=== PATIENT | female | born 1955 | race Caucasian/White ===

== ENCOUNTER → 2017-08-06 09:38 | Outpatient (REF) | payer MEDICAID, SELFPAY ==
[2017-08-06 09:43] LABS: Microscopic, Urine URINE MICROSCOPIC (MICROSCOPIC)
[2017-08-06 09:52] LABS: Appearance,Urine SL CLOUDY (Clear); Bilirubin,Urine Negative (Negative); Blood, Urine TRACE-I (Negative); Color,Urine YELLOW (Yellow); Glucose,Urine (UA) Negative (Negative); Ketones,Urine Negative (Negative); Leukocyte Esterase,Urine Negative (Negative); Nitrate,Urine Negative (Negative); PH,Urine 7.5 (5.0-8.5); Protein,Urine Negative (Negative)
[2017-08-06 10:07] LABS: Bacteria,Urine 3+ /lpf; RBC,Urine Occasional #/hpf (0-3)
== END ==
LOC: LAB 09:38
PROVIDERS: Visit Provider Internal Medicine
DX: E87.1 Hypo-osmolality and hyponatremia (principal)
CPT/HCPCS: 81001; 87086

== ENCOUNTER → 2017-09-05 07:48 | Outpatient (CLI) | payer MEDICAID, SELFPAY ==
--- NOTE | 2017-09-05 07:53 | US_ITS ---
US abdomen limited COMPARISON: 03/15/2017 HISTORY:Cirrhosis ORDERING PHYSICIAN: Wade Griffin PATIENT AGE: 61 years FINDINGS: Pancreas: Unremarkable. Liver: Course echogenicity consistent with cirrhosis. No biliary dilatation or focal mass apparent. There is appropriate direction of blood flow within the portal vein. The portal vein measures 10 mm. Right kidney: Unremarkable. Gallbladder: Mildly thickened wall. No stones, pericholecystic fluid or biliary dilatation. Gallbladder wall measures proximal reformatted millimeters. IMPRESSION: 1. Coarse echogenic appearance of the liver consistent with cirrhosis. Appropriate directional portal blood flow. Portal vein does not appear enlarged. 2. Mildly thickened gallbladder wall nonspecific
== END ==
PROVIDERS: Family Provider Emergency Medicine; PCP Internal Medicine; Visit Provider Internal Medicine
DX: K74.60 Unspecified cirrhosis of liver (principal)
CPT/HCPCS: 76705

== ENCOUNTER 2017-11-13 11:14 | Inpatient (IN) ==
[2017-11-13 12:10] LABS: Basophils % 0.5 % (0.1-2.0); Eosinophils # 0.1 K/mm3 (0.0-0.4); Eosinophils % 1.6 % (0.1-12.0); Hematocrit 49.6 % (37.0-47.0); Hemoglobin 15.1 g/dL (12.2-16.2); Lymphocytes # 2.3 K/mm3 (0.7-4.5); Lymphocytes % 39.6 K/mm3 (10-50); Mean Corpuscular HGB Conc 30.4 g/dL (31.8-35.4); Mean Corpuscular Hemoglobin 28.8 pg (27.0-31.2); Mean Platelet Volume 8.4 fl (7.4-10.4); Monocytes # 0.5 K/mm3 (0.1-1.0); Monocytes % 7.7 % (1.7-9.3); Neutrophils % 50.6 % (37.0-80.0); Platelet Count 118 K/mm3 (142-424); Red Blood Count 5.22 M/mm3 (4.20-5.40); Red Cell Distribution Width 15.8 % (11.5-17.5); White Blood Count 5.9 K/mm3 (4.8-10.8)
[2017-11-13 12:22] LABS: Albumin Level 2.4 gm/dL (3.4-5.0); Albumin/Globulin Ratio 0.5 (1.1-1.8); Anion Gap 4.3 mEq/L (5-15); Bilirubin,Total 0.4 mg/dL (0.2-1.0); Calcium 8.4 mg/dL (8.5-10.1); Globulin 4.8 gm/dl (1.3-3.2); Potassium 4.3 mmoL/L (3.5-5.1); Total Protein,Serum 7.2 gm/dL (6.4-8.2)
--- NOTE | 2017-11-13 13:00 | Emergency Department Note ---
ED Disposition Clinical Impression: Acute exacerbation of chronic obstructive airways disease Disposition: Admitted as Observation Condition on Discharge: Fair - Critical Care Critical Care Time: Yes Attestation: On 11/13/17, the high probability of a clinically significant, sudden or life threatening deterioration of the following system(s) required my full and direct attention, intervention and personal management. The time I documented below is in addition to time spent performing reported procedures but includes the following listed in this critical care notation. Total Critical Care Time: 35 Vital system(s) involved:: Respiratory Failure My critical care processes included: Assessment & monitoring of V/S, Initial and Re-exams, Data Review/Interpretation, Coordinating Care, Medication Orders and management, Documentation Medical Decision Making - Yonathan Inquiry Pt receiving controlled substance: No Vital Signs: 11/13/17 11:15 11/13/17 13:46 Temperature 99.2 F 98.0 F Temperature Source Temporal Artery Scan Axillary Pulse Rate [Left Radial] 53 L 74 Respiratory Rate 20 20 Blood Pressure [Right Arm] 160/100 124/53 Blood Pressure Mean [Right Arm] 120 76 Blood Pressure Source [Right Arm] Automatic Cuff Automatic Cuff Blood Pressure Position [Right Arm] Supine Supine 02 Sat by Pulse Oximetry 90 L 89 L Oxygen Delivery Method Room Air BiPAP - Lab Data Lab Results 11/13/17 12:00: WBC 5.9, RBC 5.22, Hgb 15.1, Hct 49.6 H, MCV 95.0, MCH 28.8, MCHC 30.4 L, RDW 15.8, Plt Count 118 L, MPV 8.4, Neut % (Auto) 50.6, Lymph % ( Auto) 39.6, [place] % (Auto) 7.7, Eos % (Auto) 1.6, Baso % (Auto) 0.5, Neut # (Auto ) 3.0, Lymph # (Auto) 2.3, [place] # (Auto) 0.5, Eos # (Auto) 0.1, Baso # (Auto) 0.0 11/13/17 12:00: Sodium 139, Potassium 4.3, Chloride 102, Carbon Dioxide 37 H, Anion Gap 4.3 L, BUN 10, Creatinine 0.61, Estimated Creat Clear 106, Estimated GFR 100, Est GFR ( Amer) 121, Glucose 159 H, Calcium 8.4 L, Total Bilirubin 0.4, AST 61 H, ALT 54, Alkaline Phosphatase 177 H, Total Protein 7.2, Albumin 2.4 L, Globulin 4.8 H, Albumin/Globulin Ratio 0.5 L 11/13/17 14:49: Specimen Source L brachial, O2 % 3lpm, ABG pH 7.30 L, ABG pCO2 68.4 H, ABG pO2 114.7 H, ABG HCO3 33.0 H, ABG Total CO2 35.1 H, ABG O2 Saturation 98, ABG Base Excess 6.6 H, Gary Test N/a 11/13/17 15:09: Lactic Acid 1.0 Result diagrams: 11/13/17 12:00 11/13/17 12:00 Orders (Tests/Meds): ED MEDICATIONS Generic Name Dose Route Start Last Admin Trade Name Freq PRN Reason Stop Dose Admin Acetaminophen 650 mg 11/13/17 16:46 Acetaminophen 325mg Tab PO 12/13/17 16:45 Q4HP PRN As Needed for Fever or Pain Albuterol/Ipratropium 3 ml 11/13/17 20:00 11/13/17 19:10 Duoneb 3ml Neb IH 12/13/17 19:59 3 ml QIDRT ERNESTO Administration Cefepime HCl 2 gm/ Sodium 100 mls @ 200 mls/hr 11/14/17 04:30 Chloride IV 11/27/17 16:29 Q12H ERNESTO Protocol Vancomycin HCl 1,000 mg/ 250 mls @ 125 mls/hr 11/13/17 19:00 11/13/17 19:42 Sodium Chloride IV 11/27/17 18:59 125 mls/hr Q24H ERNESTO Administration Levofloxacin/Dextrose 750 mg in 150 mls @ 100 mls/hr 11/13/17 17:00 11/13/17 17:38 Levofloxacin 750mg/150ml Premix IV 11/27/17 16:59 100 mls/hr Q48H ERNESTO Administration Protocol Methylprednisolone Sodium Succinate 80 mg 11/13/17 16:46 11/13/17 17:38 Solu-Medrol 125mg/2ml Vial IV 12/13/17 16:45 80 mg Q8H ERNESTO Administration Miscellaneous 1 each 11/13/17 16:46 11/13/17 17:03 Vancomycin Consult Request NOTAPPLIC 11/13/17 16:47 Not Given CONSULT PHARMACY ONE Discontinued Medications Generic Name Dose Route Start Last Admin Trade Name Maged PRN Reason Stop Dose Admin Albuterol/Ipratropium 3 ml 11/13/17 20:00 Duoneb 3ml Neb IH 12/13/17 19:59 QIDRT ERNESTO Cefepime HCl 2 gm/ Sodium 100 mls @ 200 mls/hr 11/13/17 16:30 11/13/17 17:02 Chloride IV 11/27/17 16:29 Not Given Q12H ERNESTO Protocol Levofloxacin/Dextrose 750 mg in 150 mls @ 100 mls/hr 11/13/17 16:30 11/13/17 17:02 Levofloxacin 750mg/150ml Premix IV 11/27/17 16:29 Not Given Q24H ERNESTO Protocol Vancomycin HCl 1,000 mg/ 250 mls @ 125 mls/hr 11/13/17 19:00 Sodium Chloride IV 11/27/17 18:59 Q24H ERNESTO Levofloxacin/Dextrose 750 mg in 150 mls @ 100 mls/hr 11/13/17 17:00 Levofloxacin 750mg/150ml Premix IV 11/27/17 16:59 Q48H ERNESTO Protocol Methylprednisolone Sodium Succinate 125 mg 11/13/17 15:24 11/13/17 17:01 Solu-Medrol 125mg/2ml Vial IV 11/13/17 15:25 Not Given ONCE ONE Miscellaneous 1 each 11/13/17 16:16 11/13/17 17:02 Vancomycin Consult Request NOTAPPLIC 11/13/17 16:17 Not Given CONSULT PHARMACY ONE ORDERS Category Date Time Status Blood Culture Stat Micro 11/13/17 19:40 Received Arterial Blood Gas Timed RT 11/13/17 20:00 Ordered - Radiology Data #1 Image(s): Chest Image Reviewed: Yes I have reviewed radiologist's interpretation Increased density in the right perihilar and right midlung region consistent with atelectasis or infiltrate. Mild prominence of the right hilum. General Adult HPI - General Chief complaint: Shortness of Breath/Dyspnea Stated complaint: shortness of air Time Seen by Provider: 11/13/17 12:15 Mode of Arrival: EMS Limitations: Physical Limitations Description of Symptoms (Recalled from ER Triage Doc. by RN): Staff states that pt may have aspirated 4 days ago since she has had rhonchi and fevers. Pt is bedridden. - History of Present Illness HPI narrative: Patient brought in by ambulance from [facility]. EMS gave verbal report to our nursing staff that the patient has had fevers and rhonchi for 4 days. Staff at [facility] suspected aspiration pneumonia. They documented vitals prior to transfer as a temperature of 98.3 and a pulse ox of 88%. The patient has a history of acute and chronic respiratory failure and asthma documented on her [facility] transfer sheets. Patient answers questions but does not appear to give a reliable history. - Related Data Home Medications Medication Instructions Recorded Confirmed Ascorbic Acid [Vitamin C] 1,000 mg PO DAILY 11/13/17 11/13/17 Aspirin [Aspirin 81mg chewable 81 mg PO DAILY 11/13/17 11/13/17 tab] Benztropine Mesylate 0.5 mg PO DAILY 11/13/17 11/13/17 Benztropine Mesylate [Cogentin 1mg 1 mg PO DAILY 11/13/17 11/13/17 tablet] Carvedilol [Carvedilol 25mg Tab] 25 mg PO BID 11/13/17 11/13/17 Cholecalciferol (Vitamin D3) 2,000 unit PO DAILY 11/13/17 11/13/17 [Vitamin D3] Divalproex Sodium 250 mg PO BID 11/13/17 11/13/17 Fluticasone Propionate [Flonase 1 spr NS DAILY 11/13/17 11/13/17 50mcg nasal spray 16gm] Hydrocod/Acet 5/325 mg [[place] 1 each PO TID 11/13/17 11/13/17 5/325mg tablet] Isosorbide Dinitrate [Isordil 20mg 20 mg PO TID 11/13/17 11/13/17 tablet] Lactulose [Lactulose 10gm/15ml 20 gm PO DAILY 11/13/17 11/13/17 Oral Soln] Levothyroxine Sodium 75 mcg PO DAILY 11/13/17 11/13/17 [Levothyroxine 75mcg (0.075mg) Tab] Potassium Chloride [Klor-Con 10mEq 10 meq PO DAILY 11/13/17 11/13/17 tab] Pravastatin Sodium [Pravachol] 40 mg PO DAILY 11/13/17 11/13/17 Rifaximin [Xifaxan] 550 mg PO BID 11/13/17 11/13/17 Sodium Chloride 3 gm PO TID 11/13/17 11/13/17 Venlafaxine HCl 75 mg PO TID 11/13/17 11/13/17 clonazePAM [Clonazepam] 0.25 mg PO TID 11/13/17 11/13/17 risperiDONE [Risperidone] 2 mg PO BID 11/13/17 11/13/17 Allergies Allergy/AdvReac Type Severity Reaction Status Date / Time haloperidol [HALOPERIDOL] Allergy Unknown Verified 11/13/17 17:00 metronidazole [From Flagyl] Allergy Unknown Verified 11/13/17 17:56 molindone Allergy Unknown Verified 11/13/17 17:56 paroxetine Allergy Unknown Verified 11/13/17 17:56 Penicillins [PENICILLINS] Allergy Unknown Verified 11/13/17 17:00 phenacaine Allergy Unknown Verified 11/13/17 17:00 Sulfa (Sulfonamide Allergy Unknown Verified 11/13/17 17:56 Antibiotics) triazolam [From Halcion] Allergy Unknown Verified 11/13/17 17:56 KIWI Allergy Unknown I-HIVES Uncoded 07/16/17 14:00 RASPBERRY (FOOD) Allergy Unknown I-HIVES Uncoded 07/16/17 14:00 [facility] History I have reviewed the patient's past medical history: Yes Medical History: Denies:: Cancer, Diabetes Mellitus Type 1, Diabetes Mellitus Type 2, Internal Pacemaker, MRSA Other Surgeries: No: Pacemaker Amputation: No - Social History Smoking Status: Former smoker Tobacco Type: cigarettes Alcohol Intake: never - Psychiatric History Expresses thoughts of harming self/others: None Suicide Plan Description: No Plan ROS Obtained: Yes unobtainable due to mental condition Physical Exam - General General appearance: other Comment: Sleeping, but when awakened speech is clear and appears alert and answers questions. - Head Head exam: atraumatic, normocephalic, normal inspection - Eye Eye exam: Present: normal appearance, PERRL, EOMI - ENT ENT exam: Present: normal exam, normal oropharynx, mucous membranes moist, TM's normal bilaterally, normal external ear exam - Neck Neck exam: Present: normal inspection, full ROM, trachea midline. Absent: meningismus, lymphadenopathy - Chest Chest inspection: Present: normal inspection, symmetric chest wall rise. Absent : tenderness - Respiratory Respiratory exam: Present: normal lung sounds bilaterally. Absent: respiratory distress - Cardiovascular Cardiovascular exam: Present: regular rate, normal rhythm. Absent: JVD - Abdominal Exam Abdominal exam: Present: soft, normal bowel sounds. Absent: distention, tenderness, guarding - Extremities Exam Extremities exam: Present: normal inspection, full ROM, normal capillary refill. Absent: calf tenderness - Back Exam Back exam: Present: normal inspection. Absent: tenderness - Neurological Exam Neurological exam: Present: alert, CN II-XII intact. Absent: motor sensory deficit - Psychiatric Psychiatric exam: Present: normal affect, normal mood - Skin Skin exam: Present: warm, dry, intact, normal color
[2017-11-13 14:51] LABS: ABG Base Excess 6.6 mmol/L (-2.4-2.3); ABG Oxygen Saturation 98 % (90-100); ABG PO2 114.7 mmhg (80-100); ABG TCO2 35.1 mmhg (23-27)
[2017-11-13 15:20] LABS: Oxygen 3LPM %
[2017-11-13 15:21] LABS: ABG PCO2 68.4 mmhg (35.0-45.0)
--- NOTE | 2017-11-13 16:41 | Pharmacy Consult Notes ---
- Pharmacy Consult Date: 11/13/17 Time: 16:39 Referring provider: DR. PYLE Reason for Consult:: VANCOMYCIN DOSING Allergies and ADEs:: Allergies Allergy/AdvReac Type Severity Reaction Status Date / Time haloperidol [HALOPERIDOL] Allergy Unknown Unverified 07/16/17 14:00 Penicillins [PENICILLINS] Allergy Unknown Unverified 07/16/17 14:00 phenacaine Allergy Unknown Unverified 07/16/17 14:00 KIWI Allergy Unknown I-HIVES Uncoded 07/16/17 14:00 RASPBERRY (FOOD) Allergy Unknown I-HIVES Uncoded 07/16/17 14:00 Home Medications:: Home Medications Medication Instructions Recorded Confirmed Type Unobtainable [Unobtainable] 11/13/17 11/13/17 History Height: 1.55 m Weight: 48.79 kg Laboratory Results:: Laboratory Results - last 24 hr 11/13/17 14:49: Specimen Source L brachial, O2 % 3lpm, ABG pH 7.30 L, ABG pCO2 68.4 H, ABG pO2 114.7 H, ABG HCO3 33.0 H, ABG Total CO2 35.1 H, ABG O2 Saturation 98, ABG Base Excess 6.6 H, Gary Test N/a 11/13/17 15:09: Lactic Acid 1.0 Medical History: Denies:: Cancer, Diabetes Mellitus Type 1, Diabetes Mellitus Type 2, Internal Pacemaker, MRSA Assessment and Plan - Assessment and plan all Dx Assessment and Plan for all problems:: DOSE AT VANCOMYCIN 1000 MG Q24. PHARMACY WILL FOLLOW DAILY AND ADJUST APPROPRIATE. LUCA VELASQUEZ, AKSHATD
--- NOTE | 2017-11-13 17:53 | History & Physical Report ---
*Admission Date: 11/13/17 *Chief complaint: Respiratory distress, lethargy *History of present illness: 61-year-old white female, resident of local [facility], afflicted with psychiatric disease, morbid obesity and emphysema who was brought to the emergency department with respiratory failure, cough and mental status changes. Found to be hypercapnic and afflicted with healthcare acquired pneumonia, placed on BiPAP and transferred up to second floor. [facility] History Medical History: Reports:: Anxiety, Chronic Obstructive Pulmonary Disease (COPD) Denies:: Cancer, Diabetes Mellitus Type 1, Diabetes Mellitus Type 2, Internal Pacemaker, MRSA Comment: Significant record deficit with no records from [facility] Other Surgeries: No: Pacemaker Amputation: No - *Social History Smoking Status: Former smoker Tobacco Type: cigarettes Alcohol Intake: never - Psychiatric History Expresses thoughts of harming self/others: None Suicide Plan Description: No Plan Meds Home Medications Medication Instructions Recorded Confirmed Type Unobtainable [Unobtainable] 11/13/17 11/13/17 History Allergies Allergy/AdvReac Type Severity Reaction Status Date / Time haloperidol [HALOPERIDOL] Allergy Unknown Verified 11/13/17 17:00 Penicillins [PENICILLINS] Allergy Unknown Verified 11/13/17 17:00 phenacaine Allergy Unknown Verified 11/13/17 17:00 KIWI Allergy Unknown I-HIVES Uncoded 07/16/17 14:00 RASPBERRY (FOOD) Allergy Unknown I-HIVES Uncoded 07/16/17 14:00 Exam Vital signs and Labs for Last 24 Hours: Temp Pulse Resp BP Pulse Ox 98.8 F 58 L 20 170/118 89 L 11/13/17 17:33 11/13/17 17:33 11/13/17 17:33 11/13/17 17:33 11/13/17 13:46 Narrative: Patient is alert, oriented to self only. Very pleasant and confused, eating vigorously. Lungs have rhonchi in both anterior lung kelly, heart rate regular. Abdomen is obese but soft. Extremities are warm and well-perfused. Assessment and Plan (1) Pneumonia Current visit: Yes Status: Acute Category: Medical Code(s): J18.9 - Pneumonia, unspecified organism (2) Respiratory insufficiency Current visit: Yes Status: Acute Category: Medical Code(s): R06.89 - Other abnormalities of breathing (3) Acute exacerbation of chronic obstructive airways disease Current visit: Yes Status: Acute Category: Medical Code(s): J44.1 - Chronic obstructive pulmonary disease with (acute) exacerbation - Assessment and plan all Dx Assessment and Plan for all problems:: Agree with admission for IV antibiotics. Patient currently does not wish to have BiPAP on and is active and alert. If she becomes more somnolent will use this as needed. Currently record deficit in regards to admission medications and records from the [facility], address this as records are available.
[2017-11-13 23:27] LABS: ABG Base Excess 10.3 mmol/L (-2.4-2.3); ABG HCO3 35.8 mmhg (22.0-26.0); ABG Oxygen Saturation 95 % (90-100); ABG PH 7.36 mmol/L (7.35-7.45); ABG PO2 77.5 mmhg (80-100); ABG TCO2 37.8 mmhg (23-27)
[2017-11-13 23:29] LABS: Oxygen 25 %
[2017-11-13 23:30] LABS: Allen's Test Non Applicable
[2017-11-13 23:33] LABS: ABG PCO2 65.2 mmhg (35.0-45.0)
--- NOTE | 2017-11-14 07:08 | Progress Note ---
Internal Medicine - PN: Subj *Date: 11/14/17 *Time: 07:06 Interval history: Patient has no new complaints this morning. BiPAP is in place and she has been wearing this over the night although has requests removal. Patient did tolerate a brief episode of use of nasal cannula oxygen while she ate some ice cream. She denies shortness of breath. She does admit to a cough. She does not use oxygen on a 24-hour basis at the alf but tells me she does use nebulizers and inhalers. She has not had any fevers Exam Vital signs and Labs for Last 24 Hours: Temp Pulse Resp BP Pulse Ox 97.2 F L 60 20 179/64 92 L 11/14/17 04:00 11/14/17 06:16 11/14/17 04:00 11/14/17 04:00 11/14/17 06:16 Laboratory Results - last 24 hr 11/13/17 23:24: Specimen Source Right brachial, O2 % 25, ABG pH 7.36, ABG pCO2 65.2 H, ABG pO2 77.5 L, ABG HCO3 35.8 H, ABG Total CO2 37.8 H, ABG O2 Saturation 95, ABG Base Excess 10.3 H, Gary Test Non applicable, PEEP 8 I & O for Last 24 hours: Intake & Output 11/11/17 11/12/17 11/13/17 11/14/17 11:59 11:59 11:59 11:59 Intake Total 860 / 860 Balance 860 / 860 Weight 248 lb 3 oz Narrative: She awakens easily. BiPAP is in place. Heart has a regular rate and rhythm. Lungs have bilateral rhonchi. No focal rales are auscultated. Extremities are without edema Assessment and Plan (1) Pneumonia Current visit: Yes Status: Acute Category: Medical Code(s): J18.9 - Pneumonia, unspecified organism (2) Respiratory insufficiency Current visit: Yes Status: Acute Category: Medical Code(s): R06.89 - Other abnormalities of breathing (3) Acute exacerbation of chronic obstructive airways disease Current visit: Yes Status: Acute Category: Medical Code(s): J44.1 - Chronic obstructive pulmonary disease with (acute) exacerbation - Assessment and plan all Dx Assessment and Plan for all problems:: 1. Continue treatment for COPD exacerbation with acute respiratory failure as well as healthcare acquired pneumonia. 2. Repeat chest x-ray today 3. Wean BiPAP as tolerated
--- NOTE | 2017-11-14 07:36 | Pharmacy Consult Notes ---
[facility] Pharmacy VTE Monitoring - Patient Demographics Admission date: 11/13/17 Report Date: 11/14/17 Time: 07:35 Allergies/Adverse Reactions: Patient Allergies haloperidol [HALOPERIDOL] Allergy (Unknown, Verified 11/13/17 17:00) metronidazole [From Flagyl] Allergy (Unknown, Verified 11/13/17 17:56) molindone Allergy (Unknown, Verified 11/13/17 17:56) paroxetine Allergy (Unknown, Verified 11/13/17 17:56) Penicillins [PENICILLINS] Allergy (Unknown, Verified 11/13/17 17:00) phenacaine Allergy (Unknown, Verified 11/13/17 17:00) Sulfa (Sulfonamide Antibiotics) Allergy (Unknown, Verified 11/13/17 17:56) triazolam [From Halcion] Allergy (Unknown, Verified 11/13/17 17:56) KIWI Allergy (Unknown, Uncoded 07/16/17 14:00) I-HIVES RASPBERRY (FOOD) Allergy (Unknown, Uncoded 07/16/17 14:00) I-HIVES Height: 1.73 m Weight: 112.576 kg Patient Problems: Current Active Problems Acute exacerbation of chronic obstructive airways disease (Acute) Pneumonia (Acute) Respiratory insufficiency (Acute) - VTE Risk Labs: VTE Related Lab Results Hgb 15.1 g/dL (12.2-16.2) 11/13/17 12:00 Hct 49.6 % (37.0-47.0) H 11/13/17 12:00 Plt Count 118 K/mm3 (142-424) L 11/13/17 12:00 BUN 10 mg/dL (7-18) 11/13/17 12:00 Creatinine 0.61 mg/dL (0.55-1.02) 11/13/17 12:00 Estimated Creat Clear 106 mL/min (0-300) 11/13/17 12:00 VTE Score: 6 VTE Risk Level: Moderate Risk - Prophylaxis VTE Prophylaxis Ordered?: Yes Types of VTE Prophylaxis: TEDS Knee High Location of Applied Device: Bilateral Lower Extremeties - VTE Diagnosis Confirmed Treatment or plan recommended: Continue Current Treatment
--- NOTE | 2017-11-14 09:48 | Pharmacy Consult Notes ---
- Pharmacy Consult Date: 11/14/17 Time: 09:47 Referring provider: DR. PYLE Reason for Consult:: VANCOMYCIN DOSE CHANGE Allergies and ADEs:: Allergies Allergy/AdvReac Type Severity Reaction Status Date / Time haloperidol [HALOPERIDOL] Allergy Unknown Verified 11/13/17 17:00 metronidazole [From Flagyl] Allergy Unknown Verified 11/13/17 17:56 molindone Allergy Unknown Verified 11/13/17 17:56 paroxetine Allergy Unknown Verified 11/13/17 17:56 Penicillins [PENICILLINS] Allergy Unknown Verified 11/13/17 17:00 phenacaine Allergy Unknown Verified 11/13/17 17:00 Sulfa (Sulfonamide Allergy Unknown Verified 11/13/17 17:56 Antibiotics) triazolam [From Halcion] Allergy Unknown Verified 11/13/17 17:56 KIWI Allergy Unknown I-HIVES Uncoded 07/16/17 14:00 RASPBERRY (FOOD) Allergy Unknown I-HIVES Uncoded 07/16/17 14:00 Home Medications:: Home Medications Medication Instructions Recorded Confirmed Type Ascorbic Acid [Vitamin C] 1,000 mg PO DAILY 11/13/17 11/13/17 History Aspirin [Aspirin 81mg chewable 81 mg PO DAILY 11/13/17 11/13/17 History tab] Benztropine Mesylate 0.5 mg PO DAILY 11/13/17 11/13/17 History Benztropine Mesylate [Cogentin 1mg 1 mg PO DAILY 11/13/17 11/13/17 History tablet] Carvedilol [Carvedilol 25mg Tab] 25 mg PO BID 11/13/17 11/13/17 History Cholecalciferol (Vitamin D3) 2,000 unit PO DAILY 11/13/17 11/13/17 History [Vitamin D3] Divalproex Sodium 250 mg PO BID 11/13/17 11/13/17 History Fluticasone Propionate [Flonase 1 spr NS DAILY 11/13/17 11/13/17 History 50mcg nasal spray 16gm] Hydrocod/Acet 5/325 mg [[place] 1 each PO TID 11/13/17 11/13/17 History 5/325mg tablet] Isosorbide Dinitrate [Isordil 20mg 20 mg PO TID 11/13/17 11/13/17 History tablet] Lactulose [Lactulose 10gm/15ml 20 gm PO DAILY 11/13/17 11/13/17 History Oral Soln] Levothyroxine Sodium 75 mcg PO DAILY 11/13/17 11/13/17 History [Levothyroxine 75mcg (0.075mg) Tab] Potassium Chloride [Klor-Con 10mEq 10 meq PO DAILY 11/13/17 11/13/17 History tab] Pravastatin Sodium [Pravachol] 40 mg PO DAILY 11/13/17 11/13/17 History Rifaximin [Xifaxan] 550 mg PO BID 11/13/17 11/13/17 History Sodium Chloride 3 gm PO TID 11/13/17 11/13/17 History Venlafaxine HCl 75 mg PO TID 11/13/17 11/13/17 History clonazePAM [Clonazepam] 0.25 mg PO TID 11/13/17 11/13/17 History risperiDONE [Risperidone] 2 mg PO BID 11/13/17 11/13/17 History Height: 1.73 m Weight: 112.576 kg Laboratory Results:: Laboratory Results - last 24 hr 11/13/17 23:24: Specimen Source Right brachial, O2 % 25, ABG pH 7.36, ABG pCO2 65.2 H, ABG pO2 77.5 L, ABG HCO3 35.8 H, ABG Total CO2 37.8 H, ABG O2 Saturation 95, ABG Base Excess 10.3 H, Gary Test Non applicable, PEEP 8 Medical History: Reports:: Anxiety, Chronic Obstructive Pulmonary Disease (COPD) Denies:: Cancer, Diabetes Mellitus Type 1, Diabetes Mellitus Type 2, Internal Pacemaker, MRSA Assessment and Plan (1) Pneumonia Current visit: Yes Status: Acute Category: Medical Code(s): J18.9 - Pneumonia, unspecified organism (2) Respiratory insufficiency Current visit: Yes Status: Acute Category: Medical Code(s): R06.89 - Other abnormalities of breathing (3) Acute exacerbation of chronic obstructive airways disease Current visit: Yes Status: Acute Category: Medical Code(s): J44.1 - Chronic obstructive pulmonary disease with (acute) exacerbation - Assessment and plan all Dx Assessment and Plan for all problems:: PATIENT'S REPORTED WEIGHT HAS CHANGED FROM 48 KG TO 112.5 KG. VANCOMYCIN DOSE HAS BEEN CHANGED TO VANCOMYCIN 2 GM IV Q12H.
--- NOTE | 2017-11-15 08:45 | Discharge Summary ---
General - General Admission date: 11/13/17 Discharge date: 11/15/17 HPI HPI: 61-year-old white female, resident of local retirement, afflicted with psychiatric disease, morbid obesity and emphysema who was brought to the emergency department with respiratory failure, cough and mental status changes. Found to be hypercapnic and afflicted with healthcare acquired pneumonia, placed on BiPAP and transferred up to second floor. Hospital Course Hospital Course: Patient was admitted, placed on BiPAP and good control of hypercapnia was obtained, the patient improved very nicely. After she was more alert she removed her BiPAP machine and refused to wear this anymore. She was placed on 2-3 L nasal cannula and maintained her saturations and alertness level on this. She was continued on broad-spectrum antibiotics until sputum cultures and blood cultures have been negative. This morning she seems back to her baseline. Plan will be to transfer her back to the [facility] to finish up around levofloxacin. She will continue her regimen of oxygen, inhalers and pulmonary toilet. Objective Vital signs: Temp Pulse Resp BP Pulse Ox 98.4 F 73 20 180/90 97 11/15/17 03:40 11/15/17 06:20 11/15/17 03:40 11/15/17 03:40 11/15/17 06:20 Narrative: Patient is alert, oriented 1, this is her baseline given her underlying schizophrenia disorder. Her lungs have good air movement with mild rhonchi, heart rate is regular. Her abdomen is soft. She is able to move all of her extremities. Results Labs on day of discharge: Preliminary micro results at discharge 11/14/17 15:45 Sputum Culture - Preliminary Sputum - Expectorated Sputum 11/13/17 19:40 Blood Culture - Preliminary Blood NO GROWTH AFTER 24 HOURS 11/13/17 19:40 Blood Culture - Preliminary Blood NO GROWTH AFTER 24 HOURS DS: Diagnosis - Discharge Diagnosis (1) Pneumonia Status: Acute (2) Respiratory insufficiency Status: Acute (3) Acute exacerbation of chronic obstructive airways disease Status: Acute Discharge Plan - Patient Discharge Instructions ACTIVITY: Continue current activity DIET: continue same diet Patient Instructions: Pneumonia-Adult, Chronic Obstructive Pulmonary Disease - Follow up Plan Follow up with: [facility] [Referring] - Disposition: Xfer Intermediate Care [facility] Home Medications: Home Medications Medication Instructions Recorded Confirmed Type Ascorbic Acid [Vitamin C] 1,000 mg PO DAILY 11/13/17 11/13/17 History Aspirin [Aspirin 81mg chewable 81 mg PO DAILY 11/13/17 11/13/17 History tab] Benztropine Mesylate 0.5 mg PO DAILY 11/13/17 11/13/17 History Benztropine Mesylate [Cogentin 1mg 1 mg PO HS 11/13/17 11/14/17 History tablet] Carvedilol [Carvedilol 25mg Tab] 25 mg PO BID 11/13/17 11/13/17 History Cholecalciferol (Vitamin D3) 2,000 unit PO DAILY 11/13/17 11/13/17 History [Vitamin D3] Divalproex Sodium 250 mg PO BID 11/13/17 11/13/17 History Fluticasone Propionate [Flonase 1 spr NS DAILY 11/13/17 11/13/17 History 50mcg nasal spray 16gm] Hydrocod/Acet 5/325 mg [[place] 1 each PO TID 11/13/17 11/13/17 History 5/325mg tablet] Isosorbide Dinitrate [Isordil 20mg 20 mg PO TID 11/13/17 11/13/17 History tablet] Lactulose [Lactulose 10gm/15ml 20 gm PO DAILY 11/13/17 11/13/17 History Oral Soln] Levothyroxine Sodium 75 mcg PO DAILY 11/13/17 11/13/17 History [Levothyroxine 75mcg (0.075mg) Tab] Potassium Chloride [Klor-Con 10mEq 10 meq PO DAILY 11/13/17 11/13/17 History tab] Pravastatin Sodium [Pravachol] 40 mg PO HS 11/13/17 11/14/17 History Rifaximin [Xifaxan] 550 mg PO BID 11/13/17 11/13/17 History Sodium Chloride 3 gm PO TID 11/13/17 11/13/17 History Venlafaxine HCl 75 mg PO TID 11/13/17 11/13/17 History clonazePAM [Clonazepam] 0.25 mg PO TID 11/13/17 11/13/17 History risperiDONE [Risperidone] 2 mg PO BID 11/13/17 11/13/17 History Calcium Carbonate [Tums 500mg 500 mg PO DAILY 11/14/17 11/14/17 History chewtab] Polyethylene Glycol 3350 [Miralax 17 gm PO DAILY 11/14/17 11/14/17 History 17gm Packet] Prescriptions/Medication Reconciliation: New levoFLOXacin [Levaquin 500mg tab] 500 mg PO DAILY #7 tab Continue Pravastatin Sodium [Pravachol] 40 mg PO HS Potassium Chloride [Klor-Con 10mEq tab] 10 meq PO DAILY Fluticasone Propionate [Flonase 50mcg nasal spray 16gm] 1 spr NS DAILY Divalproex Sodium 250 mg PO BID clonazePAM [Clonazepam] 0.25 mg PO TID Carvedilol [Carvedilol 25mg Tab] 25 mg PO BID Benztropine Mesylate 0.5 mg PO DAILY Benztropine Mesylate [Cogentin 1mg tablet] 1 mg PO HS Aspirin [Aspirin 81mg chewable tab] 81 mg PO DAILY Sodium Chloride 3 gm PO TID risperiDONE [Risperidone] 2 mg PO BID Ascorbic Acid [Vitamin C] 1,000 mg PO DAILY Rifaximin [Xifaxan] 550 mg PO BID Polyethylene Glycol 3350 [Miralax 17gm Packet] 17 gm PO DAILY Hydrocod/Acet 5/325 mg [[place] 5/325mg tablet] 1 each PO TID Isosorbide Dinitrate [Isordil 20mg tablet] 20 mg PO TID Lactulose [Lactulose 10gm/15ml Oral Soln] 20 gm PO DAILY Levothyroxine Sodium [Levothyroxine 75mcg (0.075mg) Tab] 75 mcg PO DAILY Venlafaxine HCl 75 mg PO TID Cholecalciferol (Vitamin D3) [Vitamin D3] 2,000 unit PO DAILY Calcium Carbonate [Tums 500mg chewtab] 500 mg PO DAILY
[2017-11-15 09:09] VITALS: BP 182/79
[2018-02-19 09:20] LABS: Tidal Volume 14/8
== END 2017-11-15 12:00 | disposition home or self-care (01) ==
LOC: 2ND 11:14 → ER 11:14 → 2ND 13:55 → OBSVTOIN 17:07 → 2ND 17:10
PROVIDERS: ADMIT Internal Medicine Adolescent Medicine; ATTEND Internal Medicine Adolescent Medicine

== ENCOUNTER → 2018-03-25 08:30 | Outpatient (CLI) | payer MEDICAID, SELFPAY ==
--- NOTE | 2018-03-25 09:00 | US_ITS ---
US liver HISTORY: Hepatitis C ITS.REASON: CIRRHOSIS ORDERING PHYSICIAN: Chito Archibald MD PATIENT AGE: 62 years COMPARISON: None FINDINGS: PANCREAS:Unremarkable. No obvious mass or abnormal fluid collection. No ductal dilatation LIVER:Liver has somewhat heterogeneous echogenicity which is seen with cirrhosis. No focal liver lesions or biliary dilatation is evident. Portal vein is upper limits of normal at 14 mm. Doppler evaluation of the portal vein not demonstrated. RIGHT KIDNEY:Unremarkable. Normal size and echogenicity. No hydronephrosis GALLBLADDER:Gallbladder wall is thickened with a small amount of pericholecystic fluid. Gallbladder wall measures up to 6 mm. No shadowing stones. No biliary dilatation. IMPRESSION: 1. Heterogeneous echogenicity of the liver which may be seen with cirrhosis. Portal vein is upper limits of normal 2. Thickened gallbladder wall with small amount of pericholecystic fluid
== END ==
PROVIDERS: Family Provider Emergency Medicine; PCP Emergency Medicine; Visit Provider Emergency Medicine
DX: K74.60 Unspecified cirrhosis of liver (principal)
CPT/HCPCS: 76705

== ENCOUNTER 2018-03-28 09:49 | Inpatient (IN) ==
--- NOTE | 2018-03-28 10:11 | Emergency Department Note ---
ED Disposition Clinical Impression: Chest pain Disposition: Still a Patient Condition on Discharge: Good Referrals: Chito Archibald MD [Primary Care Provider] - - Critical Care Critical Care Time: No Attestation: On , the high probability of a clinically significant, sudden or life threatening deterioration of the following system(s) required my full and direct attention, intervention and personal management. The time I documented below is in addition to time spent performing reported procedures but includes the following listed in this critical care notation. Medical Decision Making - Medical Records MR Comment: 1159 call to [facility] for admit rule out, patient sleeping nad, pain went away after nitro. 1201 [facility] for [facility] to call cardiology for possible cath. 1224 cardiology has seen patient, plans cath. - Yonathan Inquiry Pt receiving controlled substance: No Vital Signs: 03/28/18 09:50 03/28/18 10:04 03/28/18 11:00 Temperature 99.2 F 99.2 F Temperature Source Oral Oral Pulse Rate [Left Radial] 65 65 62 Respiratory Rate 24 24 Blood Pressure [Right Radial Artery] 144/83 144/83 135/82 Blood Pressure Mean [Right Radial Artery] 103 103 99 Blood Pressure Source [Right Radial Artery] Automatic Cuff Automatic Cuff Au tomatic Cuff Blood Pressure Position [Right Radial Artery] Sitting Sitting Sitting 02 Sat by Pulse Oximetry 96 96 97 Oxygen Delivery Method Nasal Cannula Nasal Cannula Nasal Cannula Oxygen Flow Rate (LPM) 2 2 2 03/28/18 11:37 03/28/18 12:18 Temperature Temperature Source Pulse Rate [Left Radial] 66 56 L Respiratory Rate Blood Pressure [Right Radial Artery] 131/79 145/66 Blood Pressure Mean [Right Radial Artery] 96 92 Blood Pressure Source [Right Radial Artery] Automatic Cuff Automatic Cuff Blood Pressure Position [Right Radial Artery] Sitting Sitting 02 Sat by Pulse Oximetry 99 96 Oxygen Delivery Method Nasal Cannula Nasal Cannula Oxygen Flow Rate (LPM) 2 2 - Lab Data Lab Results 03/28/18 10:55: WBC 6.0, RBC 4.56, Hgb 13.0, Hct 42.3, MCV 92.8, MCH 28.6, MCHC 30.8 L, RDW 14.5, Plt Count 118 L, MPV 7.6, Neut % (Auto) 59.4, Lymph % (Auto) 30.4, [place] % (Auto) 8.3, Eos % (Auto) 1.5, Baso % (Auto) 0.4, Neut # (Auto) 3.6, Lymph # (Auto) 1.8, [place] # (Auto) 0.5, Eos # (Auto) 0.1, Baso # (Auto) 0.0 03/28/18 10:55: Sodium 138, Potassium 4.1, Chloride 103, Carbon Dioxide 37 H, Anion Gap 2.1 L, BUN 6 L, Creatinine 0.70, Estimated Creat Clear 93, Estimated GFR 85, Est GFR ( Amer) 103, Glucose 175 H, Calcium 8.5, Troponin I 0.06, Total Valproic Acid 34.5 L 03/28/18 10:55: B-Natriuretic Peptide 238 H Result diagrams: 03/28/18 10:55 03/28/18 10:55 Orders (Tests/Meds): ED MEDICATIONS Generic Name Dose Route Start Last Admin Trade Name Freq PRN Reason Stop Dose Admin Fentanyl Citrate 25 mcg 03/28/18 12:18 Fentanyl 250mcg/5ml Vial IV 03/29/18 12:18 Q3MINP PRN Moderate to Severe Pain Fentanyl Citrate 50 mcg 03/28/18 12:18 Fentanyl 250mcg/5ml Vial IV 03/29/18 12:18 Q3MINP PRN Moderate to Severe Pain Flumazenil 0.2 mg 03/28/18 12:18 Romazicon 0.1mg/Ml 5ml Vial IV 03/28/18 23:00 NEEDED PRN Sedation Midazolam HCl 1 mg 03/28/18 12:18 Midazolam 2mg/2ml Vial IV 03/29/18 12:18 Q3MINP PRN Sedation Midazolam HCl 1 mg 03/28/18 12:18 Midazolam 1mg/Ml 5ml Vial IV 03/29/18 12:18 Q3MINP PRN Sedation Naloxone HCl 0.4 mg 03/28/18 12:18 Narcan 0.4mg/Ml Vial IV 03/29/18 12:18 Q5MINP PRN Decreased respirations Nitroglycerin 0.4 mg 03/28/18 10:14 Nitrostat 0.4mg Sl Tablet SL 04/27/18 10:13 Q5MINP PRN Chest Pain Discontinued Medications Generic Name Dose Route Start Last Admin Trade Name Freq PRN Reason Stop Dose Admin Aspirin 325 mg 03/28/18 10:14 03/28/18 10:37 Aspirin 325mg Tablet PO 03/28/18 10:15 Not Given ONCE ONE ORDERS Category Date Time Status ECG Request by /Nse Stat Y 03/28/18 09:52 Stop Req - ECG Data Tracing #1 ER EKG read by myself shows normal sinus rhythm rate of 80, no stemi, inverted p wave, normal axis, no QT prolongation, nonspecific EKG General Adult HPI - General Chief complaint: Chest Pain Stated complaint: chest pain Time Seen by Provider: 03/28/18 10:05 Mode of Arrival: EMS Limitations: No Limitations Description of Symptoms (Recalled from ER Triage Doc. by RN): to ed per squad with c/o aching type chest pain x3 days, with radiation into lt shoulder blade.SOB, nausea, diaphoresis. states pain worse with exertion and some relief with rest. cpta nitro spray - History of Present Illness HPI narrative: chest pain past 3 days it came back again this morning at 6 AM ready to her left shoulder blade has some shortness of breath with it it is exertional moderate in severity achy. - Related Data Home Medications Medication Instructions Recorded Confirmed Ascorbic Acid [Vitamin C] 1,000 mg PO DAILY 11/13/17 03/28/18 Aspirin [Aspirin 81mg chewable 81 mg PO DAILY 11/13/17 03/28/18 tab] Benztropine Mesylate 0.5 mg PO DAILY 11/13/17 03/28/18 Benztropine Mesylate [Cogentin 1mg 1 mg PO HS 11/13/17 03/28/18 tablet] Carvedilol [Carvedilol 25mg Tab] 25 mg PO BID 11/13/17 03/28/18 Cholecalciferol (Vitamin D3) 2,000 unit PO DAILY 11/13/17 03/28/18 [Vitamin D3] Divalproex Sodium 250 mg PO BID 11/13/17 03/28/18 Fluticasone Propionate [Flonase 1 spr NS DAILY 11/13/17 03/28/18 50mcg nasal spray 16gm] Hydrocod/Acet 5/325 mg [[place] 1 each PO TID 11/13/17 03/28/18 5/325mg tablet] Isosorbide Dinitrate [Isordil 20mg 20 mg PO TID 11/13/17 03/28/18 tablet] Lactulose [Lactulose 10gm/15ml 20 gm PO DAILY 11/13/17 03/28/18 Oral Soln] Levothyroxine Sodium 75 mcg PO DAILY 11/13/17 03/28/18 [Levothyroxine 75mcg (0.075mg) Tab] Potassium Chloride [Klor-Con 10mEq 10 meq PO DAILY 11/13/17 03/28/18 tab] Pravastatin Sodium [Pravachol] 40 mg PO HS 11/13/17 03/28/18 Rifaximin [Xifaxan] 550 mg PO BID 11/13/17 03/28/18 Sodium Chloride 3 gm PO TID 11/13/17 03/28/18 Venlafaxine HCl 75 mg PO TID 11/13/17 03/28/18 clonazePAM [Clonazepam] 0.25 mg PO TID 11/13/17 03/28/18 Calcium Carbonate [Tums 500mg 500 mg PO DAILY 11/14/17 03/28/18 chewtab] Polyethylene Glycol 3350 [Miralax 17 gm PO DAILY 11/14/17 03/28/18 17gm Packet] acetaminophen 500 mg capsule 500 mg PO Q4H PRN 01/07/18 03/28/18 albuterol sulfate HFA 90 2 puff INHALATION Q4H PRN 01/07/18 03/28/18 mcg/actuation aerosol inhaler aluminum hydrox-magnesium carb 95 30 ml PO QID PRN ml 01/07/18 03/28/18 mg-358 mg/15 mL oral suspension guaifenesin 100 mg/5 mL oral liquid 200 mg PO Q6H PRN ml 01/07/18 03/28/18 ipratropium-albuterol 0.5 mg-3 3 ml INHALATION Q4H PRN ml 01/07/18 03/28/18 mg(2.5 mg base)/3 mL nebulization soln ondansetron HCl 4 mg tablet 4 mg PO Q4H PRN tab 01/07/18 03/28/18 phenol 1.4 % mucosal aerosol spray 2 spray MUCOUS MEM QID PRN ml 01/07/18 03/28/18 polyvinyl alcohol 1.4 % eye drops 1 drp OPHTHALMIC BID ml 01/07/18 03/28/18 risperidone 2 mg tablet 3 mg PO QHS tab 01/07/18 03/28/18 saliva substitute combo no.9 15 ml MUCOUS MEM DAILY ml 01/07/18 03/28/18 mouthwash sennosides 8.6 mg-docusate sodium 1 tab PO BID PRN 01/07/18 03/28/18 50 mg tablet Allergies Allergy/AdvReac Type Severity Reaction Status Date / Time haloperidol [HALOPERIDOL] Allergy Unknown Verified 11/13/17 17:00 metronidazole [From Flagyl] Allergy Unknown Verified 11/13/17 17:56 molindone Allergy Unknown Verified 11/13/17 17:56 paroxetine Allergy Unknown Verified 11/13/17 17:56 Penicillins [PENICILLINS] Allergy Unknown Verified 11/13/17 17:00 phenacaine Allergy Unknown Verified 11/13/17 17:00 Sulfa (Sulfonamide Allergy Unknown Verified 11/13/17 17:56 Antibiotics) triazolam [From Halcion] Allergy Unknown Verified 11/13/17 17:56 KIWI Allergy Unknown I-HIVES Uncoded 07/16/17 14:00 RASPBERRY (FOOD) Allergy Unknown I-HIVES Uncoded 07/16/17 14:00 [facility] History I have reviewed the patient's past medical history: Yes Medical History: Reports:: Anxiety, Chronic Obstructive Pulmonary Disease (COPD) Denies:: Cancer, Diabetes Mellitus Type 1, Diabetes Mellitus Type 2, Internal Pacemaker, MRSA Comment: Significant record deficit with no records from alf Other Surgeries: No: Pacemaker Amputation: No - Social History Smoking Status: Former smoker Tobacco Type: cigarettes Alcohol Intake: never Occupational Status: disabled Housing: alf - Psychiatric History Expresses thoughts of harming self/others: None Suicide Plan Description: No Plan Pschychiatric History:: Reports:: Anxiety ROS Obtained: Yes All systems reviewed & no additional complaints Physical Exam General Appearance: Nontoxic Head: Normocephalic, without obvious abnormality, atraumatic. Eyes: conjunctiva/corneas clear ENT: Mucous membranes moist. Neck: No jugular venous distention. Cardiac: regular rate and rhythm Lungs: Clear to auscultation bilaterally Abdomen: Nontender, Nondistended, positive bowel sounds, no rebound : No CVA tenderness Extremities: 1+ edema Musculoskeletal: No chest wall tenderness Skin: No rashes or lesions to exposed skin. Neurologic: Alert. No gross focal deficits Psychiatric: Normal affect - General General appearance: alert - Respiratory Respiratory exam: Present: normal lung sounds bilaterally - Cardiovascular Cardiovascular exam: Present: regular rate - Neurological Exam Neurological exam: Present: alert
[2018-03-28 11:06] LABS: Basophils % 0.4 % (0.1-2.0); Eosinophils # 0.1 K/mm3 (0.0-0.4); Eosinophils % 1.5 % (0.1-12.0); Hematocrit 42.3 % (37.0-47.0); Lymphocytes # 1.8 K/mm3 (0.7-4.5); Lymphocytes % 30.4 K/mm3 (10-50); Mean Corpuscular HGB Conc 30.8 g/dL (31.8-35.4); Mean Corpuscular Hemoglobin 28.6 pg (27.0-31.2); Mean Corpuscular Volume 92.8 fl (81-99); Mean Platelet Volume 7.6 fl (7.4-10.4); Monocytes # 0.5 K/mm3 (0.1-1.0); Monocytes % 8.3 % (1.7-9.3); Neutrophils # 3.6 K/mm3 (1.8-7.8); Neutrophils % 59.4 % (37.0-80.0); Platelet Count 118 K/mm3 (142-424); Red Blood Count 4.56 M/mm3 (4.20-5.40); Red Cell Distribution Width 14.5 % (11.5-17.5)
[2018-03-28 11:24] LABS: Anion Gap 2.1 mEq/L (5-15); Calcium 8.5 mg/dL (8.5-10.1); Potassium 4.1 mmoL/L (3.5-5.1); Valproic Acid, (Depakene) 34.5 ug/mL (50-100)
--- NOTE | 2018-03-28 12:58 | Consult Report ---
History of Present Illness Consult date: 03/28/18 Requesting physician: Chito Archibald Consult reason: chest pain Chief complaint: chest pain Additional Medical History:: 1. Hypertension 2. Hyperlipidemia 3. Tobacco use A. COPD with history of CO2 narcosis 4. [facility] resident with poor memory and history of seizure disorder/schizophrenia/bipolar disorder 5. Possible Cirrhosis of liver by ultrasound, 02/2018 6. Cardiac murmur on exam, 02/2018 History of present illness: 62-year-old white female sent from the halfway for complaint of chest pain. Patient states symptoms occur with exertion and improved with rest recently until today when it onset and would not go away. Patient came to the emergency department but received nitrospray en route with resolution of symptoms. Patient was comfortable to the point that she fell asleep and had to be awakened for exam. Initial troponin is normal and initial EKG shows ectopic atrial rhythm without acute ST segment changes. Cardiology consulted for evaluation and possible cardiac catheterization. Patient is somewhat of a poor historian, most information obtained from the chart. [facility] History Medical History: Reports:: Anxiety, Chronic Obstructive Pulmonary Disease (COPD) Denies:: Cancer, Diabetes Mellitus Type 1, Diabetes Mellitus Type 2, Internal Pacemaker, MRSA Other Surgeries: No: Pacemaker Amputation: No - *Social History Smoking Status: Former smoker Tobacco Type: cigarettes Alcohol Intake: never Occupational Status: disabled Housing: halfway - Psychiatric History Expresses thoughts of harming self/others: None Suicide Plan Description: No Plan Pschychiatric History:: Reports:: Anxiety Meds Home Medications Medication Instructions Recorded Confirmed Type Ascorbic Acid [Vitamin C] 1,000 mg PO DAILY 11/13/17 03/28/18 History Aspirin [Aspirin 81mg chewable 81 mg PO DAILY 11/13/17 03/28/18 History tab] Benztropine Mesylate 0.5 mg PO DAILY 11/13/17 03/28/18 History Benztropine Mesylate [Cogentin 1mg 1 mg PO HS 11/13/17 03/28/18 History tablet] Carvedilol [Carvedilol 25mg Tab] 25 mg PO BID 11/13/17 03/28/18 History Cholecalciferol (Vitamin D3) 2,000 unit PO DAILY 11/13/17 03/28/18 History [Vitamin D3] Divalproex Sodium 250 mg PO BID 11/13/17 03/28/18 History Fluticasone Propionate [Flonase 1 spr NS DAILY 11/13/17 03/28/18 History 50mcg nasal spray 16gm] Hydrocod/Acet 5/325 mg [[place] 1 each PO TID 11/13/17 03/28/18 History 5/325mg tablet] Isosorbide Dinitrate [Isordil 20mg 20 mg PO TID 11/13/17 03/28/18 History tablet] Lactulose [Lactulose 10gm/15ml 20 gm PO DAILY 11/13/17 03/28/18 History Oral Soln] Levothyroxine Sodium 75 mcg PO DAILY 11/13/17 03/28/18 History [Levothyroxine 75mcg (0.075mg) Tab] Potassium Chloride [Klor-Con 10mEq 10 meq PO DAILY 11/13/17 03/28/18 History tab] Pravastatin Sodium [Pravachol] 40 mg PO HS 11/13/17 03/28/18 History Rifaximin [Xifaxan] 550 mg PO BID 11/13/17 03/28/18 History Sodium Chloride 3 gm PO TID 11/13/17 03/28/18 History Venlafaxine HCl 75 mg PO TID 11/13/17 03/28/18 History clonazePAM [Clonazepam] 0.25 mg PO TID 11/13/17 03/28/18 History Calcium Carbonate [Tums 500mg 500 mg PO DAILY 11/14/17 03/28/18 History chewtab] Polyethylene Glycol 3350 [Miralax 17 gm PO DAILY 11/14/17 03/28/18 History 17gm Packet] acetaminophen 500 mg capsule 500 mg PO Q4H PRN 01/07/18 03/28/18 History albuterol sulfate HFA 90 2 puff INHALATION Q4H PRN 01/07/18 03/28/18 History mcg/actuation aerosol inhaler aluminum hydrox-magnesium carb 95 30 ml PO QID PRN ml 01/07/18 03/28/18 History mg-358 mg/15 mL oral suspension guaifenesin 100 mg/5 mL oral liquid 200 mg PO Q6H PRN ml 01/07/18 03/28/18 History ipratropium-albuterol 0.5 mg-3 3 ml INHALATION Q4H PRN ml 01/07/18 03/28/18 History mg(2.5 mg base)/3 mL nebulization soln ondansetron HCl 4 mg tablet 4 mg PO Q4H PRN tab 01/07/18 03/28/18 History phenol 1.4 % mucosal aerosol spray 2 spray MUCOUS MEM QID PRN ml 01/07/18 03/28/18 History polyvinyl alcohol 1.4 % eye drops 1 drp OPHTHALMIC BID ml 01/07/18 03/28/18 History risperidone 2 mg tablet 3 mg PO QHS tab 01/07/18 03/28/18 History saliva substitute combo no.9 15 ml MUCOUS MEM DAILY ml 01/07/18 03/28/18 History mouthwash sennosides 8.6 mg-docusate sodium 1 tab PO BID PRN 01/07/18 03/28/18 History 50 mg tablet Allergies Allergy/AdvReac Type Severity Reaction Status Date / Time haloperidol [HALOPERIDOL] Allergy Unknown Verified 11/13/17 17:00 metronidazole [From Flagyl] Allergy Unknown Verified 11/13/17 17:56 molindone Allergy Unknown Verified 11/13/17 17:56 paroxetine Allergy Unknown Verified 11/13/17 17:56 Penicillins [PENICILLINS] Allergy Unknown Verified 11/13/17 17:00 phenacaine Allergy Unknown Verified 11/13/17 17:00 Sulfa (Sulfonamide Allergy Unknown Verified 11/13/17 17:56 Antibiotics) triazolam [From Halcion] Allergy Unknown Verified 11/13/17 17:56 KIWI Allergy Unknown I-HIVES Uncoded 07/16/17 14:00 RASPBERRY (FOOD) Allergy Unknown I-HIVES Uncoded 07/16/17 14:00 Review of Systems - *Cardiovascular Reports chest pain, Reports shortness of breath with activity - *Respiratory Reports shortness of breath with activity - *Gastrointestinal Denies abdominal pain, Denies loose stools - *Genitourinary Denies blood in urine - *Musculoskeletal Reports back pain - *Neurologic Denies seizure-like activity, Denies dizziness Exam Vital signs and Labs for Last 24 Hours: Temp Pulse Resp BP Pulse Ox 99.2 F 56 L 24 145/66 96 03/28/18 10:04 03/28/18 12:18 03/28/18 10:04 03/28/18 12:18 03/28/18 12:18 Laboratory Results - last 24 hr 03/28/18 10:55: WBC 6.0, RBC 4.56, Hgb 13.0, Hct 42.3, MCV 92.8, MCH 28.6, MCHC 30.8 L, RDW 14.5, Plt Count 118 L, MPV 7.6, Neut % (Auto) 59.4, Lymph % (Auto) 30.4, [place] % (Auto) 8.3, Eos % (Auto) 1.5, Baso % (Auto) 0.4, Neut # (Auto) 3.6, Lymph # (Auto) 1.8, [place] # (Auto) 0.5, Eos # (Auto) 0.1, Baso # (Auto) 0.0 03/28/18 10:55: Sodium 138, Potassium 4.1, Chloride 103, Carbon Dioxide 37 H, Anion Gap 2.1 L, BUN 6 L, Creatinine 0.70, Estimated Creat Clear 93, Estimated GFR 85, Est GFR ( Amer) 103, Glucose 175 H, Calcium 8.5, Troponin I 0.06, Total Valproic Acid 34.5 L 03/28/18 10:55: B-Natriuretic Peptide 238 H I & O for Last 24 hours: Intake & Output 03/26/18 03/27/18 03/28/18 03/29/18 11:59 11:59 11:59 11:59 Weight 223 lb - *Routine Neck Exam Present: supple, carotid bruit. Absent: JVD, lymphadenopathy - *Routine Respiratory Exam Present: decreased breath sounds, rhonchi. Absent: wheezes - *Routine Cardiovascular Exam Present: RRR, murmur. Absent: gallop, rubs - *Routine Extremities Exam Present: edema. Absent: cyanosis, clubbing - *Routine Neurological Exam Present: alert, oriented X3, moving all extremities Assessment and Plan (1) Unstable angina Current visit: Yes Status: Acute Category: Medical Code(s): I20.0 - Unstable angina (2) Cardiac murmur Current visit: Yes Status: Acute Category: Medical Code(s): R01.1 - Cardiac murmur, unspecified (3) Hypertension Current visit: No Status: Chronic Qualifiers: Hypertension type: essential hypertension Qualified Code(s): I10 - Essential (primary) hypertension Category: Medical Code(s): I10 - Essential (primary) hypertension (4) Schizoaffective disorder Current visit: No Status: Chronic Qualifiers: Schizoaffective disorder type: other Qualified Code(s): F25.8 - Other schizoaffective disorders Category: Medical Code(s): F25.9 - Schizoaffective disorder, unspecified (5) Tobacco abuse Current visit: No Status: Chronic Category: Medical Code(s): Z72.0 - Tobacco use - Assessment and plan all Dx Assessment and Plan for all problems:: 1. In light of patient's unstable chest pain syndrome with resolution with nitroglycerin will not waste time with noninvasive testing. Recommend left heart catheterization today. Risks, benefits and procedure explained to the patient and she agrees to proceed. 2. Continue nitroglycerin paste. Patient has received aspirin therapy. 3. In light of the cardiac murmur we will obtain an echocardiogram for further evaluation. 4. Further recommendations to follow pending above results.
--- NOTE | 2018-03-28 15:41 | Pharmacy Consult Notes ---
[facility] Pharmacy VTE Monitoring - Patient Demographics Admission date: 03/28/18 Report Date: 03/28/18 Time: 15:41 Allergies/Adverse Reactions: Patient Allergies haloperidol [HALOPERIDOL] Allergy (Unknown, Verified 11/13/17 17:00) metronidazole [From Flagyl] Allergy (Unknown, Verified 11/13/17 17:56) molindone Allergy (Unknown, Verified 11/13/17 17:56) paroxetine Allergy (Unknown, Verified 11/13/17 17:56) Penicillins [PENICILLINS] Allergy (Unknown, Verified 11/13/17 17:00) phenacaine Allergy (Unknown, Verified 11/13/17 17:00) Sulfa (Sulfonamide Antibiotics) Allergy (Unknown, Verified 11/13/17 17:56) triazolam [From Halcion] Allergy (Unknown, Verified 11/13/17 17:56) KIWI Allergy (Unknown, Uncoded 07/16/17 14:00) I-HIVES RASPBERRY (FOOD) Allergy (Unknown, Uncoded 07/16/17 14:00) I-HIVES Height: 1.68 m Weight: 101.151 kg Patient Problems: Current Active Problems Chest pain (Acute) Unstable angina (Acute) Cardiac murmur (Acute) - VTE Risk Labs: VTE Related Lab Results Hgb 13.0 g/dL (12.2-16.2) 03/28/18 10:55 Hct 42.3 % (37.0-47.0) 03/28/18 10:55 Plt Count 118 K/mm3 (142-424) L 03/28/18 10:55 BUN 6 mg/dL (7-18) L 03/28/18 10:55 Creatinine 0.70 mg/dL (0.55-1.02) 03/28/18 10:55 Estimated Creat Clear 93 mL/min (0-300) 03/28/18 10:55 Clinical Trial Participant: No - Prophylaxis VTE Prophylaxis Ordered?: Yes Types of VTE Prophylaxis: IPCS Knee High
[2018-03-29 08:38] LABS: Basophils % 0.3 % (0.1-2.0); Eosinophils % 0.6 % (0.1-12.0); Hematocrit 41.6 % (37.0-47.0); Hemoglobin 12.6 g/dL (12.2-16.2); Lymphocytes # 2.1 K/mm3 (0.7-4.5); Lymphocytes % 30.8 K/mm3 (10-50); Mean Corpuscular HGB Conc 30.3 g/dL (31.8-35.4); Mean Corpuscular Hemoglobin 28.3 pg (27.0-31.2); Mean Corpuscular Volume 93.4 fl (81-99); Mean Platelet Volume 7.6 fl (7.4-10.4); Monocytes # 0.5 K/mm3 (0.1-1.0); Monocytes % 6.8 % (1.7-9.3); Neutrophils # 4.2 K/mm3 (1.8-7.8); Neutrophils % 61.4 % (37.0-80.0); Platelet Count 115 K/mm3 (142-424); Red Blood Count 4.45 M/mm3 (4.20-5.40); Red Cell Distribution Width 14.5 % (11.5-17.5); White Blood Count 6.8 K/mm3 (4.8-10.8)
--- NOTE | 2018-03-29 08:41 | History & Physical Report ---
*Admission Date: 03/28/18 *Chief complaint: chest pain *History of present illness: pt with chest pain at [facility] and was seen in the ed and was seen by card - poor historian - ypertension 2. Hyperlipidemia 3. Tobacco use A. COPD with history of CO2 narcosis 4. shelter resident with poor memory and history of seizure disorder/schizophrenia/bipolar disorder 5. Possible Cirrhosis of liver by ultrasound, 02/2018 6. Cardiac murmur on exam, 02/2018 History of present illness: 62-year-old white female [facility] from the [facility] for complaint of chest pain. Patient states symptoms occur with exertion and improved with rest recently until today when it onset and would not go away. Patient came to the emergency department but received nitrospray en route with resolution of symptoms. Patient was comfortable to the point that she fell asleep and had to be awakened for exam. Initial troponin is normal and initial EKG shows ectopic atrial rhythm without acute ST segment changes. Cardiology consulted for evaluation and possible cardiac catheterization. Patient is somewhat of a poor historian, most information obtained from the chart. pt with reported temp of 102 rectal last pm and repored no stents with cath [facility] History I have reviewed the patient's past medical history: Yes Medical History: Reports:: Anxiety, Chronic Obstructive Pulmonary Disease (COPD), Hypertension, Myocardial Infarction Denies:: Cancer, Diabetes Mellitus Type 1, Diabetes Mellitus Type 2, Internal Pacemaker, MRSA Other Surgeries: No: Pacemaker Amputation: No - *Social History Smoking Status: Former smoker Tobacco Type: cigarettes Alcohol Intake: never Occupational Status: disabled Housing: correction - Psychiatric History Expresses thoughts of harming self/others: None Suicide Plan Description: No Plan Pschychiatric History:: Reports:: Anxiety Review of Systems - Review of Systems Review of systems:: pertinent systems reviewed and negative unless documented below - Constitutional Denies fever(s) - Eyes Denies change in vision - ENT Denies dry mouth - *Cardiovascular Reports shortness of breath - *Respiratory Reports cough - *Gastrointestinal Denies abdominal pain - *Genitourinary Denies difficulty urinating - *Musculoskeletal Denies joint pain - Integumentary/Breasts Denies rash - *Neurologic Denies seizure-like activity, Denies dizziness - Psychiatric Reports anxiety, Reports confusion Meds Home Medications Medication Instructions Recorded Confirmed Type Ascorbic Acid [Vitamin C] 1,000 mg PO DAILY 11/13/17 03/28/18 History Aspirin [Aspirin 81mg chewable 81 mg PO DAILY 11/13/17 03/28/18 History tab] Benztropine Mesylate 0.5 mg PO DAILY 11/13/17 03/28/18 History Benztropine Mesylate [Cogentin 1mg 1 mg PO HS 11/13/17 03/28/18 History tablet] Carvedilol [Carvedilol 25mg Tab] 25 mg PO 0800,1700 11/13/17 03/28/18 History Cholecalciferol (Vitamin D3) 2,000 unit PO DAILY 11/13/17 03/28/18 History [Vitamin D3] Divalproex Sodium 250 mg PO BID 11/13/17 03/28/18 History Fluticasone Propionate [Flonase 1 spr NS DAILY 11/13/17 03/28/18 History 50mcg nasal spray 16gm] Hydrocod/Acet 5/325 mg [[place] 1 each PO TID 11/13/17 03/28/18 History 5/325mg tablet] Isosorbide Dinitrate [Isordil 20mg 20 mg PO TID 11/13/17 03/28/18 History tablet] Lactulose [Lactulose 10gm/15ml 20 gm PO DAILY 11/13/17 03/28/18 History Oral Soln] Levothyroxine Sodium 75 mcg PO DAILY 11/13/17 03/28/18 History [Levothyroxine 75mcg (0.075mg) Tab] Potassium Chloride [Klor-Con 10mEq 10 meq PO DAILY 11/13/17 03/28/18 History tab] Pravastatin Sodium [Pravachol] 40 mg PO HS 11/13/17 03/28/18 History Rifaximin [Xifaxan] 550 mg PO BID 11/13/17 03/28/18 History Sodium Chloride 3 gm PO TID 11/13/17 03/28/18 History Venlafaxine HCl 75 mg PO TID 11/13/17 03/28/18 History clonazePAM [Clonazepam] 0.25 mg PO TID 11/13/17 03/28/18 History Calcium Carbonate [Tums 500mg 500 mg PO DAILY 11/14/17 03/28/18 History chewtab] Polyethylene Glycol 3350 [Miralax 17 gm PO DAILY 11/14/17 03/28/18 History 17gm Packet] acetaminophen 500 mg capsule 500 mg PO Q4H PRN 01/07/18 03/28/18 History albuterol sulfate HFA 90 2 puff INHALATION Q4H PRN 01/07/18 03/28/18 History mcg/actuation aerosol inhaler aluminum hydrox-magnesium carb 95 30 ml PO QID PRN ml 01/07/18 03/28/18 History mg-358 mg/15 mL oral suspension guaifenesin 100 mg/5 mL oral liquid 200 mg PO Q6H PRN ml 01/07/18 03/28/18 History ipratropium-albuterol 0.5 mg-3 3 ml INHALATION Q4H PRN ml 01/07/18 03/28/18 History mg(2.5 mg base)/3 mL nebulization soln ondansetron HCl 4 mg tablet 4 mg PO Q4H PRN tab 01/07/18 03/28/18 History phenol 1.4 % mucosal aerosol spray 2 spray MUCOUS MEM QIDP PRN ml 01/07/18 03/28/18 History polyvinyl alcohol 1.4 % eye drops 1 drp OPHTHALMIC BID ml 01/07/18 03/28/18 History sennosides 8.6 mg-docusate sodium 1 tab PO BID PRN 01/07/18 03/28/18 History 50 mg tablet Furosemide [Furosemide 20mg Tab] 20 mg PO DAILYP PRN 03/28/18 03/28/18 History Saliva Stimulant Agents Comb.3 1 spray MM DAILY 03/28/18 03/28/18 History [Biotene Moisturizing Mouth] risperiDONE [Risperidone] 3 mg PO HS 03/28/18 03/28/18 History Allergies Allergy/AdvReac Type Severity Reaction Status Date / Time haloperidol [HALOPERIDOL] Allergy Unknown Unknown Verified 03/28/18 15:43 allergy reaction metronidazole [From Flagyl] Allergy Unknown Unknown Verified 03/28/18 15:43 allergy reaction molindone Allergy Unknown Unknown Verified 03/28/18 15:43 allergy reaction paroxetine Allergy Unknown Unknown Verified 03/28/18 15:43 allergy reaction Penicillins [PENICILLINS] Allergy Unknown Unknown Verified 03/28/18 15:43 allergy reaction phenacaine Allergy Unknown Unknown Verified 03/28/18 15:43 allergy reaction Sulfa (Sulfonamide Allergy Unknown Unknown Verified 03/28/18 15:43 Antibiotics) allergy reaction triazolam [From Halcion] Allergy Unknown Unknown Verified 03/28/18 15:43 allergy reaction kiwi Allergy Hives Verified 03/28/18 15:43 raspberry Allergy Hives Verified 03/28/18 15:43 Exam Vital signs and Labs for Last 24 Hours: Temp Pulse Resp BP Pulse Ox 99.3 F 62 16 166/67 95 03/29/18 08:00 03/29/18 08:00 03/29/18 08:00 03/29/18 08:00 03/29/18 08:00 Laboratory Results - last 24 hr 03/28/18 10:55: WBC 6.0, RBC 4.56, Hgb 13.0, Hct 42.3, MCV 92.8, MCH 28.6, MCHC 30.8 L, RDW 14.5, Plt Count 118 L, MPV 7.6, Neut % (Auto) 59.4, Lymph % (Auto) 30.4, Dane % (Auto) 8.3, Eos % (Auto) 1.5, Baso % (Auto) 0.4, Neut # (Auto) 3.6, Lymph # (Auto) 1.8, Dane # (Auto) 0.5, Eos # (Auto) 0.1, Baso # (Auto) 0.0 03/28/18 10:55: Sodium 138, Potassium 4.1, Chloride 103, Carbon Dioxide 37 H, Anion Gap 2.1 L, BUN 6 L, Creatinine 0.70, Estimated Creat Clear 93, Estimated GFR 85, Est GFR ( Amer) 103, Glucose 175 H, Calcium 8.5, Troponin I 0.06, Total Valproic Acid 34.5 L 03/28/18 10:55: B-Natriuretic Peptide 238 H 03/28/18 15:58: Troponin I 0.07 H 03/28/18 21:42: Troponin I 0.12 H I & O for Last 24 hours: Intake & Output 03/26/18 03/27/18 03/28/18 03/29/18 11:59 11:59 11:59 11:59 Intake Total 800 / 800 Balance 800 / 800 Weight 223 lb 248 lb 9 oz - Constitutional no acute distress, obese - *Routine HEENT Exam Head: Present: normocephalic Eye: Present: EOMI, PERRL ENT: Present: mucous membranes dry - *Routine Neck Exam Present: full ROM. Absent: JVD - *Routine Respiratory Exam Present: decreased breath sounds - *Routine Cardiovascular Exam Present: RRR, murmur, S4 - *Routine Abdominal Exam Present: soft - *Routine Extremities Exam Present: edema. Absent: calf tenderness - *Routine Skin Exam Present: intact - *Routine Neurological Exam Present: alert, CN II-XII intact, moving all extremities - Routine Psychiatric Exam Present: unable to assess Assessment and Plan (1) Unstable angina Current visit: Yes Status: Acute Category: Medical Code(s): I20.0 - Unstable angina (2) Cardiac murmur Current visit: Yes Status: Acute Category: Medical Code(s): R01.1 - Cardiac murmur, unspecified (3) Hypertension Current visit: No Status: Chronic Qualifiers: Hypertension type: essential hypertension Qualified Code(s): I10 - Essential (primary) hypertension Category: Medical Code(s): I10 - Essential (primary) hypertension (4) Schizoaffective disorder Current visit: No Status: Chronic Qualifiers: Schizoaffective disorder type: other Qualified Code(s): F25.8 - Other schizoaffective disorders Category: Medical Code(s): F25.9 - Schizoaffective disorder, unspecified (5) Tobacco abuse Current visit: No Status: Chronic Category: Medical Code(s): Z72.0 - Tobacco use (6) Febrile illness, acute Current visit: Yes Status: Acute Category: Medical Code(s): R50.9 - Fever, unspecified (7) Elevated troponin Current visit: Yes Status: Acute Category: Medical Code(s): R74.8 - Abnormal levels of other serum enzymes
[2018-03-29 08:51] LABS: Calcium 8.1 mg/dL (8.5-10.1)
[2018-03-29 09:07] LABS: Microscopic, Urine URINE MICROSCOPIC (MICROSCOPIC)
[2018-03-29 09:09] LABS: Appearance,Urine CLEAR (Clear); Bilirubin,Urine Negative (Negative); Blood, Urine Negative (Negative); Color,Urine YELLOW (Yellow); Glucose,Urine (UA) Negative (Negative); Ketones,Urine Negative (Negative); Leukocyte Esterase,Urine TRACE (Negative); Protein,Urine Negative (Negative); Specific Gravity, Urine >= 1.030 (1.005-1.030); Urobilinogen,Urine 0.2 EU/dl (0.2)
[2018-03-29 09:15] LABS: Bacteria,Urine 3+ /lpf; Squamous Epithelial Cell,Urine Occasional #/hpf (0-5)
--- NOTE | 2018-03-30 10:49 | Discharge Summary ---
General - General Admission date:: 03/28/18 Discharge date: 03/30/18 HPI HPI: pt with chest pain at [facility] and was seen in the ed and was seen by card - marleny historian - catherine 2. Hyperlipidemia 3. Tobacco use A. COPD with history of CO2 narcosis 4. [facility] resident with poor memory and history of seizure disorder/schizophrenia/bipolar disorder 5. Possible Cirrhosis of liver by ultrasound, 02/2018 6. Cardiac murmur on exam, 02/2018 History of present illness: 62-year-old white female [facility] from the [facility] for complaint of chest pain. Patient states symptoms occur with exertion and improved with rest recently until today when it onset and would not go away. Patient came to the emergency department but received nitrospray en route with resolution of symptoms. Patient was comfortable to the point that she fell asleep and had to be awakened for exam. Initial troponin is normal and initial EKG shows ectopic atrial rhythm without acute ST segment changes. Cardiology consulted for evaluation an d possible cardiac catheterization. Patient is somewhat of a poor historian, most information obtained from the chart. pt with reported temp of 102 rectal last pm and repored no stents with cath Hospital Course Hospital Course: chest pain- heart cath see report today pt states she feels better and wants to go back to [place]. We will discharge patient back on Levaquin 500 per 7 days until culture results. Patient is requesting albuterol inhaler to help with breathing.. Patient is on Levaquin here and doing better will discharge back on Levaquin. Patient will need CMP done on Saturday to check renal function while on Levaquin Objective Vital signs: Temp Pulse Resp BP Pulse Ox 98.3 F 86 18 168/82 96 03/30/18 08:00 03/30/18 08:00 03/30/18 08:00 03/30/18 08:00 03/30/18 08:00 no acute distress - *Routine HEENT Exam Head: Present: normocephalic Eye: Present: EOMI ENT: Present: mucous membranes moist - *Routine Respiratory Exam Present: wheezes - *Routine Cardiovascular Exam Present: murmur - *Routine Abdominal Exam Present: distended Comments: Patient has normal distended abdomen - *Routine Extremities Exam Present: full ROM - *Routine Skin Exam Present: intact - *Routine Neurological Exam Present: alert, oriented X3, CN II-XII intact - Routine Psychiatric Exam Present: normal affect, normal thought process Results Labs on day of discharge: Labs from last 24 hours 03/29/18 09:00 Urine Color Yellow Urine Appearance Clear Urine pH 6.0 Ur Specific [place] >= 1.030 Urine Protein Negative Urine Glucose (UA) Negative Urine Ketones Negative Urine Blood Negative Urine Nitrate Positive Urine Bilirubin Negative Urine Urobilinogen 0.2 Ur Leukocyte Esterase Trace Urine RBC None Urine WBC 10-20 Ur Squamous Epith Cells Occasional Urine Bacteria 3+ Preliminary micro results at discharge 03/29/18 09:00 Urine Culture - Preliminary Urine,Catheterized Gram Negative Rods - Additional Comments Discussed patient with Dr. Archibald, he will round later, all orders per Dr. Archibald DS: Diagnosis - Discharge Diagnosis (1) Unstable angina Status: Acute (2) Cardiac murmur Status: Acute (3) Hypertension Status: Chronic (4) Schizoaffective disorder Status: Chronic (5) Tobacco abuse Status: Chronic (6) Febrile illness, acute Status: Acute (7) Elevated troponin Status: Acute Discharge Plan - Patient Discharge Instructions ACTIVITY: Continue current activity DIET: continue same diet - Follow up Plan Follow up with: Chito Archibald MD [Primary Care Provider] - Disposition: er [facility] Home Medications: Home Medications Medication Instructions Recorded Confirmed Type Ascorbic Acid [Vitamin C] 1,000 mg PO DAILY 11/13/17 03/28/18 History Aspirin [Aspirin 81mg chewable 81 mg PO DAILY 11/13/17 03/28/18 History tab] Benztropine Mesylate 0.5 mg PO DAILY 11/13/17 03/28/18 History Benztropine Mesylate [Cogentin 1mg 1 mg PO HS 11/13/17 03/28/18 History tablet] Carvedilol [Carvedilol 25mg Tab] 25 mg PO 0800,1700 11/13/17 03/28/18 History Cholecalciferol (Vitamin D3) 2,000 unit PO DAILY 11/13/17 03/28/18 History [Vitamin D3] Divalproex Sodium 250 mg PO BID 11/13/17 03/28/18 History Fluticasone Propionate [Flonase 1 spr NS DAILY 11/13/17 03/28/18 History 50mcg nasal spray 16gm] Hydrocod/Acet 5/325 mg [[place] 1 each PO TID 11/13/17 03/28/18 History 5/325mg tablet] Isosorbide Dinitrate [Isordil 20mg 20 mg PO TID 11/13/17 03/28/18 History tablet] Lactulose [Lactulose 10gm/15ml 20 gm PO DAILY 11/13/17 03/28/18 History Oral Soln] Levothyroxine Sodium 75 mcg PO DAILY 11/13/17 03/28/18 History [Levothyroxine 75mcg (0.075mg) Tab] Potassium Chloride [Klor-Con 10mEq 10 meq PO DAILY 11/13/17 03/28/18 History tab] Pravastatin Sodium [Pravachol] 40 mg PO HS 11/13/17 03/28/18 History Rifaximin [Xifaxan] 550 mg PO BID 11/13/17 03/28/18 History Sodium Chloride 3 gm PO TID 11/13/17 03/28/18 History Venlafaxine HCl 75 mg PO TID 11/13/17 03/28/18 History clonazePAM [Clonazepam] 0.25 mg PO TID 11/13/17 03/28/18 History Calcium Carbonate [Tums 500mg 500 mg PO DAILY 11/14/17 03/28/18 History chewtab] Polyethylene Glycol 3350 [Miralax 17 gm PO DAILY 11/14/17 03/28/18 History 17gm Packet] acetaminophen 500 mg capsule 500 mg PO Q4H PRN 01/07/18 03/28/18 History albuterol sulfate HFA 90 2 puff INHALATION Q4H PRN 01/07/18 03/28/18 History mcg/actuation aerosol inhaler aluminum hydrox-magnesium carb 95 30 ml PO QID PRN ml 01/07/18 03/28/18 History mg-358 mg/15 mL oral suspension guaifenesin 100 mg/5 mL oral liquid 200 mg PO Q6H PRN ml 01/07/18 03/28/18 History ipratropium-albuterol 0.5 mg-3 3 ml INHALATION Q4H PRN ml 01/07/18 03/28/18 History mg(2.5 mg base)/3 mL nebulization soln ondansetron HCl 4 mg tablet 4 mg PO Q4H PRN tab 01/07/18 03/28/18 History phenol 1.4 % mucosal aerosol spray 2 spray MUCOUS MEM QIDP PRN ml 01/07/18 03/28/18 History polyvinyl alcohol 1.4 % eye drops 1 drp OPHTHALMIC BID ml 01/07/18 03/28/18 History sennosides 8.6 mg-docusate sodium 1 tab PO BID PRN 01/07/18 03/28/18 History 50 mg tablet Furosemide [Furosemide 20mg Tab] 20 mg PO DAILYP PRN 03/28/18 03/28/18 History Saliva Stimulant Agents Comb.3 1 spray MM DAILY 03/28/18 03/28/18 History [Biotene Moisturizing Mouth] risperiDONE [Risperidone] 3 mg PO HS 03/28/18 03/28/18 History Prescriptions/Medication Reconciliation: New Levofloxacin/D5w [Levaquin 500mg/100mL Premix IVPB] 500 mg IV Q24H 5 Days #5 piggyback Continue sennosides 8.6 mg-docusate sodium 50 mg tablet 1 tab PO BID PRN PRN Reason: unknown aluminum hydrox-magnesium carb 95 mg-358 mg/15 mL oral suspension 30 ml PO QID PRN ml PRN Reason: unknown ipratropium-albuterol 0.5 mg-3 mg(2.5 mg base)/3 mL nebulization soln 3 ml INHALATION Q4H PRN ml PRN Reason: shortness of breath ondansetron HCl 4 mg tablet 4 mg PO Q4H PRN tab PRN Reason: nausea and vomiting albuterol sulfate HFA 90 mcg/actuation aerosol inhaler 2 puff INHALATION Q4H PRN PRN Reason: breathing guaifenesin 100 mg/5 mL oral liquid 200 mg PO Q6H PRN ml PRN Reason: unknown polyvinyl alcohol 1.4 % eye drops 1 drp OPHTHALMIC BID ml phenol 1.4 % mucosal aerosol spray 2 spray MUCOUS MEM QIDP PRN ml PRN Reason: sore throat Pravastatin Sodium [Pravachol] 40 mg PO HS Potassium Chloride [Klor-Con 10mEq tab] 10 meq PO DAILY Fluticasone Propionate [Flonase 50mcg nasal spray 16gm] 1 spr NS DAILY Divalproex Sodium 250 mg PO BID clonazePAM [Clonazepam] 0.25 mg PO TID Carvedilol [Carvedilol 25mg Tab] 25 mg PO 0800,1700 Benztropine Mesylate 0.5 mg PO DAILY Benztropine Mesylate [Cogentin 1mg tablet] 1 mg PO HS Aspirin [Aspirin 81mg chewable tab] 81 mg PO DAILY Sodium Chloride 3 gm PO TID Ascorbic Acid [Vitamin C] 1,000 mg PO DAILY Rifaximin [Xifaxan] 550 mg PO BID Polyethylene Glycol 3350 [Miralax 17gm Packet] 17 gm PO DAILY Furosemide [Furosemide 20mg Tab] 20 mg PO DAILYP PRN PRN Reason: FLUID Hydrocod/Acet 5/325 mg [[place] 5/325mg tablet] 1 each PO TID Isosorbide Dinitrate [Isordil 20mg tablet] 20 mg PO TID Lactulose [Lactulose 10gm/15ml Oral Soln] 20 gm PO DAILY Levothyroxine Sodium [Levothyroxine 75mcg (0.075mg) Tab] 75 mcg PO DAILY Venlafaxine HCl 75 mg PO TID Cholecalciferol (Vitamin D3) [Vitamin D3] 2,000 unit PO DAILY Calcium Carbonate [Tums 500mg chewtab] 500 mg PO DAILY Saliva Stimulant Agents Comb.3 [Biotene Moisturizing Mouth] 1 spray MM DAILY risperiDONE [Risperidone] 3 mg PO HS No Action acetaminophen 500 mg capsule 500 mg PO Q4H PRN PRN Reason: pain
--- NOTE | 2018-04-10 16:35 | Cardiology Report ---
PROCEDURE: 2-D M-mode and color Doppler study INDICATIONS FOR THE TEST: Chest pain+ COPD+ Heart Murmur Tobacco Smokingex Palpitations Fatigue Syncope Edema Hypertension Diabetes Mellitus Rheumatic Fever SOB+TSE+Obesity+Hyperlipidemia Family History HD Additional History psychiatric disease, positive troponin PATIENT INFORMATION HEIGHT: 66 WEIGHT: 223 GENDER: Female B/P: 131/79 2-D/M-MODE INTERPRETATION: 2-D MEASUREMENTS OBSERVED VALUES IN CMS Right Ventricular Dimension (RVDd) 1.6 Interventricular Septum (Thickness)(IVsd) 0.8 Left Ventricular Internal Dimensions(LVIDd) 5.2 Left Ventricular Posterior Wall (Thickness)(LVPWd) 0.8 Aortic Root 2.9 Aortic Cusp Separation 2.0 Left Atrial Dimensions (LAD) 4.1 2D 1. Left atrium is mildly enlarged, left ventricle is normal size, mild concentric left ventricular hypertrophy, visually estimated ejection fraction 55% with no obvious regional wall motion abnormality, endocardial surface of poorly visualized. 2. The right atrium and right ventricle are normal size and contractility. 3. The aortic valve is thickened and calcified leaflet continue to display mobility., The morphology of the leaflet is not well visualized. 4. The mitral and tricuspid valve are grossly normal. 5. The pulmonic valve is poorly visualized. 6. No significant pericardial effusion noted. DOPPLER INTERROGATION: The aortic outflow velocities not accurately recorded study, degree of aortic stenosis cannot be assessed with this study, morphologically there appears to be mild aortic stenosis, there is moderate aortic insufficiency. Grade 1 diastolic dysfunction seen with tissue Doppler evidence of raised left atrial pressure, there is mild mitral and tricuspid regurgitation present. Tricuspid regurgitant jet velocity insufficient for acquisition of the right ventricular systolic pressure. CONCLUSION: 1. Mildly enlarged left atrium, normal left ventricular size, mild concentric left ventricular hypertrophy, visually estimated ejection fraction 55% with no regional wall motion abnormality, endocardial surface of poorly visualized, grade 1 diastolic dysfunction seen with tissue Doppler evidence of raised left atrial pressure. 2. Thickened and calcified aortic valve, Doppler is inadequate for assessment of aortic stenosis, morphologically there is mild aortic stenosis, there is moderate aortic insufficiency. 3. Mild mitral and tricuspid regurgitation 4. No significant pericardial effusion noted.
== END 2018-03-30 13:53 ==
LOC: ER 09:49 → 2ND 11:15 → CATHLAB 11:15 → ER 13:15 → OBSVTOIN 15:00 → 2ND 15:20
PROVIDERS: ADMIT Emergency Medicine; ATTEND Emergency Medicine

== ENCOUNTER 2018-06-06 09:09 | Inpatient (IN) ==
--- NOTE | 2018-06-06 09:15 | Emergency Department Note ---
ED Disposition Clinical Impression: Healthcare-associated pneumonia, Acute respiratory failure with hypoxia and hypercapnia Disposition: Still a Patient Condition on Discharge: Serious Referrals: Provider,Referral, [Primary Care Provider] - - Critical Care Critical Care Time: Yes Attestation: On , the high probability of a clinically significant, sudden or life threatening deterioration of the following system(s) required my full and direct attention, intervention and personal management. The time I documented below is in addition to time spent performing reported procedures but includes the following listed in this critical care notation. Vital system(s) involved:: Respiratory Failure My critical care processes included: Assessment & monitoring of V/S, Initial and Re-exams, Data Review/Interpretation, Coordinating Care, Medication Orders and management, Documentation Medical Decision Making - Yonathan Inquiry Pt receiving controlled substance: No Vital Signs: 06/06/18 09:10 06/06/18 09:21 06/06/18 09:37 Pulse Rate Pulse Rate [Apical] 74 Pulse Rate [Right Brachial] 70 Pulse Rate [Right] 81 Respiratory Rate 30 H 30 H Blood Pressure [Right Arm] 127/85 108/53 L 135/64 Blood Pressure Mean [Right Arm] 99 71 87 Blood Pressure Source [Right Arm] Manual Cuff/ Doppler Automatic Cuff Automatic Cuff Blood Pressure Position [Right Arm] Sitting Sitting Sitting 02 Sat by Pulse Oximetry 96 88 L 90 L Oxygen Delivery Method Aerosol Mask Nasal Cannula Oxygen Flow Rate (LPM) 10 3 06/06/18 09:58 06/06/18 10:06 06/06/18 10:20 Pulse Rate 59 L Pulse Rate [Apical] 64 59 L Pulse Rate [Right Brachial] Pulse Rate [Right] Respiratory Rate 30 H Blood Pressure [Right Arm] 142/87 H 107/70 L Blood Pressure Mean [Right Arm] 105 82 Blood Pressure Source [Right Arm] Automatic Cuff Automatic Cuff Blood Pressure Position [Right Arm] Supine Sitting 02 Sat by Pulse Oximetry 94 L 95 95 Oxygen Delivery Method Nasal Cannula Aerosol Mask Nasal Cannula Oxygen Flow Rate (LPM) 4 4 06/06/18 10:43 Pulse Rate Pulse Rate [Apical] 70 Pulse Rate [Right Brachial] Pulse Rate [Right] Respiratory Rate 28 H Blood Pressure [Right Arm] 144/66 H Blood Pressure Mean [Right Arm] 92 Blood Pressure Source [Right Arm] Automatic Cuff Blood Pressure Position [Right Arm] Sitting 02 Sat by Pulse Oximetry 93 L Oxygen Delivery Method Venturi Mask Oxygen Flow Rate (LPM) - Lab Data Lab Results 06/06/18 09:30: Urine Color Yellow, Urine Appearance Clear, Urine pH 7.0, Ur Specific [place] 1.025, Urine Protein 2+, Urine Glucose (UA) Negative, Urine Ketones Negative, Urine Blood Trace-i, Urine Nitrate Negative, Urine Bilirubin Negative, Urine Urobilinogen 1.0, Ur Leukocyte Esterase Negative, Urine RBC Occasional, Urine WBC 5-10, Ur Squamous Epith Cells 5-10, Urine Bacteria 3+ 06/06/18 09:36: Specimen Source Femoral, O2 % 4lpm, ABG pH 7.34 L, ABG pCO2 73.6 H, ABG pO2 51.8 L, ABG HCO3 38.6 H, ABG Total CO2 40.9 H, ABG O2 Saturation 86 L*, ABG Base Excess 12.8 H 06/06/18 09:55: WBC 6.4, RBC 4.81, Hgb 12.8, Hct 43.5, MCV 90.6, MCH 26.7 L, MCHC 29.5 L, RDW 15.9, Plt Count 135 L, MPV 7.6, Neut % (Auto) 60.0, Lymph % (Auto) 29.4, [place] % (Auto) 9.8 H, Eos % (Auto) 0.6, Baso % (Auto) 0.3, Neut # (Auto) 3.8, Lymph # (Auto) 1.9, [place] # (Auto) 0.6, Eos # (Auto) 0.0, Baso # (Auto) 0.0 06/06/18 09:55: Sodium 142, Potassium 4.6, Chloride 103, Carbon Dioxide 39 H, Anion Gap 4.6 L, BUN 6 L, Creatinine 0.65, Estimated Creat Clear 104, Estimated GFR 92, Est GFR ( Amer) 112, Glucose 142 H, Calcium 8.1 L, Total Bilirubin 0.4, AST 70 H, ALT 44, Alkaline Phosphatase 151 H, Total Protein 6.2 L , Albumin 2.3 L, Globulin 3.9 H, Albumin/Globulin Ratio 0.6 L 06/06/18 09:55: Lactate 1.7 06/06/18 09:55: B-Natriuretic Peptide 441 H Result diagrams: 06/06/18 09:55 06/06/18 09:55 Orders (Tests/Meds): ED MEDICATIONS Generic Name Dose Route Start Last Admin Trade Name Freq PRN Reason Stop Dose Admin Levofloxacin/Dextrose 750 mg in 150 mls @ 100 mls/hr 06/06/18 09:45 06/06/18 10:12 Levofloxacin 750mg/150ml Premix IV 06/20/18 09:44 100 mls/hr Q24H ERNESTO Administration Protocol Cefepime HCl 2 gm/ Sodium 100 mls @ 200 mls/hr 06/06/18 09:45 Chloride IV 06/20/18 09:44 Q12H ERNESTO Protocol Discontinued Medications Generic Name Dose Route Start Last Admin Trade Name Freq PRN Reason Stop Dose Admin Albuterol/Ipratropium 3 ml 06/06/18 09:35 06/06/18 10:20 Duoneb 3ml Neb IH 06/06/18 09:36 3 ml ONCE ONE Administration Methylprednisolone Sodium Succinate 125 mg 06/06/18 09:35 06/06/18 10:13 Solu-Medrol 125mg/2ml Vial IV 06/06/18 09:36 125 mg ONCE ONE Administration Miscellaneous 1 each 06/06/18 09:35 Vancomycin Consult Request NOTAPPLIC 06/06/18 09:36 CONSULT PHARMACY ONE ORDERS Category Date Time Status Blood Culture Stat Micro 06/06/18 09:55 Ordered Urine Culture Stat Micro 06/06/18 09:30 Received - Radiology Data #1 Image(s): Chest Image Reviewed: Yes I reviewed the patient's radiology image Infiltrate right base, possible effusion - ECG Data Tracing #1 EKG interpreted by Misael France MD: Rhythm: sinus Rate: 62 [place]: normal Ectopy: Premature atrial contraction Conduction: normal ST Segment Changes: none T Wave Changes: none Q Waves: none No evidence of acute ischemia or injury - Physician Consults Physician Consulted: Clay Phipps NP for Dr. Archibald Time: 11:04 Reason -: Admission Comment/Response: Agrees to admit the patient to the hospital. We discussed the patient's clinical information, including history, exam, laboratory and radiology results and ED course. Per hospital procedure, I will write temporary bridge inpatient orders on the patient. Specific orders requested by the admitting physician: Continue current treatment Medical Decision Narrative: The patient presented the same way in October, seen by me in this emergency department and admitted for respiratory failure, BiPAP required, healthcare associated pneumonia. General Adult HPI - General Stated complaint: low Sao2, AMS Time Seen by Provider: 06/06/18 09:14 - History of Present Illness HPI narrative: Poor historian. [facility] in [facility] ambulance from [facility], discovered to be hypoxic with a pulse ox in the 60s on room air and drowsy this morning. Reported prior history of COPD. Reportedly not normally on oxygen. Swelling of face. - Related Data Home Medications Medication Instructions Recorded Confirmed Ascorbic Acid [Vitamin C] 1,000 mg PO DAILY 11/13/17 05/27/18 Aspirin [Aspirin 81mg chewable 81 mg PO DAILY 11/13/17 05/27/18 tab] Benztropine Mesylate 0.5 mg PO DAILY 11/13/17 05/27/18 Benztropine Mesylate [Cogentin 1mg 1 mg PO HS 11/13/17 05/27/18 tablet] Carvedilol [Carvedilol 25mg Tab] 25 mg PO 0800,1700 11/13/17 05/27/18 Cholecalciferol (Vitamin D3) 2,000 unit PO DAILY 11/13/17 05/27/18 [Vitamin D3] Divalproex Sodium 250 mg PO BID 11/13/17 05/27/18 Fluticasone Propionate [Flonase 1 spr NS DAILY 11/13/17 05/27/18 50mcg nasal spray 16gm] Hydrocod/Acet 5/325 mg [[place] 1 each PO TID 11/13/17 05/27/18 5/325mg tablet] Isosorbide Dinitrate [Isordil 20mg 20 mg PO TID 11/13/17 05/27/18 tablet] Lactulose [Lactulose 10gm/15ml 20 gm PO DAILY 11/13/17 05/27/18 Oral Soln] Levothyroxine Sodium 75 mcg PO DAILY 11/13/17 05/27/18 [Levothyroxine 75mcg (0.075mg) Tab] Potassium Chloride [Klor-Con 10mEq 10 meq PO DAILY 11/13/17 05/27/18 tab] Pravastatin Sodium [Pravachol] 40 mg PO HS 11/13/17 05/27/18 Rifaximin [Xifaxan] 550 mg PO BID 11/13/17 05/27/18 Sodium Chloride 3 gm PO TID 11/13/17 05/27/18 Venlafaxine HCl 75 mg PO TID 11/13/17 05/27/18 clonazePAM [Clonazepam] 0.25 mg PO TID 11/13/17 05/27/18 Calcium Carbonate [Tums 500mg 500 mg PO DAILY 11/14/17 05/27/18 chewtab] Polyethylene Glycol 3350 [Miralax 17 gm PO DAILY 11/14/17 05/27/18 17gm Packet] acetaminophen 500 mg capsule 500 mg PO Q4H PRN 01/07/18 05/27/18 albuterol sulfate HFA 90 2 puff INHALATION Q4H PRN 01/07/18 05/27/18 mcg/actuation aerosol inhaler aluminum hydrox-magnesium carb 95 30 ml PO QID PRN ml 01/07/18 05/27/18 mg-358 mg/15 mL oral suspension guaifenesin 100 mg/5 mL oral liquid 200 mg PO Q6H PRN ml 01/07/18 05/27/18 ipratropium-albuterol 0.5 mg-3 3 ml INHALATION Q4H PRN ml 01/07/18 05/27/18 mg(2.5 mg base)/3 mL nebulization soln ondansetron HCl 4 mg tablet 4 mg PO Q4H PRN tab 01/07/18 05/27/18 phenol 1.4 % mucosal aerosol spray 2 spray MUCOUS MEM QIDP PRN ml 01/07/18 05/27/18 polyvinyl alcohol 1.4 % eye drops 1 drp OPHTHALMIC BID ml 01/07/18 05/27/18 sennosides 8.6 mg-docusate sodium 1 tab PO BID PRN 01/07/18 05/27/18 50 mg tablet Furosemide [Furosemide 20mg Tab] 20 mg PO DAILYP PRN 03/28/18 05/27/18 Saliva Stimulant Agents Comb.3 1 spray MM DAILY 03/28/18 05/27/18 [Biotene Moisturizing Mouth] risperiDONE [Risperidone] 3 mg PO HS 03/28/18 05/27/18 Previous Rx's Medication Instructions Recorded Albuterol Sulfate [Albuterol HFA 1 - 2 puffs IH Q4-6H PRN #1 inh 03/30/18 Inhaler] Allergies Allergy/AdvReac Type Severity Reaction Status Date / Time haloperidol [HALOPERIDOL] Allergy Unknown Unknown Verified 05/27/18 13:20 allergy reaction metronidazole [From Flagyl] Allergy Unknown Unknown Verified 05/27/18 13:20 allergy reaction molindone Allergy Unknown Unknown Verified 05/27/18 13:20 allergy reaction paroxetine Allergy Unknown Unknown Verified 05/27/18 13:20 allergy reaction Penicillins [PENICILLINS] Allergy Unknown Unknown Verified 05/27/18 13:20 allergy reaction phenacaine Allergy Unknown Unknown Verified 05/27/18 13:20 allergy reaction Sulfa (Sulfonamide Allergy Unknown Unknown Verified 05/27/18 13:20 Antibiotics) allergy reaction triazolam [From Halcion] Allergy Unknown Unknown Verified 05/27/18 13:20 allergy reaction kiwi Allergy Hives Verified 05/27/18 13:20 raspberry Allergy Hives Verified 05/27/18 13:20 [facility] History I have reviewed the patient's past medical history: Yes Medical History: Reports:: Anxiety, Chronic Obstructive Pulmonary Disease (COPD), Hypertension, Myocardial Infarction Denies:: Cancer, Diabetes Mellitus Type 1, Diabetes Mellitus Type 2, Internal Pacemaker, MRSA Comment: Significant record deficit with no records from [facility] Other Surgeries: No: Pacemaker Amputation: No - Social History Smoking Status: Former smoker Tobacco Type: cigarettes Alcohol Intake: never Occupational Status: disabled Housing: [facility] - Psychiatric History Pschychiatric History:: Reports:: Anxiety ROS Obtained: Yes unobtainable due to mental status Physical Exam - General General appearance: other (Drowsy, opens eyes and follows commands, answers a few brief questions) - Head Head exam: atraumatic, normocephalic - Eye Eye exam: Present: normal appearance, PERRL, EOMI - ENT ENT exam: Present: mucous membranes dry - Neck Neck exam: Present: normal inspection, full ROM - Chest Chest inspection: Present: normal inspection, symmetric chest wall rise - Respiratory Respiratory exam: Present: normal lung sounds bilaterally. Absent: respiratory distress - Cardiovascular Cardiovascular exam: Present: regular rate, normal rhythm, normal heart sounds - Abdominal Exam Abdominal exam: Present: soft. Absent: distention, tenderness Comment: Large central abdominal scar that appears likely from a skin graft. - Neurological Exam Neurological exam: Present: other (drowsy, no focal deficits) - Skin Skin exam: Present: warm, dry Procedures - Miscellaneous Procedure Procedure Performed: Ultrasound assisted arterial blood gas draw from left femoral artery. Poor radial pulses, unable to obtain ABG from radial artery or brachial artery. Morbidly obese. Poor femoral pulses as well. Successful draw from the left femoral area with ultrasound assistance. Ultrasound assisted with this blood draw from left femoral vein. Poor venous access. design lead unable to obtain venous blood peripherally. Morbidly obese. Successful draw from left femoral vein with ultrasound assistance.
[2018-06-06 09:58] LABS: Appearance,Urine CLEAR (Clear); Bilirubin,Urine Negative (Negative); Blood, Urine TRACE-I (Negative); Color,Urine YELLOW (Yellow); Glucose,Urine (UA) Negative (Negative); Ketones,Urine Negative (Negative); Leukocyte Esterase,Urine Negative (Negative); Microscopic, Urine URINE MICROSCOPIC (MICROSCOPIC); Protein,Urine 2+ (Negative); Specific Gravity, Urine 1.025 (1.005-1.030)
[2018-06-06 10:09] LABS: Basophils % 0.3 % (0.1-2.0); Eosinophils % 0.6 % (0.1-12.0); Hematocrit 43.5 % (37.0-47.0); Hemoglobin 12.8 g/dL (12.2-16.2); Lymphocytes # 1.9 K/mm3 (0.7-4.5); Lymphocytes % 29.4 % (10-50); Mean Corpuscular HGB Conc 29.5 g/dL (31.8-35.4); Mean Corpuscular Hemoglobin 26.7 pg (27.0-31.2); Mean Corpuscular Volume 90.6 fl (81-99); Mean Platelet Volume 7.6 fl (7.4-10.4); Monocytes # 0.6 K/mm3 (0.1-1.0); Monocytes % 9.8 % (1.7-9.3); Neutrophils # 3.8 K/mm3 (1.8-7.8); Platelet Count 135 K/mm3 (142-424); Red Blood Count 4.81 M/mm3 (4.20-5.40); Red Cell Distribution Width 15.9 % (11.5-17.5); White Blood Count 6.4 K/mm3 (4.8-10.8)
[2018-06-06 10:10] LABS: Bacteria,Urine 3+ /lpf; RBC,Urine Occasional #/hpf (0-3)
[2018-06-06 10:18] LABS: ABG Base Excess 12.8 mmol/L (-2.4-2.3); ABG HCO3 38.6 mmhg (22.0-26.0); ABG Oxygen Saturation 86 % (90-100); ABG PH 7.34 mmol/L (7.35-7.45); ABG PO2 51.8 mmhg (80-100); ABG TCO2 40.9 mmhg (23-27); Oxygen 4LPM %
[2018-06-06 10:21] LABS: ABG PCO2 73.6 mmhg (35.0-45.0)
[2018-06-06 10:38] LABS: Albumin Level 2.3 gm/dL (3.4-5.0); Albumin/Globulin Ratio 0.6 (1.1-1.8); Anion Gap 4.6 mEq/L (5-15); Bilirubin,Total 0.4 mg/dL (0.2-1.0); Calcium 8.1 mg/dL (8.5-10.1); Globulin 3.9 gm/dl (1.3-3.2); Total Protein,Serum 6.2 gm/dL (6.4-8.2)
[2018-06-06 10:47] LABS: Potassium 4.6 mmoL/L (3.5-5.1)
--- NOTE | 2018-06-06 11:42 | Pharmacy Consult Notes ---
- Pharmacy Consult Date: 06/06/18 Time: 11:40 Referring provider: DR. ORTIZ Reason for Consult:: VANCOMYCIN DOSING Allergies and ADEs:: Allergies Allergy/AdvReac Type Severity Reaction Status Date / Time haloperidol [HALOPERIDOL] Allergy Unknown Unknown Verified 05/27/18 13:20 allergy reaction metronidazole [From Flagyl] Allergy Unknown Unknown Verified 05/27/18 13:20 allergy reaction molindone Allergy Unknown Unknown Verified 05/27/18 13:20 allergy reaction paroxetine Allergy Unknown Unknown Verified 05/27/18 13:20 allergy reaction Penicillins [PENICILLINS] Allergy Unknown Unknown Verified 05/27/18 13:20 allergy reaction phenacaine Allergy Unknown Unknown Verified 05/27/18 13:20 allergy reaction Sulfa (Sulfonamide Allergy Unknown Unknown Verified 05/27/18 13:20 Antibiotics) allergy reaction triazolam [From Halcion] Allergy Unknown Unknown Verified 05/27/18 13:20 allergy reaction kiwi Allergy Hives Verified 05/27/18 13:20 raspberry Allergy Hives Verified 05/27/18 13:20 Home Medications:: Home Medications Medication Instructions Recorded Confirmed Type Ascorbic Acid [Vitamin C] 1,000 mg PO DAILY 11/13/17 05/27/18 History Aspirin [Aspirin 81mg chewable 81 mg PO DAILY 11/13/17 05/27/18 History tab] Benztropine Mesylate 0.5 mg PO DAILY 11/13/17 05/27/18 History Benztropine Mesylate [Cogentin 1mg 1 mg PO HS 11/13/17 05/27/18 History tablet] Carvedilol [Carvedilol 25mg Tab] 25 mg PO 0800,1700 11/13/17 05/27/18 History Cholecalciferol (Vitamin D3) 2,000 unit PO DAILY 11/13/17 05/27/18 History [Vitamin D3] Divalproex Sodium 250 mg PO BID 11/13/17 05/27/18 History Fluticasone Propionate [Flonase 1 spr NS DAILY 11/13/17 05/27/18 History 50mcg nasal spray 16gm] Hydrocod/Acet 5/325 mg [[place] 1 each PO TID 11/13/17 05/27/18 History 5/325mg tablet] Isosorbide Dinitrate [Isordil 20mg 20 mg PO TID 11/13/17 05/27/18 History tablet] Lactulose [Lactulose 10gm/15ml 20 gm PO DAILY 11/13/17 05/27/18 History Oral Soln] Levothyroxine Sodium 75 mcg PO DAILY 11/13/17 05/27/18 History [Levothyroxine 75mcg (0.075mg) Tab] Potassium Chloride [Klor-Con 10mEq 10 meq PO DAILY 11/13/17 05/27/18 History tab] Pravastatin Sodium [Pravachol] 40 mg PO HS 11/13/17 05/27/18 History Rifaximin [Xifaxan] 550 mg PO BID 11/13/17 05/27/18 History Sodium Chloride 3 gm PO TID 11/13/17 05/27/18 History Venlafaxine HCl 75 mg PO TID 11/13/17 05/27/18 History clonazePAM [Clonazepam] 0.25 mg PO TID 11/13/17 05/27/18 History Calcium Carbonate [Tums 500mg 500 mg PO DAILY 11/14/17 05/27/18 History chewtab] Polyethylene Glycol 3350 [Miralax 17 gm PO DAILY 11/14/17 05/27/18 History 17gm Packet] acetaminophen 500 mg capsule 500 mg PO Q4H PRN 01/07/18 05/27/18 History albuterol sulfate HFA 90 2 puff INHALATION Q4H PRN 01/07/18 05/27/18 History mcg/actuation aerosol inhaler aluminum hydrox-magnesium carb 95 30 ml PO QID PRN ml 01/07/18 05/27/18 History mg-358 mg/15 mL oral suspension guaifenesin 100 mg/5 mL oral liquid 200 mg PO Q6H PRN ml 01/07/18 05/27/18 History ipratropium-albuterol 0.5 mg-3 3 ml INHALATION Q4H PRN ml 01/07/18 05/27/18 History mg(2.5 mg base)/3 mL nebulization soln ondansetron HCl 4 mg tablet 4 mg PO Q4H PRN tab 01/07/18 05/27/18 History phenol 1.4 % mucosal aerosol spray 2 spray MUCOUS MEM QIDP PRN ml 01/07/18 05/27/18 History polyvinyl alcohol 1.4 % eye drops 1 drp OPHTHALMIC BID ml 01/07/18 05/27/18 History sennosides 8.6 mg-docusate sodium 1 tab PO BID PRN 01/07/18 05/27/18 History 50 mg tablet Furosemide [Furosemide 20mg Tab] 20 mg PO DAILYP PRN 03/28/18 05/27/18 History Saliva Stimulant Agents Comb.3 1 spray MM DAILY 03/28/18 05/27/18 History [Biotene Moisturizing Mouth] risperiDONE [Risperidone] 3 mg PO HS 03/28/18 05/27/18 History Height: 1.73 m Weight: 112.491 kg Laboratory Results:: Laboratory Results - last 24 hr 06/06/18 09:30: Urine Color Yellow, Urine Appearance Clear, Urine pH 7.0, Ur Specific [place] 1.025, Urine Protein 2+, Urine Glucose (UA) Negative, Urine Ketones Negative, Urine Blood Trace-i, Urine Nitrate Negative, Urine Bilirubin Negative, Urine Urobilinogen 1.0, Ur Leukocyte Esterase Negative, Urine RBC Occasional, Urine WBC 5-10, Ur Squamous Epith Cells 5-10, Urine Bacteria 3+ 06/06/18 09:36: Specimen Source Femoral, O2 % 4lpm, ABG pH 7.34 L, ABG pCO2 73.6 H, ABG pO2 51.8 L, ABG HCO3 38.6 H, ABG Total CO2 40.9 H, ABG O2 Saturation 86 L*, ABG Base Excess 12.8 H 06/06/18 09:55: WBC 6.4, RBC 4.81, Hgb 12.8, Hct 43.5, MCV 90.6, MCH 26.7 L, MCHC 29.5 L, RDW 15.9, Plt Count 135 L, MPV 7.6, Neut % (Auto) 60.0, Lymph % (Auto) 29.4, [place] % (Auto) 9.8 H, Eos % (Auto) 0.6, Baso % (Auto) 0.3, Neut # (Auto) 3.8, Lymph # (Auto) 1.9, [place] # (Auto) 0.6, Eos # (Auto) 0.0, Baso # (Auto) 0.0 06/06/18 09:55: Sodium 142, Potassium 4.6, Chloride 103, Carbon Dioxide 39 H, Anion Gap 4.6 L, BUN 6 L, Creatinine 0.65, Estimated Creat Clear 104, Estimated GFR 92, Est GFR ( Amer) 112, Glucose 142 H, Calcium 8.1 L, Total Bilirubin 0.4, AST 70 H, ALT 44, Alkaline Phosphatase 151 H, Total Protein 6.2 L , Albumin 2.3 L, Globulin 3.9 H, Albumin/Globulin Ratio 0.6 L 06/06/18 09:55: Lactate 1.7 06/06/18 09:55: B-Natriuretic Peptide 441 H Medical History: Reports:: Anxiety, Chronic Obstructive Pulmonary Disease (COPD), Hypertension, Myocardial Infarction Denies:: Cancer, Diabetes Mellitus Type 1, Diabetes Mellitus Type 2, Internal Pacemaker, MRSA Assessment and Plan - Assessment and plan all Dx Assessment and Plan for all problems:: BASED ON PATIENT FACTORS, RECOMMEND INITIATING VANCOMYCIN AT 2,000MG IV EVERY 12 HOURS. PHARMACY WILL OBTAIN TROUGH LEVEL PRIOR TO FOURTH DOSE AND WILL THEN ADJUST DOSE APPROPRIATE. -JHONNY IRAHETA PHARMD
[2018-06-06 12:15] LABS: Free Thyroxine Index 3.7 ug/dL (5.93-13.13); T4 (Thyroxine) 10.9 ug/dl (4.7-13.3); Thyroid Stimulating Hormone 1.21 uIU/ml (0.358-3.740)
[2018-06-06 15:15] LABS: ABG Base Excess 13.2 mmol/L (-2.4-2.3); ABG Oxygen Saturation 95 % (90-100); ABG PH 7.34 mmol/L (7.35-7.45); ABG PO2 76.2 mmhg (80-100); ABG TCO2 41.3 mmhg (23-27)
[2018-06-06 15:18] LABS: Allen's Test Non Applicable; Oxygen 40% %; Tidal Volume BIPAP 18/8
[2018-06-06 15:19] LABS: ABG PCO2 74.9 mmhg (35.0-45.0)
--- NOTE | 2018-06-07 09:51 | History & Physical Report ---
*Admission Date: 06/07/18 *Chief complaint: soa,low o2 sat *History of present illness: 62 yr old female Sent in by ambulance from [facility], discovered to be hypoxic with a pulse ox in the 60s on room air and drowsy this morning per staff and ed note. Reported prior history of COPD. Reportedly not normally on oxygen. pt is poor historian and only states "I was having problems Breathing". Pt does smoke. Admitted for pneumonia and resp distress placed on bipap. [facility] History I have reviewed the patient's past medical history: Yes Medical History: Reports:: Anxiety, Chronic Obstructive Pulmonary Disease (COPD), Hyperlipidemia, Hypertension, Myocardial Infarction Denies:: Cancer, Diabetes Mellitus Type 1, Diabetes Mellitus Type 2, Internal Pacemaker, MRSA Other Surgeries: No: Pacemaker Amputation: No - *Social History Smoking Status: Former smoker Tobacco Type: cigarettes Alcohol Intake: never Occupational Status: disabled Housing: penitentiary - Psychiatric History Expresses thoughts of harming self/others: None Suicide Plan Description: No Plan Pschychiatric History:: Reports:: Anxiety Review of Systems - Review of Systems Review of systems:: unable to obtain, pertinent systems reviewed and negative unless documented below - *Cardiovascular Denies chest pain at rest - *Respiratory Reports shortness of breath, Reports shortness of breath with activity Meds Home Medications Medication Instructions Recorded Confirmed Type Ascorbic Acid [Vitamin C] 1,000 mg PO DAILY 11/13/17 06/06/18 History Aspirin [Aspirin 81mg chewable 81 mg PO DAILY 11/13/17 06/06/18 History tab] Benztropine Mesylate 0.5 mg PO DAILY 11/13/17 06/06/18 History Benztropine Mesylate [Cogentin 1mg 1 mg PO HS 11/13/17 06/06/18 History tablet] Carvedilol [Carvedilol 25mg Tab] 25 mg PO 0800,1700 11/13/17 06/06/18 History Cholecalciferol (Vitamin D3) 2,000 unit PO DAILY 11/13/17 06/06/18 History [Vitamin D3] Divalproex Sodium 250 mg PO BID 11/13/17 06/06/18 History Fluticasone Propionate [Flonase 1 spr NS DAILY 11/13/17 06/06/18 History 50mcg nasal spray 16gm] Hydrocod/Acet 5/325 mg [[place] 1 each PO TID 11/13/17 06/06/18 History 5/325mg tablet] Isosorbide Dinitrate [Isordil 20mg 20 mg PO TID 11/13/17 06/06/18 History tablet] Lactulose [Lactulose 10gm/15ml 20 gm PO DAILY 11/13/17 06/06/18 History Oral Soln] Levothyroxine Sodium 75 mcg PO DAILY 11/13/17 06/06/18 History [Levothyroxine 75mcg (0.075mg) Tab] Potassium Chloride [Klor-Con 10mEq 10 meq PO DAILY 11/13/17 06/06/18 History tab] Pravastatin Sodium [Pravachol] 40 mg PO HS 11/13/17 06/06/18 History Rifaximin [Xifaxan] 550 mg PO BID 11/13/17 06/06/18 History Sodium Chloride 3 gm PO TID 11/13/17 06/06/18 History Venlafaxine HCl 75 mg PO TID 11/13/17 06/06/18 History clonazePAM [Clonazepam] 0.25 mg PO TID 11/13/17 06/06/18 History Calcium Carbonate [Tums 500mg 500 mg PO DAILY 11/14/17 06/06/18 History chewtab] Polyethylene Glycol 3350 [Miralax 17 gm PO DAILY 11/14/17 06/06/18 History 17gm Packet] acetaminophen 500 mg capsule 500 mg PO Q4H PRN 01/07/18 06/06/18 History albuterol sulfate HFA 90 2 puff INHALATION Q4H PRN 01/07/18 06/06/18 History mcg/actuation aerosol inhaler aluminum hydrox-magnesium carb 95 30 ml PO QID PRN ml 01/07/18 06/06/18 History mg-358 mg/15 mL oral suspension guaifenesin 100 mg/5 mL oral liquid 200 mg PO Q6H PRN ml 01/07/18 06/06/18 History ipratropium-albuterol 0.5 mg-3 3 ml INHALATION Q4H PRN ml 01/07/18 06/06/18 History mg(2.5 mg base)/3 mL nebulization soln ondansetron HCl 4 mg tablet 4 mg PO Q4H PRN tab 01/07/18 06/06/18 History phenol 1.4 % mucosal aerosol spray 2 spray MUCOUS MEM QIDP PRN ml 01/07/18 06/06/18 History polyvinyl alcohol 1.4 % eye drops 1 drp OPHTHALMIC BID ml 01/07/18 06/06/18 History sennosides 8.6 mg-docusate sodium 1 tab PO BID PRN 01/07/18 06/06/18 History 50 mg tablet Furosemide [Furosemide 20mg Tab] 20 mg PO DAILYP PRN 03/28/18 06/06/18 History Saliva Stimulant Agents Comb.3 1 spray MM DAILY 03/28/18 06/06/18 History [Biotene Moisturizing Mouth] Paliperidone Palmitate [Invega 117 mg IM MONTHLY 06/06/18 06/06/18 History Sustenna] Allergies Allergy/AdvReac Type Severity Reaction Status Date / Time haloperidol [HALOPERIDOL] Allergy Unknown Unknown Verified 05/27/18 13:20 allergy reaction metronidazole [From Flagyl] Allergy Unknown Unknown Verified 05/27/18 13:20 allergy reaction molindone Allergy Unknown Unknown Verified 05/27/18 13:20 allergy reaction paroxetine Allergy Unknown Unknown Verified 05/27/18 13:20 allergy reaction Penicillins [PENICILLINS] Allergy Unknown Unknown Verified 05/27/18 13:20 allergy reaction phenacaine Allergy Unknown Unknown Verified 05/27/18 13:20 allergy reaction Sulfa (Sulfonamide Allergy Unknown Unknown Verified 05/27/18 13:20 Antibiotics) allergy reaction triazolam [From Halcion] Allergy Unknown Unknown Verified 05/27/18 13:20 allergy reaction kiwi Allergy Hives Verified 05/27/18 13:20 raspberry Allergy Hives Verified 05/27/18 13:20 Exam Vital signs and Labs for Last 24 Hours: Temp Pulse Resp BP Pulse Ox 97.8 F 57 L 22 166/77 H 91 L 06/07/18 08:00 06/07/18 08:00 06/07/18 08:00 06/07/18 08:00 06/07/18 08:00 Laboratory Results - last 24 hr 06/06/18 09:30: Urine Color Yellow, Urine Appearance Clear, Urine pH 7.0, Ur Specific [place] 1.025, Urine Protein 2+, Urine Glucose (UA) Negative, Urine Ketones Negative, Urine Blood Trace-i, Urine Nitrate Negative, Urine Bilirubin Negative, Urine Urobilinogen 1.0, Ur Leukocyte Esterase Negative, Urine RBC Occasional, Urine WBC 5-10, Ur Squamous Epith Cells 5-10, Urine Bacteria 3+ 06/06/18 09:36: Specimen Source Femoral, O2 % 4lpm, ABG pH 7.34 L, ABG pCO2 73.6 H, ABG pO2 51.8 L, ABG HCO3 38.6 H, ABG Total CO2 40.9 H, ABG O2 Saturation 86 L*, ABG Base Excess 12.8 H 06/06/18 09:55: WBC 6.4, RBC 4.81, Hgb 12.8, Hct 43.5, MCV 90.6, MCH 26.7 L, MCHC 29.5 L, RDW 15.9, Plt Count 135 L, MPV 7.6, Neut % (Auto) 60.0, Lymph % (Auto) 29.4, [place] % (Auto) 9.8 H, Eos % (Auto) 0.6, Baso % (Auto) 0.3, Neut # (Auto) 3.8, Lymph # (Auto) 1.9, [place] # (Auto) 0.6, Eos # (Auto) 0.0, Baso # (Auto) 0.0 06/06/18 09:55: Sodium 142, Potassium 4.6, Chloride 103, Carbon Dioxide 39 H, Anion Gap 4.6 L, BUN 6 L, Creatinine 0.65, Estimated Creat Clear 104, Estimated GFR 92, Est GFR ( Amer) 112, Glucose 142 H, Calcium 8.1 L, Total Bilirubin 0.4, AST 70 H, ALT 44, Alkaline Phosphatase 151 H, Total Protein 6.2 L , Albumin 2.3 L, Globulin 3.9 H, Albumin/Globulin Ratio 0.6 L 06/06/18 09:55: Lactate 1.7 06/06/18 09:55: B-Natriuretic Peptide 441 H 06/06/18 09:55: TSH 1.21, Free T4 Index 3.7 L, Thyroxine (T4) 10.9, T3 Uptake 34 06/06/18 15:13: Specimen Source R. brachial, O2 % 40%, ABG pH 7.34 L, ABG pCO2 74.9 H, ABG pO2 76.2 L, ABG HCO3 39.0 H, ABG Total CO2 41.3 H, ABG O2 Saturation 95, ABG Base Excess 13.2 H, [place] Test Non applicable, Vent Rate 18, Tidal Volume Bipap 18/8 I & O for Last 24 hours: Intake & Output 06/04/18 06/05/18 06/06/18 06/07/18 11:59 11:59 11:59 11:59 Intake Total 670 / 670 Output Total 500 / 500 Balance 170 / 170 Weight 248 lb 244 lb 6 oz Microbiology Reports for the Last 24 Hours: Microbiology 06/06/18 09:30 Urine,Catheterized Urine Culture - Preliminary Gram Negative Rods - *Routine HEENT Exam Head: Present: normocephalic Eye: Present: PERRL ENT: Present: mucous membranes moist - *Routine Neck Exam Present: supple. Absent: lymphadenopathy - *Routine Respiratory Exam Present: rhonchi, wheezes, diminished air movement - *Routine Cardiovascular Exam Present: RRR - *Routine Abdominal Exam Present: soft, normoactive bowel sounds, hernia. Absent: tenderness - *Routine Extremities Exam Absent: cyanosis, clubbing, edema - *Routine Skin Exam Present: warm. Absent: rash - *Routine Neurological Exam Present: alert, oriented X3 Assessment and Plan (1) Bacteremia Current visit: Yes Status: Acute Category: Medical Code(s): R78.81 - Bacteremia (2) Bacteremia Current visit: Yes Status: Acute Category: Medical Code(s): R78.81 - Bacteremia - Assessment and plan all Dx Assessment and Plan for all problems:: discussed with Dr Archibald all orders per Dragan. positive blood cx wait c&S
--- NOTE | 2018-06-07 14:44 | Pharmacy Consult Notes ---
[facility] Pharmacy VTE Monitoring - Patient Demographics Admission date: 06/07/18 Report Date: 06/07/18 Time: 14:44 Allergies/Adverse Reactions: Patient Allergies haloperidol [HALOPERIDOL] Allergy (Unknown, Verified 05/27/18 13:20) Unknown allergy reaction metronidazole [From Flagyl] Allergy (Unknown, Verified 05/27/18 13:20) Unknown allergy reaction molindone Allergy (Unknown, Verified 05/27/18 13:20) Unknown allergy reaction paroxetine Allergy (Unknown, Verified 05/27/18 13:20) Unknown allergy reaction Penicillins [PENICILLINS] Allergy (Unknown, Verified 05/27/18 13:20) Unknown allergy reaction phenacaine Allergy (Unknown, Verified 05/27/18 13:20) Unknown allergy reaction Sulfa (Sulfonamide Antibiotics) Allergy (Unknown, Verified 05/27/18 13:20) Unknown allergy reaction triazolam [From Halcion] Allergy (Unknown, Verified 05/27/18 13:20) Unknown allergy reaction kiwi Allergy (Verified 05/27/18 13:20) Hives raspberry Allergy (Verified 05/27/18 13:20) Hives Height: 1.68 m Weight: 110.847 kg Patient Problems: Current Active Problems Healthcare-associated pneumonia (Acute) Acute respiratory failure with hypoxia and hypercapnia (Acute) Bacteremia (Acute) Bacteremia (Acute) - VTE Risk Labs: VTE Related Lab Results Hgb 12.8 g/dL (12.2-16.2) 06/06/18 09:55 Hct 43.5 % (37.0-47.0) 11 09:55 Plt Count 135 K/mm3 (142-424) L 06/06/18 09:55 BUN 6 mg/dL (7-18) L 06/06/18 09:55 Creatinine 0.65 mg/dL (0.55-1.02) 06/06/18 09:55 Estimated Creat Clear 104 mL/min (50-200) 06/06/18 09:55 Was VTE Risk Assessment Performed: No VTE Score: 5 VTE Risk Level: Low Risk - Prophylaxis Types of VTE Prophylaxis: TEDS Knee High (DEBBIE HOSE ORDERED)
[2018-06-08 06:59] LABS: Eosinophils # 0.1 K/mm3 (0.0-0.4); Eosinophils % 0.8 % (0.1-12.0); Hematocrit 41.6 % (37.0-47.0); Hemoglobin 12.7 g/dL (12.2-16.2); Lymphocytes # 1.4 K/mm3 (0.7-4.5); Lymphocytes % 17.1 % (10-50); Mean Corpuscular HGB Conc 30.6 g/dL (31.8-35.4); Mean Corpuscular Hemoglobin 27.2 pg (27.0-31.2); Mean Corpuscular Volume 88.9 fl (81-99); Mean Platelet Volume 8.3 fl (7.4-10.4); Monocytes # 0.6 K/mm3 (0.1-1.0); Monocytes % 7.8 % (1.7-9.3); Neutrophils % 74.2 % (37.0-80.0); Platelet Count 118 K/mm3 (142-424); Red Blood Count 4.68 M/mm3 (4.20-5.40); Red Cell Distribution Width 16.5 % (11.5-17.5); White Blood Count 8.1 K/mm3 (4.8-10.8)
[2018-06-08 07:12] LABS: Albumin Level 2.2 gm/dL (3.4-5.0); Albumin/Globulin Ratio 0.5 (1.1-1.8); Anion Gap 4.2 mEq/L (5-15); Bilirubin,Total 0.4 mg/dL (0.2-1.0); Calcium 8.1 mg/dL (8.5-10.1); Globulin 4.1 gm/dl (1.3-3.2); Potassium 4.2 mmoL/L (3.5-5.1); Total Protein,Serum 6.3 gm/dL (6.4-8.2)
[2018-06-08 08:15] LABS: Microscopic, Urine URINE MICROSCOPIC (MICROSCOPIC)
[2018-06-08 08:21] LABS: Appearance,Urine CLEAR (Clear); Bilirubin,Urine Negative (Negative); Blood, Urine Negative (Negative); Color,Urine YELLOW (Yellow); Glucose,Urine (UA) Negative (Negative); Ketones,Urine 1+ (Negative); Leukocyte Esterase,Urine Negative (Negative); PH,Urine 6.5 (5.0-8.5); Protein,Urine Negative (Negative); Specific Gravity, Urine 1.025 (1.005-1.030); Urobilinogen,Urine 0.2 EU/dl (0.2)
[2018-06-08 08:36] LABS: Bacteria,Urine 4+ /lpf; Mucus,Urine 1+ /lpf
--- NOTE | 2018-06-08 10:32 | Progress Note ---
Internal Medicine - PN: Subj *Date: 06/08/18 *Time: 09:35 Interval history: pt states doing well today. Exam Vital signs and Labs for Last 24 Hours: Temp Pulse Resp BP Pulse Ox 98.2 F 56 L 18 167/71 H 94 L 06/08/18 08:00 06/08/18 08:00 06/08/18 08:00 06/08/18 08:00 06/08/18 08:00 Laboratory Results - last 24 hr 06/08/18 03:18: Troponin I < 0.02 06/08/18 06:12: Urine Color Yellow, Urine Appearance Clear, Urine pH 6.5, Ur Specific [place] 1.025, Urine Protein Negative, Urine Glucose (UA) Negative, Urine Ketones 1+, Urine Blood Negative, Urine Nitrate Negative, Urine Bilirubin Negative, Urine Urobilinogen 0.2, Ur Leukocyte Esterase Negative, Urine WBC 5- 10, Ur Squamous Epith Cells 3-5, Urine Bacteria 4+, Urine Mucus 1+ 06/08/18 06:48: WBC 8.1 D, RBC 4.68, Hgb 12.7, Hct 41.6, MCV 88.9, MCH 27.2, MCHC 30.6 L, RDW 16.5, Plt Count 118 L, MPV 8.3, Neut % (Auto) 74.2, Lymph % (Auto) 17.1, [place] % (Auto) 7.8, Eos % (Auto) 0.8, Baso % (Auto) 0.0 L, Neut # (Auto) 6.0, Lymph # (Auto) 1.4, [place] # (Auto) 0.6, Eos # (Auto) 0.1, Baso # (Auto) 0.0 06/08/18 06:48: Sodium 137, Potassium 4.2, Chloride 102, Carbon Dioxide 35 H, Anion Gap 4.2 L, BUN 21 H D, Creatinine 0.66, Estimated Creat Clear 102, Estimated GFR 91, Est GFR ( Amer) 110, Glucose 129 H, Calcium 8.1 L, Total Bilirubin 0.4, AST 34 D, ALT 32 D, Alkaline Phosphatase 127 H, Total Protein 6.3 L, Albumin 2.2 L, Globulin 4.1 H, Albumin/Globulin Ratio 0.5 L I & O for Last 24 hours: Intake & Output 06/05/18 06/06/18 06/07/18 06/08/18 11:59 11:59 11:59 11:59 Intake Total 964 / 964 2084 / 2084 Output Total 500 / 500 500 / 500 Balance 464 / 464 1584 / 1584 Weight 248 lb 244 lb 6 oz 244 lb 6 oz Microbiology Reports for the Last 24 Hours: Microbiology 06/06/18 09:55 Blood Blood Culture - Preliminary Gram Negative Rods 06/06/18 09:30 Urine,Catheterized Urine Culture - Preliminary Escherichia coli - *Routine HEENT Exam Head: Present: normocephalic Eye: Present: PERRL ENT: Present: mucous membranes moist - *Routine Neck Exam Present: supple. Absent: lymphadenopathy - *Routine Respiratory Exam Present: rhonchi, wheezes, diminished air movement - *Routine Cardiovascular Exam Present: RRR - *Routine Abdominal Exam Present: soft, normoactive bowel sounds, hernia. Absent: tenderness - *Routine Extremities Exam Absent: cyanosis, clubbing, edema - *Routine Skin Exam Present: warm. Absent: rash - *Routine Neurological Exam Present: alert, oriented X3 Assessment and Plan (1) Bacteremia Current visit: Yes Status: Acute Category: Medical Code(s): R78.81 - Bacteremia (2) Bacteremia Current visit: Yes Status: Acute Category: Medical Code(s): R78.81 - Bact eremia - Assessment and plan all Dx Assessment and Plan for all problems:: Dr Archibald to round later today. All orders per polo picc line placement- for out pt antibotics
--- NOTE | 2018-06-08 11:04 | Pharmacy Consult Notes ---
- Pharmacy Consult Date: 06/08/18 Time: 11:02 Referring provider: DR. BARRETT Reason for Consult:: PATIENT'S VANCOMYCIN TROUGH LEVEL WAS 20.1 MCG/ML THIS AM. RECOMMEND HOLDING DOSE FOR NOW AND RESTARTING AT 1700 TONIGHT WITH REDUCED DOSE OF VANCOMYCIN 1750 MG Q12H. WILL OBTAIN TROUGH LEVEL PRIOR TO 4TH DOSE. PHARMACY WILL FOLLOW DAILY AND ADJUST APPROPRIATE. LUCA VELASQUEZ, PHARMD Allergies and ADEs:: Allergies Allergy/AdvReac Type Severity Reaction Status Date / Time haloperidol [HALOPERIDOL] Allergy Unknown Unknown Verified 05/27/18 13:20 allergy reaction metronidazole [From Flagyl] Allergy Unknown Unknown Verified 05/27/18 13:20 allergy reaction molindone Allergy Unknown Unknown Verified 05/27/18 13:20 allergy reaction paroxetine Allergy Unknown Unknown Verified 05/27/18 13:20 allergy reaction Penicillins [PENICILLINS] Allergy Unknown Unknown Verified 05/27/18 13:20 allergy reaction phenacaine Allergy Unknown Unknown Verified 05/27/18 13:20 allergy reaction Sulfa (Sulfonamide Allergy Unknown Unknown Verified 05/27/18 13:20 Antibiotics) allergy reaction triazolam [From Halcion] Allergy Unknown Unknown Verified 05/27/18 13:20 allergy reaction kiwi Allergy Hives Verified 05/27/18 13:20 raspberry Allergy Hives Verified 05/27/18 13:20 Home Medications:: Home Medications Medication Instructions Recorded Confirmed Type Ascorbic Acid [Vitamin C] 1,000 mg PO DAILY 11/13/17 06/06/18 History Aspirin [Aspirin 81mg chewable 81 mg PO DAILY 11/13/17 06/06/18 History tab] Benztropine Mesylate 0.5 mg PO DAILY 11/13/17 06/06/18 History Benztropine Mesylate [Cogentin 1mg 1 mg PO HS 11/13/17 06/06/18 History tablet] Carvedilol [Carvedilol 25mg Tab] 25 mg PO 0800,1700 11/13/17 06/06/18 History Cholecalciferol (Vitamin D3) 2,000 unit PO DAILY 11/13/17 06/06/18 History [Vitamin D3] Divalproex Sodium 250 mg PO BID 11/13/17 06/06/18 History Fluticasone Propionate [Flonase 1 spr NS DAILY 11/13/17 06/06/18 History 50mcg nasal spray 16gm] Hydrocod/Acet 5/325 mg [[place] 1 each PO TID 11/13/17 06/06/18 History 5/325mg tablet] Isosorbide Dinitrate [Isordil 20mg 20 mg PO TID 11/13/17 06/06/18 History tablet] Lactulose [Lactulose 10gm/15ml 20 gm PO DAILY 11/13/17 06/06/18 History Oral Soln] Levothyroxine Sodium 75 mcg PO DAILY 11/13/17 06/06/18 History [Levothyroxine 75mcg (0.075mg) Tab] Potassium Chloride [Klor-Con 10mEq 10 meq PO DAILY 11/13/17 06/06/18 History tab] Pravastatin Sodium [Pravachol] 40 mg PO HS 11/13/17 06/06/18 History Rifaximin [Xifaxan] 550 mg PO BID 11/13/17 06/06/18 History Sodium Chloride 3 gm PO TID 11/13/17 06/06/18 History Venlafaxine HCl 75 mg PO TID 11/13/17 06/06/18 History clonazePAM [Clonazepam] 0.25 mg PO TID 11/13/17 06/06/18 History Calcium Carbonate [Tums 500mg 500 mg PO DAILY 11/14/17 06/06/18 History chewtab] Polyethylene Glycol 3350 [Miralax 17 gm PO DAILY 11/14/17 06/06/18 History 17gm Packet] acetaminophen 500 mg capsule 500 mg PO Q4H PRN 01/07/18 06/06/18 History albuterol sulfate HFA 90 2 puff INHALATION Q4H PRN 01/07/18 06/06/18 History mcg/actuation aerosol inhaler aluminum hydrox-magnesium carb 95 30 ml PO QID PRN ml 01/07/18 06/06/18 History mg-358 mg/15 mL oral suspension guaifenesin 100 mg/5 mL oral liquid 200 mg PO Q6H PRN ml 01/07/18 06/06/18 History ondansetron HCl 4 mg tablet 4 mg PO Q4H PRN tab 01/07/18 06/06/18 History phenol 1.4 % mucosal aerosol spray 2 spray MUCOUS MEM QIDP PRN ml 01/07/18 06/06/18 History polyvinyl alcohol 1.4 % eye drops 1 drp OPHTHALMIC BID ml 01/07/18 06/06/18 History sennosides 8.6 mg-docusate sodium 1 tab PO BID PRN 01/07/18 06/06/18 History 50 mg tablet Furosemide [Furosemide 20mg Tab] 20 mg PO DAILYP PRN 03/28/18 06/06/18 History Saliva Stimulant Agents Comb.3 1 spray MM DAILY 03/28/18 06/06/18 History [Biotene Moisturizing Mouth] Paliperidone Palmitate [Invega 117 mg IM MONTHLY 06/06/18 06/06/18 History Sustenna] Ipratropium/Albuterol Sulfate 3 ml IH Q4HP PRN 06/07/18 06/07/18 History [Duoneb 3mL neb] Height: 1.68 m Weight: 110.847 kg Laboratory Results:: Laboratory Results - last 24 hr 06/08/18 03:18: Troponin I < 0.02 06/08/18 06:12: Urine Color Yellow, Urine Appearance Clear, Urine pH 6.5, Ur Specific [place] 1.025, Urine Protein Negative, Urine Glucose (UA) Negative, Urine Ketones 1+, Urine Blood Negative, Urine Nitrate Negative, Urine Bilirubin Negative, Urine Urobilinogen 0.2, Ur Leukocyte Esterase Negative, Urine WBC 5- 10, Ur Squamous Epith Cells 3-5, Urine Bacteria 4+, Urine Mucus 1+ 06/08/18 06:48: WBC 8.1 D, RBC 4.68, Hgb 12.7, Hct 41.6, MCV 88.9, MCH 27.2, MCHC 30.6 L, RDW 16.5, Plt Count 118 L, MPV 8.3, Neut % (Auto) 74.2, Lymph % (Auto) 17.1, [place] % (Auto) 7.8, Eos % (Auto) 0.8, Baso % (Auto) 0.0 L, Neut # (Auto) 6.0, Lymph # (Auto) 1.4, [place] # (Auto) 0.6, Eos # (Auto) 0.1, Baso # (Auto) 0.0 06/08/18 06:48: Sodium 137, Potassium 4.2, Chloride 102, Carbon Dioxide 35 H, Anion Gap 4.2 L, BUN 21 H D, Creatinine 0.66, Estimated Creat Clear 102, Estimated GFR 91, Est GFR ( Amer) 110, Glucose 129 H, Calcium 8.1 L, Total Bilirubin 0.4, AST 34 D, ALT 32 D, Alkaline Phosphatase 127 H, Total Protein 6.3 L, Albumin 2.2 L, Globulin 4.1 H, Albumin/Globulin Ratio 0.5 L 06/08/18 09:45: Vancomycin Trough 20.1 H Medical History: Reports:: Anxiety, Chronic Obstructive Pulmonary Disease (COPD), Hyperlipidemia, Hypertension, Myocardial Infarction Denies:: Cancer, Diabetes Mellitus Type 1, Diabetes Mellitus Type 2, Internal Pacemaker, MRSA Assessment and Plan (1) Bacteremia Current visit: Yes Status: Acute Category: Medical Code(s): R78.81 - Bacteremia (2) Bacteremia Current visit: Yes Status: Acute Category: Medical Code(s): R78.81 - Bacteremia
--- NOTE | 2018-06-09 07:33 | Progress Note ---
Internal Medicine - PN: Subj *Date: 06/09/18 *Time: 07:32 Exam Vital signs and Labs for Last 24 Hours: Temp Pulse Resp BP Pulse Ox 98.2 F 59 L 20 163/72 H 90 L 06/09/18 04:00 06/09/18 06:15 06/09/18 04:00 06/09/18 04:00 06/09/18 06:15 Laboratory Results - last 24 hr 06/06/18 09:30: Urine Color Yellow, Urine Appearance Clear, Urine pH 7.0, Ur Specific [place] 1.025, Urine Protein 2+, Urine Glucose (UA) Negative, Urine Ketones Negative, Urine Blood Trace-i, Urine Nitrate Negative, Urine Bilirubin Negative, Urine Urobilinogen 1.0, Ur Leukocyte Esterase Negative, Urine RBC Occasional, Urine WBC 5-10, Ur Squamous Epith Cells 5-10, Urine Bacteria 3+ 06/08/18 06:12: Urine Color Yellow, Urine Appearance Clear, Urine pH 6.5, Ur Specific [place] 1.025, Urine Protein Negative, Urine Glucose (UA) Negative, Urine Ketones 1+, Urine Blood Negative, Urine Nitrate Negative, Urine Bilirubin Negative, Urine Urobilinogen 0.2, Ur Leukocyte Esterase Negative, Urine WBC 5- 10, Ur Squamous Epith Cells 3-5, Urine Bacteria 4+, Urine Mucus 1+ 06/08/18 09:45: Vancomycin Trough 20.1 H I & O for Last 24 hours: Intake & Output 06/06/18 06/07/18 06/08/18 06/09/18 23:59 23:59 23:59 23:59 Intake Total 100 / 100 1494 / 1494 2944 / 2944 Output Total 200 / 200 300 / 300 1400 / 1400 450 / 450 Balance -100 / -100 1194 / 1194 1544 / 1544 -450 / -450 Weight 110.847 kg 110.847 kg 110.847 kg Microbiology Reports for the Last 24 Hours: Microbiology 06/06/18 09:55 Blood Blood Culture - Preliminary Gram Negative Rods Gram Negative Rods#2 06/06/18 09:30 Urine,Catheterized Urine Culture - Final Escherichia coli Enterococcus faecalis Assessment and Plan (1) Bacteremia Current visit: Yes Status: Acute Category: Medical Code(s): R78.81 - Bacteremia (2) Bacteremia Current visit: Yes Status: Acute Category: Medical Code(s): R78.81 - Bacteremia The patient's infection will respond to the chosen ABx?: Yes Is the patient receiving the right drug, dose, and route?: Yes Could a more targeted ABx be ordered?: No (CEFEPIME COVERING E.COLI AND VANCOMYCIN COVERING E. FAECALIS)
[2018-06-09 09:07] LABS: Eosinophils % 0.2 % (0.1-12.0); Hematocrit 43.5 % (37.0-47.0); Hemoglobin 13.2 g/dL (12.2-16.2); Lymphocytes # 0.9 K/mm3 (0.7-4.5); Lymphocytes % 14.7 % (10-50); Mean Corpuscular HGB Conc 30.4 g/dL (31.8-35.4); Mean Corpuscular Hemoglobin 26.8 pg (27.0-31.2); Mean Corpuscular Volume 88.4 fl (81-99); Mean Platelet Volume 8.1 fl (7.4-10.4); Monocytes # 0.3 K/mm3 (0.1-1.0); Monocytes % 5.2 % (1.7-9.3); Neutrophils # 5.1 K/mm3 (1.8-7.8); Neutrophils % 79.9 % (37.0-80.0); Platelet Count 130 K/mm3 (142-424); Red Blood Count 4.92 M/mm3 (4.20-5.40); Red Cell Distribution Width 16.5 % (11.5-17.5); White Blood Count 6.4 K/mm3 (4.8-10.8)
[2018-06-09 09:19] LABS: Albumin Level 2.2 gm/dL (3.4-5.0); Albumin/Globulin Ratio 0.5 (1.1-1.8); Anion Gap 9.7 mEq/L (5-15); Bilirubin,Total 0.4 mg/dL (0.2-1.0); Globulin 4.1 gm/dl (1.3-3.2); Potassium 3.7 mmoL/L (3.5-5.1); Total Protein,Serum 6.3 gm/dL (6.4-8.2)
--- NOTE | 2018-06-09 12:12 | Progress Note ---
Internal Medicine - PN: Subj *Date: 06/09/18 *Time: 12:09 Exam Vital signs and Labs for Last 24 Hours: Temp Pulse Resp BP Pulse Ox 98.3 F 61 20 118/75 93 L 06/09/18 08:00 06/09/18 10:25 06/09/18 08:00 06/09/18 08:00 06/09/18 09:00 Laboratory Results - last 24 hr 06/09/18 08:23: Sodium 140, Potassium 3.7, Chloride 100, Carbon Dioxide 34 H, Anion Gap 9.7, BUN 20 H, Creatinine 0.56, Estimated Creat Clear 102, Estimated GFR 110, Est GFR ( Amer) 133 D, Glucose 125 H, Calcium 8.0 L, Total Bilirubin 0.4, AST 35, ALT 33, Alkaline Phosphatase 121 H, Total Protein 6.3 L, Albumin 2.2 L, Globulin 4.1 H, Albumin/Globulin Ratio 0.5 L 06/09/18 08:23: WBC 6.4, RBC 4.92, Hgb 13.2, Hct 43.5, MCV 88.4, MCH 26.8 L, MCHC 30.4 L, RDW 16.5, Plt Count 130 L, MPV 8.1, Neut % (Auto) 79.9, Lymph % (Auto) 14.7, [place] % (Auto) 5.2, Eos % (Auto) 0.2, Baso % (Auto) 0.0 L, Neut # (Auto) 5.1, Lymph # (Auto) 0.9, [place] # (Auto) 0.3, Eos # (Auto) 0.0, Baso # (Auto) 0.0 I & O for Last 24 hours: Intake & Output 06/07/18 06/08/18 06/09/18 06/10/18 11:59 11:59 11:59 11:59 Intake Total 964 / 964 2474 / 2474 2780 / 2780 Output Total 500 / 500 500 / 500 1350 / 1350 Balance 464 / 464 1973 / 1973 1430 / 1430 Weight 244 lb 6 oz 244 lb 6 oz Microbiology Reports for the Last 24 Hours: Microbiology 06/06/18 09:55 Blood Blood Culture - Preliminary Proteus mirabilis#2 Proteus mirabilis 06/08/18 06:12 Urine,Catheterized Urine Culture - Preliminary NO GROWTH AFTER 24 HOURS 06/06/18 09:30 Urine,Catheterized Urine Culture - Final Escherichia coli Enterococcus faecalis - *Routine HEENT Exam Head: Present: normocephalic Eye: Present: PERRL ENT: Present: mucous membranes moist - *Routine Neck Exam Present: supple. Absent: lymphadenopathy - *Routine Respiratory Exam Present: wheezes, diminished air movement Comments: o2 on - *Routine Cardiovascular Exam Present: RRR - *Routine Abdominal Exam Present: soft, normoactive bowel sounds. Absent: tenderness - *Routine Extremities Exam Absent: cyanosis, clubbing, edema - *Routine Skin Exam Present: warm. Absent: rash - *Routine Neurological Exam Present: alert, oriented X3 Assessment and Plan (1) Bacteremia Current visit: Yes Status: Acute Category: Medical Code(s): R78.81 - Bacteremia (2) Bacteremia Current visit: Yes Status: Acute Category: Medical Code(s): R78.81 - Bacteremia - Assessment and plan all Dx Assessment and Plan for all problems:: discussed with fred cuellar round later today. all orders per polo
[2018-06-10 05:59] LABS: Albumin Level 2.1 gm/dL (3.4-5.0); Albumin/Globulin Ratio 0.6 (1.1-1.8); Anion Gap 6.9 mEq/L (5-15); Bilirubin,Total 0.4 mg/dL (0.2-1.0); Calcium 7.7 mg/dL (8.5-10.1); Globulin 3.8 gm/dl (1.3-3.2); Potassium 3.9 mmoL/L (3.5-5.1); Total Protein,Serum 5.9 gm/dL (6.4-8.2)
[2018-06-10 06:04] LABS: Basophils % 0.1 % (0.1-2.0); Eosinophils # 0.1 K/mm3 (0.0-0.4); Eosinophils % 0.8 % (0.1-12.0); Hematocrit 44.1 % (37.0-47.0); Hemoglobin 13.2 g/dL (12.2-16.2); Lymphocytes # 0.8 K/mm3 (0.7-4.5); Lymphocytes % 13.1 % (10-50); Mean Corpuscular Hemoglobin 26.5 pg (27.0-31.2); Mean Corpuscular Volume 88.2 fl (81-99); Mean Platelet Volume 9.4 fl (7.4-10.4); Monocytes # 0.4 K/mm3 (0.1-1.0); Neutrophils # 4.9 K/mm3 (1.8-7.8); Neutrophils % 79.1 % (37.0-80.0); Platelet Count 101 K/mm3 (142-424); Red Cell Distribution Width 16.5 % (11.5-17.5); White Blood Count 6.1 K/mm3 (4.8-10.8)
--- NOTE | 2018-06-10 07:53 | Progress Note ---
Internal Medicine - PN: Subj *Date: 06/10/18 *Time: 07:52 Exam Vital signs and Labs for Last 24 Hours: Temp Pulse Resp BP Pulse Ox 98.2 F 60 17 240/98 H 92 L 06/10/18 04:00 06/10/18 05:56 06/10/18 04:00 06/10/18 04:00 06/10/18 04:00 Laboratory Results - last 24 hr 06/09/18 08:23: Sodium 140, Potassium 3.7, Chloride 100, Carbon Dioxide 34 H, Anion Gap 9.7, BUN 20 H, Creatinine 0.56, Estimated Creat Clear 102, Estimated GFR 110, Est GFR ( Amer) 133 D, Glucose 125 H, Calcium 8.0 L, Total Bilirubin 0.4, AST 35, ALT 33, Alkaline Phosphatase 121 H, Total Protein 6.3 L, Albumin 2.2 L, Globulin 4.1 H, Albumin/Globulin Ratio 0.5 L 06/09/18 08:23: WBC 6.4, RBC 4.92, Hgb 13.2, Hct 43.5, MCV 88.4, MCH 26.8 L, MCHC 30.4 L, RDW 16.5, Plt Count 130 L, MPV 8.1, Neut % (Auto) 79.9, Lymph % (Auto) 14.7, [place] % (Auto) 5.2, Eos % (Auto) 0.2, Baso % (Auto) 0.0 L, Neut # (Auto) 5.1, Lymph # (Auto) 0.9, [place] # (Auto) 0.3, Eos # (Auto) 0.0, Baso # (Auto) 0.0 06/10/18 05:35: WBC 6.1, RBC 5.00, Hgb 13.2, Hct 44.1, MCV 88.2, MCH 26.5 L, MCHC 30.0 L, RDW 16.5, Plt Count 101 L, MPV 9.4, Neut % (Auto) 79.1, Lymph % (Auto) 13.1, [place] % (Auto) 7.0, Eos % (Auto) 0.8, Baso % (Auto) 0.1, Neut # (Auto) 4.9, Lymph # (Auto) 0.8, [place] # (Auto) 0.4, Eos # (Auto) 0.1, Baso # (Auto) 0.0 06/10/18 05:35: Sodium 141, Potassium 3.9, Chloride 103, Carbon Dioxide 35 H, Anion Gap 6.9, BUN 15, Creatinine 0.58, Estimated Creat Clear 102, Estimated GFR 105, Est GFR ( Amer) 127, Glucose 117 H, Calcium 7.7 L, Total Bilirubin 0.4, AST 40 H, ALT 40, Alkaline Phosphatase 121 H, Total Protein 5.9 L, Albumin 2.1 L, Globulin 3.8 H, Albumin/Globulin Ratio 0.6 L 06/10/18 05:35: Vancomycin Trough 17.0 I & O for Last 24 hours: Intake & Output 06/07/18 06/08/18 06/09/18 06/10/18 23:59 23:59 23:59 23:59 Intake Total 1494 / 1494 3094 / 3094 2589 / 2589 Output Total 300 / 300 1400 / 1400 950 / 950 1999 Balance 1194 / 1194 1694 / 1694 1639 / 1639 -1999 Weight 110.847 kg 110.847 kg 110.847 kg Microbiology Reports for the Last 24 Hours: Microbiology 06/06/18 13:40 Blood Blood Culture - Preliminary NO GROWTH AFTER 48 HOURS 06/06/18 09:55 Blood Blood Culture - Preliminary Proteus mirabilis#2 Proteus mirabilis 06/08/18 06:12 Urine,Catheterized Urine Culture - Preliminary NO GROWTH AFTER 24 HOURS 06/06/18 09:30 Urine,Catheterized Urine Culture - Final Escherichia coli Enterococcus faecalis Assessment and Plan (1) Bacteremia Current visit: Yes Status: Acute Category: Medical Code(s): R78.81 - Bacteremia (2) Bacteremia Current visit: Yes Status: Acute Category: Medical Code(s): R78.81 - Bacteremia The patient's infection will respond to the chosen ABx?: Yes Is the patient receiving the right drug, dose, and route?: Yes Could a more targeted ABx be ordered?: No
--- NOTE | 2018-06-10 09:20 | Discharge Summary ---
General - General Admission date:: 06/06/18 Discharge date: 06/10/18 HPI HPI: 62 yr old female Sent in by ambulance from [facility], discovered to be hypoxic with a pulse ox in the 60s on room air and drowsy this morning per staff and ed note. Reported prior history of COPD. Reportedly not normally on oxygen. pt is poor historian and only states "I was having problems Breathing". Pt does smoke. Admitted for pneumonia and resp distress placed on bipap. Hospital Course Hospital Course: 06/06/18 13:40 Blood Blood Culture - Preliminary NO GROWTH AFTER 48 HOURS 06/06/18 09:55 Blood Blood Culture - Preliminary Proteus mirabilis#2 Proteus mirabilis 06/08/18 06:12 Urine,Catheterized Urine Culture - Preliminary NO GROWTH AFTER 24 HOURS 06/06/18 09:30 Urine,Catheterized Urine Culture - Final Escherichia coli Enterococcus faecalis Pt on o2 today, sitting up eating and asking to be dc back home. pt will be dc back to [facility] and receive 6 more days of invanz 1 gram iv-per picc and vancomycin dose per pharm for 6 more days per picc. pt is to have cbc,cmp and depakote levels drawn on . No smoking. Objective Vital signs: Temp Pulse Resp BP Pulse Ox 98.5 F 63 20 225/100 H 88 L 06/10/18 07:20 06/10/18 07:20 06/10/18 07:20 06/10/18 07:20 06/10/18 07:20 no acute distress - *Routine HEENT Exam Head: Present: normocephalic Eye: Present: PERRL ENT: Present: mucous membranes moist - *Routine Neck Exam Present: supple - *Routine Respiratory Exam Present: wheezes, diminished air movement - *Routine Cardiovascular Exam Present: RRR - *Routine Abdominal Exam Present: soft, normoactive bowel sounds, hernia - *Routine Exam Comments: cath draining clear yellow urine at bedside - *Routine Extremities Exam Present: full ROM - *Routine Skin Exam Present: intact - *Routine Neurological Exam Present: alert, oriented X3 - Routine Psychiatric Exam Present: normal affect, normal thought process Results Labs on day of discharge: Labs from last 24 hours 06/10/18 06/10/18 06/10/18 05:35 05:35 05:35 WBC 6.1 RBC 5.00 Hgb 13.2 Hct 44.1 MCV 88.2 MCH 26.5 L MCHC 30.0 L RDW 16.5 Plt Count 101 L MPV 9.4 Neut % (Auto) 79.1 Lymph % (Auto) 13.1 [place] % (Auto) 7.0 Eos % (Auto) 0.8 Baso % (Auto) 0.1 Neut # (Auto) 4.9 Lymph # (Auto) 0.8 [place] # (Auto) 0.4 Eos # (Auto) 0.1 Baso # (Auto) 0.0 Sodium 141 Potassium 3.9 Chloride 103 Carbon Dioxide 35 H Anion Gap 6.9 BUN 15 Creatinine 0.58 Estimated Creat Clear 102 Estimated GFR 105 Est GFR ( Amer) 127 Glucose 117 H Calcium 7.7 L Total Bilirubin 0.4 AST 40 H ALT 40 Alkaline Phosphatase 121 H Total Protein 5.9 L Albumin 2.1 L Globulin 3.8 H Albumin/Globulin Ratio 0.6 L Vancomycin Trough 17.0 06/09/18 08:23 WBC RBC Hgb Hct MCV MCH MCHC RDW Plt Count MPV Neut % (Auto) Lymph % (Auto) [place] % (Auto) Eos % (Auto) Baso % (Auto) Neut # (Auto) Lymph # (Auto) [place] # (Auto) Eos # (Auto) Baso # (Auto) Sodium 140 Potassium 3.7 Chloride 100 Carbon Dioxide 34 H Anion Gap 9.7 BUN 20 H Creatinine 0.56 Estimated Creat Clear 102 Estimated GFR 110 Est GFR ( Amer) 133 D Glucose 125 H Calcium 8.0 L Total Bilirubin 0.4 AST 35 ALT 33 Alkaline Phosphatase 121 H Total Protein 6.3 L Albumin 2.2 L Globulin 4.1 H Albumin/Globulin Ratio 0.5 L Vancomycin Trough Preliminary micro results at discharge 06/06/18 09:55 Blood Culture - Preliminary Blood Proteus mirabilis#2 Proteus mirabilis 06/06/18 13:40 Blood Culture - Preliminary Blood NO GROWTH AFTER 48 HOURS - Additional Comments rounded with polo all orders per polo DS: Diagnosis - Discharge Diagnosis (1) Bacteremia Status: Acute Problem details: proteus mirabilis (2) Bacteremia Status: Acute (3) UTI (urinary tract infection) Status: Acute Problem details: e coli,enterococcus faecalis (4) Healthcare-associated pneumonia Status: Acute Discharge Plan - Patient Discharge Instructions ACTIVITY: Continue current activity DIET: continue same diet Patient Instructions: DI for Pneumonia -- Adult, DI for Respiratory Failure - Follow up Plan Follow up with: Clay Phipps APRN [Advanced Practice Nurse] - 1 week Disposition: Xfer [facility] Home Medications: Home Medications Medication Instructions Recorded Confirmed Type Ascorbic Acid [Vitamin C] 1,000 mg PO DAILY 11/13/17 06/06/18 History Aspirin [Aspirin 81mg chewable 81 mg PO DAILY 11/13/17 06/06/18 History tab] Benztropine Mesylate 0.5 mg PO DAILY 11/13/17 06/06/18 History Benztropine Mesylate [Cogentin 1mg 1 mg PO HS 11/13/17 06/06/18 History tablet] Carvedilol [Carvedilol 25mg Tab] 25 mg PO 0800,1700 11/13/17 06/06/18 History Cholecalciferol (Vitamin D3) 2,000 unit PO DAILY 11/13/17 06/06/18 History [Vitamin D3] Divalproex Sodium 250 mg PO BID 11/13/17 06/06/18 History Fluticasone Propionate [Flonase 1 spr NS DAILY 11/13/17 06/06/18 History 50mcg nasal spray 16gm] Hydrocod/Acet 5/325 mg [[place] 1 each PO TID 11/13/17 06/06/18 History 5/325mg tablet] Isosorbide Dinitrate [Isordil 20mg 20 mg PO TID 11/13/17 06/06/18 History tablet] Lactulose [Lactulose 10gm/15ml 20 gm PO DAILY 11/13/17 06/06/18 History Oral Soln] Levothyroxine Sodium 75 mcg PO DAILY 11/13/17 06/06/18 History [Levothyroxine 75mcg (0.075mg) Tab] Potassium Chloride [Klor-Con 10mEq 10 meq PO DAILY 11/13/17 06/06/18 History tab] Pravastatin Sodium [Pravachol] 40 mg PO HS 11/13/17 06/06/18 History Rifaximin [Xifaxan] 550 mg PO BID 11/13/17 06/06/18 History Sodium Chloride 3 gm PO TID 11/13/17 06/06/18 History Venlafaxine HCl 75 mg PO TID 11/13/17 06/06/18 History clonazePAM [Clonazepam] 0.25 mg PO TID 11/13/17 06/06/18 History Calcium Carbonate [Tums 500mg 500 mg PO DAILY 11/14/17 06/06/18 History chewtab] Polyethylene Glycol 3350 [Miralax 17 gm PO DAILY 11/14/17 06/06/18 History 17gm Packet] acetaminophen 500 mg capsule 500 mg PO Q4H PRN 01/07/18 06/06/18 History albuterol sulfate HFA 90 2 puff INHALATION Q4H PRN 01/07/18 06/06/18 History mcg/actuation aerosol inhaler aluminum hydrox-magnesium carb 95 30 ml PO QID PRN ml 01/07/18 06/06/18 History mg-358 mg/15 mL oral suspension guaifenesin 100 mg/5 mL oral liquid 200 mg PO Q6H PRN ml 01/07/18 06/06/18 History ondansetron HCl 4 mg tablet 4 mg PO Q4H PRN tab 01/07/18 06/06/18 History phenol 1.4 % mucosal aerosol spray 2 spray MUCOUS MEM QIDP PRN ml 01/07/18 06/06/18 History polyvinyl alcohol 1.4 % eye drops 1 drp OPHTHALMIC BID ml 01/07/18 06/06/18 History sennosides 8.6 mg-docusate sodium 1 tab PO BID PRN 01/07/18 06/06/18 History 50 mg tablet Furosemide [Furosemide 20mg Tab] 20 mg PO DAILYP PRN 03/28/18 06/06/18 History Saliva Stimulant Agents Comb.3 1 spray MM DAILY 03/28/18 06/06/18 History [Biotene Moisturizing Mouth] Paliperidone Palmitate [Invega 117 mg IM MONTHLY 06/06/18 06/06/18 History Sustenna] Ipratropium/Albuterol Sulfate 3 ml IH Q4HP PRN 06/07/18 06/07/18 History [Duoneb 3mL neb] Prescriptions/Medication Reconciliation: New Lisinopril [Zestril 5mg Tablet] 5 mg PO DAILY 30 Days #30 tab Vancomycin HCl [Vancomycin 1000mg Vial] 1,750 mg IV Q12H 6 Days #12 vial Ertapenem Sodium [Invanz 1gm Vial] 1 gm IV Q24H 6 Days #6 vial Ipratropium/Albuterol Sulfate [Duoneb 3mL neb] 3 ml IH QIDRT #30 ampul.neb Continue sennosides 8.6 mg-docusate sodium 50 mg tablet 1 tab PO BID PRN PRN Reason: unknown acetaminophen 500 mg capsule 500 mg PO Q4H PRN PRN Reason: pain aluminum hydrox-magnesium carb 95 mg-358 mg/15 mL oral suspension 30 ml PO QID PRN ml PRN Reason: unknown ondansetron HCl 4 mg tablet 4 mg PO Q4H PRN tab PRN Reason: nausea and vomiting albuterol sulfate HFA 90 mcg/actuation aerosol inhaler 2 puff INHALATION Q4H PRN PRN Reason: breathing guaifenesin 100 mg/5 mL oral liquid 200 mg PO Q6H PRN ml PRN Reason: unknown polyvinyl alcohol 1.4 % eye drops 1 drp OPHTHALMIC BID ml phenol 1.4 % mucosal aerosol spray 2 spray MUCOUS MEM QIDP PRN ml PRN Reason: sore throat Pravastatin Sodium [Pravachol] 40 mg PO HS Potassium Chloride [Klor-Con 10mEq tab] 10 meq PO DAILY Fluticasone Propionate [Flonase 50mcg nasal spray 16gm] 1 spr NS DAILY Divalproex Sodium 250 mg PO BID clonazePAM [Clonazepam] 0.25 mg PO TID Carvedilol [Carvedilol 25mg Tab] 25 mg PO 0800,1700 Benztropine Mesylate 0.5 mg PO DAILY Benztropine Mesylate [Cogentin 1mg tablet] 1 mg PO HS Aspirin [Aspirin 81mg chewable tab] 81 mg PO DAILY Sodium Chloride 3 gm PO TID Ascorbic Acid [Vitamin C] 1,000 mg PO DAILY Rifaximin [Xifaxan] 550 mg PO BID Polyethylene Glycol 3350 [Miralax 17gm Packet] 17 gm PO DAILY Furosemide [Furosemide 20mg Tab] 20 mg PO DAILYP PRN PRN Reason: FLUID Paliperidone Palmitate [Invega Sustenna] 117 mg IM MONTHLY Ipratropium/Albuterol Sulfate [Duoneb 3mL neb] 3 ml IH Q4HP PRN PRN Reason: SOA Hydrocod/Acet 5/325 mg [[place] 5/325mg tablet] 1 each PO TID Isosorbide Dinitrate [Isordil 20mg tablet] 20 mg PO TID Lactulose [Lactulose 10gm/15ml Oral Soln] 20 gm PO DAILY Levothyroxine Sodium [Levothyroxine 75mcg (0.075mg) Tab] 75 mcg PO DAILY Venlafaxine HCl 75 mg PO TID Cholecalciferol (Vitamin D3) [Vitamin D3] 2,000 unit PO DAILY Calcium Carbonate [Tums 500mg chewtab] 500 mg PO DAILY Saliva Stimulant Agents Comb.3 [Biotene Moisturizing Mouth] 1 spray MM DAILY
--- NOTE | 2018-06-10 09:35 | Pharmacy Consult Notes ---
- Pharmacy Consult Date: 06/10/18 Time: 09:34 Referring provider: DR. BARRETT Reason for Consult:: VANCOMYCIN TROUGH LEVEL Allergies and ADEs:: Allergies Allergy/AdvReac Type Severity Reaction Status Date / Time haloperidol [HALOPERIDOL] Allergy Unknown Unknown Verified 05/27/18 13:20 allergy reaction metronidazole [From Flagyl] Allergy Unknown Unknown Verified 05/27/18 13:20 allergy reaction molindone Allergy Unknown Unknown Verified 05/27/18 13:20 allergy reaction paroxetine Allergy Unknown Unknown Verified 05/27/18 13:20 allergy reaction Penicillins [PENICILLINS] Allergy Unknown Unknown Verified 05/27/18 13:20 allergy reaction phenacaine Allergy Unknown Unknown Verified 05/27/18 13:20 allergy reaction Sulfa (Sulfonamide Allergy Unknown Unknown Verified 05/27/18 13:20 Antibiotics) allergy reaction triazolam [From Halcion] Allergy Unknown Unknown Verified 05/27/18 13:20 allergy reaction kiwi Allergy Hives Verified 05/27/18 13:20 raspberry Allergy Hives Verified 05/27/18 13:20 Home Medications:: Home Medications Medication Instructions Recorded Confirmed Type Ascorbic Acid [Vitamin C] 1,000 mg PO DAILY 11/13/17 06/06/18 History Aspirin [Aspirin 81mg chewable 81 mg PO DAILY 11/13/17 06/06/18 History tab] Benztropine Mesylate 0.5 mg PO DAILY 11/13/17 06/06/18 History Benztropine Mesylate [Cogentin 1mg 1 mg PO HS 11/13/17 06/06/18 History tablet] Carvedilol [Carvedilol 25mg Tab] 25 mg PO 0800,1700 11/13/17 06/06/18 History Cholecalciferol (Vitamin D3) 2,000 unit PO DAILY 11/13/17 06/06/18 History [Vitamin D3] Divalproex Sodium 250 mg PO BID 11/13/17 06/06/18 History Fluticasone Propionate [Flonase 1 spr NS DAILY 11/13/17 06/06/18 History 50mcg nasal spray 16gm] Hydrocod/Acet 5/325 mg [[place] 1 each PO TID 11/13/17 06/06/18 History 5/325mg tablet] Isosorbide Dinitrate [Isordil 20mg 20 mg PO TID 11/13/17 06/06/18 History tablet] Lactulose [Lactulose 10gm/15ml 20 gm PO DAILY 11/13/17 06/06/18 History Oral Soln] Levothyroxine Sodium 75 mcg PO DAILY 11/13/17 06/06/18 History [Levothyroxine 75mcg (0.075mg) Tab] Potassium Chloride [Klor-Con 10mEq 10 meq PO DAILY 11/13/17 06/06/18 History tab] Pravastatin Sodium [Pravachol] 40 mg PO HS 11/13/17 06/06/18 History Rifaximin [Xifaxan] 550 mg PO BID 11/13/17 06/06/18 History Sodium Chloride 3 gm PO TID 11/13/17 06/06/18 History Venlafaxine HCl 75 mg PO TID 11/13/17 06/06/18 History clonazePAM [Clonazepam] 0.25 mg PO TID 11/13/17 06/06/18 History Calcium Carbonate [Tums 500mg 500 mg PO DAILY 11/14/17 06/06/18 History chewtab] Polyethylene Glycol 3350 [Miralax 17 gm PO DAILY 11/14/17 06/06/18 History 17gm Packet] acetaminophen 500 mg capsule 500 mg PO Q4H PRN 01/07/18 06/06/18 History albuterol sulfate HFA 90 2 puff INHALATION Q4H PRN 01/07/18 06/06/18 History mcg/actuation aerosol inhaler aluminum hydrox-magnesium carb 95 30 ml PO QID PRN ml 01/07/18 06/06/18 History mg-358 mg/15 mL oral suspension guaifenesin 100 mg/5 mL oral liquid 200 mg PO Q6H PRN ml 01/07/18 06/06/18 History ondansetron HCl 4 mg tablet 4 mg PO Q4H PRN tab 01/07/18 06/06/18 History phenol 1.4 % mucosal aerosol spray 2 spray MUCOUS MEM QIDP PRN ml 01/07/18 06/06/18 History polyvinyl alcohol 1.4 % eye drops 1 drp OPHTHALMIC BID ml 01/07/18 06/06/18 History sennosides 8.6 mg-docusate sodium 1 tab PO BID PRN 01/07/18 06/06/18 History 50 mg tablet Furosemide [Furosemide 20mg Tab] 20 mg PO DAILYP PRN 03/28/18 06/06/18 History Saliva Stimulant Agents Comb.3 1 spray MM DAILY 03/28/18 06/06/18 History [Biotene Moisturizing Mouth] Paliperidone Palmitate [Invega 117 mg IM MONTHLY 06/06/18 06/06/18 History Sustenna] Ipratropium/Albuterol Sulfate 3 ml IH Q4HP PRN 06/07/18 06/07/18 History [Duoneb 3mL neb] Height: 1.68 m Weight: 110.847 kg Laboratory Results:: Laboratory Results - last 24 hr 06/10/18 05:35: WBC 6.1, RBC 5.00, Hgb 13.2, Hct 44.1, MCV 88.2, MCH 26.5 L, MCHC 30.0 L, RDW 16.5, Plt Count 101 L, MPV 9.4, Neut % (Auto) 79.1, Lymph % (Auto) 13.1, [place] % (Auto) 7.0, Eos % (Auto) 0.8, Baso % (Auto) 0.1, Neut # (Auto) 4.9, Lymph # (Auto) 0.8, [place] # (Auto) 0.4, Eos # (Auto) 0.1, Baso # (Auto) 0.0 06/10/18 05:35: Sodium 141, Potassium 3.9, Chloride 103, Carbon Dioxide 35 H, Anion Gap 6.9, BUN 15, Creatinine 0.58, Estimated Creat Clear 102, Estimated GFR 105, Est GFR ( Amer) 127, Glucose 117 H, Calcium 7.7 L, Total Bilirubin 0.4, AST 40 H, ALT 40, Alkaline Phosphatase 121 H, Total Protein 5.9 L, Albumin 2.1 L, Globulin 3.8 H, Albumin/Globulin Ratio 0.6 L 06/10/18 05:35: Vancomycin Trough 17.0 Medical History: Reports:: Anxiety, Chronic Obstructive Pulmonary Disease (COPD), Hyperlipidemia, Hypertension, Myocardial Infarction Denies:: Cancer, Diabetes Mellitus Type 1, Diabetes Mellitus Type 2, Internal Pacemaker, MRSA Assessment and Plan (1) Bacteremia Problem details: proteus mirabilis Current visit: Yes Status: Acute Category: Medical Code(s): R78.81 - Bacteremia (2) Bacteremia Current visit: Yes Status: Acute Category: Medical Code(s): R78.81 - Bacteremia (3) UTI (urinary tract infection) Problem details: e coli,enterococcus faecalis Current visit: Yes Status: Acute Category: Medical Code(s): N39.0 - Urinary tract infection, site not specified (4) Healthcare-associated pneumonia Current visit: Yes Status: Acute Category: Medical Code(s): J18.9 - Pneumonia, unspecified organism - Assessment and plan all Dx Assessment and Plan for all problems:: BASED ON PATIENT FACTORS AND VANCOMYCIN TROUGH LEVEL, RECOMMEND CONTINUING VANCOMYCIN 1750 MG IV Q12H. PHARMACY WILL CONTINUE TO MONITOR DAILY AND ADJUST APPROPRIATE.
== END 2018-06-10 11:56 ==
LOC: ER 09:09 → 2ND 12:14
PROVIDERS: ADMIT Emergency Medicine; ATTEND Emergency Medicine

== ENCOUNTER 2018-06-15 20:48 | Inpatient (IN) ==
[2018-06-15 21:38] LABS: Albumin/Globulin Ratio 0.6 (1.1-1.8); Bilirubin,Total 0.5 mg/dL (0.2-1.0); Calcium 7.6 mg/dL (8.5-10.1); Globulin 3.3 gm/dl (1.3-3.2); Total Protein,Serum 5.3 gm/dL (6.4-8.2)
[2018-06-15 22:14] LABS: Basophils % 0.3 % (0.1-2.0); Eosinophils # 0.4 K/mm3 (0.0-0.4); Eosinophils % 4.7 % (0.1-12.0); Hematocrit 39.4 % (37.0-47.0); Hemoglobin 11.7 g/dL (12.2-16.2); Lymphocytes # 1.7 K/mm3 (0.7-4.5); Lymphocytes % 21.8 % (10-50); Mean Corpuscular HGB Conc 29.7 g/dL (31.8-35.4); Mean Corpuscular Hemoglobin 26.7 pg (27.0-31.2); Mean Corpuscular Volume 89.8 fl (81-99); Mean Platelet Volume 8.5 fl (7.4-10.4); Monocytes # 0.8 K/mm3 (0.1-1.0); Monocytes % 10.7 % (1.7-9.3); Neutrophils # 4.8 K/mm3 (1.8-7.8); Neutrophils % 62.5 % (37.0-80.0); Platelet Count 71 K/mm3 (142-424); Red Blood Count 4.39 M/mm3 (4.20-5.40); Red Cell Distribution Width 15.3 % (11.5-17.5); White Blood Count 7.6 K/mm3 (4.8-10.8)
[2018-06-15 22:26] LABS: ABG Base Excess 22.1 mmol/L (-2.4-2.3); ABG HCO3 47.6 mmhg (22.0-26.0); ABG Oxygen Saturation 95 % (90-100); ABG PH 7.36 mmol/L (7.35-7.45); ABG PO2 71.4 mmhg (80-100); ABG TCO2 50.3 mmhg (23-27)
[2018-06-15 22:27] LABS: ABG PCO2 86.8 mmhg (35.0-45.0); Allen's Test Y; Oxygen 4 %
--- NOTE | 2018-06-15 22:46 | Emergency Department Note ---
ED Disposition Clinical Impression: Healthcare-associated pneumonia, COPD exacerbation Chronic respiratory failure Qualifiers: Respiratory failure complication: hypoxia and hypercapnia Qualified Code(s): J96.11 - Chronic respiratory failure with hypoxia; J96.12 - Chronic respiratory failure with hypercapnia Disposition: Still a Patient Condition on Discharge: Serious Referrals: Provider,Referral, [Primary Care Provider] - - Critical Care Critical Care Time: No Attestation: On 06/15/18, the high probability of a clinically significant, sudden or life threatening deterioration of the following system(s) required my full and direct attention, intervention and personal management. The time I documented below is in addition to time spent performing reported procedures but includes the following listed in this critical care notation. Medical Decision Making - Yonathan Inquiry Pt receiving controlled substance: No Vital Signs: 06/15/18 20:48 06/15/18 23:17 06/16/18 00:11 Temperature 98.4 F Temperature Source Oral Pulse Rate 88 Pulse Rate [Right Radial] 65 58 L Respiratory Rate 20 18 Blood Pressure [Right Arm] 154/75 H 137/68 Blood Pressure Mean [Right Arm] 101 91 Blood Pressure Source [Right Arm] Automatic Cuff Automatic Cuff Blood Pressure Position [Right Arm] Sitting Sitting 02 Sat by Pulse Oximetry 88 L 95 Oxygen Delivery Method Nasal Cannula Room Air Oxygen Flow Rate (LPM) 2 06/16/18 00:12 Temperature Temperature Source Pulse Rate 89 Pulse Rate [Right Radial] Respiratory Rate Blood Pressure [Right Arm] Blood Pressure Mean [Right Arm] Blood Pressure Source [Right Arm] Blood Pressure Position [Right Arm] 02 Sat by Pulse Oximetry Oxygen Delivery Method Oxygen Flow Rate (LPM) - Lab Data Lab Results 06/15/18 21:08: Sodium 141, Potassium 4.0, Chloride 98, Carbon Dioxide 45 H*, Anion Gap 2.0 L, BUN 6 L, Creatinine 0.54 L, Estimated Creat Clear 48, Estimated GFR 114, Est GFR ( Amer) 138, Glucose 137 H, Calcium 7.6 L, Total Bilirubin 0.5, AST 43 H, ALT 48, Alkaline Phosphatase 131 H, Total Protein 5.3 L , Albumin 2.0 L, Globulin 3.3 H, Albumin/Globulin Ratio 0.6 L 06/15/18 21:08: Lactate 1.3 06/15/18 22:00: WBC 7.6, RBC 4.39, Hgb 11.7 L, Hct 39.4, MCV 89.8, MCH 26.7 L, MCHC 29.7 L, RDW 15.3, Plt Count 71 L, MPV 8.5, Neut % (Auto) 62.5, Lymph % (Auto) 21.8, [place] % (Auto) 10.7 H, Eos % (Auto) 4.7, Baso % (Auto) 0.3, Neut # (Auto) 4.8, Lymph # (Auto) 1.7, [place] # (Auto) 0.8, Eos # (Auto) 0.4, Baso # (Auto) 0.0 06/15/18 22:25: Specimen Source R/r, O2 % 4, ABG pH 7.36, ABG pCO2 86.8 H, ABG pO2 71.4 L, ABG HCO3 47.6 H, ABG Total CO2 50.3 H, ABG O2 Saturation 95, ABG Base Excess 22.1 H, Gary Test Y Result diagrams: 06/15/18 22:00 06/15/18 21:08 Orders (Tests/Meds): ED MEDICATIONS Generic Name Dose Route Start Last Admin Trade Name Freq PRN Reason Stop Dose Admin Levofloxacin/Dextrose 750 mg in 150 mls @ 100 mls/hr 06/15/18 23:00 06/15/18 23:37 Levofloxacin 750mg/150ml Premix IV 06/29/18 22:59 100 mls/hr Q24H ERNESTO Administration Protocol Cefepime HCl 2 gm/ Sodium 100 mls @ 200 mls/hr 06/15/18 23:00 06/15/18 23:12 Chloride IV 06/29/18 22:59 200 mls/hr Q12H ERNESTO Administration Protocol Discontinued Medications Generic Name Dose Route Start Last Admin Trade Name Freq PRN Reason Stop Dose Admin Albuterol/Ipratropium 3 ml 06/15/18 23:04 06/15/18 23:39 Duoneb 3ml Neb IH 06/15/18 23:05 3 ml ONCE ONE Administration Methylprednisolone Sodium Succinate 125 mg 06/15/18 23:04 06/15/18 23:12 Solu-Medrol 125mg/2ml Vial IV 06/15/18 23:05 125 mg ONCE ONE Administration Miscellaneous 1 each 06/15/18 22:54 06/15/18 23:40 Vancomycin Consult Request NOTAPPLIC 06/15/18 22:55 Not Given CONSULT PHARMACY ONE ORDERS Category Date Time Status XR chest portable Stat Exams 06/15/18 20:59 Taken Blood Culture Stat Micro 06/15/18 21:08 Received ABG [Arterial Blood Gas] Stat RT 06/15/18 22:13 Ordered EKG Request [ECG Request by /Jay] Stat Y 06/15/18 21:36 Ordered - Radiology Data #1 Image(s): Chest Image Reviewed: Yes I reviewed the patient's radiology image Worsened right lower lobe infiltrate with effusion since 06/06/18 - ECG Data Tracing #1 EKG interpreted by Misael France MD: Rhythm: sinus Rate: 65 [place]: normal Ectopy: none Conduction: normal ST Segment Changes: none T Wave Changes: none Q Waves: none No evidence of acute ischemia or injury Baseline wander present, but I consider the EKG adequate for accurate interpretation. - Physician Consults Physician Consulted: Bear Archibald Time: 00:19 Reason -: Admission Comment/Response: Agrees to admit the patient to the hospital. We discussed the patient's clinical information, including history, exam, laboratory and radiology results and ED course. Per hospital procedure, I will write temporary bridge inpatient orders on the patient. Specific orders requested by the admitting physician: Hypercapnic respiratory failure is compensated at this time with normal pH, no BiPAP at this time. Continue treatment for healthcare a ssociated pneumonia and COPD Medical Decision Narrative: Admitted for right lower lobe pneumonia with effusion 06/06/18 through 06/10/18. Chest x-ray on 06/06/18 showed right lower lobe infiltrate with effusion, chest x-ray on 06/08/18 showed near complete resolution of pneumonia and effusion. Discharged on vancomycin and Invanz via PICC line. General Adult HPI - General Chief complaint: Shortness of Breath/Dyspnea Stated complaint: SOA Time Seen by Provider: 06/15/18 22:45 Mode of Arrival: EMS Limitations: Physical Limitations Description of Symptoms (Recalled from ER Triage Doc. by RN): residential reports pt. started having some difficulty breahthing at 630 pm. Her breathing became worse and her oxygen dropped to 80 on 2L/nc. Wally called EMS who reports oxygen sats in the 80s. She was given a Duoneb and oxygen was increased to 5L/nc. Room air Sat on arrival 88% on 2l/nc. - History of Present Illness HPI narrative: Sent in by ambulance from [facility] with report of low oxygen saturation. Patient is a poor historian. States that her nose is clogged. Also admits to shortness of breath. Otherwise does not give much information. Given a nebulizer treatment during transport. Oxygen increased from 2 L to 5 L. Recent admission in May for pneumonia with respiratory failure. I saw her at that time in the emergency department as well. Similar presentation at that time. - Related Data Home Medications Medication Instructions Recorded Confirmed Ascorbic Acid [Vitamin C] 1,000 mg PO DAILY 11/13/17 06/15/18 Aspirin [Aspirin 81mg chewable 81 mg PO DAILY 11/13/17 06/15/18 tab] Benztropine Mesylate 0.5 mg PO DAILY 11/13/17 06/15/18 Benztropine Mesylate [Cogentin 1mg 1 mg PO HS 11/13/17 06/15/18 tablet] Carvedilol [Carvedilol 25mg Tab] 25 mg PO 0800,1700 11/13/17 06/15/18 Cholecalciferol (Vitamin D3) 2,000 unit PO DAILY 11/13/17 06/15/18 [Vitamin D3] Divalproex Sodium 250 mg PO BID 11/13/17 06/15/18 Fluticasone Propionate [Flonase 1 spr NS DAILY 11/13/17 06/15/18 50mcg nasal spray 16gm] Hydrocod/Acet 5/325 mg [[place] 1 each PO TID 11/13/17 06/15/18 5/325mg tablet] Isosorbide Dinitrate [Isordil 20mg 20 mg PO TID 11/13/17 06/15/18 tablet] Lactulose [Lactulose 10gm/15ml 20 gm PO DAILY 11/13/17 06/15/18 Oral Soln] Levothyroxine Sodium 75 mcg PO DAILY 11/13/17 06/15/18 [Levothyroxine 75mcg (0.075mg) Tab] Potassium Chloride [Klor-Con 10mEq 10 meq PO DAILY 11/13/17 06/15/18 tab] Pravastatin Sodium [Pravachol] 40 mg PO HS 11/13/17 06/15/18 Rifaximin [Xifaxan] 550 mg PO BID 11/13/17 06/15/18 Sodium Chloride 3 gm PO TID 11/13/17 06/15/18 Venlafaxine HCl 75 mg PO TID 11/13/17 06/15/18 clonazePAM [Clonazepam] 0.25 mg PO TID 11/13/17 06/15/18 Calcium Carbonate [Tums 500mg 500 mg PO DAILY 11/14/17 06/15/18 chewtab] Polyethylene Glycol 3350 [Miralax 17 gm PO DAILY 11/14/17 06/15/18 17gm Packet] acetaminophen 500 mg capsule 500 mg PO Q4H PRN 01/07/18 06/15/18 albuterol sulfate HFA 90 2 puff INHALATION Q4H PRN 01/07/18 06/15/18 mcg/actuation aerosol inhaler aluminum hydrox-magnesium carb 95 30 ml PO QID PRN ml 01/07/18 06/15/18 mg-358 mg/15 mL oral suspension phenol 1.4 % mucosal aerosol spray 2 spray MUCOUS MEM QIDP PRN ml 01/07/18 06/15/18 polyvinyl alcohol 1.4 % eye drops 1 drp OPHTHALMIC BID ml 01/07/18 06/15/18 sennosides 8.6 mg-docusate sodium 1 tab PO BID PRN 01/07/18 06/15/18 50 mg tablet Furosemide [Furosemide 20mg Tab] 20 mg PO DAILYP PRN 03/28/18 06/15/18 Saliva Stimulant Agents Comb.3 1 spray MM DAILY 03/28/18 06/15/18 [Biotene Moisturizing Mouth] Paliperidone Palmitate [Invega 117 mg IM MONTHLY 06/06/18 06/15/18 Sustenna] Ipratropium/Albuterol Sulfate 3 ml IH Q4HP PRN 06/07/18 06/15/18 [Duoneb 3mL neb] Ertapenem Sodium [Invanz 1gm Vial] 1 gm IV Q24H 06/15/18 06/15/18 Ipratropium/Albuterol Sulfate 3 ml IH QIDRT 06/15/18 06/15/18 [Duoneb 3mL neb] Lisinopril [Zestril 5mg 5 mg PO DAILY 06/15/18 06/15/18 Tablet] Vancomycin HCl [Vancomycin 1000mg 1,750 mg IV Q12H 06/15/18 06/15/18 Vial] Allergies Allergy/AdvReac Type Severity Reaction Status Date / Time haloperidol [HALOPERIDOL] Allergy Unknown Unknown Verified 06/15/18 20:59 allergy reaction metronidazole [From Flagyl] Allergy Unknown Unknown Verified 06/15/18 20:59 allergy reaction molindone Allergy Unknown Unknown Verified 06/15/18 20:59 allergy reaction paroxetine Allergy Unknown Unknown Verified 06/15/18 20:59 allergy reaction Penicillins [PENICILLINS] Allergy Unknown Unknown Verified 06/15/18 20:59 allergy reaction phenacaine Allergy Unknown Unknown Verified 06/15/18 20:59 allergy reaction Sulfa (Sulfonamide Allergy Unknown Unknown Verified 06/15/18 20:59 Antibiotics) allergy reaction triazolam [From Halcion] Allergy Unknown Unknown Verified 06/15/18 20:59 allergy reaction kiwi Allergy Hives Verified 06/15/18 20:59 raspberry Allergy Hives Verified 06/15/18 20:59 [facility] History I have reviewed the patient's past medical history: Yes Medical History: Reports:: Anxiety, Chronic Obstructive Pulmonary Disease (COPD), Hyperlipidemia, Hypertension, Myocardial Infarction Denies:: Cancer, Diabetes Mellitus Type 1, Diabetes Mellitus Type 2, Internal Pacemaker, MRSA Comment: Significant record deficit with no records from [facility] Other Surgeries: No: Pacemaker Amputation: No - Social History Smoking Status: Former smoker Tobacco Type: cigarettes Alcohol Intake: never Occupational Status: disabled Housing: [facility] - Psychiatric History Expresses thoughts of harming self/others: None Suicide Plan Description: No Plan Pschychiatric History:: Reports:: Anxiety ROS Obtained: Yes other (Difficult to obtain, poor historian, inconsistent) Physical Exam - General General appearance: other Comment: Awake sitting upright in bed drinking a soda through a straw. On nasal cannula oxygen. No respiratory distress. - Head Head exam: atraumatic, normocephalic - Eye Eye exam: Present: normal appearance, PERRL, EOMI - ENT ENT exam: Present: mucous membranes moist - Neck Neck exam: Present: normal inspection, trachea midline - Chest Chest inspection: Present: normal inspection, symmetric chest wall rise - Respiratory Respiratory exam: Present: other (Rhon[place]) - Cardiovascular Cardiovascular exam: Present: regular rate, normal rhythm, normal heart sounds - Abdominal Exam Abdominal exam: Present: soft, other (Large anterior abdominal scar which appears consistent with skin grafting) - Extremities Exam Extremities exam: Present: normal inspection - Neurological Exam Neurological exam: Present: alert - Psychiatric Psychiatric exam: Present: normal affect - Skin Skin exam: Present: warm, dry
--- NOTE | 2018-06-16 07:51 | Pharmacy Consult Notes ---
[facility] Pharmacy VTE Monitoring - Patient Demographics Admission date: 06/15/18 Report Date: 06/16/18 Time: 07:51 Allergies/Adverse Reactions: Patient Allergies haloperidol [HALOPERIDOL] Allergy (Unknown, Verified 06/15/18 20:59) Unknown allergy reaction metronidazole [From Flagyl] Allergy (Unknown, Verified 06/15/18 20:59) Unknown allergy reaction molindone Allergy (Unknown, Verified 06/15/18 20:59) Unknown allergy reaction paroxetine Allergy (Unknown, Verified 06/15/18 20:59) Unknown allergy reaction Penicillins [PENICILLINS] Allergy (Unknown, Verified 06/15/18 20:59) Unknown allergy reaction phenacaine Allergy (Unknown, Verified 06/15/18 20:59) Unknown allergy reaction Sulfa (Sulfonamide Antibiotics) Allergy (Unknown, Verified 06/15/18 20:59) Unknown allergy reaction triazolam [From Halcion] Allergy (Unknown, Verified 06/15/18 20:59) Unknown allergy reaction kiwi Allergy (Verified 06/15/18 20:59) Hives raspberry Allergy (Verified 06/15/18 20:59) Hives Height: 1.6 m Weight: 115.893 kg Patient Problems: Current Active Problems Healthcare-associated pneumonia (Acute) COPD exacerbation (Acute) Chronic respiratory failure (Acute) - VTE Risk Labs: VTE Related Lab Results Hgb 11.7 g/dL (12.2-16.2) L 06/15/18 22:00 Hct 39.4 % (37.0-47.0) 06/15/18 22:00 Plt Count 71 K/mm3 (142-424) L 06/15/18 22:00 BUN 6 mg/dL (7-18) L 06/15/18 21:08 Creatinine 0.54 mg/dL (0.55-1.02) L 06/15/18 21:08 Estimated Creat Clear 48 mL/min (50-200) 06/15/18 21:08 - Prophylaxis VTE Prophylaxis Ordered?: Yes Types of VTE Prophylaxis: TEDS Knee High Location of Applied Device: Bilateral Lower Extremeties - VTE Diagnosis Confirmed Treatment or plan recommended: Continue Current Treatment
--- NOTE | 2018-06-16 08:53 | Pharmacy Consult Notes ---
- Pharmacy Consult Date: 06/16/18 Time: 08:51 Referring provider: DR. BARRETT Reason for Consult:: VANCOMYCIN DOSING Allergies and ADEs:: Allergies Allergy/AdvReac Type Severity Reaction Status Date / Time haloperidol [HALOPERIDOL] Allergy Unknown Unknown Verified 06/15/18 20:59 allergy reaction metronidazole [From Flagyl] Allergy Unknown Unknown Verified 06/15/18 20:59 allergy reaction molindone Allergy Unknown Unknown Verified 06/15/18 20:59 allergy reaction paroxetine Allergy Unknown Unknown Verified 06/15/18 20:59 allergy reaction Penicillins [PENICILLINS] Allergy Unknown Unknown Verified 06/15/18 20:59 allergy reaction phenacaine Allergy Unknown Unknown Verified 06/15/18 20:59 allergy reaction Sulfa (Sulfonamide Allergy Unknown Unknown Verified 06/15/18 20:59 Antibiotics) allergy reaction triazolam [From Halcion] Allergy Unknown Unknown Verified 06/15/18 20:59 allergy reaction kiwi Allergy Hives Verified 06/15/18 20:59 raspberry Allergy Hives Verified 06/15/18 20:59 Home Medications:: Home Medications Medication Instructions Recorded Confirmed Type Ascorbic Acid [Vitamin C] 1,000 mg PO DAILY 11/13/17 06/15/18 History Aspirin [Aspirin 81mg chewable 81 mg PO DAILY 11/13/17 06/15/18 History tab] Benztropine Mesylate 0.5 mg PO DAILY 11/13/17 06/15/18 History Benztropine Mesylate [Cogentin 1mg 1 mg PO HS 11/13/17 06/15/18 History tablet] Carvedilol [Carvedilol 25mg Tab] 25 mg PO 0800,1700 11/13/17 06/15/18 History Cholecalciferol (Vitamin D3) 2,000 unit PO DAILY 11/13/17 06/15/18 History [Vitamin D3] Divalproex Sodium 250 mg PO BID 11/13/17 06/15/18 History Fluticasone Propionate [Flonase 1 spr NS DAILY 11/13/17 06/15/18 History 50mcg nasal spray 16gm] Hydrocod/Acet 5/325 mg [[place] 1 each PO TID 11/13/17 06/15/18 History 5/325mg tablet] Isosorbide Dinitrate [Isordil 20mg 20 mg PO TID 11/13/17 06/15/18 History tablet] Lactulose [Lactulose 10gm/15ml 20 gm PO DAILY 11/13/17 06/15/18 History Oral Soln] Levothyroxine Sodium 75 mcg PO DAILY 11/13/17 06/15/18 History [Levothyroxine 75mcg (0.075mg) Tab] Potassium Chloride [Klor-Con 10mEq 10 meq PO DAILY 11/13/17 06/15/18 History tab] Pravastatin Sodium [Pravachol] 40 mg PO HS 11/13/17 06/15/18 History Rifaximin [Xifaxan] 550 mg PO BID 11/13/17 06/15/18 History Sodium Chloride 3 gm PO TID 11/13/17 06/15/18 History Venlafaxine HCl 75 mg PO TID 11/13/17 06/15/18 History clonazePAM [Clonazepam] 0.25 mg PO TID 11/13/17 06/15/18 History Calcium Carbonate [Tums 500mg 500 mg PO DAILY 11/14/17 06/15/18 History chewtab] Polyethylene Glycol 3350 [Miralax 17 gm PO DAILY 11/14/17 06/15/18 History 17gm Packet] acetaminophen 500 mg capsule 500 mg PO Q4H PRN 01/07/18 06/15/18 History albuterol sulfate HFA 90 2 puff INHALATION Q4H PRN 01/07/18 06/15/18 History mcg/actuation aerosol inhaler aluminum hydrox-magnesium carb 95 30 ml PO QID PRN ml 01/07/18 06/15/18 History mg-358 mg/15 mL oral suspension phenol 1.4 % mucosal aerosol spray 2 spray MUCOUS MEM QIDP PRN ml 01/07/18 06/15/18 History polyvinyl alcohol 1.4 % eye drops 1 drp OPHTHALMIC BID ml 01/07/18 06/15/18 History sennosides 8.6 mg-docusate sodium 1 tab PO BID PRN 01/07/18 06/15/18 History 50 mg tablet Furosemide [Furosemide 20mg Tab] 20 mg PO DAILYP PRN 03/28/18 06/15/18 History Saliva Stimulant Agents Comb.3 1 spray MM DAILY 03/28/18 06/15/18 History [Biotene Moisturizing Mouth] Paliperidone Palmitate [Invega 117 mg IM MONTHLY 06/06/18 06/15/18 History Sustenna] Ipratropium/Albuterol Sulfate 3 ml IH Q4HP PRN 06/07/18 06/15/18 History [Duoneb 3mL neb] Ertapenem Sodium [Invanz 1gm Vial] 1 gm IV Q24H 06/15/18 06/15/18 History Ipratropium/Albuterol Sulfate 3 ml IH QIDRT 06/15/18 06/15/18 History [Duoneb 3mL neb] Lisinopril [Zestril 5mg 5 mg PO DAILY 06/15/18 06/15/18 History Tablet] Vancomycin HCl [Vancomycin 1000mg 1,750 mg IV Q12H 06/15/18 06/15/18 History Vial] Height: 1.6 m Weight: 115.893 kg Laboratory Results:: Laboratory Results - last 24 hr 06/15/18 21:08: Sodium 141, Potassium 4.0, Chloride 98, Carbon Dioxide 45 H*, Anion Gap 2.0 L, BUN 6 L, Creatinine 0.54 L, Estimated Creat Clear 48, Estimated GFR 114, Est GFR ( Amer) 138, Glucose 137 H, Calcium 7.6 L, Total Bilirubin 0.5, AST 43 H, ALT 48, Alkaline Phosphatase 131 H, Total Protein 5.3 L , Albumin 2.0 L, Globulin 3.3 H, Albumin/Globulin Ratio 0.6 L 06/15/18 21:08: Lactate 1.3 06/15/18 22:00: WBC 7.6, RBC 4.39, Hgb 11.7 L, Hct 39.4, MCV 89.8, MCH 26.7 L, MCHC 29.7 L, RDW 15.3, Plt Count 71 L, MPV 8.5, Neut % (Auto) 62.5, Lymph % (Auto) 21.8, [place] % (Auto) 10.7 H, Eos % (Auto) 4.7, Baso % (Auto) 0.3, Neut # (Auto) 4.8, Lymph # (Auto) 1.7, [place] # (Auto) 0.8, Eos # (Auto) 0.4, Baso # (Auto) 0.0 06/15/18 22:25: Specimen Source R/r, O2 % 4, ABG pH 7.36, ABG pCO2 86.8 H, ABG pO2 71.4 L, ABG HCO3 47.6 H, ABG Total CO2 50.3 H, ABG O2 Saturation 95, ABG Base Excess 22.1 H, Gary Test Y Medical History: Reports:: Anxiety, Chronic Obstructive Pulmonary Disease (COPD), Hyperlipidemia, Hypertension, Myocardial Infarction Denies:: Cancer, Diabetes Mellitus Type 1, Diabetes Mellitus Type 2, Internal Pacemaker, MRSA Assessment and Plan - Assessment and plan all Dx Assessment and Plan for all problems:: BASED ON PATIENT'S FACTORS, RECOMMEND STARTING WITH VANCOMYCIN 1750 MG Q12H AT THIS TIME. PHARMACY WILL FOLLOW DAILY AND ADJUST APPROPRIATE. LUCA VELASQUEZ, PHARM
[2018-06-16 10:19] LABS: Calcium 8.1 mg/dL (8.5-10.1)
--- NOTE | 2018-06-16 13:16 | History & Physical Report ---
*Admission Date: 06/15/18 *Chief complaint: sob *History of present illness: [facility] - she was recent admit and [facility]ing home reports pt. started having some difficulty breahthing at 630 pm. Her breathing became worse and her oxygen dropped to 80 on 2L/nc. [place] called EMS who reports oxygen sats in the 80s. She was given a Duoneb and oxygen was increased to 5L/nc. Room air Sat on arrival 88% on 2l/nc. - Sent in by ambulance from skilled nursing with report of low oxygen saturation. Patient is a poor historian. States that her nose is clogged. Also admits to shortness of breath. Otherwise does not give much information. Given a nebulizer treatment during transport. Oxygen increased from 2 L to 5 L. Recent admission in May for pneumonia with respiratory failure. I saw her at that time in the emergency department as well. Similar presentation at that time. [facility] History I have reviewed the patient's past medical history: Yes Medical History: Reports:: Anxiety, Chronic Obstructive Pulmonary Disease (COPD), Hyperlipidemia, Hypertension, Myocardial Infarction Denies:: Cancer, Diabetes Mellitus Type 1, Diabetes Mellitus Type 2, Internal Pacemaker, MRSA Other Surgeries: No: Pacemaker Amputation: No - *Social History Smoking Status: Former smoker Tobacco Type: cigarettes Alcohol Intake: never Occupational Status: disabled Housing: skilled nursing - Psychiatric History Expresses thoughts of harming self/others: None Suicide Plan Description: No Plan Pschychiatric History:: Reports:: Anxiety Review of Systems - Review of Systems Review of systems:: pertinent systems reviewed and negative unless documented below - Constitutional Denies fever(s) - Eyes Denies change in vision - ENT Denies sore throat - *Cardiovascular Denies chest pain - *Respiratory Reports cough, Reports shortness of breath, Denies coughing up blood - *Gastrointestinal Reports abdominal pain, Reports bloating, Denies vomiting blood, Denies black, tarry stools - *Genitourinary Denies blood in urine - *Musculoskeletal Denies joint pain, Denies joint swelling - Integumentary/Breasts Denies rash - *Neurologic Denies seizure-like activity - Psychiatric Reports anxiety Meds Home Medications Medication Instructions Recorded Confirmed Type Ascorbic Acid [Vitamin C] 1,000 mg PO DAILY 11/13/17 06/15/18 History Aspirin [Aspirin 81mg chewable 81 mg PO DAILY 11/13/17 06/15/18 History tab] Benztropine Mesylate 0.5 mg PO DAILY 11/13/17 06/15/18 History Benztropine Mesylate [Cogentin 1mg 1 mg PO HS 11/13/17 06/15/18 History tablet] Carvedilol [Carvedilol 25mg Tab] 25 mg PO 0800,1700 11/13/17 06/15/18 History Cholecalciferol (Vitamin D3) 2,000 unit PO DAILY 11/13/17 06/15/18 History [Vitamin D3] Divalproex Sodium 250 mg PO BID 11/13/17 06/15/18 History Fluticasone Propionate [Flonase 1 spr NS DAILY 11/13/17 06/15/18 History 50mcg nasal spray 16gm] Hydrocod/Acet 5/325 mg [[place] 1 each PO TID 11/13/17 06/15/18 History 5/325mg tablet] Isosorbide Dinitrate [Isordil 20mg 20 mg PO TID 11/13/17 06/15/18 History tablet] Lactulose [Lactulose 10gm/15ml 20 gm PO DAILY 11/13/17 06/15/18 History Oral Soln] Levothyroxine Sodium 75 mcg PO DAILY 11/13/17 06/15/18 History [Levothyroxine 75mcg (0.075mg) Tab] Potassium Chloride [Klor-Con 10mEq 10 meq PO DAILY 11/13/17 06/15/18 History tab] Pravastatin Sodium [Pravachol] 40 mg PO HS 11/13/17 06/15/18 History Sodium Chloride 3 gm PO TID 11/13/17 06/15/18 History Venlafaxine HCl 75 mg PO TID 11/13/17 06/15/18 History clonazePAM [Clonazepam] 0.25 mg PO TID 11/13/17 06/15/18 History Calcium Carbonate [Tums 500mg 500 mg PO DAILY 11/14/17 06/15/18 History chewtab] Polyethylene Glycol 3350 [Miralax 17 gm PO DAILY 11/14/17 06/15/18 History 17gm Packet] acetaminophen 500 mg capsule 500 mg PO Q4HP PRN 01/07/18 06/16/18 History albuterol sulfate HFA 90 2 puff INHALATION Q4H PRN 01/07/18 06/15/18 History mcg/actuation aerosol inhaler aluminum hydrox-magnesium carb 95 30 ml PO QIDP PRN ml 01/07/18 06/16/18 Hi story mg-358 mg/15 mL oral suspension phenol 1.4 % mucosal aerosol spray 2 spray MUCOUS MEM QIDP PRN ml 01/07/18 06/15/18 History polyvinyl alcohol 1.4 % eye drops 1 drp OPHTHALMIC BID ml 01/07/18 06/15/18 History sennosides 8.6 mg-docusate sodium 1 tab PO BIDP PRN 01/07/18 06/16/18 History 50 mg tablet Furosemide [Furosemide 20mg Tab] 20 mg PO DAILYP PRN 03/28/18 06/15/18 History Saliva Stimulant Agents Comb.3 1 spray MM DAILYP PRN 03/28/18 06/16/18 History [Biotene Moisturizing Mouth] Paliperidone Palmitate [Invega 117 mg IM MONTHLY 06/06/18 06/16/18 History Sustenna] Ertapenem Sodium [Invanz 1gm Vial] 1 gm IV Q24H 06/15/18 06/16/18 History Lisinopril [Zestril 5mg 5 mg PO DAILY 06/15/18 06/15/18 History Tablet] Vancomycin HCl [Vancomycin 1000mg 1,750 mg IV Q12H 06/15/18 06/16/18 History Vial] Rifaximin [Xifaxan] 550 mg PO BID 06/16/18 06/16/18 History Allergies Allergy/AdvReac Type Severity Reaction Status Date / Time haloperidol [HALOPERIDOL] Allergy Unknown Unknown Verified 06/15/18 20:59 allergy reaction metronidazole [From Flagyl] Allergy Unknown Unknown Verified 06/15/18 20:59 allergy reaction molindone Allergy Unknown Unknown Verified 06/15/18 20:59 allergy reaction paroxetine Allergy Unknown Unknown Verified 06/15/18 20:59 allergy reaction Penicillins [PENICILLINS] Allergy Unknown Unknown Verified 06/15/18 20:59 allergy reaction phenacaine Allergy Unknown Unknown Verified 06/15/18 20:59 allergy reaction Sulfa (Sulfonamide Allergy Unknown Unknown Verified 06/15/18 20:59 Antibiotics) allergy reaction triazolam [From Halcion] Allergy Unknown Unknown Verified 06/15/18 20:59 allergy reaction kiwi Allergy Hives Verified 06/15/18 20:59 raspberry Allergy Hives Verified 06/15/18 20:59 Exam Vital signs and Labs for Last 24 Hours: Temp Pulse Resp BP Pulse Ox 98.2 F 63 19 161/71 H 91 L 06/16/18 12:00 06/16/18 12:00 06/16/18 12:00 06/16/18 12:00 06/16/18 12:00 Laboratory Results - last 24 hr 06/15/18 21:08: Sodium 141, Potassium 4.0, Chloride 98, Carbon Dioxide 45 H*, Anion Gap 2.0 L, BUN 6 L, Creatinine 0.54 L, Estimated Creat Clear 48, Estimated GFR 114, Est GFR ( Amer) 138, Glucose 137 H, Calcium 7.6 L, Total Bilirubin 0.5, AST 43 H, ALT 48, Alkaline Phosphatase 131 H, Total Protein 5.3 L , Albumin 2.0 L, Globulin 3.3 H, Albumin/Globulin Ratio 0.6 L 06/15/18 21:08: Lactate 1.3 06/15/18 22:00: WBC 7.6, RBC 4.39, Hgb 11.7 L, Hct 39.4, MCV 89.8, MCH 26.7 L, MCHC 29.7 L, RDW 15.3, Plt Count 71 L, MPV 8.5, Neut % (Auto) 62.5, Lymph % (Auto) 21.8, [place] % (Auto) 10.7 H, Eos % (Auto) 4.7, Baso % (Auto) 0.3, Neut # (Auto) 4.8, Lymph # (Auto) 1.7, [place] # (Auto) 0.8, Eos # (Auto) 0.4, Baso # (Auto) 0.0 06/15/18 22:25: Specimen Source R/r, O2 % 4, ABG pH 7.36, ABG pCO2 86.8 H, ABG pO2 71.4 L, ABG HCO3 47.6 H, ABG Total CO2 50.3 H, ABG O2 Saturation 95, ABG Base Excess 22.1 H, [place] Test Y 06/16/18 09:25: Sodium 138, Potassium 4.0, Chloride 95 L, Carbon Dioxide 44 H*, Anion Gap 3.0 L, BUN 7, Creatinine 0.55, Estimated Creat Clear 48, Estimated GFR 112, Est GFR ( Amer) 136, Glucose 171 H D, Calcium 8.1 L, Lipase 54 L I & O for Last 24 hours: Intake & Output 06/14/18 06/15/18 06/16/18 06/17/18 11:59 11:59 11:59 11:59 Weight 255 lb 8 oz - Constitutional no acute distress, obese - *Routine HEENT Exam Head: Present: normocephalic Eye: Present: EOMI, PERRL ENT: Present: mucous membranes dry - *Routine Neck Exam Absent: JVD - *Routine Respiratory Exam Present: decreased breath sounds, rhonchi - *Routine Cardiovascular Exam Present: RRR, Normal S2, murmur, S4 - *Routine Abdominal Exam Present: soft, distended. Absent: rebound - *Routine Extremities Exam Present: edema. Absent: calf tenderness - *Routine Skin Exam Present: intact - *Routine Neurological Exam Present: alert, CN II-XII intact - Routine Psychiatric Exam Present: normal affect Assessment and Plan (1) COPD exacerbation Current visit: Yes Status: Acute Category: Medical Code(s): J44.1 - Chronic obstructive pulmonary disease with (acute) exacerbation (2) Healthcare-associated pneumonia Current visit: Yes Status: Acute Category: Medical Code(s): J18.9 - Pneumonia, unspecified organism
[2018-06-16 13:24] LABS: Basophils % 0.1 % (0.1-2.0); Eosinophils % 0.4 % (0.1-12.0); Hematocrit 41.7 % (37.0-47.0); Hemoglobin 12.6 g/dL (12.2-16.2); Lymphocytes # 1.1 K/mm3 (0.7-4.5); Lymphocytes % 21.7 % (10-50); Mean Corpuscular HGB Conc 30.2 g/dL (31.8-35.4); Mean Corpuscular Hemoglobin 26.5 pg (27.0-31.2); Mean Corpuscular Volume 87.6 fl (81-99); Monocytes # 0.2 K/mm3 (0.1-1.0); Monocytes % 3.9 % (1.7-9.3); Neutrophils # 3.7 K/mm3 (1.8-7.8); Neutrophils % 73.9 % (37.0-80.0); Platelet Count 68 K/mm3 (142-424); Red Blood Count 4.75 M/mm3 (4.20-5.40); Red Cell Distribution Width 15.6 % (11.5-17.5)
--- NOTE | 2018-06-17 09:34 | Discharge Summary ---
General - General Admission date:: 06/16/18 Discharge date: 06/17/18 HPI HPI: this wf was sent from [facility] for eval in the ed - she was recent admit and has pic line and abx at [facility] -ursing home reports pt. started having some difficulty breahthing at 630 pm. Her breathing became worse and her oxygen dropped to 80 on 2L/nc. [place] called EMS who reports oxygen sats in the 80s. She was given a Duoneb and oxygen was increased to 5L/nc. Room air Sat on arrival 88% on 2l/nc. - Sent in by ambulance from snf with report of low oxygen saturation. Patient is a poor historian. States that her nose is clogged. Also admits to shortness of breath. Otherwise does not give much information. Given a nebulizer treatment during transport. Oxygen increased from 2 L to 5 L. Recent admission in May for pneumonia with respiratory failure. I saw her at that time in the emergency department as well. Similar presentation at that time. Hospital Course Hospital Course: Will discharge back to [facility] today. Encourage patient not to smoke. Patient states today she feels very well and is ready to go back to [facility]. Will monitor at [facility]. Patient is to continue her regular plan of care and management. She is to maintain O2 sats above 85% on room air. Objective Vital signs: Temp Pulse Resp BP Pulse Ox 97.5 F L 70 18 136/81 93 L 06/17/18 04:00 06/17/18 06:28 06/17/18 04:00 06/17/18 04:00 06/17/18 06:28 no acute distress - *Routine HEENT Exam Head: Present: normocephalic Eye: Present: PERRL ENT: Present: mucous membranes moist - *Routine Respiratory Exam Present: CTA bilaterally - *Routine Cardiovascular Exam Present: RRR - *Routine Abdominal Exam Present: soft, normoactive bowel sounds - *Routine Extremities Exam Present: full ROM - *Routine Skin Exam Present: intact - *Routine Neurological Exam Present: alert, oriented X3 - Routine Psychiatric Exam Present: normal affect, normal thought process Results Labs on day of discharge: Labs from last 24 hours 06/16/18 06/16/18 13:08 09:25 WBC 5.0 D RBC 4.75 Hgb 12.6 Hct 41.7 MCV 87.6 MCH 26.5 L MCHC 30.2 L RDW 15.6 Plt Count 68 L MPV 9.0 Neut % (Auto) 73.9 Lymph % (Auto) 21.7 [place] % (Auto) 3.9 Eos % (Auto) 0.4 Baso % (Auto) 0.1 Neut # (Auto) 3.7 Lymph # (Auto) 1.1 [place] # (Auto) 0.2 Eos # (Auto) 0.0 Baso # (Auto) 0.0 Sodium 138 Potassium 4.0 Chloride 95 L Carbon Dioxide 44 H* Anion Gap 3.0 L BUN 7 Creatinine 0.55 Estimated Creat Clear 48 Estimated GFR 112 Est GFR ( Amer) 136 Glucose 171 H D Calcium 8.1 L Lipase 54 L Preliminary micro results at discharge 06/15/18 21:08 Blood Culture - Preliminary Blood - Additional Comments Rounded with Dr. Archibald all orders per Dragan DS: Diagnosis - Discharge Diagnosis (1) COPD exacerbation Status: Acute (2) Healthcare-associated pneumonia Status: Acute Discharge Plan - Patient Discharge Instructions ACTIVITY: Continue current activity DIET: continue same diet - Follow up Plan Follow up with: Clay Phipps APRN [Advanced Practice Nurse] - Disposition: Xfer SNF Home Medications: Home Medications Medication Instructions Recorded Confirmed Type Ascorbic Acid [Vitamin C] 1,000 mg PO DAILY 11/13/17 06/15/18 History Aspirin [Aspirin 81mg chewable 81 mg PO DAILY 11/13/17 06/15/18 History tab] Benztropine Mesylate 0.5 mg PO DAILY 11/13/17 06/15/18 History Benztropine Mesylate [Cogentin 1mg 1 mg PO HS 11/13/17 06/15/18 History tablet] Carvedilol [Carvedilol 25mg Tab] 25 mg PO 0800,1700 11/13/17 06/15/18 History Cholecalciferol (Vitamin D3) 2,000 unit PO DAILY 11/13/17 06/15/18 History [Vitamin D3] Divalproex Sodium 250 mg PO BID 11/13/17 06/15/18 History Fluticasone Propionate [Flonase 1 spr NS DAILY 11/13/17 06/15/18 History 50mcg nasal spray 16gm] Hydrocod/Acet 5/325 mg [Bas[place] 1 each PO TID 11/13/17 06/15/18 History 5/325mg tablet] Isosorbide Dinitrate [Isordil 20mg 20 mg PO TID 11/13/17 06/15/18 History tablet] Lactulose [Lactulose 10gm/15ml 20 gm PO DAILY 11/13/17 06/15/18 History Oral Soln] Levothyroxine Sodium 75 mcg PO DAILY 11/13/17 06/15/18 History [Levothyroxine 75mcg (0.075mg) Tab] Potassium Chloride [Klor-Con 10mEq 10 meq PO DAILY 11/13/17 06/15/18 History tab] Pravastatin Sodium [Pravachol] 40 mg PO HS 11/13/17 06/15/18 History Sodium Chloride 3 gm PO TID 11/13/17 06/15/18 History Venlafaxine HCl 75 mg PO TID 11/13/17 06/15/18 History clonazePAM [Clonazepam] 0.25 mg PO TID 11/13/17 06/15/18 History Calcium Carbonate [Tums 500mg 500 mg PO DAILY 11/14/17 06/15/18 History chewtab] Polyethylene Glycol 3350 [Miralax 17 gm PO DAILY 11/14/17 06/15/18 History 17gm Packet] acetaminophen 500 mg capsule 500 mg PO Q4HP PRN 01/07/18 06/16/18 History albuterol sulfate HFA 90 2 puff INHALATION Q4H PRN 01/07/18 06/15/18 History mcg/actuation aerosol inhaler aluminum hydrox-magnesium carb 95 30 ml PO QIDP PRN ml 01/07/18 06/16/18 History mg-358 mg/15 mL oral suspension phenol 1.4 % mucosal aerosol spray 2 spray MUCOUS MEM QIDP PRN ml 01/07/18 06/15/18 History polyvinyl alcohol 1.4 % eye drops 1 drp OPHTHALMIC BID ml 01/07/18 06/15/18 History sennosides 8.6 mg-docusate sodium 1 tab PO BIDP PRN 01/07/18 06/16/18 History 50 mg tablet Furosemide [Furosemide 20mg Tab] 20 mg PO DAILYP PRN 03/28/18 06/15/18 History Saliva Stimulant Agents Comb.3 1 spray MM DAILYP PRN 03/28/18 06/16/18 History [Biotene Moisturizing Mouth] Paliperidone Palmitate [Invega 117 mg IM MONTHLY 06/06/18 06/16/18 History Sustenna] Ertapenem Sodium [Invanz 1gm Vial] 1 gm IV Q24H 06/15/18 06/16/18 History Lisinopril [Zestril 5mg 5 mg PO DAILY 06/15/18 06/15/18 History Tablet] Vancomycin HCl [Vancomycin 1000mg 1,750 mg IV Q12H 06/15/18 06/16/18 History Vial] Rifaximin [Xifaxan] 550 mg PO BID 06/16/18 06/16/18 History Prescriptions/Medication Reconciliation: Continue sennosides 8.6 mg-docusate sodium 50 mg tablet 1 tab PO BIDP PRN PRN Reason: Constipation acetaminophen 500 mg capsule 500 mg PO Q4HP PRN PRN Reason: As Needed For Fever Or Pain aluminum hydrox-magnesium carb 95 mg-358 mg/15 mL oral suspension 30 ml PO QIDP PRN ml PRN Reason: UPSET STOMACH albuterol sulfate HFA 90 mcg/actuation aerosol inhaler 2 puff INHALATION Q4H PRN PRN Reason: breathing polyvinyl alcohol 1.4 % eye drops 1 drp OPHTHALMIC BID ml phenol 1.4 % mucosal aerosol spray 2 spray MUCOUS MEM QIDP PRN ml PRN Reason: sore throat Pravastatin Sodium [Pravachol] 40 mg PO HS Potassium Chloride [Klor-Con 10mEq tab] 10 meq PO DAILY Fluticasone Propionate [Flonase 50mcg nasal spray 16gm] 1 spr NS DAILY Divalproex Sodium 250 mg PO BID clonazePAM [Clonazepam] 0.25 mg PO TID Carvedilol [Carvedilol 25mg Tab] 25 mg PO 0800,1700 Benztropine Mesylate 0.5 mg PO DAILY Benztropine Mesylate [Cogentin 1mg tablet] 1 mg PO HS Aspirin [Aspirin 81mg chewable tab] 81 mg PO DAILY Sodium Chloride 3 gm PO TID Ascorbic Acid [Vitamin C] 1,000 mg PO DAILY Polyethylene Glycol 3350 [Miralax 17gm Packet] 17 gm PO DAILY Furosemide [Furosemide 20mg Tab] 20 mg PO DAILYP PRN PRN Reason: FLUID RETENTION/SWELLING Paliperidone Palmitate [Invega Sustenna] 117 mg IM MONTHLY Vancomycin HCl [Vancomycin 1000mg Vial] 1,750 mg IV Q12H Ertapenem Sodium [Invanz 1gm Vial] 1 gm IV Q24H Hydrocod/Acet 5/325 mg [Basin 5/325mg tablet] 1 each PO TID Isosorbide Dinitrate [Isordil 20mg tablet] 20 mg PO TID Lactulose [Lactulose 10gm/15ml Oral Soln] 20 gm PO DAILY Levothyroxine Sodium [Levothyroxine 75mcg (0.075mg) Tab] 75 mcg PO DAILY Venlafaxine HCl 75 mg PO TID Cholecalciferol (Vitamin D3) [Vitamin D3] 2,000 unit PO DAILY Calcium Carbonate [Tums 500mg chewtab] 500 mg PO DAILY Saliva Stimulant Agents Comb.3 [Biotene Moisturizing Mouth] 1 spray MM DAILYP PRN PRN Reason: Dry Mouth Lisinopril [Zestril 5mg Tablet] 5 mg PO DAILY Rifaximin [Xifaxan] 550 mg PO BID
== END 2018-06-17 12:30 ==
LOC: ICU 20:48 → ER 20:48 → OBSVTOIN 06-16 02:35 → ICU 06-16 02:38
PROVIDERS: ADMIT Family Medicine; ATTEND Emergency Medicine

== ENCOUNTER 2018-06-29 05:42 | Inpatient (IN) ==
[2018-06-29 06:08] LABS: ABG Base Excess 27.7 mmol/L (-2.4-2.3); ABG HCO3 54.6 mmhg (22.0-26.0); ABG Oxygen Saturation 98 % (90-100); ABG PH 7.27 mmol/L (7.35-7.45); ABG PO2 116.4 mmhg (80-100); ABG TCO2 58.3 mmhg (23-27)
[2018-06-29 06:09] LABS: Allen's Test Acceptable; Oxygen 50 %
[2018-06-29 06:10] LABS: ABG PCO2 121.4 mmhg (35.0-45.0)
[2018-06-29 06:17] LABS: Basophils % 0.6 % (0.1-2.0); Eosinophils # 0.1 K/mm3 (0.0-0.4); Eosinophils % 1.1 % (0.1-12.0); Hematocrit 43.6 % (37.0-47.0); Hemoglobin 12.9 g/dL (12.2-16.2); Lymphocytes # 1.9 K/mm3 (0.7-4.5); Lymphocytes % 39.9 % (10-50); Mean Corpuscular HGB Conc 29.5 g/dL (31.8-35.4); Mean Corpuscular Hemoglobin 27.2 pg (27.0-31.2); Mean Platelet Volume 8.3 fl (7.4-10.4); Monocytes # 0.4 K/mm3 (0.1-1.0); Monocytes % 8.8 % (1.7-9.3); Neutrophils # 2.4 K/mm3 (1.8-7.8); Neutrophils % 49.6 % (37.0-80.0); Platelet Count 113 K/mm3 (142-424); Red Blood Count 4.74 M/mm3 (4.20-5.40); Red Cell Distribution Width 17.6 % (11.5-17.5); White Blood Count 4.8 K/mm3 (4.8-10.8)
[2018-06-29 07:07] LABS: Microscopic, Urine URINE MICROSCOPIC (MICROSCOPIC)
[2018-06-29 07:09] LABS: Appearance,Urine CLOUDY (Clear); Bilirubin,Urine Negative (Negative); Blood, Urine Negative (Negative); Color,Urine DK YELLOW (Yellow); Glucose,Urine (UA) Negative (Negative); Ketones,Urine Negative (Negative); Leukocyte Esterase,Urine Negative (Negative); Protein,Urine TRACE (Negative); Specific Gravity, Urine >= 1.030 (1.005-1.030)
[2018-06-29 07:10] LABS: Amorphous Sediment,Urine 1+ /lpf; Bacteria,Urine 2+ /lpf; Squamous Epithelial Cell,Urine 20-50 #/hpf (0-5); WBC,Urine 20-50 #/hpf (0-3)
--- NOTE | 2018-06-29 07:20 | Emergency Department Note ---
ED Disposition Clinical Impression: HCAP (healthcare-associated pneumonia), Elevated troponin, Tobacco abuse Respiratory failure Qualifiers: Chronicity: acute on chronic Respiratory failure complication: hypercapnia Qualified Code(s): J96.22 - Acute and chronic respiratory failure with hypercapnia Obesity Qualifiers: Obesity type: due to excess calories Obesity classification: adult class 3 (BMI >= 40) Serious obesity comorbidity presence: with serious comorbidity Body mass index: BMI 50.0-59.9 Qualified Code(s): E66.01 - Morbid (severe) obesity due to excess calories; Z68.43 - Body mass index (BMI) 50-59.9, adult Disposition: Admitted As Inpatient Condition on Discharge: Serious Referrals: Chito Archibald MD [Primary Care Provider] - - Critical Care Critical Care Time: No Attestation: On 06/29/18, the high probability of a clinically significant, sudden or life threatening deterioration of the following system(s) required my full and direct attention, intervention and personal management. The time I documented below is in addition to time spent performing reported procedures but includes the following listed in this critical care notation. Medical Decision Making - Medical Records Medical records reviewed: Yes: I reviewed the patient's medical records. - Yonathan Inquiry Pt receiving controlled substance: No Vital Signs: 06/29/18 05:43 06/29/18 06:00 06/29/18 06:51 Pulse Rate 87 Pulse Rate [Right Radial] 71 Respiratory Rate 26 H 23 Blood Pressure [Right Arm] 162/100 H Blood Pressure Mean [Right Arm] 120 Blood Pressure Source [Right Arm] Manual Cuff/ Auscultation Automatic Cuff Blood Pressure Position [Right Arm] Sitting Sitting 02 Sat by Pulse Oximetry 99 96 Oxygen Delivery Method Non-Rebreather Nasal Cannula Oxygen Flow Rate (LPM) 4 - Lab Data Lab results reviewed: Yes: I reviewed the patient's lab results. Lab Results 06/29/18 05:51: Specimen Source Right brachial, O2 % 50, ABG pH 7.27 L, ABG pCO2 121.4 H, ABG pO2 116.4 H, ABG HCO3 54.6 H, ABG Total CO2 58.3 H, ABG O2 Saturation 98, ABG Base Excess 27.7 H, Gary Test Acceptable 06/29/18 06:00: WBC 4.8, RBC 4.74, Hgb 12.9, Hct 43.6, MCV 92.0, MCH 27.2, MCHC 29.5 L, RDW 17.6 H, Plt Count 113 L, MPV 8.3, Neut % (Auto) 49.6, Lymph % (Auto) 39.9, [place] % (Auto) 8.8, Eos % (Auto) 1.1, Baso % (Auto) 0.6, Neut # (Auto) 2.4, Lymph # (Auto) 1.9, [place] # (Auto) 0.4, Eos # (Auto) 0.1, Baso # (Auto) 0.0 06/29/18 06:00: Lactate 1.1 06/29/18 06:00: Troponin I 0.11 H Result diagrams: 06/29/18 06:00 Orders (Tests/Meds): ED MEDICATIONS Discontinued Medications Generic Name Dose Route Start Last Admin Trade Name Freq PRN Reason Stop Dose Admin Albuterol/Ipratropium 3 ml 06/29/18 05:51 06/29/18 06:00 Duoneb 3ml Neb IH 06/29/18 05:52 3 ml ONCE ONE Administration Sodium Chloride 1,000 mls @ 999 mls/hr 06/29/18 06:00 Sod Chlor 0.9% 1000ml Bag IV 06/29/18 07:00 .Q1H1M ERNESTO Methylprednisolone Sodium Succinate 125 mg 06/29/18 05:56 Solu-Medrol 125mg/2ml Vial IV 06/29/18 05:57 ONCE ONE ORDERS Category Date Time Status Chest XR -- portable [XR chest portable] Stat Exams 06/29/18 05:51 Ordered Urinalysis and Microscopic Stat Lab 06/29/18 05:53 Ordered Blood Culture Stat Micro 06/29/18 05:51 Ordered Arterial Blood Gas Stat RT 06/29/18 05:51 Ordered 12-lead EKG Request [ECG Request by /Jay] Stat Y 06/29/18 05:57 Ordered - Radiology Data #1 Image(s): Chest Image Reviewed: Yes I reviewed the patient's radiology image Preliminary Findings: Abnormal (rt lower lobe ) - ECG Data Tracing #1 I reviewed this ECG and interpreted as documented below: Normal Sinus Rhythm: Yes Ischemic changes: non-specific ST-T wave changes Resp/SOB HPI - General Chief Complaint: Shortness of Breath/Dyspnea Stated Complaint: difficulty breathing/AMS Time Seen by Provider: 06/29/18 06:00 Mode of Arrival: EMS Source of Information: Patient, EMS, Medical Record Limitations: Physical Limitations Description of Symptoms (Recalled from ER Triage Doc. by RN): Wally reports Pt. was checked on and she was only responsive to painful stimuli. They reports she was at 78% with 4L NC. PT. pale and restless at this time. Pt. grunting and restless at this time. Respiratory at bedside. - History of Present Illness pt with change in mental status at formerly [facility] with low sat and sent to ed for eval Complaint: shortness of breath Onset (ago): hour(s) Context: recent illness Severity: moderate Known history of: recurrent pneumonia Associated symptoms: denies other symptoms Treatment prior to arrival: oxygen - Related Data Home oxygen amount: 2 liters Home Medications Medication Instructions Recorded Confirmed Ascorbic Acid [Vitamin C] 1,000 mg PO DAILY 11/13/17 06/15/18 Aspirin [Aspirin 81mg chewable 81 mg PO DAILY 11/13/17 06/15/18 tab] Benztropine Mesylate 0.5 mg PO DAILY 11/13/17 06/15/18 Benztropine Mesylate [Cogentin 1mg 1 mg PO HS 11/13/17 06/15/18 tablet] Carvedilol [Carvedilol 25mg Tab] 25 mg PO 0800,1700 11/13/17 06/15/18 Cholecalciferol (Vitamin D3) 2,000 unit PO DAILY 11/13/17 06/15/18 [Vitamin D3] Divalproex Sodium 250 mg PO BID 11/13/17 06/15/18 Fluticasone Propionate [Flonase 1 spr NS DAILY 11/13/17 06/15/18 50mcg nasal spray 16gm] Hydrocod/Acet 5/325 mg [[place] 1 each PO TID 11/13/17 06/15/18 5/325mg tablet] Isosorbide Dinitrate [Isordil 20mg 20 mg PO TID 11/13/17 06/15/18 tablet] Lactulose [Lactulose 10gm/15ml 20 gm PO DAILY 11/13/17 06/15/18 Oral Soln] Levothyroxine Sodium 75 mcg PO DAILY 11/13/17 06/15/18 [Levothyroxine 75mcg (0.075mg) Tab] Potassium Chloride [Klor-Con 10mEq 10 meq PO DAILY 11/13/17 06/15/18 tab] Pravastatin Sodium [Pravachol] 40 mg PO HS 11/13/17 06/15/18 Sodium Chloride 3 gm PO TID 11/13/17 06/15/18 Venlafaxine HCl 75 mg PO TID 11/13/17 06/15/18 clonazePAM [Clonazepam] 0.25 mg PO TID 11/13/17 06/15/18 Calcium Carbonate [Tums 500mg 500 mg PO DAILY 11/14/17 06/15/18 chewtab] Polyethylene Glycol 3350 [Miralax 17 gm PO DAILY 11/14/17 06/15/18 17gm Packet] acetaminophen 500 mg capsule 500 mg PO Q4HP PRN 01/07/18 06/16/18 albuterol sulfate HFA 90 2 puff INHALATION Q4H PRN 01/07/18 06/15/18 mcg/actuation aerosol inhaler aluminum hydrox-magnesium carb 95 30 ml PO QIDP PRN ml 01/07/18 06/16/18 mg-358 mg/15 mL oral suspension phenol 1.4 % mucosal aerosol spray 2 spray MUCOUS MEM QIDP PRN ml 01/07/18 polyvinyl alcohol 1.4 % eye drops 1 drp OPHTHALMIC BID ml 01/07/18 06/15/18 sennosides 8.6 mg-docusate sodium 1 tab PO BIDP PRN 01/07/18 06/16/18 50 mg tablet Furosemide [Furosemide 20mg Tab] 20 mg PO DAILYP PRN 03/28/18 06/15/18 Saliva Stimulant Agents Comb.3 1 spray MM DAILYP PRN 03/28/18 06/16/18 [Biotene Moisturizing Mouth] Paliperidone Palmitate [Invega 117 mg IM MONTHLY 06/06/18 06/16/18 Sustenna] Ertapenem Sodium [Invanz 1gm Vial] 1 gm IV Q24H 06/15/18 06/16/18 Lisinopril [Zestril 5mg 5 mg PO DAILY 06/15/18 06/15/18 Tablet] Vancomycin HCl [Vancomycin 1000mg 1,750 mg IV Q12H 06/15/18 06/16/18 Vial] Rifaximin [Xifaxan] 550 mg PO BID 06/16/18 06/16/18 Allergies Allergy/AdvReac Type Severity Reaction Status Date / Time haloperidol [HALOPERIDOL] Allergy Unknown Unknown Verified 06/29/18 06:50 allergy reaction metronidazole [From Flagyl] Allergy Unknown Unknown Verified 06/29/18 06:50 allergy reaction molindone Allergy Unknown Unknown Verified 06/29/18 06:50 allergy reaction paroxetine Allergy Unknown Unknown Verified 06/29/18 06:50 allergy reaction Penicillins [PENICILLINS] Allergy Unknown Unknown Verified 06/29/18 06:50 allergy reaction phenacaine Allergy Unknown Unknown Verified 06/29/18 06:50 allergy reaction Sulfa (Sulfonamide Allergy Unknown Unknown Verified 06/29/18 06:50 Antibiotics) allergy reaction triazolam [From Halcion] Allergy Unknown Unknown Verified 06/29/18 06:50 allergy reaction kiwi Allergy Hives Verified 06/29/18 06:50 raspberry Allergy Hives Verified 06/29/18 06:50 [facility] History I have reviewed the patient's past medical history: Yes Medical History: Reports:: Anxiety, Chronic Obstructive Pulmonary Disease (COPD), Hyperlipidemia, Hypertension, Myocardial Infarction Denies:: Cancer, Diabetes Mellitus Type 1, Diabetes Mellitus Type 2, Internal Pacemaker, MRSA Comment: Significant record deficit with no records from group home Other Surgeries: No: Pacemaker Amputation: No - Social History Smoking Status: Current some day smoker Tobacco Type: cigarettes Alcohol Intake: never Occupational Status: disabled Housing: group home - Psychiatric History Expresses thoughts of harming self/others: None Suicide Plan Description: No Plan Pschychiatric History:: Reports:: Anxiety ROS Obtained: Yes All systems reviewed & no additional complaints, Yes other ( per [facility] staff ) Physical Exam - General General appearance: obtunded, obese - Head Head exam: normocephalic - Eye Eye exam: Present: PERRL, EOMI - ENT ENT exam: Present: mucous membranes dry - Neck Neck exam: Present: trachea midline - Respiratory Respiratory exam: Present: respiratory distress, other (dec bs bilat ) - Cardiovascular Cardiovascular exam: Present: regular rate, systolic murmur, +S4 - Abdominal Exam Abdominal exam: Present: soft - Extremities Exam Extremities exam: Present: pedal edema. Absent: calf tenderness - Neurological Exam Neurological exam: Present: CN II-XII intact - Psychiatric Psychiatric exam: Present: other (unable to eval ) - Skin Skin exam: Present: intact
[2018-06-29 07:37] LABS: Albumin Level 2.5 gm/dL (3.4-5.0); Albumin/Globulin Ratio 0.5 (1.1-1.8); Bilirubin,Total 0.8 mg/dL (0.2-1.0); Calcium 8.4 mg/dL (8.5-10.1); Globulin 4.9 gm/dl (1.3-3.2); Total Protein,Serum 7.4 gm/dL (6.4-8.2)
--- NOTE | 2018-06-29 09:19 | History & Physical Report ---
*Admission Date: 06/29/18 *Chief complaint: change in mental status *History of present illness: this wf was sent from [facility] for change in mental staus - pt had recent admit for sepsis and finished abx at [facility]- pt with no chest pain and unable to give hx as she had resp failure with elevated co2 [facility] History I have reviewed the patient's past medical history: Yes Medical History: Reports:: Anxiety, Congestive Heart Failure, Chronic Obstructive Pulmonary Disease (COPD), Hyperlipidemia, Hypertension, Myocardial Infarction Denies:: Cancer, Diabetes Mellitus Type 1, Diabetes Mellitus Type 2, Internal Pacemaker, MRSA Other Surgeries: No: Pacemaker Amputation: No Fractures: No - *Social History Educational Level: Attended Grade School Smoking Status: Current some day smoker Tobacco Type: cigarettes Alcohol Intake: never Occupational Status: disabled Housing: senior care - Psychiatric History Expresses thoughts of harming self/others: None Suicide Plan Description: No Plan Pschychiatric History:: Reports:: Anxiety Review of Systems - Review of Systems Review of systems:: unable to obtain Meds Home Medications Medication Instructions Recorded Confirmed Type Ascorbic Acid [Vitamin C] 1,000 mg PO DAILY 11/13/17 06/29/18 History Aspirin [Aspirin 81mg chewable 81 mg PO DAILY 11/13/17 06/29/18 History tab] Benztropine Mesylate 0.5 mg PO DAILY 11/13/17 06/29/18 History Benztropine Mesylate [Cogentin 1mg 1 mg PO HS 11/13/17 06/29/18 History tablet] Carvedilol [Carvedilol 25mg Tab] 25 mg PO 0800,1700 11/13/17 06/29/18 History Cholecalciferol (Vitamin D3) 2,000 unit PO DAILY 11/13/17 06/29/18 History [Vitamin D3] Divalproex Sodium 250 mg PO BID 11/13/17 06/29/18 History Fluticasone Propionate [Flonase 1 spr NS DAILY 11/13/17 06/29/18 History 50mcg nasal spray 16gm] Hydrocod/Acet 5/325 mg [[place] 1 each PO TID 11/13/17 06/29/18 History 5/325mg tablet] Isosorbide Dinitrate [Isordil 20mg 20 mg PO TID 11/13/17 06/29/18 History tablet] Lactulose [Lactulose 10gm/15ml 20 gm PO DAILY 11/13/17 06/29/18 History Oral Soln] Levothyroxine Sodium 75 mcg PO DAILY 11/13/17 06/29/18 History [Levothyroxine 75mcg (0.075mg) Tab] Potassium Chloride [Klor-Con 10mEq 10 meq PO DAILY 11/13/17 06/29/18 History tab] Pravastatin Sodium [Pravachol] 40 mg PO HS 11/13/17 06/29/18 History Sodium Chloride 3 gm PO TID 11/13/17 06/29/18 History Venlafaxine HCl 75 mg PO TID 11/13/17 06/29/18 History Calcium Carbonate [Tums 500mg 500 mg PO DAILY 11/14/17 06/29/18 History chewtab] Polyethylene Glycol 3350 [Miralax 17 gm PO DAILY 11/14/17 06/29/18 History 17gm Packet] acetaminophen 500 mg capsule 500 mg PO Q4HP PRN 01/07/18 06/29/18 History albuterol sulfate HFA 90 2 puff INHALATION Q4H PRN 01/07/18 06/29/18 History mcg/actuation aerosol inhaler aluminum hydrox-magnesium carb 95 30 ml PO QIDP PRN ml 01/07/18 06/29/18 History mg-358 mg/15 mL oral suspension phenol 1.4 % mucosal aerosol spray 2 spray MUCOUS MEM QIDP PRN ml 01/07/18 06/29/18 History polyvinyl alcohol 1.4 % eye drops 1 drp OPHTHALMIC BID ml 01/07/18 06/29/18 History sennosides 8.6 mg-docusate sodium 1 tab PO BIDP PRN 01/07/18 06/29/18 History 50 mg tablet Furosemide [Furosemide 20mg Tab] 20 mg PO DAILYP PRN 03/28/18 06/29/18 History Saliva Stimulant Agents Comb.3 1 spray MM DAILYP PRN 03/28/18 06/29/18 History [Biotene Moisturizing Mouth] Paliperidone Palmitate [Invega 117 mg IM MONTHLY 06/06/18 06/29/18 History Sustenna] Lisinopril [Zestril 5mg 5 mg PO DAILY 06/15/18 06/29/18 History Tablet] Rifaximin [Xifaxan] 550 mg PO BID 06/16/18 06/29/18 History clonazePAM [Clonazepam] 0.25 mg PO TID 06/29/18 06/29/18 History Allergies Allergy/AdvReac Type Severity Reaction Status Date / Time haloperidol [HALOPERIDOL] Allergy Unknown Unknown Verified 06/29/18 06:50 allergy reaction metronidazole [From Flagyl] Allergy Unknown Unknown Verified 06/29/18 06:50 allergy reaction molindone Allergy Unknown Unknown Verified 06/29/18 06:50 allergy reaction paroxetine Allergy Unknown Unknown Verified 06/29/18 06:50 allergy reaction Penicillins [PENICILLINS] Allergy Unknown Unknown Verified 06/29/18 06:50 allergy reaction phenacaine Allergy Unknown Unknown Verified 06/29/18 06:50 allergy reaction Sulfa (Sulfonamide Allergy Unknown Unknown Verified 06/29/18 06:50 Antibiotics) allergy reaction triazolam [From Halcion] Allergy Unknown Unknown Verified 06/29/18 06:50 allergy reaction kiwi Allergy Hives Verified 06/29/18 06:50 raspberry Allergy Hives Verified 06/29/18 06:50 Exam Vital signs and Labs for Last 24 Hours: Temp Pulse Resp BP Pulse Ox 99.6 F 94 H 24 140/60 93 L 06/29/18 08:26 06/29/18 08:26 06/29/18 08:26 06/29/18 08:26 06/29/18 07:30 Laboratory Results - last 24 hr 06/29/18 05:51: Specimen Source Right brachial, O2 % 50, ABG pH 7.27 L, ABG pCO2 121.4 H, ABG pO2 116.4 H, ABG HCO3 54.6 H, ABG Total CO2 58.3 H, ABG O2 Saturation 98, ABG Base Excess 27.7 H, Gary Test Acceptable 06/29/18 06:00: WBC 4.8, RBC 4.74, Hgb 12.9, Hct 43.6, MCV 92.0, MCH 27.2, MCHC 29.5 L, RDW 17.6 H, Plt Count 113 L, MPV 8.3, Neut % (Auto) 49.6, Lymph % (Auto) 39.9, [place] % (Auto) 8.8, Eos % (Auto) 1.1, Baso % (Auto) 0.6, Neut # (Auto) 2.4, Lymph # (Auto) 1.9, [place] # (Auto) 0.4, Eos # (Auto) 0.1, Baso # (Auto) 0.0 06/29/18 06:00: Lactate 1.1 06/29/18 06:00: Troponin I 0.11 H 06/29/18 06:00: Sodium 148 H, Potassium 4.0, Chloride 105, Carbon Dioxide 50 H*, Anion Gap -3.0 L, BUN 8, Creatinine 0.66, Estimated Creat Clear 52, Estimated GFR 91, Est GFR ( Amer) 110, Glucose 101, Calcium 8.4 L, Total Bilirubin 0.8, AST 45 H, ALT 37, Alkaline Phosphatase 153 H, Total Protein 7.4 D, Albumin 2.5 L, Globulin 4.9 H, Albumin/Globulin Ratio 0.5 L 06/29/18 07:00: Urine Color Dk yellow, Urine Appearance Cloudy, Urine pH 6.0, Ur Specific [place] >= 1.030, Urine Protein Trace, Urine Glucose (UA) Negative, Urine Ketones Negative, Urine Blood Negative, Urine Nitrate Positive, Urine Bilirubin Negative, Urine Urobilinogen 2.0, Ur Leukocyte Esterase Negative, Urine WBC 20-50, Ur Squamous Epith Cells 20-50, Amorphous Sediment 1+, Urine Bacteria 2+ I & O for Last 24 hours: Intake & Output 06/26/18 06/27/18 06/28/18 06/29/18 11:59 11:59 11:59 11:59 Weight 320 lb - Constitutional moderate distress, morbidly obese - *Routine HEENT Exam Head: Present: normocephalic Eye: Present: EOMI, PERRL ENT: Present: mucous membranes dry - *Routine Neck Exam Present: supple - *Routine Respiratory Exam Present: decreased breath sounds, prolonged expiratory phase - *Routine Cardiovascular Exam Present: RRR, murmur, S4 - *Routine Abdominal Exam Present: soft - *Routine Extremities Exam Present: edema - *Routine Skin Exam Present: intact - *Routine Neurological Exam Present: altered mental status no focal changes - Routine Psychiatric Exam Present: unable to assess Assessment and Plan (1) Respiratory failure Current visit: Yes Status: Acute Qualifiers: Chronicity: acute on chronic Respiratory failure complication: hypercapnia Qualified Code(s): J96.22 - Acute and chronic respiratory failure with hypercapnia Category: Medical Code(s): J96.90 - Respiratory failure, unspecified, unspecified whether with hypoxia or hypercapnia (2) Obesity (BMI 30-39.9) Current visit: Yes Status: Acute Category: Medical Code(s): E66.9 - Obesity, unspecified (3) HCAP (healthcare-associated pneumonia) Current visit: Yes Status: Acute Category: Medical Code(s): J18.9 - Pneumonia, unspecified organism (4) UTI (urinary tract infection) Current visit: Yes Status: Acute Qualifiers: Urinary tract infection type: acute cystitis Hematuria presence: without hematuria Qualified Code(s): N30.00 - Acute cystitis without hematuria Category: Medical Code(s): N39.0 - Urinary tract infection, site not specified
--- NOTE | 2018-06-29 10:23 | Pharmacy Consult Notes ---
[facility] Pharmacy VTE Monitoring - Patient Demographics Admission date: 06/29/18 Report Date: 06/29/18 Time: 10:23 Allergies/Adverse Reactions: Patient Allergies haloperidol [HALOPERIDOL] Allergy (Unknown, Verified 06/29/18 06:50) Unknown allergy reaction metronidazole [From Flagyl] Allergy (Unknown, Verified 06/29/18 06:50) Unknown allergy reaction molindone Allergy (Unknown, Verified 06/29/18 06:50) Unknown allergy reaction paroxetine Allergy (Unknown, Verified 06/29/18 06:50) Unknown allergy reaction Penicillins [PENICILLINS] Allergy (Unknown, Verified 06/29/18 06:50) Unknown allergy reaction phenacaine Allergy (Unknown, Verified 06/29/18 06:50) Unknown allergy reaction Sulfa (Sulfonamide Antibiotics) Allergy (Unknown, Verified 06/29/18 06:50) Unknown allergy reaction triazolam [From Halcion] Allergy (Unknown, Verified 06/29/18 06:50) Unknown allergy reaction kiwi Allergy (Verified 06/29/18 06:50) Hives raspberry Allergy (Verified 06/29/18 06:50) Hives Height: 1.65 m Weight: 145.15 kg Patient Problems: Current Active Problems Elevated troponin (Acute) Healthcare-associated pneumonia (Acute) Respiratory failure (Acute) Obesity (Acute) Tobacco abuse (Chronic) - VTE Risk Labs: VTE Related Lab Results Hgb 12.9 g/dL (12.2-16.2) 06/29/18 06:00 Hct 43.6 % (37.0-47.0) 06/29/18 06:00 Plt Count 113 K/mm3 (142-424) L 06/29/18 06:00 BUN 8 mg/dL (7-18) 06/29/18 06:00 Creatinine 0.66 mg/dL (0.55-1.02) 06/29/18 06:00 Estimated Creat Clear 52 mL/min (50-200) 06/29/18 06:00 VTE Score: 4 VTE Risk Level: Low Risk - Prophylaxis Types of VTE Prophylaxis: TEDS Knee High (DEBBIE HOSE ORDER PLACED) Location of Applied Device: Bilateral Lower Extremeties
[2018-06-30 01:29] LABS: ABG Base Excess 12.9 mmol/L (-2.4-2.3); ABG HCO3 36.7 mmhg (22.0-26.0); ABG Oxygen Saturation 90 % (90-100); ABG PH 7.46 mmol/L (7.35-7.45); ABG PO2 55.1 mmhg (80-100); ABG TCO2 38.4 mmhg (23-27)
[2018-06-30 01:30] LABS: Allen's Test Y; Oxygen 45 %
[2018-06-30 01:31] LABS: ABG PCO2 53.2 mmhg (35.0-45.0)
[2018-06-30 06:11] LABS: Basophils % 0.1 % (0.1-2.0); Eosinophils % 1.1 % (0.1-12.0); Hematocrit 37.9 % (37.0-47.0); Hemoglobin 11.8 g/dL (12.2-16.2); Lymphocytes # 0.8 K/mm3 (0.7-4.5); Lymphocytes % 18.6 % (10-50); Mean Corpuscular HGB Conc 31.2 g/dL (31.8-35.4); Mean Corpuscular Hemoglobin 27.5 pg (27.0-31.2); Mean Platelet Volume 10.6 fl (7.4-10.4); Monocytes # 0.3 K/mm3 (0.1-1.0); Monocytes % 6.9 % (1.7-9.3); Neutrophils # 3.1 K/mm3 (1.8-7.8); Neutrophils % 73.3 % (37.0-80.0); Platelet Count 74 K/mm3 (142-424); Red Cell Distribution Width 18.8 % (11.5-17.5); White Blood Count 4.2 K/mm3 (4.8-10.8)
[2018-06-30 06:53] LABS: Anion Gap 8.1 mEq/L (5-15)
[2018-06-30 07:11] LABS: Potassium 4.1 mmoL/L (3.5-5.1)
[2018-06-30 07:12] LABS: Calcium 7.4 mg/dL (8.5-10.1)
--- NOTE | 2018-06-30 08:27 | Progress Note ---
Internal Medicine - PN: Subj *Date: 06/30/18 *Time: 08:25 Interval history: pt with better blood gas last pm - will stop pbap and check abg - awaiting urine culture Exam Vital signs and Labs for Last 24 Hours: Temp Pulse Resp BP Pulse Ox 98.6 F 65 20 150/80 H 93 L 06/30/18 07:45 06/30/18 07:45 06/30/18 07:45 06/30/18 07:45 06/30/18 07:52 Laboratory Results - last 24 hr 06/29/18 07:00: Urine Color Dk yellow, Urine Appearance Cloudy, Urine pH 6.0, Ur Specific [place] >= 1.030, Urine Protein Trace, Urine Glucose (UA) Negative, Urine Ketones Negative, Urine Blood Negative, Urine Nitrate Positive, Urine Bilirubin Negative, Urine Urobilinogen 2.0, Ur Leukocyte Esterase Negative, Urine WBC 20-50, Ur Squamous Epith Cells 20-50, Amorphous Sediment 1+, Urine Bacteria 2+ 06/29/18 10:59: Troponin I 0.10 H 06/30/18 01:27: Specimen Source R/r, O2 % 45, ABG pH 7.46 H, ABG pCO2 53.2 H, ABG pO2 55.1 L, ABG HCO3 36.7 H, ABG Total CO2 38.4 H, ABG O2 Saturation 90, ABG Base Excess 12.9 H, Gary Test Y, Vent Rate 25 06/30/18 04:42: WBC 4.2 L, RBC 4.30, Hgb 11.8 L, Hct 37.9, MCV 88.0, MCH 27.5, MCHC 31.2 L, RDW 18.8 H, Plt Count 74 L D, MPV 10.6 H, Neut % (Auto) 73.3, Lymph % (Auto) 18.6, [place] % (Auto) 6.9, Eos % (Auto) 1.1, Baso % (Auto) 0.1, Neut # (Auto) 3.1, Lymph # (Auto) 0.8, [place] # (Auto) 0.3, Eos # (Auto) 0.0, Baso # (Auto) 0.0 06/30/18 04:42: Sodium 145, Potassium 4.1, Chloride 102, Carbon Dioxide 39 H D, Anion Gap 8.1, BUN 16 D, Creatinine 0.52 L D, Estimated Creat Clear 102, Estimated GFR 119, Est GFR ( Amer) 145 D, Glucose 129 H D, Calcium 7.4 L D I & O for Last 24 hours: Intake & Output 06/27/18 06/28/18 06/29/18 06/30/18 11:59 11:59 11:59 11:59 Intake Total 336 / 336 Output Total 825 / 825 Balance -489 / -489 Weight 243 lb 8 oz 245 lb 3 oz Microbiology Reports for the Last 24 Hours: Microbiology 06/29/18 07:00 Urine,Clean Catch Urine Culture - Preliminary Gram Negative Rods - Constitutional no acute distress, obese, somnolent - *Routine HEENT Exam Head: Present: normocephalic Eye: Present: EOMI, PERRL ENT: Present: mucous membranes dry - *Routine Neck Exam Present: supple - *Routine Respiratory Exam Present: decreased breath sounds - *Routine Cardiovascular Exam Present: RRR - *Routine Abdominal Exam Present: soft - *Routine Extremities Exam Absent: edema - *Routine Skin Exam Present: intact - *Routine Neurological Exam Present: altered mental status. Absent: motor deficit - Routine Psychiatric Exam Present: unable to assess Assessment and Plan (1) Respiratory failure Current visit: Yes Status: Acute Qualifiers: Chronicity: acute on chronic Respiratory failure complication: hypercapnia Qualified Code(s): J96.22 - Acute and chronic respiratory failure with hypercapnia Category: Medical Code(s): J96.90 - Respiratory failure, unspecified, unspecified whether with hypoxia or hypercapnia (2) Obesity (BMI 30-39.9) Current visit: Yes Status: Acute Category: Medical Code(s): E66.9 - Obesity, unspecified (3) HCAP (healthcare-associated pneumonia) Current visit: Yes Status: Acute Category: Medical Code(s): J18.9 - Pneumonia, unspecified organism (4) UTI (urinary tract infection) Current visit: Yes Status: Acute Qualifiers: Urinary tract infection type: acute cystitis Hematuria presence: without hematuria Qualified Code(s): N30.00 - Acute cystitis without hematuria Category: Medical Code(s): N39.0 - Urinary tract infection, site not specified
[2018-06-30 12:41] LABS: ABG Base Excess 19.5 mmol/L (-2.4-2.3); ABG HCO3 42.5 mmhg (22.0-26.0); ABG Oxygen Saturation 84 % (90-100); ABG PH 7.51 mmol/L (7.35-7.45); ABG TCO2 44.2 mmhg (23-27)
[2018-06-30 12:42] LABS: Allen's Test Acceptable; Oxygen 3L %
[2018-06-30 12:44] LABS: ABG PCO2 54.9 mmhg (35.0-45.0); ABG PO2 46.2 mmhg (80-100)
--- NOTE | 2018-07-01 08:38 | Progress Note ---
Internal Medicine - PN: Subj *Date: 07/01/18 *Time: 08:36 Exam Vital signs and Labs for Last 24 Hours: Temp Pulse Resp BP Pulse Ox 97.6 F 81 20 212/93 H 95 07/01/18 08:00 07/01/18 08:00 07/01/18 08:00 07/01/18 08:00 07/01/18 08:25 Laboratory Results - last 24 hr 06/30/18 11:50: Specimen Source Left brachial, O2 % 3l, ABG pH 7.51 H, ABG pCO2 54.9 H, ABG pO2 46.2 L, ABG HCO3 42.5 H, ABG Total CO2 44.2 H, ABG O2 Saturation 84 L*, ABG Base Excess 19.5 H, Gary Test Acceptable I & O for Last 24 hours: Intake & Output 06/28/18 06/29/18 06/30/18 07/01/18 11:59 11:59 11:59 11:59 Intake Total 336 / 336 1206 / 1206 Output Total 825 / 825 1200 / 1200 Balance -489 / -489 6 / 6 Weight 243 lb 8 oz 245 lb 2.993 oz 241 lb 1 oz Microbiology Reports for the Last 24 Hours: Microbiology 06/29/18 05:51 Blood Blood Culture - Preliminary NO GROWTH AFTER 48 HOURS 06/29/18 05:51 Blood Blood Culture - Preliminary NO GROWTH AFTER 48 HOURS 06/29/18 07:00 Urine,Clean Catch Urine Culture - Preliminary Gram Negative Rods - *Routine HEENT Exam Head: Present: normocephalic ENT: Present: mucous membranes moist - *Routine Neck Exam Present: supple. Absent: lymphadenopathy - *Routine Respiratory Exam Present: diminished air movement Comments: on o2 - *Routine Cardiovascular Exam Present: RRR - *Routine Abdominal Exam Present: soft, normoactive bowel sounds, hernia. Absent: tenderness - *Routine Extremities Exam Present: pulses intact. Absent: cyanosis, clubbing, edema - *Routine Skin Exam Present: warm. Absent: rash - *Routine Neurological Exam Present: oriented X3, altered mental status Assessment and Plan (1) Respiratory failure Current visit: Yes Status: Acute Qualifiers: Chronicity: acute on chronic Respiratory failure complication: hypercapnia Qualified Code(s): J96.22 - Acute and chronic respiratory failure with hypercapnia Category: Medical Code(s): J96.90 - Respiratory failure, unspecified, unspecified whether with hypoxia or hypercapnia (2) Obesity (BMI 30-39.9) Current visit: Yes Status: Acute Category: Medical Code(s): E66.9 - Obesity, unspecified (3) HCAP (healthcare-associated pneumonia) Current visit: Yes Status: Acute Category: Medical Code(s): J18.9 - Pneumonia, unspecified organism (4) UTI (urinary tract infection) Current visit: Yes Status: Acute Qualifiers: Urinary tract infection type: acute cystitis Hematuria presence: without hematuria Qualified Code(s): N30.00 - Acute cystitis without hematuria Category: Medical Code(s): N39.0 - Urinary tract infection, site not specified - Assessment and plan all Dx Assessment and Plan for all problems:: Rounded with Dr. Archibald all orders per Dragan Consult Dr. Landeros Will await urine culture and sensitivity
--- NOTE | 2018-07-01 10:31 | Consult Report ---
*Admission Date: 06/29/18 *Chief complaint: Acute on chronic respiratory failure *History of present illness: Ms. Pablo is a 62-year-old woman with a significant past history of dementia, Parkinson's and coronary artery disease and who has been living at [facility]. This is her third admission to this hospital in the last month, each time for respiratory failure and mental status changes. She is still quite somnolent and cannot answer questions and so my information is from the medical record. She has the above, significant, past medical history and is a current smoker, I understand. She has been on a variety of sedative medications but no narcotics. Until recently, she was not on oxygen regularly, I believe. I tried to awaken her and the only thing she would tell me was to shake her head no when I asked her about pain. [facility] History Medical History: Reports:: Anxiety, Congestive Heart Failure, Chronic Obstructive Pulmonary Disease (COPD), Hyperlipidemia, Hypertension, Myocardial Infarction Denies:: Cancer, Diabetes Mellitus Type 1, Diabetes Mellitus Type 2, Internal Pacemaker, MRSA Other Surgeries: No: Pacemaker Amputation: No Fractures: No - *Social History Educational Level: Attended Grade School Smoking Status: Current some day smoker Tobacco Type: cigarettes Alcohol Intake: never Occupational Status: disabled Housing: [facility] - Psychiatric History Expresses thoughts of harming self/others: None Suicide Plan Description: No Plan Pschychiatric History:: Reports:: Anxiety Meds Home Medications Medication Instructions Recorded Confirmed Type Ascorbic Acid [Vitamin C] 1,000 mg PO DAILY 11/13/17 06/29/18 History Aspirin [Aspirin 81mg chewable 81 mg PO DAILY 11/13/17 06/29/18 History tab] Benztropine Mesylate 0.5 mg PO DAILY 11/13/17 06/29/18 History Benztropine Mesylate [Cogentin 1mg 1 mg PO HS 11/13/17 06/29/18 History tablet] Carvedilol [Carvedilol 25mg Tab] 25 mg PO 0800,1700 11/13/17 06/29/18 History Cholecalciferol (Vitamin D3) 2,000 unit PO DAILY 11/13/17 06/29/18 History [Vitamin D3] Divalproex Sodium 250 mg PO BID 11/13/17 06/29/18 History Fluticasone Propionate [Flonase 1 spr NS DAILY 11/13/17 06/29/18 History 50mcg nasal spray 16gm] Hydrocod/Acet 5/325 mg [Elkins 1 each PO TID 11/13/17 06/29/18 History 5/325mg tablet] Isosorbide Dinitrate [Isordil 20mg 20 mg PO TID 11/13/17 06/29/18 History tablet] Lactulose [Lactulose 10gm/15ml 20 gm PO DAILY 11/13/17 06/29/18 History Oral Soln] Levothyroxine Sodium 75 mcg PO DAILY 11/13/17 06/29/18 History [Levothyroxine 75mcg (0.075mg) Tab] Potassium Chloride [Klor-Con 10mEq 10 meq PO DAILY 11/13/17 06/29/18 History tab] Pravastatin Sodium [Pravachol] 40 mg PO HS 11/13/17 06/29/18 History Sodium Chloride 3 gm PO TID 11/13/17 06/29/18 History Venlafaxine HCl 75 mg PO TID 11/13/17 06/29/18 History Calcium Carbonate [Tums 500mg 500 mg PO DAILY 11/14/17 06/29/18 History chewtab] Polyethylene Glycol 3350 [Miralax 17 gm PO DAILY 11/14/17 06/29/18 History 17gm Packet] acetaminophen 500 mg capsule 500 mg PO Q4HP PRN 01/07/18 06/29/18 History albuterol sulfate HFA 90 2 puff INHALATION Q4H PRN 01/07/18 06/29/18 History mcg/actuation aerosol inhaler aluminum hydrox-magnesium carb 95 30 ml PO QIDP PRN ml 01/07/18 06/29/18 History mg-358 mg/15 mL oral suspension phenol 1.4 % mucosal aerosol spray 2 spray MUCOUS MEM QIDP PRN ml 01/07/18 06/29/18 History polyvinyl alcohol 1.4 % eye drops 1 drp OPHTHALMIC BID ml 01/07/18 06/29/18 History sennosides 8.6 mg-docusate sodium 1 tab PO BIDP PRN 01/07/18 06/29/18 History 50 mg tablet Furosemide [Furosemide 20mg Tab] 20 mg PO DAILYP PRN 08/31/18 12/02/18 History Saliva Stimulant Agents Comb.3 1 spray MM DAILYP PRN 03/28/18 06/29/18 History [Biotene Moisturizing Mouth] Paliperidone Palmitate [Invega 117 mg IM MONTHLY 06/06/18 06/29/18 History Sustenna] Lisinopril [Zestril 5mg 5 mg PO DAILY 06/15/18 06/29/18 History Tablet] Rifaximin [Xifaxan] 550 mg PO BID 06/16/18 06/29/18 History clonazePAM [Clonazepam] 0.25 mg PO TID 06/29/18 06/29/18 History Allergies Allergy/AdvReac Type Severity Reaction Status Date / Time haloperidol [HALOPERIDOL] Allergy Unknown Unknown Verified 06/29/18 06:50 allergy reaction metronidazole [From Flagyl] Allergy Unknown Unknown Verified 06/29/18 06:50 allergy reaction molindone Allergy Unknown Unknown Verified 06/29/18 06:50 allergy reaction paroxetine Allergy Unknown Unknown Verified 06/29/18 06:50 allergy reaction Penicillins [PENICILLINS] Allergy Unknown Unknown Verified 06/29/18 06:50 allergy reaction phenacaine Allergy Unknown Unknown Verified 06/29/18 06:50 allergy reaction Sulfa (Sulfonamide Allergy Unknown Unknown Verified 06/29/18 06:50 Antibiotics) allergy reaction triazolam [From Halcion] Allergy Unknown Unknown Verified 06/29/18 06:50 allergy reaction kiwi Allergy Hives Verified 06/29/18 06:50 raspberry Allergy Hives Verified 06/29/18 06:50 Exam Vital signs and Labs for Last 24 Hours: Temp Pulse Resp BP Pulse Ox 97.6 F 56 L 20 212/93 H 88 L 07/01/18 08:00 07/01/18 10:15 07/01/18 08:00 07/01/18 08:00 07/01/18 10:15 Laboratory Results - last 24 hr 06/30/18 11:50: Specimen Source Left brachial, O2 % 3l, ABG pH 7.51 H, ABG pCO2 54.9 H, ABG pO2 46.2 L, ABG HCO3 42.5 H, ABG Total CO2 44.2 H, ABG O2 Saturation 84 L*, ABG Base Excess 19.5 H, Gary Test Acceptable I & O for Last 24 hours: Intake & Output 06/28/18 06/29/18 06/30/18 07/01/18 23:59 23:59 23:59 23:59 Intake Total 336 / 336 497 / 497 709 / 709 Output Total 425 / 425 1600 / 1600 0 / 0 Balance -89 / -89 -1103 / -1103 709 / 709 Weight 110.45 kg 111.215 kg 109.344 kg Microbiology Reports for the Last 24 Hours: Microbiology 06/29/18 05:51 Blood Blood Culture - Preliminary NO GROWTH AFTER 48 HOURS 06/29/18 05:51 Blood Blood Culture - Preliminary NO GROWTH AFTER 48 HOURS 06/29/18 07:00 Urine,Clean Catch Urine Culture - Preliminary Gram Negative Rods Narrative: Ms. Pablo is a youthful appearing, obese woman who is lying nearly flat in bed with her eyes tightly closed. She opened them occasionally which should occur a little and called her name. Sclerae clear; conjunctivae pink; PER Oropharynx is dry. Neck: No adenopathy. Chest: Diminished expansion bilaterally. Dullness by percussion at the right base when I sat her up. Absent to decreased breath sounds at the right base. No adventitious sounds were audible. Heart: Regular rhythm; grade 3/6 systolic ejection murmur at the lower left sternal border. There seems to be radiation to the base. Abdomen: Ventral hernia with quite a bit of anterior scarring from prior surgery or infection. Bowel sounds diminished. Soft, nontender, no masses or organome claudy. Extremities: No clubbing but there is 1-2+ edema of the lower extremities. Skin: No rash Internal Medicine - CN: Reslt - Labs CBC & Chem 7: 06/30/18 04:42 06/30/18 04:42 - ABG Interpretation ABG results: 06/29/18 06/30/18 06/30/18 05:51 01:27 11:50 ABG pH 7.27 L 7.46 H 7.51 H ABG pCO2 121.4 H 53.2 H 54.9 H ABG pO2 116.4 H 55.1 L 46.2 L ABG HCO3 54.6 H 36.7 H 42.5 H ABG Total CO2 58.3 H 38.4 H 44.2 H ABG O2 Saturation 98 90 84 L* ABG Base Excess 27.7 H 12.9 H 19.5 H On admission, she had partially compensated respiratory acidosis with a PCO2 of 121 and a pH of 7.27. On the third, she had hypercapnia with a respiratory alkalosis. The PO2 was 46 despite high flow oxygen. - Impressions The CT scan of the chest shows no evidence of pulmonary embolism but there is a right pleural effusion which is somewhat large and a small left pleural effusion. There is underlying atelectasis of the right lower lobe. There is no evidence of pneumonia. Assessment and Plan (1) Respiratory failure Current visit: Yes Status: Acute Qualifiers: Chronicity: acute on chronic Respiratory failure complication: hypercapnia Qualified Code(s): J96.22 - Acute and chronic respiratory failure with hypercapnia Category: Medical Code(s): J96.90 - Respiratory failure, unspecified, unspecified whether with hypoxia or hypercapnia (2) Obesity (BMI 30-39.9) Current visit: Yes Status: Acute Category: Medical Code(s): E66.9 - Obesity, unspecified (3) HCAP (healthcare-associated pneumonia) Current visit: Yes Status: Acute Category: Medical Code(s): J18.9 - Pneu monia, unspecified organism (4) UTI (urinary tract infection) Current visit: Yes Status: Acute Qualifiers: Urinary tract infection type: acute cystitis Hematuria presence: without hematuria Qualified Code(s): N30.00 - Acute cystitis without hematuria Category: Medical Code(s): N39.0 - Urinary tract infection, site not specified - Assessment and plan all Dx Assessment and Plan for all problems:: Ms. Pablo was admitted in respiratory failure with mental status changes. I am concerned that the mental status change may have been drug-induced, somehow. I do believe the very high PCO2 at the time of admission may have been, at least in part, related to resuscitation with high oxygen concentrations in the ambulance. Now, she has metabolic alkalosis with a compensated respiratory acidosis. This is usually a contraction alkalosis brought on by diuretics or diarrhea. Replacing some fluids judiciously with potassium chloride supplementation should be helpful. I recommend using BiPAP if she will tolerate it. She has no evidence of pneumonia and there is a right pleural effusion. She had a troponin bump this admission which may have been related to stress but I understand she does have coronary artery disease. Cardiology should help manage this and I recommend tapping the right effusion under ultrasound guidance if possible. Fluid should be sent for protein, LDH, glucose, cell count and differential, cultures and cytology if possible. She does have lots of white cells in her urine but she may have a chronic cystitis. Urine culture is pending but blood cultures have been negative. If you can get a procalcitonin may be helpful in excluding an active bacterial infection. I do not recommend treating her for pneumonia. I did send off a urine drug screen.
[2018-07-01 17:33] LABS: Amphetamine/Metha Screen,Urine Negative ng/mL (<1000); Barbiturates Screen,Urine Negative ng/mL (<200); Benzodiazepines Screen,Urine Negative ng/mL (<200); Cannabinoid Screen,Urine Negative ng/mL (<50); Cocaine Screen,Urine Negative ng/mL (<300); Methadone Screen,Urine Negative ng/mL (<300); Opiate Screen,Urine Positive ng/mL (<300); Phencyclidine Screen,Urine Negative ng/mL (<25)
[2018-07-02 08:37] LABS: Basophils % 0.1 % (0.1-2.0); Eosinophils % 0.9 % (0.1-12.0); Hematocrit 38.7 % (37.0-47.0); Hemoglobin 12.3 g/dL (12.2-16.2); Lymphocytes # 0.7 K/mm3 (0.7-4.5); Lymphocytes % 18.3 % (10-50); Mean Corpuscular HGB Conc 31.8 g/dL (31.8-35.4); Mean Corpuscular Hemoglobin 27.3 pg (27.0-31.2); Mean Corpuscular Volume 86.1 fl (81-99); Mean Platelet Volume 8.7 fl (7.4-10.4); Monocytes # 0.3 K/mm3 (0.1-1.0); Monocytes % 7.3 % (1.7-9.3); Neutrophils # 2.6 K/mm3 (1.8-7.8); Neutrophils % 73.5 % (37.0-80.0); Platelet Count 115 K/mm3 (142-424); Red Cell Distribution Width 19.6 % (11.5-17.5); White Blood Count 3.6 K/mm3 (4.8-10.8)
[2018-07-02 09:15] LABS: Anion Gap 8.5 mEq/L (5-15)
[2018-07-02 09:16] LABS: Potassium 2.5 mmoL/L (3.5-5.1)
[2018-07-02 09:17] LABS: Calcium 6.8 mg/dL (8.5-10.1)
--- NOTE | 2018-07-02 09:22 | Progress Note ---
Internal Medicine - PN: Subj *Date: 07/02/18 *Time: 09:19 Interval history: Patient awake today asking to be discharged back home. Patient states she feels fine today has no complaints Exam Vital signs and Labs for Last 24 Hours: Temp Pulse Resp BP Pulse Ox 98.3 F 72 16 176/93 H 95 07/02/18 08:00 07/02/18 08:00 07/02/18 08:00 07/02/18 08:00 07/02/18 08:00 Laboratory Results - last 24 hr 07/01/18 14:55: Total Creatine Kinase 67, CK-MB (CK-2) 2.2, CK-MB (CK-2) Rel Index 3.3, Troponin I 0.09 H 07/01/18 16:30: Urine Opiates Screen Positive H, Urine Methadone Screen Negativ e, Ur Barbituates Screen Negative, Ur Phencyclidine Scrn Negative, Ur Amphetamines Screen Negative, U Benzodiazepines Scrn Negative, Urine Cocaine Screen Negative, U Marijuana (THC) Screen Negative 07/02/18 08:10: WBC 3.6 L, RBC 4.50, Hgb 12.3, Hct 38.7, MCV 86.1, MCH 27.3, MCHC 31.8, RDW 19.6 H, Plt Count 115 L D, MPV 8.7, Neut % (Auto) 73.5, Lymph % (Auto) 18.3, [place] % (Auto) 7.3, Eos % (Auto) 0.9, Baso % (Auto) 0.1, Neut # (Auto) 2.6, Lymph # (Auto) 0.7, [place] # (Auto) 0.3, Eos # (Auto) 0.0, Baso # (Auto) 0.0 07/02/18 08:10: Sodium 140, Potassium 2.5 L* D, Chloride 94 L, Carbon Dioxide 40 H, Anion Gap 8.5, BUN 16, Creatinine 0.71 D, Estimated Creat Clear 102, Estimated GFR 83, Est GFR ( Amer) 101 D, Glucose 179 H, Calcium 6.8 L I & O for Last 24 hours: Intake & Output 06/29/18 06/30/18 07/01/18 07/02/18 11:59 11:59 11:59 11:59 Intake Total 336 / 336 1306 / 1306 1188 / 1188 Output Total 825 / 825 1200 / 1200 Balance -489 / -489 106 / 106 1188 / 1188 Weight 243 lb 8 oz 245 lb 2.993 oz 241 lb 1 oz 244 lb 1 oz Microbiology Reports for the Last 24 Hours: Microbiology 06/29/18 07:00 Urine,Clean Catch Urine Culture - Final Klebsiella pneumoniae 06/29/18 05:51 Blood Blood Culture - Preliminary NO GROWTH AFTER 48 HOURS 06/29/18 05:51 Blood Blood Culture - Preliminary NO GROWTH AFTER 48 HOURS - *Routine HEENT Exam Head: Present: normocephalic Eye: Present: PERRL ENT: Present: mucous membranes moist - *Routine Neck Exam Present: supple. Absent: lymphadenopathy - *Routine Respiratory Exam Present: rhonchi, diminished air movement - *Routine Cardiovascular Exam Present: RRR - *Routine Abdominal Exam Present: soft, normoactive bowel sounds, hernia. Absent: tenderness - *Routine Extremities Exam Absent: cyanosis, clubbing, edema - *Routine Skin Exam Present: warm. Absent: rash - *Routine Neurological Exam Present: alert, oriented X3 Assessment and Plan (1) Respiratory failure Current visit: Yes Status: Acute Qualifiers: Chronicity: acute on chronic Respiratory failure complication: hypercapnia Qualified Code(s): J96.22 - Acute and chronic respiratory failure with hypercapnia Category: Medical Code(s): J96.90 - Respiratory failure, unspecified, unspecified whether with hypoxia or hypercapnia (2) Obesity (BMI 30-39.9) Current visit: Yes Status: Acute Category: Medical Code(s): E66.9 - Obesity, unspecified (3) HCAP (healthcare-associated pneumonia) Current visit: Yes Status: Acute Category: Medical Code(s): J18.9 - Pneumonia, unspecified organism (4) UTI (urinary tract infection) Current visit: Yes Status: Acute Qualifiers: Urinary tract infection type: acute cystitis Hematuria presence: without hematuria Qualified Code(s): N30.00 - Acute cystitis without hematuria Category: Medical Code(s): N39.0 - Urinary tract infection, site not specified - Assessment and plan all Dx Assessment and Plan for all problems:: Rounded with Dr. Archibald all orders per Dragan Will have Sorrels bring BiPAP for her to use at night to see how she tolerates it DC antibiotics leave Levaquin start p.o. due to patient pulling out PICC line O2 at 2 L do not increase over 2 L nasal DC Vapotherm Patient is on aspirin, recommended per Landeros for tapping her right pleural effusion Dr. pittman would like to wait 7 days but if medically necessary will do procedure in the a.m. but the patient does have an increased risk of bleeding will discuss this with Dr. Archibald in the side in the a.m.
--- NOTE | 2018-07-02 09:43 | Progress Note ---
Internal Medicine - PN: Subj *Date: 07/02/18 *Time: 09:42 Exam Vital signs and Labs for Last 24 Hours: Temp Pulse Resp BP Pulse Ox 98.3 F 72 16 176/93 H 95 07/02/18 08:00 07/02/18 08:00 07/02/18 08:00 07/02/18 08:00 07/02/18 08:00 Laboratory Results - last 24 hr 07/01/18 14:55: Total Creatine Kinase 67, CK-MB (CK-2) 2.2, CK-MB (CK-2) Rel Index 3.3, Troponin I 0.09 H 07/01/18 16:30: Urine Opiates Screen Positive H, Urine Methadone Screen Negative, Ur Barbituates Screen Negative, Ur Phencyclidine Scrn Negative, Ur Amphetamines Screen Negative, U Benzodiazepines Scrn Negative, Urine Cocaine Screen Negative, U Marijuana (THC) Screen Negative 07/02/18 08:10: WBC 3.6 L, RBC 4.50, Hgb 12.3, Hct 38.7, MCV 86.1, MCH 27.3, MCHC 31.8, RDW 19.6 H, Plt Count 115 L D, MPV 8.7, Neut % (Auto) 73.5, Lymph % (Auto) 18.3, [place] % (Auto) 7.3, Eos % (Auto) 0.9, Baso % (Auto) 0.1, Neut # (Auto) 2.6, Lymph # (Auto) 0.7, [place] # (Auto) 0.3, Eos # (Auto) 0.0, Baso # (Auto) 0.0 07/02/18 08:10: Sodium 140, Potassium 2.5 L* D, Chloride 94 L, Carbon Dioxide 40 H, Anion Gap 8.5, BUN 16, Creatinine 0.71 D, Estimated Creat Clear 102, Estimated GFR 83, Est GFR ( Amer) 101 D, Glucose 179 H, Calcium 6.8 L I & O for Last 24 hours: Intake & Output 06/29/18 06/30/18 07/01/18 07/02/18 23:59 23:59 23:59 23:59 Intake Total 336 / 336 597 / 597 1777 / 1777 120 / 120 Output Total 425 / 425 1600 / 1600 0 / 0 Balance -89 / -89 -1003 / -1003 1777 / 1777 120 / 120 Weight 110.45 kg 111.215 kg 109.344 kg 110.705 kg Microbiology Reports for the Last 24 Hours: Microbiology 06/29/18 07:00 Urine,Clean Catch Urine Culture - Final Klebsiella pneumoniae 06/29/18 05:51 Blood Blood Culture - Preliminary NO GROWTH AFTER 48 HOURS 06/29/18 05:51 Blood Blood Culture - Preliminary NO GROWTH AFTER 48 HOURS Assessment and Plan (1) Respiratory failure Current visit: Yes Status: Acute Qualifiers: Chronicity: acute on chronic Respiratory failure complication: hypercapnia Qualified Code(s): J96.22 - Acute and chronic respiratory failure with hypercapnia Category: Medical Code(s): J96.90 - Respiratory failure, unspecified, unspecified whether with hypoxia or hypercapnia (2) Obesity (BMI 30-39.9) Current visit: Yes Status: Acute Category: Medical Code(s): E66.9 - Obesity, unspecified (3) HCAP (healthcare-associated pneumonia) Current visit: Yes Status: Acute Category: Medical Code(s): J18.9 - Pneumonia, unspecified organism (4) UTI (urinary tract infection) Current visit: Yes Status: Acute Qualifiers: Urinary tract infection type: acute cystitis Hematuria presence: without hematuria Qualified Code(s): N30.00 - Acute cystitis without hematuria Category: Medical Code(s): N39.0 - Urinary tract infection, site not specified The patient's infection will respond to the chosen ABx?: Yes Is the patient receiving the right drug, dose, and route?: Yes Could a more targeted ABx be ordered?: No (KLEBSIELLA-SENSITIVE TO INVANZ)
[2018-07-03 07:12] LABS: Basophils % 0.1 % (0.1-2.0); Eosinophils # 0.1 K/mm3 (0.0-0.4); Eosinophils % 1.3 % (0.1-12.0); Hematocrit 39.2 % (37.0-47.0); Hemoglobin 12.3 g/dL (12.2-16.2); Lymphocytes % 23.7 % (10-50); Mean Corpuscular HGB Conc 31.4 g/dL (31.8-35.4); Mean Corpuscular Hemoglobin 27.2 pg (27.0-31.2); Mean Corpuscular Volume 86.5 fl (81-99); Mean Platelet Volume 8.4 fl (7.4-10.4); Monocytes # 0.5 K/mm3 (0.1-1.0); Monocytes % 11.1 % (1.7-9.3); Neutrophils # 2.6 K/mm3 (1.8-7.8); Neutrophils % 63.8 % (37.0-80.0); Platelet Count 97 K/mm3 (142-424); Red Blood Count 4.53 M/mm3 (4.20-5.40); Red Cell Distribution Width 19.6 % (11.5-17.5); White Blood Count 4.1 K/mm3 (4.8-10.8)
[2018-07-03 07:15] LABS: Anion Gap 6.4 mEq/L (5-15)
[2018-07-03 07:26] LABS: Potassium 2.4 mmoL/L (3.5-5.1)
[2018-07-03 07:27] LABS: Calcium 6.9 mg/dL (8.5-10.1)
--- NOTE | 2018-07-03 09:20 | Discharge Summary ---
General - General Admission date:: 06/29/18 Discharge date: 07/03/18 HPI HPI: this wf was sent from [facility] for change in mental staus - pt had recent admit for sepsis and finished abx at [facility]- pt with no chest pain and unable to give hx as she had resp failure with elevated co2 Hospital Course Hospital Course: chest x ray:IMPRESSION: Right-sided pleural effusion with right basilar airspace disease slightly worse- at this time patient has clinically improved we will hold on tapping pleural effusion due to patient being on oxygen and her increased risk of bleeding. CT of the head negative CTA of chest negative for PE Discharge back to [facility] today. Patient is to wear oxygen at 2 L per nasal cannula do not increase oxygen higher than 2 L per nasal cannula she has a COPD retainer. Patient was encouraged not to smoke. UTI-Klebsiella pneumonia-sensitive to Levaquin will discharge back on p.o. Levaquin Objective Vital signs: Temp Pulse Resp BP Pulse Ox 97.4 F L 78 20 183/91 H 90 L 07/03/18 08:00 07/03/18 08:00 07/03/18 08:00 07/03/18 08:00 07/03/18 08:00 - *Routine HEENT Exam Head: Present: normocephalic Eye: Present: PERRL ENT: Present: mucous membranes moist - *Routine Neck Exam Present: supple, full ROM - *Routine Respiratory Exam Present: wheezes, diminished air movement - *Routine Cardiovascular Exam Present: RRR - *Routine Extremities Exam Present: full ROM - *Routine Skin Exam Present: intact - *Routine Neurological Exam Present: alert, oriented X3 - Routine Psychiatric Exam Present: normal affect Results Labs on day of discharge: Labs from last 24 hours 07/03/18 07/03/18 06:55 06:55 WBC 4.1 L RBC 4.53 Hgb 12.3 Hct 39.2 MCV 86.5 MCH 27.2 MCHC 31.4 L RDW 19.6 H Plt Count 97 L MPV 8.4 Neut % (Auto) 63.8 Lymph % (Auto) 23.7 [place]cleod % (Auto) 11.1 H Eos % (Auto) 1.3 Baso % (Auto) 0.1 Neut # (Auto) 2.6 Lymph # (Auto) 1.0 Mcleod # (Auto) 0.5 Eos # (Auto) 0.1 Baso # (Auto) 0.0 Sodium 140 Potassium 2.4 L* Chloride 95 L Carbon Dioxide 41 H* Anion Gap 6.4 BUN 14 Creatinine 0.74 Estimated Creat Clear 102 Estimated GFR 80 Est GFR ( Amer) 96 Glucose 133 H D Calcium 6.9 L Preliminary micro results at discharge 06/29/18 05:51 Blood Culture - Preliminary Blood NO GROWTH AFTER 48 HOURS 06/29/18 05:51 Blood Culture - Preliminary Blood NO GROWTH AFTER 48 HOURS DS: Diagnosis - Discharge Diagnosis (1) Respiratory failure Status: Acute (2) Obesity (BMI 30-39.9) Status: Acute (3) HCAP (healthcare-associated pneumonia) Status: Acute (4) UTI (urinary tract infection) Status: Acute (5) Klebsiella pneumoniae infection Status: Acute Problem details: UTI Discharge Plan - Patient Discharge Instructions ACTIVITY: Continue current activity DIET: continue same diet Patient Instructions: DI for Pneumonia -- Adult - Follow up Plan Follow up with: Clay Phipps APRN [Advanced Practice Nurse] - 07/08/18 Disposition: Xfer Home Medications: Home Medications Medication Instructions Recorded Confirmed Type Ascorbic Acid [Vitamin C] 1,000 mg PO DAILY 11/13/17 06/29/18 History Aspirin [Aspirin 81mg chewable 81 mg PO DAILY 11/13/17 06/29/18 History tab] Benztropine Mesylate 0.5 mg PO DAILY 11/13/17 06/29/18 History Benztropine Mesylate [Cogentin 1mg 1 mg PO HS 11/13/17 06/29/18 History tablet] Carvedilol [Carvedilol 25mg Tab] 25 mg PO 0800,1700 11/13/17 06/29/18 History Cholecalciferol (Vitamin D3) 2,000 unit PO DAILY 11/13/17 06/29/18 History [Vitamin D3] Divalproex Sodium 250 mg PO BID 11/13/17 06/29/18 History Fluticasone Propionate [Flonase 1 spr NS DAILY 11/13/17 06/29/18 History 50mcg nasal spray 16gm] Hydrocod/Acet 5/325 mg [[place] 1 each PO TID 11/13/17 06/29/18 History 5/325mg tablet] Isosorbide Dinitrate [Isordil 20mg 20 mg PO TID 11/13/17 06/29/18 History tablet] Lactulose [Lactulose 10gm/15ml 20 gm PO DAILY 11/13/17 06/29/18 History Oral Soln] Levothyroxine Sodium 75 mcg PO DAILY 11/13/17 06/29/18 History [Levothyroxine 75mcg (0.075mg) Tab] Potassium Chloride [Klor-Con 10mEq 10 meq PO DAILY 11/13/17 06/29/18 History tab] Pravastatin Sodium [Pravachol] 40 mg PO HS 11/13/17 06/29/18 History Sodium Chloride 3 gm PO TID 11/13/17 06/29/18 History Venlafaxine HCl 75 mg PO TID 11/13/17 06/29/18 History Calcium Carbonate [Tums 500mg 500 mg PO DAILY 11/14/17 06/29/18 History chewtab] Polyethylene Glycol 3350 [Miralax 17 gm PO DAILY 11/14/17 06/29/18 History 17gm Packet] acetaminophen 500 mg capsule 500 mg PO Q4HP PRN 01/07/18 06/29/18 History albuterol sulfate HFA 90 2 puff INHALATION Q4H PRN 01/07/18 06/29/18 History mcg/actuation aerosol inhaler aluminum hydrox-magnesium carb 95 30 ml PO QIDP PRN ml 01/07/18 06/29/18 History mg-358 mg/15 mL oral suspension phenol 1.4 % mucosal aerosol spray 2 spray MUCOUS MEM QIDP PRN ml 01/07/18 06/29/18 History polyvinyl alcohol 1.4 % eye drops 1 drp OPHTHALMIC BID ml 01/07/18 06/29/18 History sennosides 8.6 mg-docusate sodium 1 tab PO BIDP PRN 01/07/18 06/29/18 History 50 mg tablet Furosemide [Furosemide 20mg Tab] 20 mg PO DAILYP PRN 03/28/18 06/29/18 History Saliva Stimulant Agents Comb.3 1 spray MM DAILYP PRN 03/28/18 06/29/18 History [Biotene Moisturizing Mouth] Paliperidone Palmitate [Invega 117 mg IM MONTHLY 06/06/18 06/29/18 History Sustenna] Lisinopril [Zestril 5mg 5 mg PO DAILY 06/15/18 06/29/18 History Tablet] Rifaximin [Xifaxan] 550 mg PO BID 06/16/18 06/29/18 History clonazePAM [Clonazepam] 0.25 mg PO TID 06/29/18 06/29/18 History Prescriptions/Medication Reconciliation: New levoFLOXacin [Levaquin 500mg tab] 500 mg PO DAILY #5 tab Continue sennosides 8.6 mg-docusate sodium 50 mg tablet 1 tab PO BIDP PRN PRN Reason: Constipation aluminum hydrox-magnesium carb 95 mg-358 mg/15 mL oral suspension 30 ml PO QIDP PRN ml PRN Reason: UPSET STOMACH albuterol sulfate HFA 90 mcg/actuation aerosol inhaler 2 puff INHALATION Q4H PRN PRN Reason: breathing polyvinyl alcohol 1.4 % eye drops 1 drp OPHTHALMIC BID ml phenol 1.4 % mucosal aerosol spray 2 spray MUCOUS MEM QIDP PRN ml PRN Reason: sore throat Pravastatin Sodium [Pravachol] 40 mg PO HS Potassium Chloride [Klor-Con 10mEq tab] 10 meq PO DAILY Fluticasone Propionate [Flonase 50mcg nasal spray 16gm] 1 spr NS DAILY Divalproex Sodium 250 mg PO BID Carvedilol [Carvedilol 25mg Tab] 25 mg PO 0800,1700 Benztropine Mesylate 0.5 mg PO DAILY Benztropine Mesylate [Cogentin 1mg tablet] 1 mg PO HS Aspirin [Aspirin 81mg chewable tab] 81 mg PO DAILY Sodium Chloride 3 gm PO TID Ascorbic Acid [Vitamin C] 1,000 mg PO DAILY Polyethylene Glycol 3350 [Miralax 17gm Packet] 17 gm PO DAILY Furosemide [Furosemide 20mg Tab] 20 mg PO DAILYP PRN PRN Reason: FLUID RETENTION/SWELLING Paliperidone Palmitate [Invega Sustenna] 117 mg IM MONTHLY clonazePAM [Clonazepam] 0.25 mg PO TID Hydrocod/Acet 5/325 mg [[place] 5/325mg tablet] 1 each PO TID Isosorbide Dinitrate [Isordil 20mg tablet] 20 mg PO TID Lactulose [Lactulose 10gm/15ml Oral Soln] 20 gm PO DAILY Levothyroxine Sodium [Levothyroxine 75mcg (0.075mg) Tab] 75 mcg PO DAILY Venlafaxine HCl 75 mg PO TID Cholecalciferol (Vitamin D3) [Vitamin D3] 2,000 unit PO DAILY Calcium Carbonate [Tums 500mg chewtab] 500 mg PO DAILY Saliva Stimulant Agents Comb.3 [Biotene Moisturizing Mouth] 1 spray MM DAILYP PRN PRN Reason: Dry Mouth Lisinopril [Zestril 5mg Tablet] 5 mg PO DAILY Rifaximin [Xifaxan] 550 mg PO BID No Action acetaminophen 500 mg capsule 500 mg PO Q4HP PRN PRN Reason: As Needed For Fever Or Pain
== END 2018-07-03 13:07 ==
LOC: ER 05:42 → 2ND 07:26
PROVIDERS: ADMIT Emergency Medicine; ATTEND Emergency Medicine

== ENCOUNTER 2018-07-13 09:00 | Inpatient (IN) ==
--- NOTE | 2018-07-13 09:01 | Emergency Department Note ---
ED Disposition Clinical Impression: COPD exacerbation Altered mental status Qualifiers: Altered mental status type: somnolence Qualified Code(s): R40.0 - Somnolence Urinary tract infection Qualifiers: Urinary tract infection type: site unspecified Hematuria presence: without hematuria Qualified Code(s): N39.0 - Urinary tract infection, site not specified Acute and chronic respiratory failure Qualifiers: Respiratory failure complication: hypoxia and hypercapnia Qualified Code(s): J96.21 - Acute and chronic respiratory failure with hypoxia Disposition: Still a Patient Condition on Discharge: Fair - Critical Care Critical Care Time: Yes Attestation: On , the high probability of a clinically significant, sudden or life threatening deterioration of the following system(s) required my full and direct attention, intervention and personal management. The time I documented below is in addition to time spent performing reported procedures but includes the following listed in this critical care notation. Total Critical Care Time: 40 Vital system(s) involved:: Respiratory Failure My critical care processes included: Assessment & monitoring of V/S, Initial and Re-exams, Data Review/Interpretation, Coordinating Care, Medication Orders and management, Documentation Medical Decision Making - Yonathan Inquiry Pt receiving controlled substance: No Vital Signs: 07/13/18 08:45 07/13/18 08:55 07/13/18 09:03 Temperature 99.1 F Temperature Source Temporal Artery Scan Pulse Rate Pulse Rate [Right Brachial] 88 85 68 Respiratory Rate 22 Blood Pressure Blood Pressure [Right Arm] 138/94 H 112/76 115/73 Blood Pressure Mean [Right Arm] 108 88 87 Blood Pressure Source Blood Pressure Source [Right Arm] Automatic Cuff Blood Pressure Position Blood Pressure Position [Right Arm] Sitting 02 Sat by Pulse Oximetry 95 95 Oxygen Delivery Method Room Air Oxygen Flow Rate (LPM) 07/13/18 09:39 07/13/18 09:45 07/13/18 10:00 Temperature Temperature Source Pulse Rate 74 Pulse Rate [Right Brachial] 88 75 Respiratory Rate Blood Pressure Blood Pressure [Right Arm] 126/63 154/82 H Blood Pressure Mean [Right Arm] 84 106 Blood Pressure Source Blood Pressure Source [Right Arm] Automatic Cuff Blood Pressure Position Blood Pressure Position [Right Arm] Supine 02 Sat by Pulse Oximetry 95 Oxygen Delivery Method Oxygen Flow Rate (LPM) 07/13/18 10:13 07/13/18 10:30 07/13/18 11:01 Temperature Temperature Source Pulse Rate 68 Pulse Rate [Right Brachial] 104 H 56 L Respiratory Rate Blood Pressure Blood Pressure [Right Arm] 137/92 H 105/50 L Blood Pressure Mean [Right Arm] 107 68 Blood Pressure Source Blood Pressure Source [Right Arm] Manual Cuff/ Palpation Automatic Cuff Blood Pressure Position Blood Pressure Position [Right Arm] Sitting Sitting 02 Sat by Pulse Oximetry 96 96 Oxygen Delivery Method Oxygen Flow Rate (LPM) 07/13/18 11:30 07/13/18 11:55 Temperature 99.4 F Temperature Source Rectal Pulse Rate 68 Pulse Rate [Right Brachial] 56 L Respiratory Rate 20 Blood Pressure 125/62 Blood Pressure [Right Arm] 121/51 L Blood Pressure Mean [Right Arm] 74 Blood Pressure Source Automatic Cuff Blood Pressure Source [Right Arm] Automatic Cuff Blood Pressure Position Sitting Blood Pressure Position [Right Arm] Sitting 02 Sat by Pulse Oximetry 94 L Oxygen Delivery Method Nasal Cannula Oxygen Flow Rate (LPM) 3 - Lab Data Lab Results 07/13/18 09:17: Specimen Source Right brachial, O2 % 32, ABG pH 7.35, ABG pCO2 72.1 H, ABG pO2 60.1 L, ABG HCO3 38.8 H, ABG Total CO2 41.0 H, ABG O2 Saturation 90, ABG Base Excess 13.2 H, Gary Test N/a 07/13/18 09:25: Urine Color Yellow, Urine Appearance Sl cloudy, Urine pH 6.0, Ur Specific [place] >= 1.030, Urine Protein Negative, Urine Glucose (UA) Negative, Urine Ketones Negative, Urine Blood Negative, Urine Nitrate Positive, Urine Bilirubin Negative, Urine Urobilinogen 1.0, Ur Leukocyte Esterase Trace, Urine WBC 20-50, Ur Squamous Epith Cells 10-20, Urine Bacteria 4+ 07/13/18 10:00: WBC 5.0, RBC 4.21, Hgb 11.4 L, Hct 38.9, MCV 92.6, MCH 27.0, MCHC 29.2 L, RDW 17.8 H, Plt Count 104 L, MPV 7.4, Neut % (Auto) 61.2, Lymph % (Auto) 28.4, [place] % (Auto) 9.5 H, Eos % (Auto) 0.6, Baso % (Auto) 0.3, Neut # (Auto) 3.1, Lymph # (Auto) 1.4, [place] # (Auto) 0.5, Eos # (Auto) 0.0, Baso # (Auto) 0.0 07/13/18 10:00: Sodium 148 H, Potassium 3.9, Chloride 107, Carbon Dioxide 44 H*, Anion Gap 0.9 L, BUN 9, Creatinine 0.65, Estimated Creat Clear 90, Estimated GFR 92, Est GFR ( Amer) 112, Glucose 116 H, Calcium 8.4 L, Total Bilirubin 0.8, AST 33, ALT 32, Alkaline Phosphatase 125 H, Total Protein 6.0 L, Albumin 2.1 L, Globulin 3.9 H, Albumin/Globulin Ratio 0.5 L 07/13/18 10:00: Lactate 0.4 07/13/18 10:00: Total Creatine Kinase 26, CK-MB (CK-2) 0.6 D, CK-MB (CK-2) Rel Index 2.3, Troponin I 0.06, TSH 0.91, Total Valproic Acid 36.0 L 07/13/18 10:00: B-Natriuretic Peptide 249 H 07/13/18 10:00: TSH 0.95, Free T4 Index 3.2 L, Thyroxine (T4) 9.1, T3 Uptake 35 Result diagrams: 07/13/18 10:00 07/13/18 10:00 Orders (Tests/Meds): ED MEDICATIONS Generic Name Dose Route Start Last Admin Trade Name Freq PRN Reason Stop Dose Admin Hydrocodone Bitart/Acetaminophen 1 tab 07/13/18 13:00 07/13/18 12:55 [place] 5/325mg Tablet PO 08/12/18 12:59 Not Given TID ERNESTO Albuterol/Ipratropium 3 ml 07/13/18 14:00 07/13/18 13:45 Duoneb 3ml Neb IH 08/12/18 13:59 3 ml QIDRT ERNESTO Administration Artificial Tears 0 ml 07/13/18 21:00 Artificial Tears Soln 15ml Bottle OP 08/12/18 20:59 BID ERNESTO Aspirin 81 mg 07/14/18 09:00 Aspirin 81mg Chewable Tablet PO 08/13/18 08:59 DAILY ERNESTO Benztropine Mesylate 1 mg 07/13/18 21:00 Cogentin 1mg Tablet PO 08/12/18 20:59 HS ERNESTO Benztropine Mesylate 0.5 mg 07/14/18 09:00 Cogentin 1mg Tablet PO 08/13/18 08:59 DAILY ERNESTO Carvedilol 25 mg 07/13/18 17:00 07/13/18 16:37 Coreg 25mg Tablet PO 08/12/18 16:59 25 mg 0800,1700 ERNESTO Administration Clonazepam 0.25 mg 07/13/18 13:00 07/13/18 12:54 Klonopin 0.5mg Tablet PO 08/12/18 12:59 Not Given TID ERNESTO Divalproex Sodium 250 mg 07/13/18 21:00 Depakote Sprinkle 125mg Capsule PO 08/12/18 20:59 BID ERNESTO Fluticasone Propionate 1 spr 07/14/18 09:00 Flonase 50mcg Nasal [place] 16gm NS 08/13/18 08:59 DAILY ERNESTO Furosemide 20 mg 07/13/18 11:51 Lasix 20mg Tablet PO 08/12/18 11:50 DAILYP PRN FLUID RETENTION/SWELLING Ceftriaxone Sodium 1 gm/ 50 mls @ 100 mls/hr 07/13/18 13:00 07/13/18 12:50 Sodium Chloride IV 07/27/18 12:59 100 mls/hr Q24H ERNESTO Administration Protocol Isosorbide Dinitrate 20 mg 07/13/18 13:00 07/13/18 12:50 Isordil 20mg Tablet PO 08/12/18 12:59 20 mg TID ERNESTO Administration Lactulose 20 gm 07/14/18 09:00 Chronulac 20gm/30ml Udc PO 08/13/18 08:59 DAILY ERNESTO Levothyroxine Sodium 75 mcg 07/14/18 09:00 Synthroid 75mcg (0.075mg) Tablet PO 08/13/18 08:59 DAILY ERNESTO Lisinopril 5 mg 07/14/18 09:00 Zestril 5mg Tablet PO 08/13/18 08:59 DAILY ERNESTO Methylprednisolone Sodium Succinate 80 mg 07/13/18 18:00 07/13/18 17:06 Solu-Medrol 125mg/2ml Vial IV 08/12/18 17:59 80 mg Q8H ERNESTO Administration Polyethylene Glycol 17 gm 07/14/18 09:00 Miralax 17gm Packet PO 08/13/18 08:59 DAILY ERNESTO Potassium Chloride 10 meq 07/14/18 09:00 Klor-Con 10meq Tablet PO 08/13/18 08:59 DAILY ERNESTO Pravastatin Sodium 40 mg 07/13/18 21:00 Pravachol 40mg Tablet PO 08/12/18 20:59 HS ERNESTO Discontinued Medications Generic Name Dose Route Start Last Admin Trade Name Freq PRN Reason Stop Dose Admin Albuterol/Ipratropium 3 ml 07/13/18 09:38 07/13/18 09:39 Duoneb 3ml Neb 07/13/18 09:39 3 ml ONCE ONE Administration Albuterol/Ipratropium 3 ml 07/13/18 10:14 07/13/18 10:15 Duoneb 3ml Neb 07/13/18 10:15 3 ml ONCE ONE Administration Methylprednisolone Sodium Succinate 125 mg 07/13/18 10:08 07/13/18 10:25 Solu-Medrol 125mg/2ml Vial IV 07/13/18 10:09 125 mg ONCE ONE Administration ORDERS Category Date Time Status Blood Culture Stat Micro 07/13/18 10:00 Ordered Urine Culture Stat Micro 07/13/18 09:25 Received - Radiology Data #1 Image(s): Chest Image Reviewed: Yes I reviewed the patient's radiology image Right pleural effusion, persistent. - ECG Data Tracing #1 EKG interpreted by Misael Ortiz MD: Rhythm: sinus Rate: 70 [place]: normal Ectopy: none Conduction: normal ST Segment Changes: none T Wave Changes: none Q Waves: none No evidence of acute ischemia or injury - Physician Consults Physician Consulted: Bear Archibald Time: 11:07 Reason -: Admission Comment/Response: Agrees to admit the patient to the hospital. We discussed the patient's clinical information, including history, exam, laboratory and radiology results and ED course. Per hospital procedure, I will write temporary bridge inpatient orders on the patient. Specific orders requested by the admitting physician: Antibiotics for UTI, continue nebulizer treatments, steroids. General Adult HPI - General Chief complaint: Altered Mental Status Stated complaint: ALTERED MENTAL Time Seen by Provider: 07/13/18 09:01 Mode of Arrival: EMS Limitations: No Limitations Description of Symptoms (Recalled from ER Triage Doc. by RN): DECR OXYGEN SATURATION AND DECREASED MENTAL STATUS PER NH REPORT - History of Present Illness HPI narrative: Brought in by ambulance from longterm with report of low oxygen saturation and altered mental status. The patient is known to me, frequent visits for altered mental status secondary to acute respiratory failure. Patient mumbles answers to questions at this time is not able to provide further information. Recently admitted here 06/29/18 through 07/03/18 for respiratory failure with altered mental status, urinary tract infection due to Klebsiella pneumonia, treated with Levaquin. - Related Data Home Medications Medication Instructions Recorded Confirmed Ascorbic Acid [Vitamin C] 1,000 mg PO DAILY 11/13/17 07/13/18 Aspirin [Aspirin 81mg chewable 81 mg PO DAILY 11/13/17 07/13/18 tab] Benztropine Mesylate 0.5 mg PO DAILY 11/13/17 07/13/18 Benztropine Mesylate [Cogentin 1mg 1 mg PO HS 11/13/17 07/13/18 tablet] Carvedilol [Carvedilol 25mg Tab] 25 mg PO 0800,1700 11/13/17 07/13/18 Divalproex Sodium 250 mg PO BID 11/13/17 07/13/18 Fluticasone Propionate [Flonase 1 spr NS DAILY 11/13/17 07/13/18 50mcg nasal spray 16gm] Hydrocod/Acet 5/325 mg [[place] 1 each PO TID 11/13/17 07/13/18 5/325mg tablet] Isosorbide Dinitrate [Isordil 20mg 20 mg PO TID 11/13/17 07/13/18 tablet] Lactulose [Lactulose 10gm/15ml 20 gm PO DAILY 11/13/17 07/13/18 Oral Soln] Levothyroxine Sodium 75 mcg PO DAILY 11/13/17 07/13/18 [Levothyroxine 75mcg (0.075mg) Tab] Potassium Chloride [Klor-Con 10mEq 10 meq PO DAILY 11/13/17 07/13/18 tab] Pravastatin Sodium [Pravachol] 40 mg PO HS 11/13/17 07/13/18 Sodium Chloride 3 gm PO TID 11/13/17 07/13/18 Venlafaxine HCl 75 mg PO TID 11/13/17 07/13/18 Calcium Carbonate [Tums 500mg 500 mg PO DAILY 11/14/17 07/13/18 chewtab] Polyethylene Glycol 3350 [Miralax 17 gm PO DAILY 11/14/17 07/13/18 17gm Packet] acetaminophen 500 mg capsule 500 mg PO Q4HP PRN 01/07/18 07/13/18 albuterol sulfate HFA 90 2 puff INHALATION Q4H PRN 01/07/18 07/13/18 mcg/actuation aerosol inhaler aluminum hydrox-magnesium carb 95 30 ml PO QIDP PRN ml 01/07/18 07/13/18 mg-358 mg/15 mL oral suspension phenol 1.4 % mucosal aerosol spray 2 spray MUCOUS MEM QIDP PRN ml 01/07/18 07/13/18 sennosides 8.6 mg-docusate sodium 1 tab PO BIDP PRN 01/07/18 07/13/18 50 mg tablet Furosemide [Furosemide 20mg Tab] 20 mg PO DAILYP PRN 03/28/18 07/13/18 Paliperidone Palmitate [Invega 117 mg IM MONTHLY 06/06/18 07/13/18 Sustenna] Lisinopril [Zestril 5mg 5 mg PO DAILY 06/15/18 07/13/18 Tablet] Rifaximin [Xifaxan] 550 mg PO BID 06/16/18 07/13/18 clonazePAM [Clonazepam] 0.25 mg PO TID 06/29/18 07/13/18 Cholecalciferol (Vitamin D3) 2,000 unit PO DAILY 07/13/18 07/13/18 [Vitamin D3 1,000 Unit Tab] Ondansetron HCl [Ondansetron 4mg 4 mg PO Q4HP PRN 07/13/18 07/13/18 Tablet] Propylene Glycol [Systane Balance] 1 drop EYE-BOTH BID 07/13/18 07/13/18 guaiFENesin [Robafen] 200 mg PO Q6HP PRN 07/13/18 07/13/18 Allergies Allergy/AdvReac Type Severity Reaction Status Date / Time haloperidol [HALOPERIDOL] Allergy Unknown Unknown Verified 06/29/18 06:50 allergy reaction metronidazole [From Flagyl] Allergy Unknown Unknown Verified 06/29/18 06:50 allergy reaction molindone Allergy Unknown Unknown Verified 06/29/18 06:50 allergy reaction paroxetine Allergy Unknown Unknown Verified 06/29/18 06:50 allergy reaction Penicillins [PENICILLINS] Allergy Unknown Unknown Verified 06/29/18 06:50 allergy reaction phenacaine Allergy Unknown Unknown Verified 06/29/18 06:50 allergy reaction Sulfa (Sulfonamide Allergy Unknown Unknown Verified 06/29/18 06:50 Antibiotics) allergy reaction triazolam [From Halcion] Allergy Unknown Unknown Verified 06/29/18 06:50 allergy reaction kiwi Allergy Hives Verified 06/29/18 06:50 raspberry Allergy Hives Verified 06/29/18 06:50 [facility] History - Hepatitis A Screen Drug use history?: No High risk sexual behaviors?: No History of sexually transmitted infection?: No Currently employed?: No Childcare worker?: No Do you have indoor plumbing?: Yes Do you have electricity?: Yes Attestation statement:: This patient has been screened for Hepatitis A risk factors. I have reviewed the patient's past medical history: Yes Medical History: Reports:: Anxiety, Congestive Heart Failure, Chronic O bstructive Pulmonary Disease (COPD), Hyperlipidemia, Hypertension, Myocardial Infarction Denies:: Cancer, Diabetes Mellitus Type 1, Diabetes Mellitus Type 2, Internal Pacemaker, MRSA Comment: Significant record deficit with no records from longterm Other Surgeries: No: Pacemaker Amputation: No Fractures: No - Social History Smoking Status: Current some day smoker Tobacco Type: cigarettes Alcohol Intake: never Occupational Status: disabled Housing: longterm - Psychiatric History Pschychiatric History:: Reports:: Anxiety ROS Obtained: Yes unobtainable due to mental status Physical Exam - General General appearance: lethargic Comment: Awake, eyes open, attempts to answer questions but unable to understand answers. - Head Head exam: atraumatic, normocephalic - Eye Eye exam: Present: other (The edema of eyelids and periorbital tissues) - ENT ENT exam: Present: mucous membranes moist - Neck Neck exam: Present: normal inspection, trachea midline - Respiratory Respiratory exam: Present: other (Decreased breath sounds) - Cardiovascular Cardiovascular exam: Present: regular rate, normal rhythm, normal heart sounds - Abdominal Exam Abdominal exam: Present: soft, other (Extensive surgical scarring of anterior abdominal wall) - Extremities Exam Extremities exam: Present: other (Mild puffy edema feet) - Neurological Exam Neurological exam: Present: other (No gross focal motor deficits) - Skin Skin exam: Present: warm, dry Procedures - Miscellaneous Procedure Procedure Performed: Central Venous Catheter Placement Performed by: MISAEL ORTIZ Consent: The procedure was performed in an emergent situation. Patient identity confirmed: arm band Time out: Immediately prior to procedure a "time out" was called to verify the correct patient, procedure, equipment, technical sales support specialist and site/side marked as required. Indications: vascular access Site: Right internal jugular Anesthesia: local infiltration Local anesthetic: lidocaine 2% Anesthetic total: 5 ml Patient sedated: no Preparation: skin prepped with 2% chlorhexidine Skin prep agent dried: skin prep agent completely dried prior to procedure Sterile barriers: all five maximum sterile barriers used - cap, mask, sterile gown, sterile gloves, and large sterile sheet Hand hygiene: hand hygiene performed prior to central venous catheter insertion Patient position: Trendelenburg Catheter type: triple lumen Catheter size: 7 Fr Pre-procedure: landmarks identified Ultrasound guidance: yes Number of attempts: 1 Successful placement: yes Post-procedure: line sutured Assessment: blood return through all ports Patient tolerance: Patient tolerated the procedure well with no immediate complications.
[2018-07-13 09:34] LABS: Microscopic, Urine URINE MICROSCOPIC (MICROSCOPIC)
[2018-07-13 09:34] LABS: ABG Base Excess 13.2 mmol/L (-2.4-2.3); ABG HCO3 38.8 mmhg (22.0-26.0); ABG Oxygen Saturation 90 % (90-100); ABG PH 7.35 mmol/L (7.35-7.45); ABG PO2 60.1 mmhg (80-100)
[2018-07-13 09:36] LABS: Oxygen 32 %
[2018-07-13 09:38] LABS: ABG PCO2 72.1 mmhg (35.0-45.0)
[2018-07-13 09:59] LABS: Appearance,Urine SL CLOUDY (Clear); Bilirubin,Urine Negative (Negative); Blood, Urine Negative (Negative); Color,Urine YELLOW (Yellow); Glucose,Urine (UA) Negative (Negative); Ketones,Urine Negative (Negative); Leukocyte Esterase,Urine TRACE (Negative); Protein,Urine Negative (Negative); Specific Gravity, Urine >= 1.030 (1.005-1.030)
[2018-07-13 10:13] LABS: Bacteria,Urine 4+ /lpf; WBC,Urine 20-50 #/hpf (0-3)
[2018-07-13 10:22] LABS: Basophils % 0.3 % (0.1-2.0); Eosinophils % 0.6 % (0.1-12.0); Hematocrit 38.9 % (37.0-47.0); Hemoglobin 11.4 g/dL (12.2-16.2); Lymphocytes # 1.4 K/mm3 (0.7-4.5); Lymphocytes % 28.4 % (10-50); Mean Corpuscular HGB Conc 29.2 g/dL (31.8-35.4); Mean Corpuscular Volume 92.6 fl (81-99); Mean Platelet Volume 7.4 fl (7.4-10.4); Monocytes # 0.5 K/mm3 (0.1-1.0); Monocytes % 9.5 % (1.7-9.3); Neutrophils # 3.1 K/mm3 (1.8-7.8); Neutrophils % 61.2 % (37.0-80.0); Platelet Count 104 K/mm3 (142-424); Red Blood Count 4.21 M/mm3 (4.20-5.40); Red Cell Distribution Width 17.8 % (11.5-17.5)
[2018-07-13 10:38] LABS: Albumin Level 2.1 gm/dL (3.4-5.0); Albumin/Globulin Ratio 0.5 (1.1-1.8); Anion Gap 0.9 mEq/L (5-15); Bilirubin,Total 0.8 mg/dL (0.2-1.0); Calcium 8.4 mg/dL (8.5-10.1); Globulin 3.9 gm/dl (1.3-3.2); Potassium 3.9 mmoL/L (3.5-5.1)
[2018-07-13 10:48] LABS: Free Thyroxine Index 3.2 ug/dL (5.93-13.13); T4 (Thyroxine) 9.1 ug/dl (4.7-13.3); Thyroid Stimulating Hormone 0.95 uIU/ml (0.358-3.740)
[2018-07-13 10:54] LABS: Thyroid Stimulating Hormone 0.91 uIU/ml (0.358-3.740)
--- NOTE | 2018-07-13 14:49 | Pharmacy Consult Notes ---
[facility] Pharmacy VTE Monitoring - Patient Demographics Admission date: 07/13/18 Report Date: 07/13/18 Time: 14:49 Allergies/Adverse Reactions: Patient Allergies haloperidol [HALOPERIDOL] Allergy (Unknown, Verified 06/29/18 06:50) Unknown allergy reaction metronidazole [From Flagyl] Allergy (Unknown, Verified 06/29/18 06:50) Unknown allergy reaction molindone Allergy (Unknown, Verified 06/29/18 06:50) Unknown allergy reaction paroxetine Allergy (Unknown, Verified 06/29/18 06:50) Unknown allergy reaction Penicillins [PENICILLINS] Allergy (Unknown, Verified 06/29/18 06:50) Unknown allergy reaction phenacaine Allergy (Unknown, Verified 06/29/18 06:50) Unknown allergy reaction Sulfa (Sulfonamide Antibiotics) Allergy (Unknown, Verified 06/29/18 06:50) Unknown allergy reaction triazolam [From Halcion] Allergy (Unknown, Verified 06/29/18 06:50) Unknown allergy reaction kiwi Allergy (Verified 06/29/18 06:50) Hives raspberry Allergy (Verified 06/29/18 06:50) Hives Height: 1.68 m Weight: 113.115 kg Patient Problems: Current Active Problems COPD exacerbation (Acute) UTI (urinary tract infection) (Acute) Altered mental status (Acute) Acute and chronic respiratory failure (Acute) - VTE Risk Labs: VTE Related Lab Results Hgb 11.4 g/dL (12.2-16.2) L 07/13/18 10:00 Hct 38.9 % (37.0-47.0) 07/13/18 10:00 Plt Count 104 K/mm3 (142-424) L 07/13/18 10:00 BUN 9 mg/dL (7-18) 07/13/18 10:00 Creatinine 0.65 mg/dL (0.55-1.02) 07/13/18 10:00 Estimated Creat Clear 90 mL/min (50-200) 07/13/18 10:00 Was VTE Risk Assessment Performed: Yes VTE Score: 6 VTE Risk Level: Moderate Risk - Prophylaxis VTE Prophylaxis Ordered?: Yes Types of VTE Prophylaxis: TEDS Knee High Location of Applied Device: Bilateral Lower Extremeties
[2018-07-13 18:09] LABS: ABG Base Excess 14.4 mmol/L (-2.4-2.3); ABG HCO3 39.7 mmhg (22.0-26.0); ABG Oxygen Saturation 81 % (90-100); ABG PH 7.37 mmol/L (7.35-7.45); ABG TCO2 41.9 mmhg (23-27)
[2018-07-13 18:10] LABS: Allen's Test Y
[2018-07-13 18:11] LABS: ABG PCO2 70.3 mmhg (35.0-45.0); ABG PO2 45.9 mmhg (80-100); Oxygen 2 %
[2018-07-14 05:30] LABS: Basophils % 0.2 % (0.1-2.0); Eosinophils % 0.1 % (0.1-12.0); Hematocrit 40.7 % (37.0-47.0); Hemoglobin 12.1 g/dL (12.2-16.2); Lymphocytes # 0.9 K/mm3 (0.7-4.5); Lymphocytes % 19.3 % (10-50); Mean Corpuscular HGB Conc 29.8 g/dL (31.8-35.4); Mean Corpuscular Hemoglobin 27.5 pg (27.0-31.2); Mean Corpuscular Volume 92.2 fl (81-99); Mean Platelet Volume 8.2 fl (7.4-10.4); Monocytes # 0.1 K/mm3 (0.1-1.0); Monocytes % 2.5 % (1.7-9.3); Neutrophils # 3.8 K/mm3 (1.8-7.8); Neutrophils % 77.8 % (37.0-80.0); Platelet Count 110 K/mm3 (142-424); Red Blood Count 4.42 M/mm3 (4.20-5.40); Red Cell Distribution Width 18.4 % (11.5-17.5); White Blood Count 4.8 K/mm3 (4.8-10.8)
[2018-07-14 05:38] LABS: Calcium 8.6 mg/dL (8.5-10.1)
[2018-07-14 08:01] LABS: ABG Base Excess 6.4 mmol/L (-2.4-2.3); ABG HCO3 30.7 mmhg (22.0-26.0); ABG Oxygen Saturation 89 % (90-100); ABG PH 7.43 mmol/L (7.35-7.45); ABG PO2 56.3 mmhg (80-100); ABG TCO2 32.1 mmhg (23-27)
[2018-07-14 08:02] LABS: Allen's Test Acceptable; Oxygen NC @2LPM %
[2018-07-14 09:58] LABS: ABG Base Excess 16.2 mmol/L (-2.4-2.3); ABG Oxygen Saturation 74 % (90-100); ABG TCO2 43.1 mmhg (23-27); Oxygen ROOM AIR %
[2018-07-14 10:00] LABS: ABG PCO2 67.4 mmhg (35.0-45.0); ABG PO2 39.7 mmhg (80-100)
--- NOTE | 2018-07-14 10:18 | Pharmacy Consult Notes ---
- Pharmacy Consult Date: 07/14/18 Time: 10:16 Referring provider: DR. BARRETT Reason for Consult:: VANCOMYCIN DOSING Allergies and ADEs:: Allergies Allergy/AdvReac Type Severity Reaction Status Date / Time haloperidol [HALOPERIDOL] Allergy Unknown Unknown Verified 06/29/18 06:50 allergy reaction metronidazole [From Flagyl] Allergy Unknown Unknown Verified 06/29/18 06:50 allergy reaction molindone Allergy Unknown Unknown Verified 06/29/18 06:50 allergy reaction paroxetine Allergy Unknown Unknown Verified 06/29/18 06:50 allergy reaction Penicillins [PENICILLINS] Allergy Unknown Unknown Verified 06/29/18 06:50 allergy reaction phenacaine Allergy Unknown Unknown Verified 06/29/18 06:50 allergy reaction Sulfa (Sulfonamide Allergy Unknown Unknown Verified 06/29/18 06:50 Antibiotics) allergy reaction triazolam [From Halcion] Allergy Unknown Unknown Verified 06/29/18 06:50 allergy reaction kiwi Allergy Hives Verified 06/29/18 06:50 raspberry Allergy Hives Verified 06/29/18 06:50 Home Medications:: Home Medications Medication Instructions Recorded Confirmed Type Ascorbic Acid [Vitamin C] 1,000 mg PO DAILY 11/13/17 07/13/18 History Aspirin [Aspirin 81mg chewable 81 mg PO DAILY 11/13/17 07/13/18 History tab] Benztropine Mesylate 0.5 mg PO DAILY 11/13/17 07/13/18 History Benztropine Mesylate [Cogentin 1mg 1 mg PO HS 11/13/17 07/13/18 History tablet] Carvedilol [Carvedilol 25mg Tab] 25 mg PO 0800,1700 11/13/17 07/13/18 History Divalproex Sodium 250 mg PO BID 11/13/17 07/13/18 History Fluticasone Propionate [Flonase 1 spr NS DAILY 11/13/17 07/13/18 History 50mcg nasal spray 16gm] Hydrocod/Acet 5/325 mg [[place] 1 each PO TID 11/13/17 07/13/18 History 5/325mg tablet] Isosorbide Dinitrate [Isordil 20mg 20 mg PO TID 11/13/17 07/13/18 History tablet] Lactulose [Lactulose 10gm/15ml 20 gm PO DAILY 11/13/17 07/13/18 History Oral Soln] Levothyroxine Sodium 75 mcg PO DAILY 11/13/17 07/13/18 History [Levothyroxine 75mcg (0.075mg) Tab] Potassium Chloride [Klor-Con 10mEq 10 meq PO DAILY 11/13/17 07/13/18 History tab] Pravastatin Sodium [Pravachol] 40 mg PO HS 11/13/17 07/13/18 History Sodium Chloride 3 gm PO TID 11/13/17 07/13/18 History Venlafaxine HCl 75 mg PO TID 11/13/17 07/13/18 History Calcium Carbonate [Tums 500mg 500 mg PO DAILY 11/14/17 07/13/18 History chewtab] Polyethylene Glycol 3350 [Miralax 17 gm PO DAILY 11/14/17 07/13/18 History 17gm Packet] acetaminophen 500 mg capsule 500 mg PO Q4HP PRN 01/07/18 07/13/18 History albuterol sulfate HFA 90 2 puff INHALATION Q4H PRN 01/07/18 07/13/18 History mcg/actuation aerosol inhaler aluminum hydrox-magnesium carb 95 30 ml PO QIDP PRN ml 01/07/18 07/13/18 History mg-358 mg/15 mL oral suspension phenol 1.4 % mucosal aerosol spray 2 spray MUCOUS MEM QIDP PRN ml 01/07/18 07/13/18 History sennosides 8.6 mg-docusate sodium 1 tab PO BIDP PRN 01/07/18 07/13/18 History 50 mg tablet Furosemide [Furosemide 20mg Tab] 20 mg PO DAILYP PRN 03/28/18 07/13/18 History Paliperidone Palmitate [Invega 117 mg IM MONTHLY 06/06/18 07/13/18 History Sustenna] Lisinopril [Zestril 5mg 5 mg PO DAILY 06/15/18 07/13/18 History Tablet] Rifaximin [Xifaxan] 550 mg PO BID 06/16/18 07/13/18 History clonazePAM [Clonazepam] 0.25 mg PO TID 06/29/18 07/13/18 History Cholecalciferol (Vitamin D3) 2,000 unit PO DAILY 07/13/18 07/13/18 History [Vitamin D3 1,000 Unit Tab] Ondansetron HCl [Ondansetron 4mg 4 mg PO Q4HP PRN 07/13/18 07/13/18 History Tablet] Propylene Glycol [Systane Balance] 1 drop EYE-BOTH BID 07/13/18 07/13/18 History guaiFENesin [Robafen] 200 mg PO Q6HP PRN 07/13/18 07/13/18 History Height: 1.68 m Weight: 113.115 kg Laboratory Results:: Laboratory Results - last 24 hr 07/13/18 10:00: WBC 5.0, RBC 4.21, Hgb 11.4 L, Hct 38.9, MCV 92.6, MCH 27.0, MCHC 29.2 L, RDW 17.8 H, Plt Count 104 L, MPV 7.4, Neut % (Auto) 61.2, Lymph % (Auto) 28.4, [place] % (Auto) 9.5 H, Eos % (Auto) 0.6, Baso % (Auto) 0.3, Neut # (Auto) 3.1, Lymph # (Auto) 1.4, [place] # (Auto) 0.5, Eos # (Auto) 0.0, Baso # (Auto) 0.0 07/13/18 10:00: Sodium 148 H, Potassium 3.9, Chloride 107, Carbon Dioxide 44 H*, Anion Gap 0.9 L, BUN 9, Creatinine 0.65, Estimated Creat Clear 90, Estimated GFR 92, Est GFR ( Amer) 112, Glucose 116 H, Calcium 8.4 L, Total Bilirubin 0.8, AST 33, ALT 32, Alkaline Phosphatase 125 H, Total Protein 6.0 L, Albumin 2.1 L, Globulin 3.9 H, Albumin/Globulin Ratio 0.5 L 07/13/18 10:00: Lactate 0.4 07/13/18 10:00: Total Creatine Kinase 26, CK-MB (CK-2) 0.6 D, CK-MB (CK-2) Rel Index 2.3, Troponin I 0.06, TSH 0.91, Total Valproic Acid 36.0 L 07/13/18 10:00: B-Natriuretic Peptide 249 H 07/13/18 10:00: TSH 0.95, Free T4 Index 3.2 L, Thyroxine (T4) 9.1, T3 Uptake 35 07/13/18 18:08: Specimen Source R/r, O2 % 2, ABG pH 7.37, ABG pCO2 70.3 H, ABG pO2 45.9 L, ABG HCO3 39.7 H, ABG Total CO2 41.9 H, ABG O2 Saturation 81 L*, ABG Base Excess 14.4 H, Gary Test Y 07/14/18 05:15: WBC 4.8, RBC 4.42, Hgb 12.1 L, Hct 40.7, MCV 92.2, MCH 27.5, MCHC 29.8 L, RDW 18.4 H, Plt Count 110 L, MPV 8.2, Neut % (Auto) 77.8, Lymph % (Auto) 19.3, [place] % (Auto) 2.5, Eos % (Auto) 0.1, Baso % (Auto) 0.2, Neut # (Auto) 3.8, Lymph # (Auto) 0.9, [place] # (Auto) 0.1, Eos # (Auto) 0.0, Baso # (Auto) 0.0 07/14/18 05:15: Sodium 143, Potassium 4.0, Chloride 104, Carbon Dioxide 40 H, Anion Gap 3.0 L, BUN 20 H D, Creatinine 0.66, Estimated Creat Clear 104, Estimated GFR 91, Est GFR ( Amer) 110, Glucose 139 H, Calcium 8.6 07/14/18 06:00: Specimen Source Right radial, O2 % Nc @2lpm, ABG pH 7.43, ABG pCO2 47.0 H, ABG pO2 56.3 L, ABG HCO3 30.7 H, ABG Total CO2 32.1 H, ABG O2 Saturation 89 L, ABG Base Excess 6.4 H, Gary Test Acceptable 07/14/18 09:50: Specimen Source R brachial, O2 % Room air, ABG pH 7.40, ABG pCO2 67.4 H, ABG pO2 39.7 L, ABG HCO3 41.0 H, ABG Total CO2 43.1 H, ABG O2 Saturation 74 L*, ABG Base Excess 16.2 H, Gary Test N/a Medical History: Reports:: Anxiety, Congestive Heart Failure, Chronic Obstructive Pulmonary Disease (COPD), Coronary Artery Disease, Heart Murmur, Hyperlipidemia, Hypertension, Myocardial Infarction Denies:: Cancer, Diabetes Mellitus Type 1, Diabetes Mellitus Type 2, Internal Pacemaker, MRSA Assessment and Plan - Assessment and plan all Dx Assessment and Plan for all problems:: BASED ON PATIENT FACTORS, RECOMMEND INITIATING VANCOMYCIN IV AT 2,000MG EVERY 12 HOURS. PHARMACY WILL OBTAIN A TROUGH LEVEL PRIOR TO FOURTH DOSE AND WILL ADJUST DOSE APPROPRIATE AT THAT POINT. -AKSHAT FORDD
--- NOTE | 2018-07-14 12:07 | History & Physical Report ---
*Admission Date: 07/13/18 *Chief complaint: sob *History of present illness: this wf was sent from [facility] in by ambulance from [facility] with report of low oxygen saturation and altered mental status. The patient is known to me, frequent visits for altered mental status secondary to acute respiratory failure. Patient mumbles answers to questions at this time is not able to provide further information. Recently admitted here 06/29/18 through 07/03/18 for respiratory failure with altered mental status, urinary tract infection due to Klebsiella pneumonia, treated with Levaquin. [facility] History I have reviewed the patient's past medical history: Yes Medical History: Reports:: Anxiety, Congestive Heart Failure, Chronic Obstructive Pulmonary Disease (COPD), Coronary Artery Disease, Heart Murmur, Hyperlipidemia, Hypertension, Myocardial Infarction Denies:: Cancer, Diabetes Mellitus Type 1, Diabetes Mellitus Type 2, Internal Pacemaker, MRSA Other Medical History: Reports: Anemia, Hypothyroidism Other Surgeries: No: Pacemaker Amputation: No Fractures: No - *Social History Educational Level: Attended Grade School Smoking Status: Current some day smoker Tobacco Type: cigarettes Alcohol Intake: never Occupational Status: disabled Housing: [facility] Household Members: other - Psychiatric History Expresses thoughts of harming self/others: None Suicide Plan Description: No Plan Pschychiatric History:: Reports:: Anxiety *Family Hx:: Unable to obtain Review of Systems - Review of Systems Review of systems:: pertinent systems reviewed and negative unless documented below - Constitutional Denies fever(s) - Eyes Denies change in vision - ENT Denies sore throat - *Cardiovascular Denies chest pain with activity - *Respiratory Reports cough - *Gastrointestinal Denies abdominal pain, Denies vomiting - *Genitourinary Denies blood in urine - *Musculoskeletal Denies joint pain - Integumentary/Breasts Denies rash - *Neurologic Denies seizure-like activity - Psychiatric Reports anxiety Meds Home Medications Medication Instructions Recorded Confirmed Type Ascorbic Acid [Vitamin C] 1,000 mg PO DAILY 11/13/17 07/13/18 History Aspirin [Aspirin 81mg chewable 81 mg PO DAILY 11/13/17 07/13/18 History tab] Benztropine Mesylate 0.5 mg PO DAILY 11/13/17 07/13/18 History Benztropine Mesylate [Cogentin 1mg 1 mg PO HS 11/13/17 07/13/18 History tablet] Carvedilol [Carvedilol 25mg Tab] 25 mg PO 0800,1700 11/13/17 07/13/18 History Divalproex Sodium 250 mg PO BID 11/13/17 07/13/18 History Fluticasone Propionate [Flonase 1 spr NS DAILY 11/13/17 07/13/18 History 50mcg nasal spray 16gm] Hydrocod/Acet 5/325 mg [[place] 1 each PO TID 11/13/17 07/13/18 History 5/325mg tablet] Isosorbide Dinitrate [Isordil 20mg 20 mg PO TID 11/13/17 07/13/18 History tablet] Lactulose [Lactulose 10gm/15ml 20 gm PO DAILY 11/13/17 07/13/18 History Oral Soln] Levothyroxine Sodium 75 mcg PO DAILY 11/13/17 07/13/18 History [Levothyroxine 75mcg (0.075mg) Tab] Potassium Chloride [Klor-Con 10mEq 10 meq PO DAILY 11/13/17 07/13/18 History tab] Pravastatin Sodium [Pravachol] 40 mg PO HS 11/13/17 07/13/18 History Sodium Chloride 3 gm PO TID 11/13/17 07/13/18 History Venlafaxine HCl 75 mg PO TID 11/13/17 07/13/18 History Calcium Carbonate [Tums 500mg 500 mg PO DAILY 11/14/17 07/13/18 History chewtab] Polyethylene Glycol 3350 [Miralax 17 gm PO DAILY 11/14/17 07/13/18 History 17gm Packet] acetaminophen 500 mg capsule 500 mg PO Q4HP PRN 01/07/18 07/13/18 History albuterol sulfate HFA 90 2 puff INHALATION Q4H PRN 01/07/18 07/13/18 History mcg/actuation aerosol inhaler aluminum hydrox-magnesium carb 95 30 ml PO QIDP PRN ml 01/07/18 07/13/18 History mg-358 mg/15 mL oral suspension phenol 1.4 % mucosal aerosol spray 2 spray MUCOUS MEM QIDP PRN ml 01/07/18 07/13/18 History sennosides 8.6 mg-docusate sodium 1 tab PO BIDP PRN 01/07/18 07/13/18 History 50 mg tablet Furosemide [Furosemide 20mg Tab] 20 mg PO DAILYP PRN 03/28/18 07/13/18 History Paliperidone Palmitate [Invega 117 mg IM MONTHLY 06/06/18 07/13/18 History Sustenna] Lisinopril [Zestril 5mg 5 mg PO DAILY 06/15/18 07/13/18 History Tablet] Rifaximin [Xifaxan] 550 mg PO BID 06/16/18 07/13/18 History clonazePAM [Clonazepam] 0.25 mg PO TID 06/29/18 07/13/18 History Cholecalciferol (Vitamin D3) 2,000 unit PO DAILY 07/13/18 07/13/18 History [Vitamin D3 1,000 Unit Tab] Ondansetron HCl [Ondansetron 4mg 4 mg PO Q4HP PRN 07/13/18 07/13/18 History Tablet] Propylene Glycol [Systane Balance] 1 drop EYE-BOTH BID 07/13/18 07/13/18 History guaiFENesin [Robafen] 200 mg PO Q6HP PRN 07/13/18 07/13/18 History Allergies Allergy/AdvReac Type Severity Reaction Status Date / Time haloperidol [HALOPERIDOL] Allergy Unknown Unknown Verified 06/29/18 06:50 allergy reaction metronidazole [From Flagyl] Allergy Unknown Unknown Verified 06/29/18 06:50 allergy reaction molindone Allergy Unknown Unknown Verified 06/29/18 06:50 allergy reaction paroxetine Allergy Unknown Unknown Verified 06/29/18 06:50 allergy reaction Penicillins [PENICILLINS] Allergy Unknown Unknown Verified 06/29/18 06:50 allergy reaction phenacaine Allergy Unknown Unknown Verified 06/29/18 06:50 allergy reaction Sulfa (Sulfonamide Allergy Unknown Unknown Verified 06/29/18 06:50 Antibiotics) allergy reaction triazolam [From Halcion] Allergy Unknown Unknown Verified 06/29/18 06:50 allergy reaction kiwi Allergy Hives Verified 06/29/18 06:50 raspberry Allergy Hives Verified 06/29/18 06:50 Exam Vital signs and Labs for Last 24 Hours: Temp Pulse Resp BP Pulse Ox 98.0 F 65 17 192/79 H 90 L 07/14/18 11:38 07/14/18 11:38 07/14/18 11:38 07/14/18 11:38 07/14/18 11:38 Laboratory Results - last 24 hr 07/13/18 18:08: Specimen Source R/r, O2 % 2, ABG pH 7.37, ABG pCO2 70.3 H, ABG pO2 45.9 L, ABG HCO3 39.7 H, ABG Total CO2 41.9 H, ABG O2 Saturation 81 L*, ABG Base Excess 14.4 H, Gary Test Y 07/14/18 05:15: WBC 4.8, RBC 4.42, Hgb 12.1 L, Hct 40.7, MCV 92.2, MCH 27.5, MCHC 29.8 L, RDW 18.4 H, Plt Count 110 L, MPV 8.2, Neut % (Auto) 77.8, Lymph % (Auto) 19.3, [place] % (Auto) 2.5, Eos % (Auto) 0.1, Baso % (Auto) 0.2, Neut # (Auto) 3.8, Lymph # (Auto) 0.9, [place] # (Auto) 0.1, Eos # (Auto) 0.0, Baso # (Auto) 0.0 07/14/18 05:15: Sodium 143, Potassium 4.0, Chloride 104, Carbon Dioxide 40 H, Anion Gap 3.0 L, BUN 20 H D, Creatinine 0.66, Estimated Creat Clear 104, Estimated GFR 91, Est GFR ( Amer) 110, Glucose 139 H, Calcium 8.6 07/14/18 06:00: Specimen Source Right radial, O2 % Nc @2lpm, ABG pH 7.43, ABG pCO2 47.0 H, ABG pO2 56.3 L, ABG HCO3 30.7 H, ABG Total CO2 32.1 H, ABG O2 Saturation 89 L, ABG Base Excess 6.4 H, Gary Test Acceptable 07/14/18 09:50: Specimen Source R brachial, O2 % Room air, ABG pH 7.40, ABG pCO2 67.4 H, ABG pO2 39.7 L, ABG HCO3 41.0 H, ABG Total CO2 43.1 H, ABG O2 Saturation 74 L*, ABG Base Excess 16.2 H, Gary Test N/a I & O for Last 24 hours: Intake & Output 07/12/18 07/13/18 07/14/18 07/15/18 11:59 11:59 11:59 11:59 Intake Total 980 / 980 Output Total 250 / 250 Balance 730 / 730 Weight 215 lb 249 lb 6.014 oz Microbiology Reports for the Last 24 Hours: Microbiology 07/13/18 18:22 Sputum - Expectorated Sputum Gram Stain - Final 07/13/18 18:22 Sputum - Expectorated Sputum Sputum Culture - Preliminary 07/13/18 09:25 Urine,Catheterized Urine Culture - Preliminary - Constitutional no acute distress, obese - *Routine HEENT Exam Head: Present: normocephalic Eye: Present: EOMI, PERRL ENT: Absent: mucous membranes dry - *Routine Neck Exam Absent: JVD - *Routine Respiratory Exam Present: decreased breath sounds, prolonged expiratory phase - *Routine Cardiovascular Exam Present: RRR, murmur - *Routine Abdominal Exam Present: soft - *Routine Extremities Exam Absent: calf tenderness - *Routine Skin Exam Present: intact - *Routine Neurological Exam Present: alert, CN II-XII intact - Routine Psychiatric Exam Present: normal affect Assessment and Plan (1) Obesity (BMI 30-39.9) Current visit: Yes Status: Acute Category: Medical Code(s): E66.9 - Obesity, unspecified (2) Acute exacerbation of chronic obstructive airways disease Current visit: No Status: Acute Category: Medical Code(s): J44.1 - Chronic obstructive pulmonary disease with (acute) exacerbation (3) Tobacco use Current visit: Yes Status: Acute Category: Medical Code(s): Z72.0 - Tobacco use
--- NOTE | 2018-07-15 08:52 | Progress Note ---
Internal Medicine - PN: Subj *Date: 07/15/18 *Time: 08:50 Interval history: Patient alert and oriented today requesting to have Vapotherm removed and to go back home. Exam Vital signs and Labs for Last 24 Hours: Temp Pulse Resp BP Pulse Ox 98.4 F 67 22 199/98 H 91 L 07/15/18 08:00 07/15/18 08:00 07/15/18 08:00 07/15/18 08:00 07/15/18 08:00 Laboratory Results - last 24 hr 07/14/18 09:50: Specimen Source R brachial, O2 % Room air, ABG pH 7.40, ABG pCO2 67.4 H, ABG pO2 39.7 L, ABG HCO3 41.0 H, ABG Total CO2 43.1 H, ABG O2 Saturation 74 L*, ABG Base Excess 16.2 H, Gary Test N/a 07/14/18 13:22: Stl Aeromonas (PCR) Not detected, Stl C. cayetanensis PCR Not detected, Stool Rotavirus (PCR) Not detected, Stl Adenov F 40/41 PCR Not detected, Stool Astrovirus (PCR) Not detected, Stool Campylobacter PCR Not detected, Stl C.difficile Tox PCR Not detected, Stool Cryptosporidium PCR Not detected, Stl E.coli Shiga Tox PCR Not detected, Stool E coli O157 PCR Not detected, Stl Enterotoxigenic E PCR Not detected, Stool EPEC (PCR) Not detected, Stool EAEC (PCR) Not detected, Stl E. histolytica PCR Not detected, Stool Giardia Lamblia PCR Not detected, Stool Salmonella PCR Not detected, Stool Sapovirus (PCR) Not detected, Stl P. shigelloides PCR Not detected, Stl Shigella/EIEC PCR Not detected, St Y.enterocolitica PCR Not detected, Stool Vibrio (PCR) Not detected, Stl Vibrio cholerae PCR Not detected, Stl Norovirus GI/GII PCR Not detected I & O for Last 24 hours: Intake & Output 07/12/18 07/13/18 07/14/18 07/15/18 11:59 11:59 11:59 11:59 Intake Total 980 / 980 1447 / 1447 Output Total 250 / 250 925 / 925 Balance 730 / 730 522 / 522 Weight 215 lb 249 lb 6.014 oz 239 lb 5 oz Microbiology Reports for the Last 24 Hours: Microbiology 07/13/18 18:22 Sputum - Expectorated Sputum Gram Stain - Final 07/13/18 18:22 Sputum - Expectorated Sputum Sputum Culture - Preliminary 07/13/18 09:25 Urine,Catheterized Urine Culture - Final Escherichia coli - *Routine HEENT Exam Head: Present: normocephalic Eye: Present: PERRL ENT: Present: mucous membranes moist - *Routine Neck Exam Present: supple. Absent: lymphadenopathy - *Routine Respiratory Exam Present: rhonchi, wheezes, diminished air movement - *Routine Cardiovascular Exam Present: RRR - *Routine Abdominal Exam Present: soft, normoactive bowel sounds, hernia. Absent: tenderness - *Routine Exam Comments: Mayer draining at bedside - *Routine Extremities Exam Absent: cyanosis, clubbing, edema - *Routine Skin Exam Present: warm. Absent: rash Comments: Central line to right jugular - *Routine Neurological Exam Present: alert, oriented X3 - Routine Psychiatric Exam Present: normal affect Assessment and Plan (1) Obesity (BMI 30-39.9) Current visit: Yes Status: Acute Category: Medical Code(s): E66.9 - Obesity, unspecified (2) Acute exacerbation of chronic obstructive airways disease Current visit: No Status: Acute Category: Medical Code(s): J44.1 - Chronic obstructive pulmonary disease with (acute) exacerbation (3) Tobacco use Current visit: Yes Status: Acute Category: Medical Code(s): Z72.0 - Tobacco use - Assessment and plan all Dx Assessment and Plan for all problems:: Rounded with Dr. Archibald all orders per Dragan Remove Vapotherm 1 hour post we will check ABG on room air Remove Mayer catheter Wait blood and sputum cx results
[2018-07-15 09:43] LABS: ABG Base Excess 13.4 mmol/L (-2.4-2.3); ABG Oxygen Saturation 81 % (90-100); ABG PH 7.48 mmol/L (7.35-7.45); ABG TCO2 38.5 mmhg (23-27)
[2018-07-15 09:46] LABS: Oxygen ROOM AIR %
[2018-07-16 07:17] LABS: Eosinophils % 0.3 % (0.1-12.0); Hematocrit 39.3 % (37.0-47.0); Hemoglobin 12.2 g/dL (12.2-16.2); Lymphocytes # 0.8 K/mm3 (0.7-4.5); Lymphocytes % 13.6 % (10-50); Mean Corpuscular Hemoglobin 27.8 pg (27.0-31.2); Mean Corpuscular Volume 89.5 fl (81-99); Mean Platelet Volume 8.1 fl (7.4-10.4); Monocytes # 0.3 K/mm3 (0.1-1.0); Monocytes % 4.8 % (1.7-9.3); Neutrophils # 4.6 K/mm3 (1.8-7.8); Neutrophils % 81.3 % (37.0-80.0); Platelet Count 100 K/mm3 (142-424); Red Blood Count 4.39 M/mm3 (4.20-5.40); Red Cell Distribution Width 19.4 % (11.5-17.5); White Blood Count 5.7 K/mm3 (4.8-10.8)
[2018-07-16 07:22] LABS: Anion Gap 7.2 mEq/L (5-15); Calcium 8.6 mg/dL (8.5-10.1); Potassium 3.2 mmoL/L (3.5-5.1)
--- NOTE | 2018-07-16 10:04 | Progress Note ---
Internal Medicine - PN: Subj *Date: 07/16/18 *Time: 10:03 Exam Vital signs and Labs for Last 24 Hours: Temp Pulse Resp BP Pulse Ox 99.1 F 77 22 126/93 H 92 L 07/16/18 08:00 07/16/18 09:14 07/16/18 09:52 07/16/18 08:00 07/16/18 09:14 Laboratory Results - last 24 hr 07/16/18 06:40: WBC 5.7, RBC 4.39, Hgb 12.2, Hct 39.3, MCV 89.5, MCH 27.8, MCHC 31.0 L, RDW 19.4 H, Plt Count 100 L, MPV 8.1, Neut % (Auto) 81.3 H, Lymph % (Auto) 13.6, [place] % (Auto) 4.8, Eos % (Auto) 0.3, Baso % (Auto) 0.0 L, Neut # (Auto) 4.6, Lymph # (Auto) 0.8, [place] # (Auto) 0.3, Eos # (Auto) 0.0, Baso # (Auto) 0.0 07/16/18 06:40: Sodium 140, Potassium 3.2 L, Chloride 98, Carbon Dioxide 38 H, Anion Gap 7.2, BUN 11 D, Creatinine 0.62, Estimated Creat Clear 99, Estimated GFR 98, Est GFR ( Amer) 118, Glucose 180 H, Calcium 8.6 I & O for Last 24 hours: Intake & Output 07/13/18 07/14/18 07/15/18 07/16/18 23:59 23:59 23:59 23:59 Intake Total 125 / 125 1335 / 1335 1567 / 1567 850 / 850 Output Total 475 / 475 2800 / 2800 Balance 125 / 125 860 / 860 -1233 / -1233 850 / 850 Weight 113.115 kg 113.115 kg 108.55 kg 107.728 kg Microbiology Reports for the Last 24 Hours: Microbiology 07/13/18 18:22 Sputum - Expectorated Sputum Gram Stain - Final 07/13/18 18:22 Sputum - Expectorated Sputum Sputum Culture - Preliminary Gram Positive Cocci 07/13/18 10:00 Blood Blood Culture - Preliminary NO GROWTH AFTER 48 HOURS 07/13/18 10:00 Blood Blood Culture - Preliminary NO GROWTH AFTER 48 HOURS 07/13/18 09:25 Urine,Catheterized Urine Culture - Final Escherichia coli Assessment and Plan (1) Obesity (BMI 30-39.9) Current visit: Yes Status: Acute Category: Medical Code(s): E66.9 - Obesity, unspecified (2) Acute exacerbation of chronic obstructive airways disease Current visit: No Status: Acute Category: Medical Code(s): J44.1 - Chronic obstructive pulmonary disease with (acute) exacerbation (3) Tobacco use Current visit: Yes Status: Acute Category: Medical Code(s): Z72.0 - Tobacco use The patient's infection will respond to the chosen ABx?: Yes Is the patient receiving the right drug, dose, and route?: Yes Could a more targeted ABx be ordered?: No (ESBL(-) E COLI, ON ROCEPHIN)
--- NOTE | 2018-07-16 10:42 | Pharmacy Consult Notes ---
- Pharmacy Consult Date: 07/16/18 Time: 10:40 Referring provider: DR. BARRETT Reason for Consult:: VANCOMYCIN TROUGH LEVEL AND DOSE CHANGE Allergies and ADEs:: Allergies Allergy/AdvReac Type Severity Reaction Status Date / Time haloperidol [HALOPERIDOL] Allergy Unknown Unknown Verified 06/29/18 06:50 allergy reaction metronidazole [From Flagyl] Allergy Unknown Unknown Verified 06/29/18 06:50 allergy reaction molindone Allergy Unknown Unknown Verified 06/29/18 06:50 allergy reaction paroxetine Allergy Unknown Unknown Verified 06/29/18 06:50 allergy reaction Penicillins [PENICILLINS] Allergy Unknown Unknown Verified 06/29/18 06:50 allergy reaction phenacaine Allergy Unknown Unknown Verified 06/29/18 06:50 allergy reaction Sulfa (Sulfonamide Allergy Unknown Unknown Verified 06/29/18 06:50 Antibiotics) allergy reaction triazolam [From Halcion] Allergy Unknown Unknown Verified 06/29/18 06:50 allergy reaction kiwi Allergy Hives Verified 06/29/18 06:50 raspberry Allergy Hives Verified 06/29/18 06:50 Home Medications:: Home Medications Medication Instructions Recorded Confirmed Type Ascorbic Acid [Vitamin C] 1,000 mg PO DAILY 11/13/17 07/13/18 History Aspirin [Aspirin 81mg chewable 81 mg PO DAILY 11/13/17 07/13/18 History tab] Benztropine Mesylate 0.5 mg PO DAILY 11/13/17 07/13/18 History Benztropine Mesylate [Cogentin 1mg 1 mg PO HS 11/13/17 07/13/18 History tablet] Carvedilol [Carvedilol 25mg Tab] 25 mg PO 0800,1700 11/13/17 07/13/18 History Divalproex Sodium 250 mg PO BID 11/13/17 07/13/18 History Fluticasone Propionate [Flonase 1 spr NS DAILY 11/13/17 07/13/18 History 50mcg nasal spray 16gm] Hydrocod/Acet 5/325 mg [Wells 1 each PO TID 11/13/17 07/13/18 History 5/325mg tablet] Isosorbide Dinitrate [Isordil 20mg 20 mg PO TID 11/13/17 07/13/18 History tablet] Lactulose [Lactulose 10gm/15ml 20 gm PO DAILY 11/13/17 07/13/18 History Oral Soln] Levothyroxine Sodium 75 mcg PO DAILY 11/13/17 07/13/18 History [Levothyroxine 75mcg (0.075mg) Tab] Potassium Chloride [Klor-Con 10mEq 10 meq PO DAILY 11/13/17 07/13/18 History tab] Pravastatin Sodium [Pravachol] 40 mg PO HS 11/13/17 07/13/18 History Sodium Chloride 3 gm PO TID 11/13/17 07/13/18 History Venlafaxine HCl 75 mg PO TID 11/13/17 07/13/18 History Calcium Carbonate [Tums 500mg 500 mg PO DAILY 11/14/17 07/13/18 History chewtab] Polyethylene Glycol 3350 [Miralax 17 gm PO DAILY 11/14/17 07/13/18 History 17gm Packet] acetaminophen 500 mg capsule 500 mg PO Q4HP PRN 01/07/18 07/13/18 History albuterol sulfate HFA 90 2 puff INHALATION Q4H PRN 01/07/18 07/13/18 History mcg/actuation aerosol inhaler aluminum hydrox-magnesium carb 95 30 ml PO QIDP PRN ml 01/07/18 07/13/18 History mg-358 mg/15 mL oral suspension phenol 1.4 % mucosal aerosol spray 2 spray MUCOUS MEM QIDP PRN ml 01/07/18 07/13/18 History sennosides 8.6 mg-docusate sodium 1 tab PO BIDP PRN 01/07/18 07/13/18 History 50 mg tablet Furosemide [Furosemide 20mg Tab] 20 mg PO DAILYP PRN 03/28/18 07/13/18 History Paliperidone Palmitate [Invega 117 mg IM MONTHLY 06/06/18 07/13/18 History Sustenna] Lisinopril [Zestril 5mg 5 mg PO DAILY 06/15/18 07/13/18 History Tablet] Rifaximin [Xifaxan] 550 mg PO BID 06/16/18 07/13/18 History clonazePAM [Clonazepam] 0.25 mg PO TID 06/29/18 07/13/18 History Cholecalciferol (Vitamin D3) 2,000 unit PO DAILY 07/13/18 07/13/18 History [Vitamin D3 1,000 Unit Tab] Ondansetron HCl [Ondansetron 4mg 4 mg PO Q4HP PRN 07/13/18 07/13/18 History Tablet] Propylene Glycol [Systane Balance] 1 drop EYE-BOTH BID 07/13/18 07/13/18 History guaiFENesin [Robafen] 200 mg PO Q6HP PRN 07/13/18 07/13/18 History Height: 1.68 m Weight: 107.728 kg Laboratory Results:: Laboratory Results - last 24 hr 07/16/18 06:40: WBC 5.7, RBC 4.39, Hgb 12.2, Hct 39.3, MCV 89.5, MCH 27.8, MCHC 31.0 L, RDW 19.4 H, Plt Count 100 L, MPV 8.1, Neut % (Auto) 81.3 H, Lymph % (Auto) 13.6, [place] % (Auto) 4.8, Eos % (Auto) 0.3, Baso % (Auto) 0.0 L, Neut # (Auto) 4.6, Lymph # (Auto) 0.8, [place] # (Auto) 0.3, Eos # (Auto) 0.0, Baso # (Auto) 0.0 07/16/18 06:40: Sodium 140, Potassium 3.2 L, Chloride 98, Carbon Dioxide 38 H, Anion Gap 7.2, BUN 11 D, Creatinine 0.62, Estimated Creat Clear 99, Estimated GFR 98, Est GFR ( Amer) 118, Glucose 180 H, Calcium 8.6 07/16/18 10:00: Vancomycin Trough 21.5 H Medical History: Reports:: Anxiety, Congestive Heart Failure, Chronic Obstructive Pulmonary Disease (COPD), Coronary Artery Disease, Heart Murmur, Hyperlipidemia, Hypertension, Myocardial Infarction Denies:: Cancer, Diabetes Mellitus Type 1, Diabetes Mellitus Type 2, Internal Pacemaker, MRSA Assessment and Plan (1) Obesity (BMI 30-39.9) Current visit: Yes Status: Acute Category: Medical Code(s): E66.9 - Obesity, unspecified (2) Acute exacerbation of chronic obstructive airways disease Current visit: No Status: Acute Category: Medical Code(s): J44.1 - Chronic obstructive pulmonary disease with (acute) exacerbation (3) Tobacco use Current visit: Yes Status: Acute Category: Medical Code(s): Z72.0 - To bacco use - Assessment and plan all Dx Assessment and Plan for all problems:: BASED ON PATIENT'S VANCOMYCIN TROUGH LEVEL OF 21.5 MCG/ML, RECOMMENDED HOLDING DOSE UNTIL 1700 TONIGHT THEN RESTARTING AT VANCOMYCIN 1500 MG Q12H AT THAT TIME. PHARMACY WILL FOLLOW DAILY AND ADJUST APPROPRIATE. LUCA VELASQUEZ, PHARMD
--- NOTE | 2018-07-16 13:13 | Progress Note ---
Internal Medicine - PN: Subj *Date: 07/16/18 *Time: 08:00 Interval history: doing better and labs ok but will need continued course of iv abx and will need pic line Exam Vital signs and Labs for Last 24 Hours: Temp Pulse Resp BP Pulse Ox 99.7 F H 65 22 184/68 H 91 L 07/16/18 11:58 07/16/18 11:58 07/16/18 12:13 07/16/18 11:58 07/16/18 11:58 Laboratory Results - last 24 hr 07/16/18 06:40: WBC 5.7, RBC 4.39, Hgb 12.2, Hct 39.3, MCV 89.5, MCH 27.8, MCHC 31.0 L, RDW 19.4 H, Plt Count 100 L, MPV 8.1, Neut % (Auto) 81.3 H, Lymph % (Auto) 13.6, [place] % (Auto) 4.8, Eos % (Auto) 0.3, Baso % (Auto) 0.0 L, Neut # (Auto) 4.6, Lymph # (Auto) 0.8, [place] # (Auto) 0.3, Eos # (Auto) 0.0, Baso # (Auto) 0.0 07/16/18 06:40: Sodium 140, Potassium 3.2 L, Chloride 98, Carbon Dioxide 38 H, Anion Gap 7.2, BUN 11 D, Creatinine 0.62, Estimated Creat Clear 99, Estimated GFR 98, Est GFR ( Amer) 118, Glucose 180 H, Calcium 8.6 07/16/18 10:00: Vancomycin Trough 21.5 H I & O for Last 24 hours: Intake & Output 07/14/18 07/15/18 07/16/18 07/17/18 11:59 11:59 11:59 11:59 Intake Total 980 / 980 1447 / 1447 1450 / 1450 Output Total 250 / 250 2425 / 2425 600 / 600 Balance 730 / 730 -978 / -978 850 / 850 Weight 249 lb 6.014 oz 239 lb 5 oz 237 lb 8 oz Microbiology Reports for the Last 24 Hours: Microbiology 07/13/18 18:22 Sputum - Expectorated Sputum Gram Stain - Final 07/13/18 18:22 Sputum - Expectorated Sputum Sputum Culture - Preliminary Gram Positive Cocci 07/13/18 10:00 Blood Blood Culture - Preliminary NO GROWTH AFTER 48 HOURS 07/13/18 10:00 Blood Blood Culture - Preliminary NO GROWTH AFTER 48 HOURS - Constitutional no acute distress, obese - *Routine HEENT Exam Head: Present: normocephalic Eye: Present: EOMI, PERRL ENT: Present: mucous membranes dry - *Routine Neck Exam Present: supple - *Routine Respiratory Exam Present: rhonchi - *Routine Cardiovascular Exam Present: RRR, murmur - *Routine Abdominal Exam Present: soft - *Routine Extremities Exam Absent: calf tenderness - *Routine Skin Exam Present: intact - *Routine Neurological Exam Present: alert, CN II-XII intact - Routine Psychiatric Exam Present: normal affect Assessment and Plan (1) Obesity (BMI 30-39.9) Current visit: Yes Status: Acute Category: Medical Code(s): E66.9 - Obesity, unspecified (2) Acute exacerbation of chronic obstructive airways disease Current visit: No Status: Acute Category: Medical Code(s): J44.1 - Chronic obstructive pulmonary disease with (acute) exacerbation (3) Tobacco use Current visit: Yes Status: Acute Category: Medical Code(s): Z72.0 - Tobacco use (4) E. coli UTI (urinary tract infection) Current visit: Yes Status: Acute Category: Medical Code(s): N39.0 - Urinary tract infection, site not specified; B96.20 - Unspecified Escherichia coli [E. coli] as the cause of diseases classified elsewhere
[2018-07-17 07:24] LABS: Basophils % 0.1 % (0.1-2.0); Eosinophils % 0.2 % (0.1-12.0); Hematocrit 36.7 % (37.0-47.0); Hemoglobin 11.4 g/dL (12.2-16.2); Lymphocytes # 0.8 K/mm3 (0.7-4.5); Lymphocytes % 14.1 % (10-50); Mean Corpuscular Hemoglobin 27.6 pg (27.0-31.2); Mean Corpuscular Volume 89.1 fl (81-99); Mean Platelet Volume 8.3 fl (7.4-10.4); Monocytes # 0.4 K/mm3 (0.1-1.0); Monocytes % 5.9 % (1.7-9.3); Neutrophils # 4.7 K/mm3 (1.8-7.8); Neutrophils % 79.7 % (37.0-80.0); Platelet Count 82 K/mm3 (142-424); Red Blood Count 4.12 M/mm3 (4.20-5.40); Red Cell Distribution Width 19.5 % (11.5-17.5); White Blood Count 5.9 K/mm3 (4.8-10.8)
[2018-07-17 07:51] LABS: Anion Gap 7.3 mEq/L (5-15); Calcium 8.3 mg/dL (8.5-10.1); Potassium 3.3 mmoL/L (3.5-5.1)
--- NOTE | 2018-07-17 09:32 | Discharge Summary ---
General - General Admission date:: 07/13/18 Discharge date: 07/17/18 HPI HPI: this wf was sent from [facility] in by ambulance from [facility] with report of low oxygen saturation and altered mental status. The patient is known to me, frequent visits for altered mental status secondary to acute respiratory failure. Patient mumbles answers to questions at this time is not able to provide further information. Recently admitted here 06/29/18 through 07/03/18 for respiratory failure with altered mental status, urinary tract infection due to Klebsiella pneumonia, treated with Levaquin. Hospital Course Hospital Course: chest x ray:IMPRESSION 1. Right lower lobe infiltrate persists-perhaps slightly more pronounced 2. Improvement/regression of right perihilar infiltrate since Jul 13 CXR. 3. likely regression of small right pleural effusion.-Noting Right CP angle better delineated UTI-positive for E. coli sensitive to cephalosporins will discharge home on Omnicef 300 mg twice daily for 10 days. MRSA positive sputum-we will discharge home back on vancomycin for 10 days dose will be adjusted and monitored per pharmacy through PICC line. Pneumonia-patient is to have oxygen on at all times. Absolutely no smoking. Patient may go up to sit on the balcony as long as she has her oxygen in place. Again no smoking allowed. We will see patient Saturday at [facility] Objective Vital signs: Temp Pulse Resp BP Pulse Ox 98.3 F 50 L 18 189/86 H 92 L 07/17/18 08:00 07/17/18 08:00 07/17/18 08:00 07/17/18 08:00 07/17/18 08:08 no acute distress - *Routine HEENT Exam Head: Present: normocephalic Eye: Present: PERRL ENT: Present: mucous membranes moist - *Routine Respiratory Exam Present: wheezes, diminished air movement - *Routine Cardiovascular Exam Present: RRR - *Routine Extremities Exam Present: full ROM Comments: PICC to left upper arm - *Routine Skin Exam Present: intact - *Routine Neurological Exam Present: alert, oriented X3 - Routine Psychiatric Exam Present: normal affect Results Labs on day of discharge: Labs from last 24 hours 07/17/18 07/17/18 07/16/18 06:30 06:30 10:00 WBC 5.9 RBC 4.12 L Hgb 11.4 L Hct 36.7 L MCV 89.1 MCH 27.6 MCHC 31.0 L RDW 19.5 H Plt Count 82 L MPV 8.3 Neut % (Auto) 79.7 Lymph % (Auto) 14.1 [place] % (Auto) 5.9 Eos % (Auto) 0.2 Baso % (Auto) 0.1 Neut # (Auto) 4.7 Lymph # (Auto) 0.8 [place] # (Auto) 0.4 Eos # (Auto) 0.0 Baso # (Auto) 0.0 Sodium 137 Potassium 3.3 L Chloride 96 L Carbon Dioxide 37 H Anion Gap 7.3 BUN 10 Creatinine 0.62 Estimated Creat Clear 102 Estimated GFR 98 Est GFR ( Amer) 118 Glucose 119 H D Calcium 8.3 L Vancomycin Trough 21.5 H Preliminary micro results at discharge 07/13/18 10:00 Blood Culture - Preliminary Blood NO GROWTH AFTER 48 HOURS 07/13/18 10:00 Blood Culture - Preliminary Blood NO GROWTH AFTER 48 HOURS - Additional Comments Rounded with Dr. Archibald all orders per Dragan DS: Diagnosis - Discharge Diagnosis (1) Obesity (BMI 30-39.9) Status: Acute (2) Acute exacerbation of chronic obstructive airways disease Status: Acute (3) Tobacco use Status: Acute (4) E. coli UTI (urinary tract infection) Status: Acute (5) MRSA (methicillin resistant staphylococcus aureus) pneumonia Status: Acute Discharge Plan - Patient Discharge Instructions ACTIVITY: Continue current activity DIET: continue same diet Patient Instructions: DI for Urinary Tract Infection (UTI), DI for Respiratory Failure, DI for Altered Mental Status - Follow up Plan Follow up with: Clay Phipps APRN [Advanced Practice Nurse] - 07/19/18 Disposition: Xfer [facility] Home Medications: Home Medications Medication Instructions Recorded Confirmed Type Ascorbic Acid [Vitamin C] 1,000 mg PO DAILY 11/13/17 07/13/18 History Aspirin [Aspirin 81mg chewable 81 mg PO DAILY 11/13/17 07/13/18 History tab] Benztropine Mesylate 0.5 mg PO DAILY 11/13/17 07/13/18 History Benztropine Mesylate [Cogentin 1mg 1 mg PO HS 11/13/17 07/13/18 History tablet] Carvedilol [Carvedilol 25mg Tab] 25 mg PO 0800,1700 11/13/17 07/13/18 History Divalproex Sodium 250 mg PO BID 11/13/17 07/13/18 History Fluticasone Propionate [Flonase 1 spr NS DAILY 11/13/17 07/13/18 History 50mcg nasal spray 16gm] Hydrocod/Acet 5/325 mg [Tripp 1 each PO TID 11/13/17 07/13/18 History 5/325mg tablet] Isosorbide Dinitrate [Isordil 20mg 20 mg PO TID 11/13/17 07/13/18 History tablet] Lactulose [Lactulose 10gm/15ml 20 gm PO DAILY 11/13/17 07/13/18 History Oral Soln] Levothyroxine Sodium 75 mcg PO DAILY 11/13/17 07/13/18 History [Levothyroxine 75mcg (0.075mg) Tab] Potassium Chloride [Klor-Con 10mEq 10 meq PO DAILY 11/13/17 07/13/18 History tab] Pravastatin Sodium [Pravachol] 40 mg PO HS 11/13/17 07/13/18 History Sodium Chloride 3 gm PO TID 11/13/17 07/13/18 History Venlafaxine HCl 75 mg PO TID 11/13/17 07/13/18 History Calcium Carbonate [Tums 500mg 500 mg PO DAILY 11/14/17 07/13/18 History chewtab] Polyethylene Glycol 3350 [Miralax 17 gm PO DAILY 11/14/17 07/13/18 History 17gm Packet] acetaminophen 500 mg capsule 500 mg PO Q4HP PRN 01/07/18 07/13/18 History albuterol sulfate HFA 90 2 puff INHALATION Q4H PRN 01/07/18 07/13/18 History mcg/actuation aerosol inhaler aluminum hydrox-magnesium carb 95 30 ml PO QIDP PRN ml 01/07/18 07/13/18 History mg-358 mg/15 mL oral suspension phenol 1.4 % mucosal aerosol spray 2 spray MUCOUS MEM QIDP PRN ml 01/07/18 07/13/18 History sennosides 8.6 mg-docusate sodium 1 tab PO BIDP PRN 01/07/18 07/13/18 History 50 mg tablet Furosemide [Furosemide 20mg Tab] 20 mg PO DAILYP PRN 03/28/18 07/13/18 History Paliperidone Palmitate [Invega 117 mg IM MONTHLY 06/06/18 07/13/18 History Sustenna] Lisinopril [Zestril 5mg 5 mg PO DAILY 06/15/18 07/13/18 History Tablet] Rifaximin [Xifaxan] 550 mg PO BID 06/16/18 07/13/18 History clonazePAM [Clonazepam] 0.25 mg PO TID 06/29/18 07/13/18 History Cholecalciferol (Vitamin D3) 2,000 unit PO DAILY 07/13/18 07/13/18 History [Vitamin D3 1,000 Unit Tab] Ondansetron HCl [Ondansetron 4mg 4 mg PO Q4HP PRN 07/13/18 07/13/18 History Tablet] Propylene Glycol [Systane Balance] 1 drop EYE-BOTH BID 07/13/18 07/13/18 History guaiFENesin [Robafen] 200 mg PO Q6HP PRN 07/13/18 07/13/18 History Cefdinir [Omnicef 300mg Capsule] 300 mg PO BID #20 cap 07/17/18 Rx Vancomycin HCl [Vancomycin 1000mg 1,500 mg IV Q12H 10 Days #10 vial 07/17/18 Rx Vial] Prescriptions/Medication Reconciliation: New Vancomycin HCl [Vancomycin 1000mg Vial] 1,500 mg IV Q12H 10 Days #10 vial Ipratropium/Albuterol Sulfate [Duoneb 3mL neb] 3 ml IH QIDRT ampul.neb Cefdinir [Omnicef 300mg Capsule] 300 mg PO BID #20 cap Continue sennosides 8.6 mg-docusate sodium 50 mg tablet 1 tab PO BIDP PRN PRN Reason: Constipation aluminum hydrox-magnesium carb 95 mg-358 mg/15 mL oral suspension 30 ml PO QIDP PRN ml PRN Reason: UPSET STOMACH albuterol sulfate HFA 90 mcg/actuation aerosol inhaler 2 puff INHALATION Q4H PRN PRN Reason: breathing phenol 1.4 % mucosal aerosol spray 2 spray MUCOUS MEM QIDP PRN ml PRN Reason: sore throat Pravastatin Sodium [Pravachol] 40 mg PO HS Potassium Chloride [Klor-Con 10mEq tab] 10 meq PO DAILY Fluticasone Propionate [Flonase 50mcg nasal spray 16gm] 1 spr NS DAILY Divalproex Sodium 250 mg PO BID Carvedilol [Carvedilol 25mg Tab] 25 mg PO 0800,1700 Benztropine Mesylate 0.5 mg PO DAILY Benztropine Mesylate [Cogentin 1mg tablet] 1 mg PO HS Aspirin [Aspirin 81mg chewable tab] 81 mg PO DAILY Sodium Chloride 3 gm PO TID Ascorbic Acid [Vitamin C] 1,000 mg PO DAILY Polyethylene Glycol 3350 [Miralax 17gm Packet] 17 gm PO DAILY Furosemide [Furosemide 20mg Tab] 20 mg PO DAILYP PRN PRN Reason: FLUID RETENTION/SWELLING Paliperidone Palmitate [Invega Sustenna] 117 mg IM MONTHLY clonazePAM [Clonazepam] 0.25 mg PO TID Cholecalciferol (Vitamin D3) [Vitamin D3 1,000 Unit Tab] 2,000 unit PO DAILY Propylene Glycol [Systane Balance] 1 drop EYE-BOTH BID guaiFENesin [Robafen] 200 mg PO Q6HP PRN PRN Reason: Cough Hydrocod/Acet 5/325 mg [[place]ripp 5/325mg tablet] 1 each PO TID Isosorbide Dinitrate [Isordil 20mg tablet] 20 mg PO TID Lactulose [Lactulose 10gm/15ml Oral Soln] 20 gm PO DAILY Levothyroxine Sodium [Levothyroxine 75mcg (0.075mg) Tab] 75 mcg PO DAILY Venlafaxine HCl 75 mg PO TID Calcium Carbonate [Tums 500mg chewtab] 500 mg PO DAILY Lisinopril [Zestril 5mg Tablet] 5 mg PO DAILY Rifaximin [Xifaxan] 550 mg PO BID Ondansetron HCl [Ondansetron 4mg Tablet] 4 mg PO Q4HP PRN PRN Reason: Nausea And Vomiting No Action acetaminophen 500 mg capsule 500 mg PO Q4HP PRN PRN Reason: As Needed For Fever Or Pain
== END 2018-07-17 11:25 ==
LOC: ER 09:00 → ICU 09:00 → OBSVTOIN 11:10 → ICU 11:56 → 2ND 07-14 17:35
PROVIDERS: ADMIT Family Medicine; ATTEND Emergency Medicine

== ENCOUNTER → 2018-07-19 04:43 | Outpatient (CLI) | payer MEDICAID, SELFPAY ==
[2018-07-19 12:37] LABS: Blood Urea Nitrogen 9 mg/dL (7-18); Calcium 7.5 mg/dL (8.5-10.1); Carbon Dioxide 39 mmol/L (21.0-32.0); Chloride 102 mmol/L (98-107); Creatinine,Serum 0.78 mg/dL (0.55-1.02); Estimated Glomerular Filt Rate 75 ml/min (>60); GFR (African American) 91 ML/MIN (>60); Glucose 88 mg/dL (74-106); Sodium 146 mmol/L (136-145)
== END ==
LOC: LAB 12:01 → LAB.DROPOF 12:02
PROVIDERS: Visit Provider Emergency Medicine
DX: J15.212 Pneumonia due to Methicillin resistant Staphylococcus aureus (principal)
CPT/HCPCS: 80048; 80202

== ENCOUNTER → 2018-07-21 10:04 | Outpatient (CLI) | payer MEDICAID, SELFPAY ==
[2018-07-21 11:42] LABS: Anion Gap 5.5 mEq/L (5-15); Blood Urea Nitrogen 5 mg/dL (7-18); Calcium 7.3 mg/dL (8.5-10.1); Carbon Dioxide 39 mmol/L (21.0-32.0); Chloride 104 mmol/L (98-107); Creatinine,Serum 0.62 mg/dL (0.55-1.02); Estimated Glomerular Filt Rate 98 ml/min (>60); GFR (African American) 118 ML/MIN (>60); Glucose 125 mg/dL (74-106); Potassium 3.5 mmoL/L (3.5-5.1); Sodium 145 mmol/L (136-145); Vancomycin,Trough 15.8 mcg/ml (10.0-20.0)
== END ==
PROVIDERS: Visit Provider Emergency Medicine
DX: J44.9 Chronic obstructive pulmonary disease, unspecified (principal)
CPT/HCPCS: 80048; 80202

== ENCOUNTER 2018-07-23 02:24 | Inpatient (IN) ==
[2018-07-23 02:45] LABS: ABG Base Excess 16.6 mmol/L (-2.4-2.3); ABG HCO3 42.9 mmhg (22.0-26.0); ABG Oxygen Saturation 68 % (90-100); ABG PH 7.31 mmol/L (7.35-7.45); ABG TCO2 45.6 mmhg (23-27)
[2018-07-23 02:48] LABS: Allen's Test Acceptable; Oxygen 36 %
[2018-07-23 02:50] LABS: ABG PCO2 88.2 mmhg (35.0-45.0); ABG PO2 39.3 mmhg (80-100)
--- NOTE | 2018-07-23 04:09 | Emergency Department Note ---
ED Disposition Clinical Impression: Acute exacerbation of chronic obstructive airways disease, Healthcare- associated pneumonia Obesity Qualifiers: Obesity type: due to excess calories Obesity classification: adult class 3 (BMI >= 40) Serious obesity comorbidity presence: with serious comorbidity Body mass index: BMI 40.0-44.9 Qualified Code(s): E66.01 - Morbid (severe) obesity due to excess calories Disposition: Admitted as Observation Condition on Discharge: Serious Referrals: Provider,Referral, [Primary Care Provider] - - Critical Care Critical Care Time: No Attestation: On 07/23/18, the high probability of a clinically significant, sudden or life threatening deterioration of the following system(s) required my full and direct attention, intervention and personal management. The time I documented below is in addition to time spent performing reported procedures but includes the following listed in this critical care notation. Medical Decision Making - Medical Records Medical records reviewed: Yes: I reviewed the patient's medical records. - Yonathan Inquiry Pt receiving controlled substance: No Vital Signs: 07/23/18 02:25 07/23/18 02:39 07/23/18 04:20 Temperature 97.4 F L Temperature Source Rectal Pulse Rate [Right Brachial] 75 66 Respiratory Rate 22 18 Blood Pressure [Right Arm] 185/70 H 206/95 H Blood Pressure Mean [Right Arm] 108 132 Blood Pressure Source [Right Arm] Automatic Cuff Automatic Cuff Blood Pressure Position [Right Arm] Sitting Supine 02 Sat by Pulse Oximetry 93 L 93 L 83 L Oxygen Delivery Method Nasal Cannula Nasal Cannula Room Air Oxygen Flow Rate (LPM) 3.5 3.5 07/23/18 04:30 07/23/18 05:15 07/23/18 05:19 Temperature Temperature Source Pulse Rate [Right Brachial] 64 60 61 Respiratory Rate 18 24 22 Blood Pressure [Right Arm] 189/94 H 185/77 H Blood Pressure Mean [Right Arm] 125 113 Blood Pressure Source [Right Arm] Automatic Cuff Blood Pressure Position [Right Arm] Supine 02 Sat by Pulse Oximetry 88 L 91 L 90 L Oxygen Delivery Method BiPAP BiPAP BiPAP Oxygen Flow Rate (LPM) - Lab Data Lab results reviewed: Yes: I reviewed the patient's lab results. Lab Results 07/23/18 02:31: Specimen Source Right brachial, O2 % 36, ABG pH 7.31 L, ABG pCO2 88.2 H, ABG pO2 39.3 L, ABG HCO3 42.9 H, ABG Total CO2 45.6 H, ABG O2 Saturation 68 L*, ABG Base Excess 16.6 H, Gary Test Acceptable 07/23/18 04:30: WBC 5.3, RBC 4.21, Hgb 11.7 L, Hct 38.8, MCV 92.2, MCH 27.7, MCHC 30.1 L, RDW 18.1 H, Plt Count 100 L, MPV 7.8, Neut % (Auto) 48.5, Lymph % (Auto) 36.5, [place] % (Auto) 13.4 H, Eos % (Auto) 1.4, Baso % (Auto) 0.2, Neut # (Auto) 2.6, Lymph # (Auto) 1.9, [place] # (Auto) 0.7, Eos # (Auto) 0.1, Baso # (Auto) 0.0 07/23/18 04:30: Lactate 0.6 07/23/18 04:30: Sodium 144, Potassium 3.6, Chloride 102, Carbon Dioxide 44 H*, Anion Gap 1.6 L, BUN 4 L, Creatinine 0.68, Estimated Creat Clear 55, Estimated GFR 88, Est GFR ( Amer) 106, Glucose 114 H, Calcium 8.1 L D Result diagrams: 07/23/18 04:30 07/23/18 04:30 Orders (Tests/Meds): ED MEDICATIONS Generic Name Dose Route Start Last Admin Trade Name Freq PRN Reason Stop Dose Admin Sodium Chloride 10 ml 07/23/18 02:33 Saline Flush 10ml Syringe IV 08/22/18 02:32 NEEDED PRN Maintain IV Site Discontinued Medications Generic Name Dose Route Start Last Admin Trade Name Freq PRN Reason Stop Dose Admin Methylprednisolone Sodium Succinate 125 mg 07/23/18 04:05 07/23/18 04:05 Solu-Medrol 125mg/2ml Vial IV 07/23/18 04:06 125 mg ONCE ONE Administration ORDERS Category Date Time Status XR chest portable Stat Exams 07/23/18 02:31 Taken Blood Culture Stat Micro 07/23/18 04:30 Ordered Arterial Blood Gas Stat RT 07/23/18 02:31 Ordered - Radiology Data #1 Image(s): Chest Image Reviewed: Yes I reviewed the patient's radiology image Preliminary Findings: Abnormal (rt pleural effusion ) - ECG Data Tracing #1 Normal Sinus Rhythm: Yes Ischemic changes: non-specific ST-T wave changes Resp/SOB HPI - General Chief Complaint: Shortness of Breath/Dyspnea Stated Complaint: SOA Time Seen by Provider: 07/23/18 02:45 Mode of Arrival: EMS Source of Information: EMS, Medical Record Limitations: Physical Limitations Description of Symptoms (Recalled from ER Triage Doc. by RN): care home staff states the pt o2 stats were in the 70s. They also state she has had 4 breathing treatments today. - History of Present Illness pt sent from [facility] for dec sat and change in mental status - pt unable to give hx - MD Complaint: shortness of breath Onset (ago): hour(s) Severity: similar to previous episodes Known history of: COPD, recurrent pneumonia Associated symptoms: denies other symptoms Treatment prior to arrival: oxygen, bronchodilator - Related Data Home oxygen amount: 2 liters Home Medications Medication Instructions Recorded Confirmed Ascorbic Acid [Vitamin C] 1,000 mg PO DAILY 11/13/17 07/23/18 Aspirin [Aspirin 81mg chewable 81 mg PO DAILY 11/13/17 07/23/18 tab] Benztropine Mesylate 0.5 mg PO DAILY 11/13/17 07/23/18 Benztropine Mesylate [Cogentin 1mg 1 mg PO HS 11/13/17 07/23/18 tablet] Carvedilol [Carvedilol 25mg Tab] 25 mg PO 0800,1700 11/13/17 07/23/18 Divalproex Sodium 250 mg PO BID 11/13/17 07/23/18 Fluticasone Propionate [Flonase 1 spr NS DAILY 11/13/17 07/23/18 50mcg nasal spray 16gm] Hydrocod/Acet 5/325 mg [[place] 1 each PO TID 11/13/17 07/23/18 5/325mg tablet] Isosorbide Dinitrate [Isordil 20mg 20 mg PO TID 11/13/17 07/23/18 tablet] Lactulose [Lactulose 10gm/15ml 20 gm PO DAILY 11/13/17 07/23/18 Oral Soln] Levothyroxine Sodium 75 mcg PO DAILY 11/13/17 07/23/18 [Levothyroxine 75mcg (0.075mg) Tab] Potassium Chloride [Klor-Con 10mEq 10 meq PO DAILY 11/13/17 07/23/18 tab] Pravastatin Sodium [Pravachol] 40 mg PO HS 11/13/17 07/23/18 Sodium Chloride 3 gm PO TID 11/13/17 07/23/18 Venlafaxine HCl 75 mg PO TID 11/13/17 07/23/18 Calcium Carbonate [Tums 500mg 500 mg PO DAILY 11/14/17 07/23/18 chewtab] Polyethylene Glycol 3350 [Miralax 17 gm PO DAILY 11/14/17 07/23/18 17gm Packet] acetaminophen 500 mg capsule 500 mg PO Q4HP PRN 01/07/18 07/23/18 albuterol sulfate HFA 90 2 puff INHALATION Q4H PRN 01/07/18 07/23/18 mcg/actuation aerosol inhaler aluminum hydrox-magnesium carb 95 30 ml PO QIDP PRN ml 01/07/18 07/23/18 mg-358 mg/15 mL oral suspension phenol 1.4 % mucosal aerosol spray 2 spray MUCOUS MEM QIDP PRN ml 01/07/18 07/23/18 sennosides 8.6 mg-docusate sodium 1 tab PO BIDP PRN 01/07/18 07/23/18 50 mg tablet Furosemide [Furosemide 20mg Tab] 20 mg PO DAILYP PRN 03/28/18 07/23/18 Paliperidone Palmitate [Invega 117 mg IM MONTHLY 06/06/18 07/23/18 Sustenna] Lisinopril [Zestril 5mg 5 mg PO DAILY 06/15/18 07/23/18 Tablet] Rifaximin [Xifaxan] 550 mg PO BID 06/16/18 07/23/18 clonazePAM [Clonazepam] 0.25 mg PO TID 06/29/18 07/23/18 Cholecalciferol (Vitamin D3) 2,000 unit PO DAILY 07/13/18 07/23/18 [Vitamin D3 1,000 Unit Tab] Ondansetron HCl [Ondansetron 4mg 4 mg PO Q4HP PRN 07/13/18 07/23/18 Tablet] Propylene Glycol [Systane Balance] 1 drop EYE-BOTH BID 07/13/18 07/23/18 guaiFENesin [Robafen] 200 mg PO Q6HP PRN 07/13/18 07/23/18 Cefdinir [Omnicef 300mg Capsule] 300 mg PO BID 07/23/18 07/23/18 Ipratropium/Albuterol Sulfate 3 ml IH QIDRT 07/23/18 07/23/18 [Duoneb 3mL neb] Vancomycin HCl [Vancomycin 1000mg 1,500 mg IV Q12H 07/23/18 07/23/18 Vial] Allergies Allergy/AdvReac Type Severity Reaction Status Date / Time haloperidol [HALOPERIDOL] Allergy Unknown Unknown Verified 07/23/18 02:36 allergy reaction metronidazole [From Flagyl] Allergy Unknown Unknown Verified 07/23/18 02:36 allergy reaction molindone Allergy Unknown Unknown Verified 07/23/18 02:36 allergy reaction paroxetine Allergy Unknown Unknown Verified 07/23/18 02:36 allergy reaction Penicillins [PENICILLINS] Allergy Unknown Unknown Verified 07/23/18 02:36 allergy reaction phenacaine Allergy Unknown Unknown Verified 07/23/18 02:36 allergy reaction Sulfa (Sulfonamide Allergy Unknown Unknown Verified 07/23/18 02:36 Antibiotics) allergy reaction triazolam [From Halcion] Allergy Unknown Unknown Verified 07/23/18 02:36 allergy reaction kiwi Allergy Hives Verified 07/23/18 02:36 raspberry Allergy Hives Verified 07/23/18 02:36 [facility] History - Hepatitis A Screen Drug use history?: No High risk sexual behaviors?: No History of sexually transmitted infection?: No Currently employed?: No Childcare worker?: No Do you have indoor plumbing?: Yes Do you have electricity?: Yes Attestation statement:: This patient has been screened for Hepatitis A risk factors. I have reviewed the patient's past medical history: Yes Medical History: Reports:: Anxiety, Congestive Heart Failure, Chronic Obstructive Pulmonary Disease (COPD), Coronary Artery Disease, Heart Murmur, Hyperlipidemia, Hypertension, Myocardial Infarction Denies:: Cancer, Diabetes Mellitus Type 1, Diabetes Mellitus Type 2, Internal Pacemaker, MRSA Other Medical History: Reports: Anemia, Hypothyroidism Comment: Significant record deficit with no records from [facility] Other Surgeries: No: Pacemaker Amputation: No Fractures: No - Social History Smoking Status: Current some day smoker Tobacco Type: cigarettes Alcohol Intake: never Occupational Status: disabled Housing: [facility] Household Members: other - Psychiatric History Expresses thoughts of harming self/others: None Suicide Plan Description: No Plan Pschychiatric History:: Reports:: Anxiety Family Hx:: Unable to obtain ROS Obtained: Yes All systems reviewed & no additional complaints - Constitutional Constitutional: Denies fever(s) - Eyes Eyes: Denies change in vision - ENT Ears, Nose, Mouth, and Throat: Denies sore throat - Cardiovascular Cardiovascular: Denies chest pain - Respiratory Respiratory: Yes cough, Yes dyspnea - Gastrointestinal Gastrointestingal: Denies: abdominal pain - Genitourinary Female Genitourinary: Denies flank pain - Musculoskeletal Musculoskeletal: Denies joint swelling - Integumentary/Breasts Skin/Breast: Denies rash - Neurologic Neurologic: Denies seizure-like activity Physical Exam - General General appearance: obtunded, obese - Head Head exam: atraumatic - Eye Eye exam: Present: PERRL, EOMI - ENT ENT exam: Present: mucous membranes dry - Neck Neck exam: Present: trachea midline - Respiratory Respiratory exam: Present: other (dec bs bilat ) - Cardiovascular Cardiovascular exam: Present: regular rate, systolic murmur, +S4 - Abdominal Exam Abdominal exam: Present: soft, other (hernia noted ) - Extremities Exam Extremities exam: Present: pedal edema - Neurological Exam Neurological exam: Present: CN II-XII intact, other (no posturing or focal changes ) - Skin Skin exam: Absent: rash
[2018-07-23 04:54] LABS: Basophils % 0.2 % (0.1-2.0); Eosinophils # 0.1 K/mm3 (0.0-0.4); Eosinophils % 1.4 % (0.1-12.0); Hematocrit 38.8 % (37.0-47.0); Hemoglobin 11.7 g/dL (12.2-16.2); Lymphocytes # 1.9 K/mm3 (0.7-4.5); Lymphocytes % 36.5 % (10-50); Mean Corpuscular HGB Conc 30.1 g/dL (31.8-35.4); Mean Corpuscular Hemoglobin 27.7 pg (27.0-31.2); Mean Corpuscular Volume 92.2 fl (81-99); Mean Platelet Volume 7.8 fl (7.4-10.4); Monocytes # 0.7 K/mm3 (0.1-1.0); Monocytes % 13.4 % (1.7-9.3); Neutrophils # 2.6 K/mm3 (1.8-7.8); Neutrophils % 48.5 % (37.0-80.0); Platelet Count 100 K/mm3 (142-424); Red Blood Count 4.21 M/mm3 (4.20-5.40); Red Cell Distribution Width 18.1 % (11.5-17.5); White Blood Count 5.3 K/mm3 (4.8-10.8)
[2018-07-23 04:55] LABS: Anion Gap 1.6 mEq/L (5-15); Potassium 3.6 mmoL/L (3.5-5.1)
[2018-07-23 05:06] LABS: Calcium 8.1 mg/dL (8.5-10.1)
[2018-07-23 06:50] LABS: ABG Base Excess 13.6 mmol/L (-2.4-2.3); ABG HCO3 39.8 mmhg (22.0-26.0); ABG Oxygen Saturation 86 % (90-100); ABG PH 7.31 mmol/L (7.35-7.45); ABG TCO2 42.3 mmhg (23-27)
[2018-07-23 06:51] LABS: Oxygen 30 %
[2018-07-23 06:53] LABS: ABG PCO2 81.1 mmhg (35.0-45.0)
--- NOTE | 2018-07-23 07:37 | Pharmacy Consult Notes ---
[facility] Pharmacy VTE Monitoring - Patient Demographics Admission date: 07/23/18 Report Date: 07/23/18 Time: 07:37 Allergies/Adverse Reactions: Patient Allergies haloperidol [HALOPERIDOL] Allergy (Unknown, Verified 07/23/18 02:36) Unknown allergy reaction metronidazole [From Flagyl] Allergy (Unknown, Verified 07/23/18 02:36) Unknown allergy reaction molindone Allergy (Unknown, Verified 07/23/18 02:36) Unknown allergy reaction paroxetine Allergy (Unknown, Verified 07/23/18 02:36) Unknown allergy reaction Penicillins [PENICILLINS] Allergy (Unknown, Verified 07/23/18 02:36) Unknown allergy reaction phenacaine Allergy (Unknown, Verified 07/23/18 02:36) Unknown allergy reaction Sulfa (Sulfonamide Antibiotics) Allergy (Unknown, Verified 07/23/18 02:36) Unknown allergy reaction triazolam [From Halcion] Allergy (Unknown, Verified 07/23/18 02:36) Unknown allergy reaction kiwi Allergy (Verified 07/23/18 02:36) Hives raspberry Allergy (Verified 07/23/18 02:36) Hives Height: 1.7 m Weight: 113.568 kg Patient Problems: Current Active Problems Acute exacerbation of chronic obstructive airways disease (Acute) Obesity (Acute) HCAP (healthcare-associated pneumonia) (Acute) - VTE Risk Labs: VTE Related Lab Results Hgb 11.7 g/dL (12.2-16.2) L 07/23/18 04:30 Hct 38.8 % (37.0-47.0) 07/23/18 04:30 Plt Count 100 K/mm3 (142-424) L 07/23/18 04:30 BUN 4 mg/dL (7-18) L 07/23/18 04:30 Creatinine 0.68 mg/dL (0.55-1.02) 07/23/18 04:30 Estimated Creat Clear 55 mL/min (50-200) 07/23/18 04:30 - Prophylaxis VTE Prophylaxis Ordered?: Yes Types of VTE Prophylaxis: TEDS Knee High Location of Applied Device: Bilateral Lower Extremeties - VTE Diagnosis Confirmed Treatment or plan recommended: Continue Current Treatment
--- NOTE | 2018-07-23 08:33 | History & Physical Report ---
*Admission Date: 07/23/18 *Chief complaint: sob *History of present illness: this wf from [facility] with several admits for change in mental status and sob with low sats presents for eval in ed with similiar presentation - pt was found to have elevated co2 and low o2 and effusion on cxr - she has pic line for iv abx - vancomycin - pt was admitted for resp care and eval of abn cxr - pt was obtunded and unable to give hx [facility] History I have reviewed the patient's past medical history: Yes Medical History: Reports:: Anxiety, Congestive Heart Failure, Chronic Obstructive Pulmonary Disease (COPD), Coronary Artery Disease, Heart Murmur, Hyperlipidemia, Hypertension, Myocardial Infarction Denies:: Cancer, Diabetes Mellitus Type 1, Diabetes Mellitus Type 2, Internal Pacemaker, MRSA Other Medical History: Reports: Anemia, Hypothyroidism Other Surgeries: No: Pacemaker Amputation: No Fractures: No - *Social History Smoking Status: Current some day smoker Tobacco Type: cigarettes Alcohol Intake: never Occupational Status: disabled Housing: custodial Household Members: other - Psychiatric History Expresses thoughts of harming self/others: None Suicide Plan Description: No Plan Pschychiatric History:: Reports:: Anxiety *Family Hx:: Unable to obtain Review of Systems - Review of Systems Review of systems:: pertinent systems reviewed and negative unless documented below - Constitutional Denies fever(s) - Eyes Denies change in vision - ENT Denies dizziness - *Cardiovascular Reports shortness of breath - *Respiratory Reports shortness of breath, Denies cough, Denies coughing up blood - *Gastrointestinal Denies abdominal pain - *Genitourinary Denies blood in urine - *Musculoskeletal Denies neck pain - Integumentary/Breasts Denies redness - *Neurologic Reports confusion, Denies seizure-like activity, Denies seizure-like activity - Psychiatric Reports anxiety Meds Home Medications Medication Instructions Recorded Confirmed Type Ascorbic Acid [Vitamin C] 1,000 mg PO DAILY 11/13/17 07/23/18 History Aspirin [Aspirin 81mg chewable 81 mg PO DAILY 11/13/17 07/23/18 History tab] Benztropine Mesylate 0.5 mg PO DAILY 11/13/17 07/23/18 History Benztropine Mesylate [Cogentin 1mg 1 mg PO HS 11/13/17 07/23/18 History tablet] Carvedilol [Carvedilol 25mg Tab] 25 mg PO 0800,1700 11/13/17 07/23/18 History Divalproex Sodium 250 mg PO BID 11/13/17 07/23/18 History Fluticasone Propionate [Flonase 1 spr NS DAILY 11/13/17 07/23/18 History 50mcg nasal spray 16gm] Hydrocod/Acet 5/325 mg [[place] 1 each PO TID 11/13/17 07/23/18 History 5/325mg tablet] Isosorbide Dinitrate [Isordil 20mg 20 mg PO TID 11/13/17 07/23/18 History tablet] Lactulose [Lactulose 10gm/15ml 20 gm PO DAILY 11/13/17 07/23/18 History Oral Soln] Levothyroxine Sodium 75 mcg PO DAILY 11/13/17 07/23/18 History [Levothyroxine 75mcg (0.075mg) Tab] Potassium Chloride [Klor-Con 10mEq 10 meq PO DAILY 11/13/17 07/23/18 History tab] Pravastatin Sodium [Pravachol] 40 mg PO HS 11/13/17 07/23/18 History Sodium Chloride 3 gm PO TID 11/13/17 07/23/18 History Venlafaxine HCl 75 mg PO TID 11/13/17 07/23/18 History Calcium Carbonate [Tums 500mg 500 mg PO DAILY 11/14/17 07/23/18 History chewtab] Polyethylene Glycol 3350 [Miralax 17 gm PO DAILY 11/14/17 07/23/18 History 17gm Packet] albuterol sulfate HFA 90 2 puff INHALATION Q4H PRN 01/07/18 07/23/18 History mcg/actuation aerosol inhaler aluminum hydrox-magnesium carb 95 30 ml PO QIDP PRN ml 01/07/18 07/23/18 History mg-358 mg/15 mL oral suspension phenol 1.4 % mucosal aerosol spray 2 spray MUCOUS MEM QIDP PRN ml 01/07/18 07/23/18 History sennosides 8.6 mg-docusate sodium 1 tab PO BIDP PRN 01/07/18 07/23/18 History 50 mg tablet Furosemide [Furosemide 20mg Tab] 20 mg PO DAILYP PRN 03/28/18 07/23/18 History Lisinopril [Zestril 5mg 5 mg PO DAILY 06/15/18 07/23/18 History Tablet] Rifaximin [Xifaxan] 550 mg PO BID 06/16/18 07/23/18 History clonazePAM [Clonazepam] 0.25 mg PO TID 06/29/18 07/23/18 History Cholecalciferol (Vitamin D3) 2,000 unit PO DAILY 07/13/18 07/23/18 History [Vitamin D3 1,000 Unit Tab] Ondansetron HCl [Ondansetron 4mg 4 mg PO Q4HP PRN 07/13/18 07/23/18 History Tablet] Propylene Glycol [Systane Balance] 1 drop EYE-BOTH BID 07/13/18 07/23/18 History guaiFENesin [Robafen] 200 mg PO Q6HP PRN 07/13/18 07/23/18 History Cefdinir [Omnicef 300mg Capsule] 300 mg PO BID 07/23/18 07/23/18 History Docusate Sodium [Colace Clear] 50 mg PO BID PRN 07/23/18 07/23/18 History Ipratropium/Albuterol Sulfate 3 ml IH QIDRT 07/23/18 07/23/18 History [Duoneb 3mL neb] Allergies Allergy/AdvReac Type Severity Reaction Status Date / Time haloperidol [HALOPERIDOL] Allergy Unknown Unknown Verified 07/23/18 02:36 allergy reaction metronidazole [From Flagyl] Allergy Unknown Unknown Verified 07/23/18 02:36 allergy reaction molindone Allergy Unknown Unknown Verified 07/23/18 02:36 allergy reaction paroxetine Allergy Unknown Unknown Verified 07/23/18 02:36 allergy reaction Penicillins [PENICILLINS] Allergy Unknown Unknown Verified 07/23/18 02:36 allergy reaction phenacaine Allergy Unknown Unknown Verified 07/23/18 02:36 allergy reaction Sulfa (Sulfonamide Allergy Unknown Unknown Verified 07/23/18 02:36 Antibiotics) allergy reaction triazolam [From Halcion] Allergy Unknown Unknown Verified 07/23/18 02:36 allergy reaction kiwi Allergy Hives Verified 07/23/18 02:36 raspberry Allergy Hives Verified 07/23/18 02:36 Exam Vital signs and Labs for Last 24 Hours: Temp Pulse Resp BP Pulse Ox 97.2 F L 65 22 166/98 H 90 L 07/23/18 08:00 07/23/18 08:00 07/23/18 08:00 07/23/18 08:00 07/23/18 08:00 Laboratory Results - last 24 hr 07/23/18 02:31: Specimen Source Right brachial, O2 % 36, ABG pH 7.31 L, ABG pCO2 88.2 H, ABG pO2 39.3 L, ABG HCO3 42.9 H, ABG Total CO2 45.6 H, ABG O2 Saturation 68 L*, ABG Base Excess 16.6 H, Gary Test Acceptable 07/23/18 04:30: WBC 5.3, RBC 4.21, Hgb 11.7 L, Hct 38.8, MCV 92.2, MCH 27.7, MCHC 30.1 L, RDW 18.1 H, Plt Count 100 L, MPV 7.8, Neut % (Auto) 48.5, Lymph % (Auto) 36.5, [place] % (Auto) 13.4 H, Eos % (Auto) 1.4, Baso % (Auto) 0.2, Neut # (Auto) 2.6, Lymph # (Auto) 1.9, [place] # (Auto) 0.7, Eos # (Auto) 0.1, Baso # (Auto) 0.0 07/23/18 04:30: Lactate 0.6 07/23/18 04:30: Sodium 144, Potassium 3.6, Chloride 102, Carbon Dioxide 44 H*, Anion Gap 1.6 L, BUN 4 L, Creatinine 0.68, Estimated Creat Clear 55, Estimated GFR 88, Est GFR ( Amer) 106, Glucose 114 H, Calcium 8.1 L D 07/23/18 06:48: Specimen Source R brachial, O2 % 30, ABG pH 7.31 L, ABG pCO2 81.1 H, ABG pO2 57.0 L, ABG HCO3 39.8 H, ABG Total CO2 42.3 H, ABG O2 Saturation 86 L*, ABG Base Excess 13.6 H, Vent Rate 18/6 I & O for Last 24 hours: Intake & Output 07/20/18 07/21/18 07/22/18 07/23/18 11:59 11:59 11:59 11:59 Weight 250 lb 6 oz - Constitutional moderate distress, obese - *Routine HEENT Exam Head: Present: normocephalic Eye: Present: EOMI, PERRL ENT: Present: mucous membranes dry - *Routine Neck Exam Absent: JVD - *Routine Respiratory Exam Present: decreased breath sounds, wheezes. Absent: respiratory distress - *Routine Cardiovascular Exam Present: RRR, murmur, S4 - *Routine Abdominal Exam Present: soft - *Routine Extremities Exam Present: edema - *Routine Skin Exam Present: intact - *Routine Neurological Exam Present: altered mental status - Routine Psychiatric Exam Present: unable to assess Assessment and Plan (1) Acute exacerbation of chronic obstructive airways disease Current visit: Yes Status: Acute Category: Medical Code(s): J44.1 - Chronic obstructive pulmonary disease with (acute) exacerbation (2) Respiratory insufficiency Current visit: No Status: Acute Category: Medical Code(s): R06.89 - Other abnormalities of breathing (3) Obesity (BMI 30-39.9) Current visit: Yes Status: Acute Category: Medical Code(s): E66.9 - Obesity, unspecified
--- NOTE | 2018-07-23 10:16 | Pharmacy Consult Notes ---
- Pharmacy Consult Date: 07/23/18 Time: 10:15 Referring provider: DR. BARRETT Reason for Consult:: VANCOMYCIN DOSING Allergies and ADEs:: Allergies Allergy/AdvReac Type Severity Reaction Status Date / Time haloperidol [HALOPERIDOL] Allergy Unknown Unknown Verified 07/23/18 02:36 allergy reaction metronidazole [From Flagyl] Allergy Unknown Unknown Verified 07/23/18 02:36 allergy reaction molindone Allergy Unknown Unknown Verified 07/23/18 02:36 allergy reaction paroxetine Allergy Unknown Unknown Verified 07/23/18 02:36 allergy reaction Penicillins [PENICILLINS] Allergy Unknown Unknown Verified 07/23/18 02:36 allergy reaction phenacaine Allergy Unknown Unknown Verified 07/23/18 02:36 allergy reaction Sulfa (Sulfonamide Allergy Unknown Unknown Verified 07/23/18 02:36 Antibiotics) allergy reaction triazolam [From Halcion] Allergy Unknown Unknown Verified 07/23/18 02:36 allergy reaction kiwi Allergy Hives Verified 07/23/18 02:36 raspberry Allergy Hives Verified 07/23/18 02:36 Home Medications:: Home Medications Medication Instructions Recorded Confirmed Type Ascorbic Acid [Vitamin C] 1,000 mg PO DAILY 11/13/17 07/23/18 History Aspirin [Aspirin 81mg chewable 81 mg PO DAILY 11/13/17 07/23/18 History tab] Benztropine Mesylate 0.5 mg PO DAILY 11/13/17 07/23/18 History Benztropine Mesylate [Cogentin 1mg 1 mg PO HS 11/13/17 07/23/18 History tablet] Carvedilol [Carvedilol 25mg Tab] 25 mg PO 0800,1700 11/13/17 07/23/18 History Divalproex Sodium 250 mg PO BID 11/13/17 07/23/18 History Fluticasone Propionate [Flonase 1 spr NS DAILY 11/13/17 07/23/18 History 50mcg nasal spray 16gm] Hydrocod/Acet 5/325 mg [[place] 1 each PO TID 11/13/17 07/23/18 History 5/325mg tablet] Isosorbide Dinitrate [Isordil 20mg 20 mg PO TID 11/13/17 07/23/18 History tablet] Lactulose [Lactulose 10gm/15ml 20 gm PO DAILY 11/13/17 07/23/18 History Oral Soln] Levothyroxine Sodium 75 mcg PO DAILY 11/13/17 07/23/18 History [Levothyroxine 75mcg (0.075mg) Tab] Potassium Chloride [Klor-Con 10mEq 10 meq PO DAILY 11/13/17 07/23/18 History tab] Pravastatin Sodium [Pravachol] 40 mg PO HS 11/13/17 07/23/18 History Sodium Chloride 3 gm PO TID 11/13/17 07/23/18 History Venlafaxine HCl 75 mg PO TID 11/13/17 07/23/18 History Calcium Carbonate [Tums 500mg 500 mg PO DAILY 11/14/17 07/23/18 History chewtab] Polyethylene Glycol 3350 [Miralax 17 gm PO DAILY 11/14/17 07/23/18 History 17gm Packet] albuterol sulfate HFA 90 2 puff INHALATION Q4H PRN 01/07/18 07/23/18 History mcg/actuation aerosol inhaler aluminum hydrox-magnesium carb 95 30 ml PO QIDP PRN ml 01/07/18 07/23/18 History mg-358 mg/15 mL oral suspension phenol 1.4 % mucosal aerosol spray 2 spray MUCOUS MEM QIDP PRN ml 01/07/18 07/23/18 History sennosides 8.6 mg-docusate sodium 1 tab PO BIDP PRN 01/07/18 07/23/18 History 50 mg tablet Furosemide [Furosemide 20mg Tab] 20 mg PO DAILYP PRN 03/28/18 07/23/18 History Lisinopril [Zestril 5mg 5 mg PO DAILY 06/15/18 07/23/18 History Tablet] Rifaximin [Xifaxan] 550 mg PO BID 06/16/18 07/23/18 History clonazePAM [Clonazepam] 0.25 mg PO TID 06/29/18 07/23/18 History Cholecalciferol (Vitamin D3) 2,000 unit PO DAILY 07/13/18 07/23/18 History [Vitamin D3 1,000 Unit Tab] Ondansetron HCl [Ondansetron 4mg 4 mg PO Q4HP PRN 07/13/18 07/23/18 History Tablet] Propylene Glycol [Systane Balance] 1 drop EYE-BOTH BID 07/13/18 07/23/18 History guaiFENesin [Robafen] 200 mg PO Q6HP PRN 07/13/18 07/23/18 History Cefdinir [Omnicef 300mg Capsule] 300 mg PO BID 07/23/18 07/23/18 History Docusate Sodium [Colace Clear] 50 mg PO BID PRN 07/23/18 07/23/18 History Ipratropium/Albuterol Sulfate 3 ml IH QIDRT 07/23/18 07/23/18 History [Duoneb 3mL neb] Height: 1.7 m Weight: 113.568 kg Laboratory Results:: Laboratory Results - last 24 hr 07/23/18 02:31: Specimen Source Right brachial, O2 % 36, ABG pH 7.31 L, ABG pCO2 88.2 H, ABG pO2 39.3 L, ABG HCO3 42.9 H, ABG Total CO2 45.6 H, ABG O2 Saturation 68 L*, ABG Base Excess 16.6 H, Gary Test Acceptable 07/23/18 04:30: WBC 5.3, RBC 4.21, Hgb 11.7 L, Hct 38.8, MCV 92.2, MCH 27.7, MCHC 30.1 L, RDW 18.1 H, Plt Count 100 L, MPV 7.8, Neut % (Auto) 48.5, Lymph % (Auto) 36.5, [place] % (Auto) 13.4 H, Eos % (Auto) 1.4, Baso % (Auto) 0.2, Neut # (Auto) 2.6, Lymph # (Auto) 1.9, Pierce # (Auto) 0.7, Eos # (Auto) 0.1, Baso # (Auto) 0.0 07/23/18 04:30: Lactate 0.6 07/23/18 04:30: Sodium 144, Potassium 3.6, Chloride 102, Carbon Dioxide 44 H*, Anion Gap 1.6 L, BUN 4 L, Creatinine 0.68, Estimated Creat Clear 55, Estimated GFR 88, Est GFR ( Amer) 106, Glucose 114 H, Calcium 8.1 L D 07/23/18 06:48: Specimen Source R brachial, O2 % 30, ABG pH 7.31 L, ABG pCO2 81.1 H, ABG pO2 57.0 L, ABG HCO3 39.8 H, ABG Total CO2 42.3 H, ABG O2 Saturation 86 L*, ABG Base Excess 13.6 H, Vent Rate 18/6 Medical History: Reports:: Anxiety, Congestive Heart Failure, Chronic Obstructive Pulmonary Disease (COPD), Coronary Artery Disease, Heart Murmur, Hyperlipidemia, Hypertension, Myocardial Infarction Denies:: Cancer, Diabetes Mellitus Type 1, Diabetes Mellitus Type 2, Internal Pacemaker, MRSA Assessment and Plan - Assessment and plan all Dx Assessment and Plan for all problems:: BASED ON PATIENT'S FACTORS, RECOMMEND CONTINUING WITH VANCOMYCIN 1500 MG Q12H AT THIS TIME. [facility] WILL FOLLOW DAILY AND ADJUST APPROPRIATE. LUCA VELASQUEZ, PHARMD
[2018-07-23 13:28] LABS: ABG Base Excess 17.3 mmol/L (-2.4-2.3); ABG Oxygen Saturation 92 % (90-100); ABG PH 7.47 mmol/L (7.35-7.45); ABG PO2 61.3 mmhg (80-100); ABG TCO2 42.8 mmhg (23-27)
[2018-07-23 13:29] LABS: Oxygen 35% %
[2018-07-23 13:30] LABS: ABG PCO2 58.2 mmhg (35.0-45.0)
[2018-07-23 19:51] LABS: ABG Base Excess 18.5 mmol/L (-2.4-2.3); ABG HCO3 43.7 mmhg (22.0-26.0); ABG Oxygen Saturation 87 % (90-100); ABG PH 7.37 mmol/L (7.35-7.45); ABG PO2 56.9 mmhg (80-100); ABG TCO2 46.1 mmhg (23-27)
[2018-07-23 19:57] LABS: Allen's Test Acceptable; Oxygen 35 %
[2018-07-23 19:59] LABS: ABG PCO2 76.7 mmhg (35.0-45.0)
[2018-07-24 06:11] LABS: Basophils % 0.2 % (0.1-2.0); Eosinophils % 0.1 % (0.1-12.0); Hematocrit 37.6 % (37.0-47.0); Hemoglobin 11.5 g/dL (12.2-16.2); Lymphocytes % 22.8 % (10-50); Mean Corpuscular HGB Conc 30.5 g/dL (31.8-35.4); Mean Corpuscular Hemoglobin 27.6 pg (27.0-31.2); Mean Corpuscular Volume 90.6 fl (81-99); Mean Platelet Volume 7.9 fl (7.4-10.4); Monocytes # 1.1 K/mm3 (0.1-1.0); Neutrophils # 5.5 K/mm3 (1.8-7.8); Neutrophils % 63.9 % (37.0-80.0); Platelet Count 114 K/mm3 (142-424); Red Blood Count 4.16 M/mm3 (4.20-5.40); Red Cell Distribution Width 18.2 % (11.5-17.5); White Blood Count 8.6 K/mm3 (4.8-10.8)
[2018-07-24 06:27] LABS: Anion Gap 6.4 mEq/L (5-15); Potassium 3.4 mmoL/L (3.5-5.1)
--- NOTE | 2018-07-24 13:04 | Discharge Summary ---
General - General Admission date:: 07/23/18 Discharge date: 07/24/18 HPI HPI: this [facility]f from [facility] with several admits for change in mental status and sob with low sats presents for eval in ed with similiar presentation - pt was found to have elevated co2 and low o2 and effusion on cxr - she has pic line for iv abx - vancomycin - pt was admitted for resp care and eval of abn cxr - pt was obtunded and unable to give hx Hospital Course Hospital Course: CHEST X RAY--IMPRESSION We again see the right pleural effusion- extending up to the level of right [place]. . It is no larger. & If anything it appears less pronounced, & slightly smaller today versus yesterday,- with the better expansion of the right upper lobe today. Today patient sitting up asking to be discharged back home. Patient alert and oriented. Patient is asking that Vapotherm be discontinued so she can have her oxygen back. Patient will be discharged back to [facility] with continuing vancomycin therapy. Patient's chest x-ray today had improved slightly. Patient is to not have oxygen turned above 2 L. Patient is normally has a low oxygen saturation she is a CO2 retainer so increasing her oxygen will not help patient. Patient will be seen on on senior care rounds. Needs an outpatient appointment with Dr. Landeros. Objective Vital signs: Temp Pulse Resp BP Pulse Ox 98.3 F 59 L 22 147/63 H 85 L 07/24/18 11:41 07/24/18 11:41 07/24/18 11:41 07/24/18 11:41 07/24/18 11:41 - *Routine HEENT Exam Head: Present: normocephalic Eye: Present: PERRL ENT: Present: mucous membranes moist - *Routine Neck Exam Present: full ROM - *Routine Respiratory Exam Present: wheezes, diminished air movement - *Routine Cardiovascular Exam Present: RRR - *Routine Abdominal Exam Present: soft, normoactive bowel sounds, hernia - *Routine Extremities Exam Present: full ROM - *Routine Skin Exam Present: erythema, rash, ecchymosis Comments: Red rash between skin folds. - *Routine Neurological Exam Present: alert, oriented X3 - Routine Psychiatric Exam Present: normal affect Results Labs on day of discharge: Labs from last 24 hours 07/24/18 07/24/18 07/23/18 05:50 05:50 19:45 WBC 8.6 D RBC 4.16 L Hgb 11.5 L Hct 37.6 MCV 90.6 MCH 27.6 MCHC 30.5 L RDW 18.2 H Plt Count 114 L MPV 7.9 Neut % (Auto) 63.9 Lymph % (Auto) 22.8 [place] % (Auto) 13.0 H Eos % (Auto) 0.1 Baso % (Auto) 0.2 Neut # (Auto) 5.5 Lymph # (Auto) 2.0 [place] # (Auto) 1.1 H Eos # (Auto) 0.0 Baso # (Auto) 0.0 Specimen Source O2 % ABG pH ABG pCO2 ABG pO2 ABG HCO3 ABG Total CO2 ABG O2 Saturation ABG Base Excess Gary Test Sodium 144 Potassium 3.4 L Chloride 98 Carbon Dioxide 43 H* Anion Gap 6.4 BUN 9 D Creatinine 0.81 Estimated Creat Clear 106 Estimated GFR 72 Est GFR ( Amer) 87 Glucose 106 Calcium 8.0 L Total Creatine Kinase 73 CK-MB (CK-2) 1.2 D CK-MB (CK-2) Rel Index 1.6 Troponin I 0.06 07/23/18 07/23/18 19:31 13:00 WBC RBC Hgb Hct MCV MCH MCHC RDW Plt Count MPV Neut % (Auto) Lymph % (Auto) [place] % (Auto) Eos % (Auto) Baso % (Auto) Neut # (Auto) Lymph # (Auto) [place] # (Auto) Eos # (Auto) Baso # (Auto) Specimen Source Left brachial R brachial O2 % 35 35% ABG pH 7.37 7.47 H ABG pCO2 76.7 H 58.2 H ABG pO2 56.9 L 61.3 L ABG HCO3 43.7 H 41.0 H ABG Total CO2 46.1 H 42.8 H ABG O2 Saturation 87 L* 92 ABG Base Excess 18.5 H 17.3 H Gary Test Acceptable Sodium Potassium Chloride Carbon Dioxide Anion Gap BUN Creatinine Estimated Creat Clear Estimated GFR Est GFR ( Amer) Glucose Calcium Total Creatine Kinase CK-MB (CK-2) CK-MB (CK-2) Rel Index Troponin I - Additional Comments Rounded with Dr. Archibald all orders per Dragan Patient really needs to wear CPAP but refuses to wear CPAP or Vapotherm or BiPAP. DS: Diagnosis - Discharge Diagnosis (1) Acute exacerbation of chronic obstructive airways disease Status: Acute (2) Respiratory insufficiency Status: Acute (3) Obesity (BMI 30-39.9) Status: Acute Discharge Plan - Patient Discharge Instructions ACTIVITY: Continue current activity DIET: continue same diet - Follow up Plan Follow up with: Clay Phipps APRN [Advanced Practice Nurse] - 07/31/18 Earnest Landeros MD [Consulting Physician] - Disposition: Xfer [facility] Home Medications: Home Medications Medication Instructions Recorded Confirmed Type Ascorbic Acid [Vitamin C] 1,000 mg PO DAILY 11/13/17 07/23/18 History Aspirin [Aspirin 81mg chewable 81 mg PO DAILY 11/13/17 07/23/18 History tab] Benztropine Mesylate 0.5 mg PO DAILY 11/13/17 07/23/18 History Benztropine Mesylate [Cogentin 1mg 1 mg PO HS 11/13/17 07/23/18 History tablet] Carvedilol [Carvedilol 25mg Tab] 25 mg PO 0800,1700 11/13/17 07/23/18 History Divalproex Sodium 250 mg PO BID 11/13/17 07/23/18 History Fluticasone Propionate [Flonase 1 spr NS DAILY 11/13/17 07/23/18 History 50mcg nasal spray 16gm] Hydrocod/Acet 5/325 mg [[place] 1 each PO TID 11/13/17 07/23/18 History 5/325mg tablet] Isosorbide Dinitrate [Isordil 20mg 20 mg PO TID 11/13/17 07/23/18 History tablet] Lactulose [Lactulose 10gm/15ml 20 gm PO DAILY 11/13/17 07/23/18 History Oral Soln] Levothyroxine Sodium 75 mcg PO DAILY 11/13/17 07/23/18 History [Levothyroxine 75mcg (0.075mg) Tab] Potassium Chloride [Klor-Con 10mEq 10 meq PO DAILY 11/13/17 07/23/18 History tab] Pravastatin Sodium [Pravachol] 40 mg PO HS 11/13/17 07/23/18 History Sodium Chloride 3 gm PO TID 11/13/17 07/23/18 History Venlafaxine HCl 75 mg PO TID 11/13/17 07/23/18 History Calcium Carbonate [Tums 500mg 500 mg PO DAILY 11/14/17 07/23/18 History chewtab] Polyethylene Glycol 3350 [Miralax 17 gm PO DAILY 11/14/17 07/23/18 History 17gm Packet] albuterol sulfate HFA 90 2 puff INHALATION Q4H PRN 01/07/18 07/23/18 History mcg/actuation aerosol inhaler aluminum hydrox-magnesium carb 95 30 ml PO QIDP PRN ml 01/07/18 07/23/18 History mg-358 mg/15 mL oral suspension phenol 1.4 % mucosal aerosol spray 2 spray MUCOUS MEM QIDP PRN ml 01/07/18 07/23/18 History sennosides 8.6 mg-docusate sodium 1 tab PO BIDP PRN 01/07/18 07/23/18 History 50 mg tablet Furosemide [Furosemide 20mg Tab] 20 mg PO DAILYP PRN 03/28/18 07/23/18 History Lisinopril [Zestril 5mg 5 mg PO DAILY 06/15/18 07/23/18 History Tablet] Rifaximin [Xifaxan] 550 mg PO BID 06/16/18 07/23/18 History clonazePAM [Clonazepam] 0.25 mg PO TID 06/29/18 07/23/18 History Cholecalciferol (Vitamin D3) 2,000 unit PO DAILY 07/13/18 07/23/18 History [Vitamin D3 1,000 Unit Tab] Ondansetron HCl [Ondansetron 4mg 4 mg PO Q4HP PRN 07/13/18 07/23/18 History Tablet] Propylene Glycol [Systane Balance] 1 drop EYE-BOTH BID 07/13/18 07/23/18 History guaiFENesin [Robafen] 200 mg PO Q6HP PRN 07/13/18 07/23/18 History Cefdinir [Omnicef 300mg Capsule] 300 mg PO BID 07/23/18 07/23/18 History Docusate Sodium [Colace Clear] 50 mg PO BID PRN 07/23/18 07/23/18 History Ipratropium/Albuterol Sulfate 3 ml IH QIDRT 07/23/18 07/23/18 History [Duoneb 3mL neb] Prescriptions/Medication Reconciliation: Continue sennosides 8.6 mg-docusate sodium 50 mg tablet 1 tab PO BIDP PRN PRN Reason: Constipation aluminum hydrox-magnesium carb 95 mg-358 mg/15 mL oral suspension 30 ml PO QIDP PRN ml PRN Reason: UPSET STOMACH albuterol sulfate HFA 90 mcg/actuation aerosol inhaler 2 puff INHALATION Q4H PRN PRN Reason: breathing phenol 1.4 % mucosal aerosol spray 2 spray MUCOUS MEM QIDP PRN ml PRN Reason: sore throat Pravastatin Sodium [Pravachol] 40 mg PO HS Potassium Chloride [Klor-Con 10mEq tab] 10 meq PO DAILY Fluticasone Propionate [Flonase 50mcg nasal spray 16gm] 1 spr NS DAILY Divalproex Sodium 250 mg PO BID Carvedilol [Carvedilol 25mg Tab] 25 mg PO 0800,1700 Benztropine Mesylate 0.5 mg PO DAILY Benztropine Mesylate [Cogentin 1mg tablet] 1 mg PO HS Aspirin [Aspirin 81mg chewable tab] 81 mg PO DAILY Sodium Chloride 3 gm PO TID Ascorbic Acid [Vitamin C] 1,000 mg PO DAILY Polyethylene Glycol 3350 [Miralax 17gm Packet] 17 gm PO DAILY Furosemide [Furosemide 20mg Tab] 20 mg PO DAILYP PRN PRN Reason: FLUID RETENTION/SWELLING clonazePAM [Clonazepam] 0.25 mg PO TID Cholecalciferol (Vitamin D3) [Vitamin D3 1,000 Unit Tab] 2,000 unit PO DAILY Propylene Glycol [Systane Balance] 1 drop EYE-BOTH BID guaiFENesin [Robafen] 200 mg PO Q6HP PRN PRN Reason: Cough Cefdinir [Omnicef 300mg Capsule] 300 mg PO BID Ipratropium/Albuterol Sulfate [Duoneb 3mL neb] 3 ml IH QIDRT Hydrocod/Acet 5/325 mg [[place] 5/325mg tablet] 1 each PO TID Isosorbide Dinitrate [Isordil 20mg tablet] 20 mg PO TID Lactulose [Lactulose 10gm/15ml Oral Soln] 20 gm PO DAILY Levothyroxine Sodium [Levothyroxine 75mcg (0.075mg) Tab] 75 mcg PO DAILY Venlafaxine HCl 75 mg PO TID Calcium Carbonate [Tums 500mg chewtab] 500 mg PO DAILY Lisinopril [Zestril 5mg Tablet] 5 mg PO DAILY Rifaximin [Xifaxan] 550 mg PO BID Ondansetron HCl [Ondansetron 4mg Tablet] 4 mg PO Q4HP PRN PRN Reason: Nausea And Vomiting Docusate Sodium [Colace Clear] 50 mg PO BID PRN PRN Reason: Constipation
== END 2018-07-24 16:28 | DRG 191 ==
LOC: ER 02:24 → 2ND 05:22
PROVIDERS: ADMIT Emergency Medicine; ATTEND Emergency Medicine
CPT/HCPCS: 36415; 71010; 71045; 80048; 80202; 82550; 82553; 82803; 83605; 84484; 85025; 87040; 93005; 94640; 94760; 94761; 96365; 96375; 99285; J3370

== ENCOUNTER → 2018-07-25 19:50 | Outpatient (REF) | payer MEDICAID, SELFPAY | LOC: LAB 19:50 | PROVIDERS: Visit Provider Emergency Medicine | DX: J44.1 Chronic obstructive pulmonary disease with (acute) exacerbation (principal) | CPT/HCPCS: 80202 ==

== ENCOUNTER 2018-07-27 01:32 | Inpatient (IN) ==
--- NOTE | 2018-07-27 01:49 | Emergency Department Note ---
ED Disposition Clinical Impression: Pleural effusion, right, Healthcare-associated pneumonia Acute and chronic respiratory failure Qualifiers: Respiratory failure complication: hypoxia and hypercapnia Qualified Code(s): J96.21 - Acute and chronic respiratory failure with hypoxia Disposition: Still a Patient Condition on Discharge: Serious - Critical Care Critical Care Time: Yes Attestation: On 07/27/18, the high probability of a clinically significant, sudden or life threatening deterioration of the following system(s) required my full and direct attention, intervention and personal management. The time I documented below is in addition to time spent performing reported procedures but includes the following listed in this critical care notation. Total Critical Care Time: 40 Vital system(s) involved:: Respiratory Failure My critical care processes included: Assessment & monitoring of V/S, Initial and Re-exams, Data Review/Interpretation, Coordinating Care, Medication Orders and management, Documentation Medical Decision Making - Yonathan Inquiry Pt receiving controlled substance: No Vital Signs: 07/27/18 01:33 07/27/18 03:39 07/27/18 03:59 Temperature 99.4 F Temperature Source Rectal Pulse Rate [Right Brachial] 89 68 Respiratory Rate 26 H 22 Blood Pressure [Right Arm] 160/70 H 100/45 L Blood Pressure Mean [Right Arm] 100 63 Blood Pressure Source [Right Arm] Automatic Cuff Automatic Cuff Blood Pressure Position [Right Arm] Sitting Sitting 02 Sat by Pulse Oximetry 96 96 Oxygen Delivery Method Non-Rebreather BiPAP BiPAP - Lab Data Lab Results 07/27/18 02:02: Specimen Source R/r, O2 % 4, ABG pH 7.25 L, ABG pCO2 120.1 H, ABG pO2 66.2 L, ABG HCO3 51.0 H, ABG Total CO2 54.7 H, ABG O2 Saturation 90, ABG Base Excess 23.7 H, Gary Test Y 07/27/18 02:20: WBC 9.2, RBC 3.85 L, Hgb 10.7 L, Hct 35.9 L, MCV 93.5, MCH 27.9, MCHC 29.9 L, RDW 17.9 H, Plt Count 93 L, MPV 7.1 L, Neut % (Auto) 67.6, Lymph % (Auto) 22.6, [place] % (Auto) 8.7, Eos % (Auto) 0.8, Baso % (Auto) 0.3, Neut # (Auto) 6.3, Lymph # (Auto) 2.1, [place] # (Auto) 0.8, Eos # (Auto) 0.1, Baso # (Auto) 0.0 07/27/18 02:20: Sodium 150 H, Potassium 3.3 L, Chloride 107, Carbon Dioxide 46 H*, Anion Gap 0.3 L, BUN 8, Creatinine 1.49 H D, Estimated Creat Clear 76, Estimated GFR 35 L, Est GFR ( Amer) 43 L D, Glucose 109 H, Calcium 8.2 L, Total Bilirubin 0.6, AST 37, ALT 41, Alkaline Phosphatase 146 H, Total Protein 6.2 L, Albumin 2.2 L, Globulin 4.0 H, Albumin/Globulin Ratio 0.6 L, TSH 0.92, Free T4 Index 1.1 L, Thyroxine (T4) 2.9 L, T3 Uptake 38 07/27/18 02:20: Lactate 0.9 Result diagrams: 07/27/18 02:20 07/27/18 02:20 Orders (Tests/Meds): ED MEDICATIONS Generic Name Dose Route Start Last Admin Trade Name Freq PRN Reason Stop Dose Admin Albuterol/Ipratropium 3 ml 07/27/18 04:02 Duoneb 3ml Neb IH 08/26/18 02:08 Q4HP PRN Shortness Of Breath Sodium Chloride 1,000 mls @ 100 mls/hr 07/27/18 04:02 Sod Chlor 0.9% 1000ml Bag IV 08/26/18 04:01 .Q10H ERNESTO Cefepime HCl 1 gm/ Sodium 50 mls @ 100 mls/hr 07/27/18 04:02 Chloride IV 08/10/18 04:01 Q12H [facility] Protocol Levofloxacin/Dextrose 750 mg in 150 mls @ 100 mls/hr 07/27/18 04:02 Levofloxacin 750mg/150ml Premix IV 08/10/18 04:01 Q24H [facility] Protocol Methylprednisolone Sodium Succinate 80 mg 07/27/18 04:02 Solu-Medrol 125mg/2ml Vial IV 08/26/18 04:01 Q8H [facility] Miscellaneous 1 each 07/27/18 04:02 Vancomycin Consult Request * 08/26/18 04:01 CONSULT PHARMACY [facility] Sodium Chloride 10 ml 07/27/18 04:02 Saline Flush 10ml Syringe IV 08/26/18 01:40 NEEDED PRN Maintain IV Site Sodium Chloride 10 ml 07/27/18 04:02 Saline Flush 10ml Syringe IV 08/26/18 04:01 NEEDED PRN Maintain IV Site Discontinued Medications Generic Name Dose Route Start Last Admin Trade Name Freq PRN Reason Stop Dose Admin Albuterol/Ipratropium 3 ml 07/27/18 02:09 Duoneb 3ml Neb IH 08/26/18 02:08 Q4HP PRN Shortness Of Breath Methylprednisolone Sodium Succinate 125 mg 07/27/18 02:09 07/27/18 02:16 Solu-Medrol 125mg/2ml Vial IV 07/27/18 02:10 125 mg ONCE ONE Administration Sodium Chloride 10 ml 07/27/18 01:41 07/27/18 02:16 Saline Flush 10ml Syringe IV 08/26/18 01:40 10 ml NEEDED PRN Administration Maintain IV Site ORDERS Category Date Time Status XR chest portable Stat Exams 07/27/18 02:03 Taken Blood Culture Stat Micro 07/27/18 02:20 Received 12-lead EKG Request [ECG Request by /Jay] Stat Y 07/27/18 01:41 Stop Req - ECG Data Tracing #1 EKG obtained after patient has been on BiPAP, now is awake and uncooperative. A satisfactory tracing was not able to be obtained. EKG interpreted by Misael France MD: Rhythm: Regular rhythm, likely sinus Rate: 67 [place]: normal Ectopy: none Conduction: normal Baseline artifact and wander present. - Physician Consults Physician Consulted: Mau Archibald Time: 03:30 Reason -: Admission Comment/Response: Agrees to admit the patient to the hospital. We discussed the patient's clinical information, including history, exam, laboratory and radiology results and ED course. Per hospital procedure, I will write temporary bridge inpatient orders on the patient. Specific orders requested by the admitting physician: Vancomycin, cefepime, Levaquin. Continue BiPAP. General Adult HPI - General Chief complaint: Shortness of Breath/Dyspnea Stated complaint: low O2 sats Time Seen by Provider: 07/27/18 01:52 Mode of Arrival: EMS Limitations: No Limitations Description of Symptoms (Recalled from ER Triage Doc. by RN): Pt brought in from [place] with c/o low O2 sats and increased SOA - History of Present Illness HPI narrative: Patient known to me from prior ED visits. Discharged just a few days ago for acute on chronic respiratory failure. Sent back in by ambulance from [facility] for low oxygen saturation. Patient's oxygen saturation was repo rted to be in the 50s on 2 L nasal cannula, which she wears chronically. assisted is under strict instructions not to increase her FiO2 due to CO2 retention. EMS increased FiO2 to 4 L during transport. Patient unable to give further history herself. Very drowsy. Has a PICC line for IV antibiotics from prior admissions. She is on vancomycin and Omnicef. - Related Data Home Medications Medication Instructions Recorded Confirmed Ascorbic Acid [Vitamin C] 1,000 mg PO DAILY 11/13/17 07/27/18 Aspirin [Aspirin 81mg chewable 81 mg PO DAILY 11/13/17 07/27/18 tab] Benztropine Mesylate 0.5 mg PO DAILY 11/13/17 07/27/18 Benztropine Mesylate [Cogentin 1mg 1 mg PO HS 11/13/17 07/27/18 tablet] Carvedilol [Carvedilol 25mg Tab] 25 mg PO 0800,1700 11/13/17 07/27/18 Divalproex Sodium 250 mg PO BID 11/13/17 07/27/18 Fluticasone Propionate [Flonase 1 spr NS DAILY 11/13/17 07/27/18 50mcg nasal spray 16gm] Hydrocod/Acet 5/325 mg [[place] 1 each PO TID 11/13/17 07/27/18 5/325mg tablet] Isosorbide Dinitrate [Isordil 20mg 20 mg PO TID 11/13/17 07/27/18 tablet] Lactulose [Lactulose 10gm/15ml 20 gm PO DAILY 11/13/17 07/27/18 Oral Soln] Levothyroxine Sodium 75 mcg PO DAILY 11/13/17 07/27/18 [Levothyroxine 75mcg (0.075mg) Tab] Potassium Chloride [Klor-Con 10mEq 10 meq PO DAILY 11/13/17 07/27/18 tab] Pravastatin Sodium [Pravachol] 40 mg PO HS 11/13/17 07/27/18 Sodium Chloride 3 gm PO TID 11/13/17 07/27/18 Venlafaxine HCl 75 mg PO TID 11/13/17 07/27/18 Calcium Carbonate [Tums 500mg 500 mg PO DAILY 11/14/17 07/27/18 chewtab] Polyethylene Glycol 3350 [Miralax 17 gm PO DAILY 11/14/17 07/27/18 17gm Packet] albuterol sulfate HFA 90 2 puff INHALATION Q4H PRN 01/07/18 07/27/18 mcg/actuation aerosol inhaler aluminum hydrox-magnesium carb 95 30 ml PO QIDP PRN ml 01/07/18 07/27/18 mg-358 mg/15 mL oral suspension phenol 1.4 % mucosal aerosol spray 2 spray MUCOUS MEM QIDP PRN ml 01/07/18 07/27/18 sennosides 8.6 mg-docusate sodium 1 tab PO BIDP PRN 01/07/18 07/27/18 50 mg tablet Furosemide [Furosemide 20mg Tab] 20 mg PO DAILYP PRN 03/28/18 07/27/18 Lisinopril [Zestril 5mg 5 mg PO DAILY 06/15/18 07/27/18 Tablet] Rifaximin [Xifaxan] 550 mg PO BID 06/16/18 07/27/18 clonazePAM [Clonazepam] 0.25 mg PO TID 06/29/18 07/27/18 Cholecalciferol (Vitamin D3) 2,000 unit PO DAILY 07/13/18 07/27/18 [Vitamin D3 1,000 Unit Tab] Ondansetron HCl [Ondansetron 4mg 4 mg PO Q4HP PRN 07/13/18 07/27/18 Tablet] Propylene Glycol [Systane Balance] 1 drop EYE-BOTH BID 07/13/18 07/27/18 guaiFENesin [Robafen] 200 mg PO Q6HP PRN 07/13/18 07/27/18 Cefdinir [Omnicef 300mg Capsule] 300 mg PO BID 07/23/18 07/27/18 Docusate Sodium [Colace Clear] 50 mg PO BID PRN 07/23/18 07/27/18 Ipratropium/Albuterol Sulfate 3 ml IH QIDRT 07/23/18 07/27/18 [Duoneb 3mL neb] Allergies Allergy/AdvReac Type Severity Reaction Status Date / Time haloperidol [HALOPERIDOL] Allergy Unknown Unknown Verified 07/27/18 01:39 allergy reaction metronidazole [From Flagyl] Allergy Unknown Unknown Verified 07/27/18 01:39 allergy reaction molindone Allergy Unknown Unknown Verified 07/27/18 01:39 allergy reaction paroxetine Allergy Unknown Unknown Verified 07/27/18 01:39 allergy reaction Penicillins [PENICILLINS] Allergy Unknown Unknown Verified 07/27/18 01:39 allergy reaction phenacaine Allergy Unknown Unknown Verified 07/27/18 01:39 allergy reaction Sulfa (Sulfonamide Allergy Unknown Unknown Verified 07/27/18 01:39 Antibiotics) allergy reaction triazolam [From Halcion] Allergy Unknown Unknown Verified 07/27/18 01:39 allergy reaction kiwi Allergy Hives Verified 07/27/18 01:39 raspberry Allergy Hives Verified 07/27/18 01:39 [facility] History - Hepatitis A Screen Drug use history?: No High risk sexual behaviors?: No History of sexually transmitted infection?: No Currently employed?: No Childcare worker?: No Do you have indoor plumbing?: Yes Do you have electricity?: Yes Attestation statement:: This patient has been screened for Hepatitis A risk factors. I have reviewed the patient's past medical history: Yes Medical History: Reports:: Anxiety, Congestive Heart Failure, Chronic Obstructive Pulmonary Disease (COPD), Coronary Artery Disease, Heart Murmur, Hyperlipidemia, Hypertension, Myocardial Infarction Denies:: Cancer, Diabetes Mellitus Type 1, Diabetes Mellitus Type 2, Internal Pacemaker, MRSA Other Medical History: Reports: Anemia, Hypothyroidism Comment: Significant record deficit with no records from halfway Other Surgeries: No: Pacemaker Amputation: No Fractures: No - Social History Smoking Status: Current some day smoker Tobacco Type: cigarettes Alcohol Intake: never Occupational Status: disabled Housing: halfway Household Members: other - Psychiatric History Expresses thoughts of harming self/others: None Suicide Plan Description: No Plan Pschychiatric History:: Reports:: Anxiety Family Hx:: Unable to obtain ROS Obtained: Yes unobtainable due to mental status Physical Exam - General General appearance: other Comment: Sleeping. Opens eyes to verbal stimulus. Shakes her head no when asked if in any pain, but then immediately falls back asleep. Does not answer any other questions. Oxygen cannula is in mouth. She is mouth breathing. Oxygen saturation is 92% at this time. - Head Head exam: atraumatic, normocephalic - Eye Eye exam: Present: periorbital swelling (Chronic) - ENT ENT exam: Present: mucous membranes moist - Neck Neck exam: Present: normal inspection, trachea midline - Chest Chest inspection: Present: normal inspection, symmetric chest wall rise - Respiratory Respiratory exam: Present: other (Decreased breath sound) - Cardiovascular Cardiovascular exam: Present: regular rate, normal rhythm, normal heart sounds - Abdominal Exam Abdominal exam: Present: soft. Absent: distention, tenderness Comment: Extensive anterior abdominal surgical scarring - Neurological Exam Neurological exam: Present: other (Drowsy consistent with hypercapnia) - Skin Skin exam: Present: warm, dry Procedures - Miscellaneous Procedure Procedure Performed: Arterial blood gas obtained by myself from right radial artery. Gary's test satisfactory.
[2018-07-27 02:03] LABS: ABG Base Excess 23.7 mmol/L (-2.4-2.3); ABG Oxygen Saturation 90 % (90-100); ABG PH 7.25 mmol/L (7.35-7.45); ABG PO2 66.2 mmhg (80-100); ABG TCO2 54.7 mmhg (23-27); Allen's Test Y
[2018-07-27 02:04] LABS: ABG PCO2 120.1 mmhg (35.0-45.0); Oxygen 4 %
[2018-07-27 02:42] LABS: Basophils % 0.3 % (0.1-2.0); Eosinophils # 0.1 K/mm3 (0.0-0.4); Eosinophils % 0.8 % (0.1-12.0); Hematocrit 35.9 % (37.0-47.0); Hemoglobin 10.7 g/dL (12.2-16.2); Lymphocytes # 2.1 K/mm3 (0.7-4.5); Lymphocytes % 22.6 % (10-50); Mean Corpuscular HGB Conc 29.9 g/dL (31.8-35.4); Mean Corpuscular Hemoglobin 27.9 pg (27.0-31.2); Mean Corpuscular Volume 93.5 fl (81-99); Mean Platelet Volume 7.1 fl (7.4-10.4); Monocytes # 0.8 K/mm3 (0.1-1.0); Monocytes % 8.7 % (1.7-9.3); Neutrophils # 6.3 K/mm3 (1.8-7.8); Neutrophils % 67.6 % (37.0-80.0); Platelet Count 93 K/mm3 (142-424); Red Blood Count 3.85 M/mm3 (4.20-5.40); Red Cell Distribution Width 17.9 % (11.5-17.5); White Blood Count 9.2 K/mm3 (4.8-10.8)
[2018-07-27 02:59] LABS: Albumin Level 2.2 gm/dL (3.4-5.0); Albumin/Globulin Ratio 0.6 (1.1-1.8); Bilirubin,Total 0.6 mg/dL (0.2-1.0); Calcium 8.2 mg/dL (8.5-10.1); Free Thyroxine Index 1.1 ug/dL (5.93-13.13); Potassium 3.3 mmoL/L (3.5-5.1); Thyroid Stimulating Hormone 0.92 uIU/ml (0.358-3.740); Total Protein,Serum 6.2 gm/dL (6.4-8.2)
[2018-07-27 03:01] LABS: Anion Gap 0.3 mEq/L (5-15)
[2018-07-27 06:13] LABS: ABG Base Excess 18.5 mmol/L (-2.4-2.3); ABG HCO3 43.4 mmhg (22.0-26.0); ABG Oxygen Saturation 92 % (90-100); ABG PH 7.39 mmol/L (7.35-7.45); ABG PO2 62.5 mmhg (80-100); ABG TCO2 45.6 mmhg (23-27)
[2018-07-27 06:15] LABS: Oxygen 35 %
--- NOTE | 2018-07-27 12:13 | Pharmacy Consult Notes ---
- Pharmacy Consult Date: 07/27/18 Time: 12:12 Referring provider: DR. BARRETT Reason for Consult:: VANCOMYCIN DOSING Allergies and ADEs:: Allergies Allergy/AdvReac Type Severity Reaction Status Date / Time haloperidol [HALOPERIDOL] Allergy Unknown Unknown Verified 07/27/18 01:39 allergy reaction metronidazole [From Flagyl] Allergy Unknown Unknown Verified 07/27/18 01:39 allergy reaction molindone Allergy Unknown Unknown Verified 07/27/18 01:39 allergy reaction paroxetine Allergy Unknown Unknown Verified 07/27/18 01:39 allergy reaction Penicillins [PENICILLINS] Allergy Unknown Unknown Verified 07/27/18 01:39 allergy reaction phenacaine Allergy Unknown Unknown Verified 07/27/18 01:39 allergy reaction Sulfa (Sulfonamide Allergy Unknown Unknown Verified 07/27/18 01:39 Antibiotics) allergy reaction triazolam [From Halcion] Allergy Unknown Unknown Verified 07/27/18 01:39 allergy reaction kiwi Allergy Hives Verified 07/27/18 01:39 raspberry Allergy Hives Verified 07/27/18 01:39 Home Medications:: Home Medications Medication Instructions Recorded Confirmed Type Ascorbic Acid [Vitamin C] 1,000 mg PO DAILY 11/13/17 07/27/18 History Aspirin [Aspirin 81mg chewable 81 mg PO DAILY 11/13/17 07/27/18 History tab] Benztropine Mesylate 0.5 mg PO DAILY 11/13/17 07/27/18 History Benztropine Mesylate [Cogentin 1mg 1 mg PO HS 11/13/17 07/27/18 History tablet] Carvedilol [Carvedilol 25mg Tab] 25 mg PO 0800,1700 11/13/17 07/27/18 History Divalproex Sodium 250 mg PO BID 11/13/17 07/27/18 History Fluticasone Propionate [Flonase 1 spr NS DAILY 11/13/17 07/27/18 History 50mcg nasal spray 16gm] Hydrocod/Acet 5/325 mg [[place] 1 each PO TID 11/13/17 07/27/18 History 5/325mg tablet] Isosorbide Dinitrate [Isordil 20mg 20 mg PO TID 11/13/17 07/27/18 History tablet] Lactulose [Lactulose 10gm/15ml 20 gm PO DAILY 11/13/17 07/27/18 History Oral Soln] Levothyroxine Sodium 75 mcg PO DAILY 11/13/17 07/27/18 History [Levothyroxine 75mcg (0.075mg) Tab] Potassium Chloride [Klor-Con 10mEq 10 meq PO DAILY 11/13/17 07/27/18 History tab] Pravastatin Sodium [Pravachol] 40 mg PO HS 11/13/17 07/27/18 History Sodium Chloride 3 gm PO TID 11/13/17 07/27/18 History Venlafaxine HCl 75 mg PO TID 11/13/17 07/27/18 History Calcium Carbonate [Tums 500mg 500 mg PO DAILY 11/14/17 07/27/18 History chewtab] Polyethylene Glycol 3350 [Miralax 17 gm PO DAILY 11/14/17 07/27/18 History 17gm Packet] albuterol sulfate HFA 90 2 puff INHALATION Q4H PRN 01/07/18 07/27/18 History mcg/actuation aerosol inhaler aluminum hydrox-magnesium carb 95 30 ml PO QIDP PRN ml 01/07/18 07/27/18 History mg-358 mg/15 mL oral suspension phenol 1.4 % mucosal aerosol spray 2 spray MUCOUS MEM QIDP PRN ml 01/07/18 07/27/18 History sennosides 8.6 mg-docusate sodium 1 tab PO BIDP PRN 01/07/18 07/27/18 History 50 mg tablet Furosemide [Furosemide 20mg Tab] 20 mg PO DAILYP PRN 03/28/18 07/27/18 History Lisinopril [Zestril 5mg 5 mg PO DAILY 06/15/18 07/27/18 History Tablet] Rifaximin [Xifaxan] 550 mg PO BID 06/16/18 07/27/18 History clonazePAM [Clonazepam] 0.25 mg PO TID 06/29/18 07/27/18 History Cholecalciferol (Vitamin D3) 2,000 unit PO DAILY 07/13/18 07/27/18 History [Vitamin D3 1,000 Unit Tab] Ondansetron HCl [Ondansetron 4mg 4 mg PO Q4HP PRN 07/13/18 07/27/18 History Tablet] Propylene Glycol [Systane Balance] 1 drop EYE-BOTH BID 07/13/18 07/27/18 History guaiFENesin [Robafen] 200 mg PO Q6HP PRN 07/13/18 07/27/18 History Cefdinir [Omnicef 300mg Capsule] 300 mg PO BID 07/23/18 07/27/18 History Docusate Sodium [Colace Clear] 50 mg PO BID PRN 07/23/18 07/27/18 History Ipratropium/Albuterol Sulfate 3 ml IH QIDRT 07/23/18 07/27/18 History [Duoneb 3mL neb] Height: 1.68 m Weight: 112.633 kg Laboratory Results:: Laboratory Results - last 24 hr 07/27/18 02:02: Specimen Source R/r, O2 % 4, ABG pH 7.25 L, ABG pCO2 120.1 H, ABG pO2 66.2 L, ABG HCO3 51.0 H, ABG Total CO2 54.7 H, ABG O2 Saturation 90, ABG Base Excess 23.7 H, Gary Test Y 07/27/18 02:20: WBC 9.2, RBC 3.85 L, Hgb 10.7 L, Hct 35.9 L, MCV 93.5, MCH 27.9, MCHC 29.9 L, RDW 17.9 H, Plt Count 93 L, MPV 7.1 L, Neut % (Auto) 67.6, Lymph % (Auto) 22.6, [place] % (Auto) 8.7, Eos % (Auto) 0.8, Baso % (Auto) 0.3, Neut # (Auto) 6.3, Lymph # (Auto) 2.1, [place] # (Auto) 0.8, Eos # (Auto) 0.1, Baso # (Auto) 0.0 07/27/18 02:20: Sodium 150 H, Potassium 3.3 L, Chloride 107, Carbon Dioxide 46 H*, Anion Gap 0.3 L, BUN 8, Creatinine 1.49 H D, Estimated Creat Clear 76, Estimated GFR 35 L, Est GFR ( Amer) 43 L D, Glucose 109 H, Calcium 8.2 L, Total Bilirubin 0.6, AST 37, ALT 41, Alkaline Phosphatase 146 H, Total Protein 6.2 L, Albumin 2.2 L, Globulin 4.0 H, Albumin/Globulin Ratio 0.6 L, TSH 0.92, Free T4 Index 1.1 L, Thyroxine (T4) 2.9 L, T3 Uptake 38 07/27/18 02:20: Lactate 0.9 07/27/18 06:00: Specimen Source Right brachial, O2 % 35, ABG pH 7.39, ABG pCO2 73.0 H, ABG pO2 62.5 L, ABG HCO3 43.4 H, ABG Total CO2 45.6 H, ABG O2 Saturation 92, ABG Base Excess 18.5 H, Gary Test Not applicable, Vent Rate 24, Tidal Volume Bipap 20/10 Medical History: Reports:: Anxiety, Congestive Heart Failure, Chronic Obstructive Pulmonary Disease (COPD), Coronary Artery Disease, Heart Murmur, Hyperlipidemia, Hypertension, Myocardial Infarction Denies:: Cancer, Diabetes Mellitus Type 1, Diabetes Mellitus Type 2, Internal Pacemaker, MRSA Assessment and Plan - Assessment and plan all Dx Assessment and Plan for all problems:: BASED ON PATIENT FACTORS, RECOMMEND VANCOMYCIN 2 GM IV Q24H. WILL OBTAIN VANCOMYCIN TROUGH LEVEL PRIOR TO DOSE ON 07/29/18. PHARMACY WILL FOLLOW DAILY AND ADJUST APPROPRIATE.
[2018-07-27 12:16] LABS: ABG Base Excess 11.2 mmol/L (-2.4-2.3); ABG HCO3 37.2 mmhg (22.0-26.0); ABG Oxygen Saturation 90 % (90-100); ABG PH 7.33 mmol/L (7.35-7.45); ABG PO2 63.8 mmhg (80-100); ABG TCO2 39.4 mmhg (23-27)
[2018-07-27 12:18] LABS: Oxygen 40 %
[2018-07-27 12:20] LABS: ABG PCO2 72.8 mmhg (35.0-45.0)
--- NOTE | 2018-07-27 13:36 | Pharmacy Consult Notes ---
[facility] Pharmacy VTE Monitoring - Patient Demographics Admission date: 07/27/18 Report Date: 07/27/18 Time: 13:36 Allergies/Adverse Reactions: Patient Allergies haloperidol [HALOPERIDOL] Allergy (Unknown, Verified 07/27/18 01:39) Unknown allergy reaction metronidazole [From Flagyl] Allergy (Unknown, Verified 07/27/18 01:39) Unknown allergy reaction molindone Allergy (Unknown, Verified 07/27/18 01:39) Unknown allergy reaction paroxetine Allergy (Unknown, Verified 07/27/18 01:39) Unknown allergy reaction Penicillins [PENICILLINS] Allergy (Unknown, Verified 07/27/18 01:39) Unknown allergy reaction phenacaine Allergy (Unknown, Verified 07/27/18 01:39) Unknown allergy reaction Sulfa (Sulfonamide Antibiotics) Allergy (Unknown, Verified 07/27/18 01:39) Unknown allergy reaction triazolam [From Halcion] Allergy (Unknown, Verified 07/27/18 01:39) Unknown allergy reaction kiwi Allergy (Verified 07/27/18 01:39) Hives raspberry Allergy (Verified 07/27/18 01:39) Hives Height: 1.68 m Weight: 112.633 kg Patient Problems: Current Active Problems HCAP (healthcare-associated pneumonia) (Acute) Acute and chronic respiratory failure (Acute) Pleural effusion, right (Acute) - VTE Risk Labs: VTE Related Lab Results Hgb 10.7 g/dL (12.2-16.2) L 07/27/18 02:20 Hct 35.9 % (37.0-47.0) L 07/27/18 02:20 Plt Count 93 K/mm3 (142-424) L 07/27/18 02:20 BUN 8 mg/dL (7-18) 07/27/18 02:20 Creatinine 1.49 mg/dL (0.55-1.02) H D 07/27/18 02:20 Estimated Creat Clear 76 mL/min (50-200) 07/27/18 02:20 - Prophylaxis VTE Prophylaxis Ordered?: Yes Types of VTE Prophylaxis: TEDS Knee High Location of Applied Device: Bilateral Lower Extremeties
--- NOTE | 2018-07-27 15:10 | History & Physical Report ---
*Admission Date: 07/27/18 *Chief complaint: Respiratory failure *History of present illness: Ms. Pablo is a 62-year-old harris of the [employer] who presented to the ER from a long-term with recurrent episode of acute on chronic hypoxic and hypercarbic respiratory failure. She has a very complex medical history with extensive comorbidities, multiple abdominal surgeries, and for prior admissions this month for similar respiratory failure. Upon admission she was placed on BiPAP due to PCO2 of 120. Patient was admitted for further management. She otherwise was hemodynamically stable. Antibiotics were broadened out to vancomycin, cefepime, Levaquin. Patient Trent has prior PICC in place which is being used during this admission. Of note on admission repeat chest x-ray was obtained showing slight worsening of right-sided pleural effusion. Review of records shows this pleural effusion was not present earlier this month however had appeared to slightly improved during last admission. Given her worsening respiratory status/failure, and repeat admission. Decision was made to drain pleural effusion to assist respiratory status. Patient is a poor historian however reports being very thirsty and short of breath. Denies any other symptoms at this time. Unable to obtain complete review of systems however denies chest pain, confusion, nausea or vomiting. [facility] History I have reviewed the patient's past medical history: Yes (From previous charts) Medical History: Reports:: Anxiety, Congestive Heart Failure, Chronic Obstructive Pulmonary Disease (COPD), Coronary Artery Disease, Heart Murmur, Hyperlipidemia, Hypertension, Myocardial Infarction Denies:: Cancer, Diabetes Mellitus Type 1, Diabetes Mellitus Type 2, Internal Pacemaker, MRSA Other Medical History: Reports: Anemia, Hypothyroidism Other Surgeries: Yes: Other. No: Pacemaker Amputation: No Fractures: No - *Social History Smoking Status: Current some day smoker Tobacco Type: cigarettes Alcohol Intake: never Alcohol Intake Frequency:: other Occupational Status: disabled Housing: long-term Household Members: other - Psychiatric History Expresses thoughts of harming self/others: None Suicide Plan Description: No Plan Pschychiatric History:: Reports:: Anxiety *Family Hx:: Unable to obtain Review of Systems - Review of Systems Review of systems:: unable to obtain (Unable to obtain due to patient's baseline status complete 14 point review of systems however did review per HPI) Meds Home Medications Medication Instructions Recorded Confirmed Type Ascorbic Acid [Vitamin C] 1,000 mg PO DAILY 11/13/17 07/27/18 History Aspirin [Aspirin 81mg chewable 81 mg PO DAILY 11/13/17 07/27/18 History tab] Benztropine Mesylate 0.5 mg PO DAILY 11/13/17 07/27/18 History Benztropine Mesylate [Cogentin 1mg 1 mg PO HS 11/13/17 07/27/18 History tablet] Carvedilol [Carvedilol 25mg Tab] 25 mg PO 0800,1700 11/13/17 07/27/18 History Divalproex Sodium 250 mg PO BID 11/13/17 07/27/18 History Fluticasone Propionate [Flonase 1 spr NS DAILY 11/13/17 07/27/18 History 50mcg nasal spray 16gm] Hydrocod/Acet 5/325 mg [[place] 1 each PO TID 11/13/17 07/27/18 History 5/325mg tablet] Isosorbide Dinitrate [Isordil 20mg 20 mg PO TID 11/13/17 07/27/18 History tablet] Lactulose [Lactulose 10gm/15ml 20 gm PO DAILY 11/13/17 07/27/18 History Oral Soln] Levothyroxine Sodium 75 mcg PO DAILY 11/13/17 07/27/18 History [Levothyroxine 75mcg (0.075mg) Tab] Potassium Chloride [Klor-Con 10mEq 10 meq PO DAILY 11/13/17 07/27/18 History tab] Pravastatin Sodium [Pravachol] 40 mg PO HS 11/13/17 07/27/18 History Sodium Chloride 3 gm PO TID 11/13/17 07/27/18 History Venlafaxine HCl 75 mg PO TID 11/13/17 07/27/18 History Calcium Carbonate [Tums 500mg 500 mg PO DAILY 11/14/17 07/27/18 History chewtab] Polyethylene Glycol 3350 [Miralax 17 gm PO DAILY 11/14/17 07/27/18 History 17gm Packet] albuterol sulfate HFA 90 2 puff INHALATION Q4H PRN 01/07/18 07/27/18 History mcg/actuation aerosol inhaler aluminum hydrox-magnesium carb 95 30 ml PO QIDP PRN ml 01/07/18 07/27/18 History mg-358 mg/15 mL oral suspension phenol 1.4 % mucosal aerosol spray 2 spray MUCOUS MEM QIDP PRN ml 01/07/18 07/27/18 History sennosides 8.6 mg-docusate sodium 1 tab PO BIDP PRN 01/07/18 07/27/18 History 50 mg tablet Furosemide [Furosemide 20mg Tab] 20 mg PO DAILYP PRN 03/28/18 07/27/18 History Lisinopril [Zestril 5mg 5 mg PO DAILY 06/15/18 07/27/18 History Tablet] Rifaximin [Xifaxan] 550 mg PO BID 06/16/18 07/27/18 History clonazePAM [Clonazepam] 0.25 mg PO TID 06/29/18 07/27/18 History Cholecalciferol (Vitamin D3) 2,000 unit PO DAILY 07/13/18 07/27/18 History [Vitamin D3 1,000 Unit Tab] Ondansetron HCl [Ondansetron 4mg 4 mg PO Q4HP PRN 07/13/18 07/27/18 History Tablet] Propylene Glycol [Systane Balance] 1 drop EYE-BOTH BID 07/13/18 07/27/18 History guaiFENesin [Robafen] 200 mg PO Q6HP PRN 07/13/18 07/27/18 History Cefdinir [Omnicef 300mg Capsule] 300 mg PO BID 07/23/18 07/27/18 History Docusate Sodium [Colace Clear] 50 mg PO BID PRN 07/23/18 07/27/18 History Ipratropium/Albuterol Sulfate 3 ml IH QIDRT 07/23/18 07/27/18 History [Duoneb 3mL neb] Allergies Allergy/AdvReac Type Severity Reaction Status Date / Time haloperidol [HALOPERIDOL] Allergy Unknown Unknown Verified 07/27/18 01:39 allergy reaction metronidazole [From Flagyl] Allergy Unknown Unknown Verified 07/27/18 01:39 allergy reaction molindone Allergy Unknown Unknown Verified 07/27/18 01:39 allergy reaction paroxetine Allergy Unknown Unknown Verified 07/27/18 01:39 allergy reaction Penicillins [PENICILLINS] Allergy Unknown Unknown Verified 07/27/18 01:39 allergy reaction phenacaine Allergy Unknown Unknown Verified 07/27/18 01:39 allergy reaction Sulfa (Sulfonamide Allergy Unknown Unknown Verified 07/27/18 01:39 Antibiotics) allergy reaction triazolam [From Halcion] Allergy Unknown Unknown Verified 07/27/18 01:39 allergy reaction kiwi Allergy Hives Verified 07/27/18 01:39 raspberry Allergy Hives Verified 07/27/18 01:39 Exam Vital signs and Labs for Last 24 Hours: Temp Pulse Resp BP Pulse Ox 98.0 F 68 22 165/72 H 91 L 07/27/18 12:00 07/27/18 12:00 07/27/18 12:00 07/27/18 12:00 07/27/18 13:40 Laboratory Results - last 24 hr 07/27/18 02:02: Specimen Source R/r, O2 % 4, ABG pH 7.25 L, ABG pCO2 120.1 H, ABG pO2 66.2 L, ABG HCO3 51.0 H, ABG Total CO2 54.7 H, ABG O2 Saturation 90, ABG Base Excess 23.7 H, Gary Test Y 07/27/18 02:20: WBC 9.2, RBC 3.85 L, Hgb 10.7 L, Hct 35.9 L, MCV 93.5, MCH 27.9, MCHC 29.9 L, RDW 17.9 H, Plt Count 93 L, MPV 7.1 L, Neut % (Auto) 67.6, Lymph % (Auto) 22.6, [place] % (Auto) 8.7, Eos % (Auto) 0.8, Baso % (Auto) 0.3, Neut # (Auto) 6.3, Lymph # (Auto) 2.1, [place] # (Auto) 0.8, Eos # (Auto) 0.1, Baso # (Auto) 0.0 07/27/18 02:20: Sodium 150 H, Potassium 3.3 L, Chloride 107, Carbon Dioxide 46 H*, Anion Gap 0.3 L, BUN 8, Creatinine 1.49 H D, Estimated Creat Clear 76, Estimated GFR 35 L, Est GFR ( Amer) 43 L D, Glucose 109 H, Calcium 8.2 L, Total Bilirubin 0.6, AST 37, ALT 41, Alkaline Phosphatase 146 H, Total Protein 6.2 L, Albumin 2.2 L, Globulin 4.0 H, Albumin/Globulin Ratio 0.6 L, TSH 0.92, Free T4 Index 1.1 L, Thyroxine (T4) 2.9 L, T3 Uptake 38 07/27/18 02:20: Lactate 0.9 07/27/18 06:00: Specimen Source Right brachial, O2 % 35, ABG pH 7.39, ABG pCO2 73.0 H, ABG pO2 62.5 L, ABG HCO3 43.4 H, ABG Total CO2 45.6 H, ABG O2 Saturation 92, ABG Base Excess 18.5 H, Gary Test Not applicable, Vent Rate 24, Tidal Volu me Bipap 17/0507/27/18 12:00: Specimen Source Right brachial, O2 % 40, ABG pH 7.33 L, ABG pCO2 72.8 H, ABG pO2 63.8 L, ABG HCO3 37.2 H, ABG Total CO2 39.4 H, ABG O2 Saturation 90, ABG Base Excess 11.2 H, Gary Test Not applicable, Tidal Volume Vapotherm 35l I & O for Last 24 hours: Intake & Output 07/24/18 07/25/18 07/26/18 07/27/18 23:59 23:59 23:59 23:59 Intake Total 480 / 480 Balance 480 / 480 Weight 112.633 kg - Constitutional moderate distress, morbidly obese, chronically ill appearing, disheveled - *Routine HEENT Exam Head: Present: normocephalic, atraumatic Eye: Present: EOMI, PERRL ENT: Present: mucous membranes moist Comments: Edentulous - *Routine Neck Exam Present: supple. Absent: JVD - *Routine Respiratory Exam Present: accessory muscle use, wheezes, crackles Comments: Absent breath sounds in right hemithorax - *Routine Cardiovascular Exam Present: RRR, Normal S1, Normal S2. Absent: murmur - *Routine Abdominal Exam Comments: Protuberant, large dinner plate sized scar from previous abdominal surgeries - *Routine Rectal Exam Patient deferred: visual exam - *Routine Exam Patient deferred: external exam - *Routine Extremities Exam Present: edema (Trace). Absent: cyanosis, clubbing - *Routine Skin Exam Present: intact. Absent: cyanosis, erythema - *Routine Neurological Exam Present: alert. Absent: altered mental status Oriented to person and place Assessment and Plan (1) Acute and chronic respiratory failure Current visit: Yes Status: Acute Qualifiers: Respiratory failure complication: hypoxia and hypercapnia Qualified Code(s): J96.21 - Acute and chronic respiratory failure with hypoxia; J96.22 - Acute and chronic respiratory failure with hypercapnia Category: Medical Code(s): J96.20 - Acute and chronic respiratory failure, unspecified whether with hypoxia or hypercapnia Initially on BiPAP, status post thoracentesis patient tolerating 2-4 L nasal cannula. Goal saturation greater than 88 while asleep, greater than 90 while awake -Fluid studies sent on thoracentesis fluid, concern for parapneumonic effusion. -If patient has any acute respiratory distress after thoracentesis, will get repeat chest x-ray as initial postprocedural chest x-ray does not show any pneumothorax. (2) HCAP (healthcare-associated pneumonia) Current visit: Yes Status: Acute Category: Medical Code(s): J18.9 - Pneumonia, unspecified organism Continue broad-spectrum coverage with vancomycin, cefepime, Levaquin. De- escalate when appropriate pending cultures. Suspect worsening failure was likely related to worsening pleural effusion as opposed to antibiotic failure however unclear at this time (3) Pleural effusion, right Current visit: Yes Status: Acute Category: Medical Code(s): J90 - Pleural effusion, not elsewhere classified Status post thoracentesis with removal of 2 L of yellow clear fluid (4) Acute respiratory failure with hypoxia and hypercapnia Current visit: No Status: Acute Category: Medical Code(s): J96.01 - Acute respiratory failure with hypoxia; J96.02 - Acute respiratory failure with hypercapnia (5) Altered mental status Current visit: No Status: Acute Qualifiers: Altered mental status type: somnolence Qualified Code(s): R40.0 - Somnolence Category: Medical Code(s): R41.82 - Altered mental status, unspecified Patient at baseline is a poor historian however was more altered due to hypercarbia. Has improved with respiratory support and bilevel ventilation. Continue to monitor for worsening encephalopathy and altered mental status (6) Obesity (BMI 30-39.9) Current visit: No Status: Acute Category: Medical Code(s): E66.9 - Obesity, unspecified Complicates all aspects of care (7) Hypertension Current visit: No Status: Chronic Qualifiers: Hypertension type: essential hypertension Qualified Code(s): I10 - Essential (primary) hypertension Category: Medical Code(s): I10 - Essential (primary) hypertension Continue home regimen (8) Hypothyroidism Current visit: No Status: Chronic Qualifiers: Hypothyroidism type: acquired Qualified Code(s): E03.9 - Hypothyroidism, unspecified Category: Medical Code(s): E03.9 - Hypothyroidism, unspecified Continue home regimen (9) Parkinson's disease (tremor, stiffness, slow motion, unstable posture) Current visit: No Status: Chronic Category: Medical Code(s): G20 - Parkinson's disease Continue home regimen (10) Acute kidney injury Current visit: Yes Status: Acute Category: Medical Code(s): N17.9 - Acute kidney failure, unspecified Likely prerenal, gentle rehydration with IV fluids. Monitor for improvement -Baseline creatinine normal at 0.8-1 (11) Hypernatremia Current visit: Yes Status: Acute Category: Medical Code(s): E87.0 - Hyperosmolality and hypernatremia SPECT due to dehydration with the setting of MATEO as per above. Gentle fluid rehydration, will follow with morning labs - Assessment and plan all Dx Assessment and Plan for all problems:: Patient's condition very tenuous, status is day by day. Continues to require aggressive inpatient management.
--- NOTE | 2018-07-27 16:17 | Procedure Note ---
[facility] Procedure Note Procedure Note:: Thoracentesis performed at bedside. Informed consent obtained from patient's state appointed guardian. Procedure additionally explained to patient including risks and benefits. Risks consisting of pain, bleeding, pneumothorax, infection. Benefits being improved respiratory status, drainage of fluid from around lung, diagnosis of etiology of effusion. Patient prepped in sterile fashion including chlorhexidine to clean and sterilize insertion site. Patient sitting upright at bedside leaning forward on table. site identified with ultrasound prior to procedure. Sterile drape placed after chlorhexidine cleanse. Local anesthesia achieved with 1% lidocaine with numbing of tract into pleural cavity. After which time a small ebenezer was made in the skin with advancement of safety centesis needle with over the needle catheter. Flash obtained with clear yellow fluid upon accessing pleural cavity, catheter advanced and needle removed. Approximately 2 L of yellow clear non-cloudy, nonbloody fluid obtained from chest cavity. Catheter removed with occluded dressing consisting of Vaseline gauze, 4 x 4 folded in quarters, and Tegaderm. Patient placed in supine position with post procedure chest x-ray obtained showing no pneumothorax. Patient tolerated procedure well with no complications. She is to remain supine for at least 30 minutes
[2018-07-27 16:41] LABS: Appearance,Body Fld. Normal; RBC,Body Fluid < 10 cells/uL (< 10 X 10^3); TNC,Body Fluid 71 cells/uL (< 1000)
[2018-07-27 17:23] LABS: Mononuclear WBCs,Body Fluid 100 %; Polynuclear WBC,Body Fluid 0 %
[2018-07-28 08:01] LABS: Basophils % 0.2 % (0.1-2.0); Eosinophils # 0.1 K/mm3 (0.0-0.4); Eosinophils % 0.8 % (0.1-12.0); Hematocrit 34.9 % (37.0-47.0); Hemoglobin 10.6 g/dL (12.2-16.2); Lymphocytes % 13.9 % (10-50); Mean Corpuscular HGB Conc 30.3 g/dL (31.8-35.4); Mean Corpuscular Hemoglobin 27.7 pg (27.0-31.2); Mean Corpuscular Volume 91.4 fl (81-99); Mean Platelet Volume 8.7 fl (7.4-10.4); Monocytes # 0.3 K/mm3 (0.1-1.0); Monocytes % 4.9 % (1.7-9.3); Neutrophils # 5.5 K/mm3 (1.8-7.8); Neutrophils % 80.2 % (37.0-80.0); Platelet Count 70 K/mm3 (142-424); Red Blood Count 3.82 M/mm3 (4.20-5.40); Red Cell Distribution Width 18.2 % (11.5-17.5); White Blood Count 6.9 K/mm3 (4.8-10.8)
[2018-07-28 08:07] LABS: Anion Gap 9.6 mEq/L (5-15); Calcium 7.7 mg/dL (8.5-10.1); Potassium 3.6 mmoL/L (3.5-5.1)
--- NOTE | 2018-07-28 08:37 | Progress Note ---
Internal Medicine - PN: Subj *Date: 07/28/18 *Time: 08:36 Interval history: Patient has done much better over the last 24 hours since thoracentesis vis--vis oxygenation and tolerating nasal cannula well. She is currently in her normal state of disorientation and disordered thinking but is very talkative. Her main wish is to "get my white shoes back to go home." Exam Vital signs and Labs for Last 24 Hours: Temp Pulse Resp BP Pulse Ox 97.9 F 79 22 189/98 H 96 07/28/18 08:00 07/28/18 08:00 07/28/18 08:00 07/28/18 08:00 07/28/18 08:00 Laboratory Results - last 24 hr 07/27/18 12:00: Specimen Source Right brachial, O2 % 40, ABG pH 7.33 L, ABG pCO2 72.8 H, ABG pO2 63.8 L, ABG HCO3 37.2 H, ABG Total CO2 39.4 H, ABG O2 Saturation 90, ABG Base Excess 11.2 H, Gary Test Not applicable, Tidal Volume Vapotherm 35l 07/27/18 15:50: Fluid Source Pleural fluid, Fluid Volume 24, Fluid Appearance Normal, Fluid RBC (Auto) < 10, Fld Tot Nucleated Cell 71, Fld Polynuclear WBCs % 0, Fld Mononuclear WBCs % 100 07/28/18 07:35: Vancomycin Trough 25.6 H 07/28/18 07:35: Sodium 142, Potassium 3.6, Chloride 102, Carbon Dioxide 34 H D, Anion Gap 9.6, BUN 18 D, Creatinine 1.63 H, Estimated Creat Clear 64, Estimated GFR 32 L, Est GFR ( Amer) 39 L, Glucose 154 H, Calcium 7.7 L I & O for Last 24 hours: Intake & Output 07/25/18 07/26/18 07/27/18 07/28/18 11:59 11:59 11:59 11:59 Intake Total 0 / 0 3168 / 3168 Balance 0 / 0 3168 / 3168 Weight 248 lb 5 oz 248 lb 5 oz Microbiology Reports for the Last 24 Hours: Microbiology 07/27/18 15:50 Thoracic Fluid Gram Stain - Final Narrative: Patient is alert. Responds to commands but does not understand her significant medical problems. Oropharynx clear and moist. No JVD heart rate regular. Lungs are well-expanded, minimal rhonchi in both bases but no tracheal deviation. Good air movement. Assessment and Plan (1) Acute and chronic respiratory failure Current visit: Yes Status: Acute Qualifiers: Respiratory failure complication: hypoxia and hypercapnia Qualified Code(s): J96.21 - Acute and chronic respiratory failure with hypoxia; J96.22 - Acute and chronic respiratory failure with hypercapnia Category: Medical Code(s): J96.20 - Acute and chronic respiratory failure, unspecified whether with hypoxia or hypercapnia (2) HCAP (healthcare-associated pneumonia) Current visit: Yes Status: Acute Category: Medical Code(s): J18.9 - Pneumonia, unspecified organism (3) Pleural effusion, right Current visit: Yes Status: Acute Category: Medical Code(s): J90 - Pleural effusion, not elsewhere classified (4) Acute respiratory failure with hypoxia and hypercapnia Current visit: No Status: Acute Category: Medical Code(s): J96.01 - Acute respiratory failure with hypoxia; J96.02 - Acute respiratory failure with hypercapnia (5) Altered mental status Current visit: No Status: Acute Qualifiers: Altered mental status type: somnolence Qualified Code(s): R40.0 - Somnolence Category: Medical Code(s): R41.82 - Altered mental status, unspecified (6) Obesity (BMI 30-39.9) Current visit: No Status: Acute Category: Medical Code(s): E66.9 - Obesity, unspecified (7) Hypertension Current visit: No Status: Chronic Qualifiers: Hypertension type: essential hypertension Qualified Code(s): I10 - Essential (primary) hypertension Category: Medical Code(s): I10 - Essential (primary) hypertension (8) Hypothyroidism Current visit: No Status: Chronic Qualifiers: Hypothyroidism type: acquired Qualified Code(s): E03.9 - Hypothyroidism, unspecified Category: Medical Code(s): E03.9 - Hypothyroidism, unspecified (9) Parkinson's disease (tremor, stiffness, slow motion, unstable posture) Current visit: No Status: Chronic Category: Medical Code(s): G20 - Parkinson's disease (10) Acute kidney injury Current visit: Yes Status: Acute Category: Medical Code(s): N17.9 - Acute kidney failure, unspecified (11) Hypernatremia Current visit: Yes Status: Acute Category: Medical Code(s): E87.0 - Hyperosmolality and hypernatremia - Assessment and plan all Dx Assessment and Plan for all problems:: Multiple problems reviewed as noted above. Plan will be to continue current antibiotic therapy. Await culture from thoracentesis fluid. If she continues to tolerate nasal cannula oxygen well we will consider transfer back to health care facility tomorrow on tailored antibiotic therapy.
--- NOTE | 2018-07-28 11:27 | Pharmacy Consult Notes ---
- Pharmacy Consult Date: 07/28/18 Time: 11:25 Referring provider: DR. BARRETT Reason for Consult:: VANCOMYCIN TROUGH LEVEL Allergies and ADEs:: Allergies Allergy/AdvReac Type Severity Reaction Status Date / Time haloperidol [HALOPERIDOL] Allergy Unknown Unknown Verified 07/27/18 01:39 allergy reaction metronidazole [From Flagyl] Allergy Unknown Unknown Verified 07/27/18 01:39 allergy reaction molindone Allergy Unknown Unknown Verified 07/27/18 01:39 allergy reaction paroxetine Allergy Unknown Unknown Verified 07/27/18 01:39 allergy reaction Penicillins [PENICILLINS] Allergy Unknown Unknown Verified 07/27/18 01:39 allergy reaction phenacaine Allergy Unknown Unknown Verified 07/27/18 01:39 allergy reaction Sulfa (Sulfonamide Allergy Unknown Unknown Verified 07/27/18 01:39 Antibiotics) allergy reaction triazolam [From Halcion] Allergy Unknown Unknown Verified 07/27/18 01:39 allergy reaction kiwi Allergy Hives Verified 07/27/18 01:39 raspberry Allergy Hives Verified 07/27/18 01:39 Home Medications:: Home Medications Medication Instructions Recorded Confirmed Type Ascorbic Acid [Vitamin C] 1,000 mg PO DAILY 11/13/17 07/27/18 History Aspirin [Aspirin 81mg chewable 81 mg PO DAILY 11/13/17 07/27/18 History tab] Benztropine Mesylate 0.5 mg PO DAILY 11/13/17 07/27/18 History Benztropine Mesylate [Cogentin 1mg 1 mg PO HS 11/13/17 07/27/18 History tablet] Carvedilol [Carvedilol 25mg Tab] 25 mg PO 0800,1700 11/13/17 07/27/18 History Divalproex Sodium 250 mg PO BID 11/13/17 07/27/18 History Fluticasone Propionate [Flonase 1 spr NS DAILY 11/13/17 07/27/18 History 50mcg nasal spray 16gm] Hydrocod/Acet 5/325 mg [[place] 1 each PO TID 11/13/17 07/27/18 History 5/325mg tablet] Isosorbide Dinitrate [Isordil 20mg 20 mg PO TID 11/13/17 07/27/18 History tablet] Lactulose [Lactulose 10gm/15ml 20 gm PO DAILY 11/13/17 07/27/18 History Oral Soln] Levothyroxine Sodium 75 mcg PO DAILY 11/13/17 07/27/18 History [Levothyroxine 75mcg (0.075mg) Tab] Potassium Chloride [Klor-Con 10mEq 10 meq PO DAILY 11/13/17 07/27/18 History tab] Pravastatin Sodium [Pravachol] 40 mg PO HS 11/13/17 07/27/18 History Sodium Chloride 3 gm PO TID 11/13/17 07/27/18 History Venlafaxine HCl 75 mg PO TID 11/13/17 07/27/18 History Calcium Carbonate [Tums 500mg 500 mg PO DAILY 11/14/17 07/27/18 History chewtab] Polyethylene Glycol 3350 [Miralax 17 gm PO DAILY 11/14/17 07/27/18 History 17gm Packet] albuterol sulfate HFA 90 2 puff INHALATION Q4H PRN 01/07/18 07/27/18 History mcg/actuation aerosol inhaler aluminum hydrox-magnesium carb 95 30 ml PO QIDP PRN ml 01/07/18 07/27/18 History mg-358 mg/15 mL oral suspension phenol 1.4 % mucosal aerosol spray 2 spray MUCOUS MEM QIDP PRN ml 01/07/18 07/27/18 History sennosides 8.6 mg-docusate sodium 1 tab PO BIDP PRN 01/07/18 07/27/18 History 50 mg tablet Furosemide [Furosemide 20mg Tab] 20 mg PO DAILYP PRN 03/28/18 07/27/18 History Lisinopril [Zestril 5mg 5 mg PO DAILY 06/15/18 07/27/18 History Tablet] Rifaximin [Xifaxan] 550 mg PO BID 06/16/18 07/27/18 History clonazePAM [Clonazepam] 0.25 mg PO TID 06/29/18 07/27/18 History Cholecalciferol (Vitamin D3) 2,000 unit PO DAILY 07/13/18 07/27/18 History [Vitamin D3 1,000 Unit Tab] Ondansetron HCl [Ondansetron 4mg 4 mg PO Q4HP PRN 07/13/18 07/27/18 History Tablet] Propylene Glycol [Systane Balance] 1 drop EYE-BOTH BID 07/13/18 07/27/18 History guaiFENesin [Robafen] 200 mg PO Q6HP PRN 07/13/18 07/27/18 History Cefdinir [Omnicef 300mg Capsule] 300 mg PO BID 07/23/18 07/27/18 History Docusate Sodium [Colace Clear] 50 mg PO BID PRN 07/23/18 07/27/18 History Ipratropium/Albuterol Sulfate 3 ml IH QIDRT 07/23/18 07/27/18 History [Duoneb 3mL neb] Height: 1.68 m Weight: 112.633 kg Laboratory Results:: Laboratory Results - last 24 hr 07/27/18 12:00: Specimen Source Right brachial, O2 % 40, ABG pH 7.33 L, ABG pCO2 72.8 H, ABG pO2 63.8 L, ABG HCO3 37.2 H, ABG Total CO2 39.4 H, ABG O2 Saturation 90, ABG Base Excess 11.2 H, Gary Test Not applicable, Tidal Volume Vapotherm 35l 07/27/18 15:50: Fluid Source Pleural fluid, Fluid Volume 24, Fluid Appearance Normal, Fluid RBC (Auto) < 10, Fld Tot Nucleated Cell 71, Fld Polynuclear WBCs % 0, Fld Mononuclear WBCs % 100 07/28/18 07:35: Vancomycin Trough 25.6 H 07/28/18 07:35: WBC 6.9, RBC 3.82 L, Hgb 10.6 L, Hct 34.9 L, MCV 91.4, MCH 27.7, MCHC 30.3 L, RDW 18.2 H, Plt Count 70 L, MPV 8.7, Neut % (Auto) 80.2 H, Lymph % (Auto) 13.9, [place] % (Auto) 4.9, Eos % (Auto) 0.8, Baso % (Auto) 0.2, Neut # (Auto) 5.5, Lymph # (Auto) 1.0, [place] # (Auto) 0.3, Eos # (Auto) 0.1, Baso # (Auto) 0.0 07/28/18 07:35: Sodium 142, Potassium 3.6, Chloride 102, Carbon Dioxide 34 H D, Anion Gap 9.6, BUN 18 D, Creatinine 1.63 H, Estimated Creat Clear 64, Estimated GFR 32 L, Est GFR ( Amer) 39 L, Glucose 154 H, Calcium 7.7 L Medical History: Reports:: Anxiety, Congestive Heart Failure, Chronic Obstruct jeremie Pulmonary Disease (COPD), Coronary Artery Disease, Heart Murmur, Hyperlipidemia, Hypertension, Myocardial Infarction Denies:: Cancer, Diabetes Mellitus Type 1, Diabetes Mellitus Type 2, Internal Pacemaker, MRSA Assessment and Plan (1) Acute and chronic respiratory failure Current visit: Yes Status: Acute Qualifiers: Respiratory failure complication: hypoxia and hypercapnia Qualified Code(s): J96.21 - Acute and chronic respiratory failure with hypoxia; J96.22 - Acute and chronic respiratory failure with hypercapnia Category: Medical Code(s): J96.20 - Acute and chronic respiratory failure, unspecified whether with hypoxia or hypercapnia (2) HCAP (healthcare-associated pneumonia) Current visit: Yes Status: Acute Category: Medical Code(s): J18.9 - Pneumonia, unspecified organism (3) Pleural effusion, right Current visit: Yes Status: Acute Category: Medical Code(s): J90 - Pleural effusion, not elsewhere classified (4) Acute respiratory failure with hypoxia and hypercapnia Current visit: No Status: Acute Category: Medical Code(s): J96.01 - Acute respiratory failure with hypoxia; J96.02 - Acute respiratory failure with hypercapnia (5) Altered mental status Current visit: No Status: Acute Qualifiers: Altered mental status type: somnolence Qualified Code(s): R40.0 - Somnolence Category: Medical Code(s): R41.82 - Altered mental status, unspecified (6) Obesity (BMI 30-39.9) Current visit: No Status: Acute Category: Medical Code(s): E66.9 - Obesity, unspecified (7) Hypertension Current visit: No Status: Chronic Qualifiers: Hypertension type: essential hypertension Qualified Code(s): I10 - Essential (primary) hypertension Category: Medical Code(s): I10 - Essential (primary) hypertension (8) Hypothyroidism Current visit: No Status: Chronic Qualifiers: Hypothyroidism type: acquired Qualified Code(s): E03.9 - Hypothyroidism, unspecified Category: Medical Code(s): E03.9 - Hypothyroidism, unspecified (9) Parkinson's disease (tremor, stiffness, slow motion, unstable posture) Current visit: No Status: Chronic Category: Medical Code(s): G20 - Parkinson's disease (10) Acute kidney injury Current visit: Yes Status: Acute Category: Medical Code(s): N17.9 - Acute kidney failure, unspecified (11) Hypernatremia Current visit: Yes Status: Acute Category: Medical Code(s): E87.0 - Hyperosmolality and hypernatremia - Assessment and plan all Dx Assessment and Plan for all problems:: BASED ON PATIENT FACTORS AND VANCOMYCIN TROUGH LEVEL, RECOMMEND HOLDING VANCOMYCIN TODAY. PHARMACY WILL ORDER ANOTHER TROUGH LEVEL TOMORROW MORNING. IF TROUGH LEVEL IS < 18 MCG/ML, RECOMMEND STARTING VANCOMYCIN 1500 MG IV Q24H.
[2018-07-29 07:48] LABS: Basophils % 0.6 % (0.1-2.0); Eosinophils # 0.1 K/mm3 (0.0-0.4); Eosinophils % 1.2 % (0.1-12.0); Hematocrit 33.9 % (37.0-47.0); Hemoglobin 10.5 g/dL (12.2-16.2); Lymphocytes # 0.8 K/mm3 (0.7-4.5); Lymphocytes % 11.8 % (10-50); Mean Corpuscular HGB Conc 31.1 g/dL (31.8-35.4); Mean Corpuscular Hemoglobin 27.8 pg (27.0-31.2); Mean Corpuscular Volume 89.2 fl (81-99); Mean Platelet Volume 8.7 fl (7.4-10.4); Monocytes # 0.3 K/mm3 (0.1-1.0); Monocytes % 5.3 % (1.7-9.3); Neutrophils # 5.1 K/mm3 (1.8-7.8); Platelet Count 83 K/mm3 (142-424); Red Cell Distribution Width 18.3 % (11.5-17.5); White Blood Count 6.3 K/mm3 (4.8-10.8)
--- NOTE | 2018-07-29 08:35 | Discharge Summary ---
General - General Admission date:: 07/27/18 Discharge date: 07/29/18 HPI HPI: Ms. Pablo is a 62-year-old harris of the [facility] who presented to the ER from a detention with recurrent episode of acute on chronic hypoxic and hypercarbic respiratory failure. She has a very complex medical history with extensive comorbidities, multiple abdominal surgeries, and for prior admissions this month for similar respiratory failure. Upon admission she was placed on BiPAP due to PCO2 of 120. Patient was admitted for further management. She otherwise was hemodynamically stable. Antibiotics were broadened out to vancomycin, cefepime, Levaquin. Patient already has prior PICC in place which is being used during this admission. Of note on admission repeat chest x-ray was obtained showing slight worsening of right-sided pleural effusion. Review of records shows this pleural effusion was not present earlier this month however had appeared to slightly improved during last admission. Given her worsening respiratory status/failure, and repeat admission. Decision was made to drain pleural effusion to assist respiratory status. Patient is a poor historian however reports being very thirsty and short of breath. Denies any other symptoms at this time. Unable to obtain complete review of systems however denies chest pain, confusion, nausea or vomiting. Hospital Course Hospital Course: Patient was admitted to the hospital. She was placed on broad-spectrum IV antibiotics to cover previously diagnosed Staphylococcus aureus from sputum. She was found to have pleural effusion which was drained by Dr. León without complications. The patient responded very nicely to this. Oxygen requirements declined very nicely and she was able to be comfortable on 2 L nasal cannula over the next couple of days. She was continued on antibiotics but she was found to have slight worsening of her renal insufficiency and high vancomycin levels and the vancomycin dose was held over the last 24 hours. This morning patient is alert, awake, pleasant and talkative but continues to be disoriented to place and time. I will be to discharge back to detention today. She will need a basic metabolic panel in 2 days to document renal function. Given that she has been on vancomycin and significant antibiotic therapy over the last week and a half I am not sure she needs further IV antibiotics. It seems as if the biggest thing that is helped her oxygenation status has been the drainage of her pleural effusion. Therefore, I will send her back on doxycycline only, 100 mg twice daily with breakfast and supper for the next 7 days to cover residual staph colonization. Follow-up per her primary medicine service at the detention Objective Vital signs: Temp Pulse Resp BP Pulse Ox 98.0 F 76 20 167/107 H 97 07/29/18 07:50 07/29/18 07:50 07/29/18 07:50 07/29/18 07:50 07/29/18 07:50 Narrative: Patient is awake, oriented x1. Disoriented to place and time. Continues to have her tangential thinking and disordered thinking from her psychiatric disease. However, she denies pain and is pleasant and cooperative with the exam. Oropharynx shows that she is edentulous with moist oral mucosa. Lungs have good air expansion. Good symmetry noted. Normal airway sounds in the upper lung kelly. Minimal rhonchi in the bases but vastly improved over her baseline. Heart rate regular. Abdomen soft. Trace ankle edema from her obesity but no pitting and no skin breakdown. She able to move all extremities well. She is vigorously eating her pured diet. Results Labs on day of discharge: Labs from last 24 hours 07/29/18 07/28/18 07:30 07:35 WBC 6.3 6.9 RBC 3.80 L 3.82 L Hgb 10.5 L 10.6 L Hct 33.9 L 34.9 L MCV 89.2 91.4 MCH 27.8 27.7 MCHC 31.1 L 30.3 L RDW 18.3 H 18.2 H Plt Count 83 L 70 L MPV 8.7 8.7 Neut % (Auto) 81.0 H 80.2 H Lymph % (Auto) 11.8 13.9 [place] % (Auto) 5.3 4.9 Eos % (Auto) 1.2 0.8 Baso % (Auto) 0.6 0.2 Neut # (Auto) 5.1 5.5 Lymph # (Auto) 0.8 1.0 [place] # (Auto) 0.3 0.3 Eos # (Auto) 0.1 0.1 Baso # (Auto) 0.0 0.0 Preliminary micro results at discharge 07/27/18 02:20 Blood Culture - Preliminary Blood NO GROWTH AFTER 48 HOURS 07/27/18 02:20 Blood Culture - Preliminary Blood NO GROWTH AFTER 48 HOURS 07/27/18 15:50 Body Fluid Culture - Preliminary Thoracic Fluid NO GROWTH AFTER 24 HOURS DS: Diagnosis - Discharge Diagnosis (1) Acute and chronic respiratory failure Status: Chronic (2) HCAP (healthcare-associated pneumonia) Status: Acute (3) Pleural effusion, right Status: Resolved (4) Acute respiratory failure with hypoxia and hypercapnia Status: Resolved (5) Altered mental status Status: Chronic (6) Obesity (BMI 30-39.9) Status: Chronic (7) Hypertension Status: Chronic (8) Hypothyroidism Status: Chronic (9) Parkinson's disease (tremor, stiffness, slow motion, unstable posture) Status: Chronic (10) Acute kidney injury Status: Chronic (11) Hypernatremia Status: Resolved Discharge Plan - Patient Discharge Instructions ACTIVITY: Continue current activity DIET: continue same diet Patient Instructions: DI for Pneumonia -- Adult, DI for Respiratory Failure - Follow up Plan Follow up with: Chito Archibald MD [Primary Care Provider] - Disposition: er [facility] Home Medications: Home Medications Medication Instructions Recorded Confirmed Type Ascorbic Acid [Vitamin C] 1,000 mg PO DAILY 11/13/17 07/27/18 History Aspirin [Aspirin 81mg chewable 81 mg PO DAILY 11/13/17 07/27/18 History tab] Benztropine Mesylate 0.5 mg PO DAILY 11/13/17 07/27/18 History Benztropine Mesylate [Cogentin 1mg 1 mg PO HS 11/13/17 07/27/18 History tablet] Carvedilol [Carvedilol 25mg Tab] 25 mg PO 0800,1700 11/13/17 07/27/18 History Divalproex Sodium 250 mg PO BID 11/13/17 07/27/18 History Fluticasone Propionate [Flonase 1 spr NS DAILY 11/13/17 07/27/18 History 50mcg nasal spray 16gm] Hydrocod/Acet 5/325 mg [[place] 1 each PO TID 11/13/17 07/27/18 History 5/325mg tablet] Isosorbide Dinitrate [Isordil 20mg 20 mg PO TID 11/13/17 07/27/18 History tablet] Lactulose [Lactulose 10gm/15ml 20 gm PO DAILY 11/13/17 07/27/18 History Oral Soln] Levothyroxine Sodium 75 mcg PO DAILY 11/13/17 07/27/18 History [Levothyroxine 75mcg (0.075mg) Tab] Potassium Chloride [Klor-Con 10mEq 10 meq PO DAILY 11/13/17 07/27/18 History tab] Pravastatin Sodium [Pravachol] 40 mg PO HS 11/13/17 07/27/18 History Sodium Chloride 3 gm PO TID 11/13/17 07/27/18 History Venlafaxine HCl 75 mg PO TID 11/13/17 07/27/18 History Calcium Carbonate [Tums 500mg 500 mg PO DAILY 11/14/17 07/27/18 History chewtab] Polyethylene Glycol 3350 [Miralax 17 gm PO DAILY 11/14/17 07/27/18 History 17gm Packet] albuterol sulfate HFA 90 2 puff INHALATION Q4H PRN 01/07/18 07/27/18 History mcg/actuation aerosol inhaler aluminum hydrox-magnesium carb 95 30 ml PO QIDP PRN ml 01/07/18 07/27/18 History mg-358 mg/15 mL oral suspension phenol 1.4 % mucosal aerosol spray 2 spray MUCOUS MEM QIDP PRN ml 01/07/18 07/27/18 History sennosides 8.6 mg-docusate sodium 1 tab PO BIDP PRN 01/07/18 07/27/18 History 50 mg tablet Furosemide [Furosemide 20mg Tab] 20 mg PO DAILYP PRN 03/28/18 07/27/18 History Lisinopril [Zestril 5mg 5 mg PO DAILY 06/15/18 07/27/18 History Tablet] Rifaximin [Xifaxan] 550 mg PO BID 06/16/18 07/27/18 History clonazePAM [Clonazepam] 0.25 mg PO TID 06/29/18 07/27/18 History Cholecalciferol (Vitamin D3) 2,000 unit PO DAILY 07/13/18 07/27/18 History [Vitamin D3 1,000 Unit Tab] Ondansetron HCl [Ondansetron 4mg 4 mg PO Q4HP PRN 07/13/18 07/27/18 History Tablet] Propylene Glycol [Systane Balance] 1 drop EYE-BOTH BID 07/13/18 07/27/18 History guaiFENesin [Robafen] 200 mg PO Q6HP PRN 07/13/18 07/27/18 History Cefdinir [Omnicef 300mg Capsule] 300 mg PO BID 07/23/18 07/27/18 History Docusate Sodium [Colace Clear] 50 mg PO BID PRN 07/23/18 07/27/18 History Ipratropium/Albuterol Sulfate 3 ml IH QIDRT 07/23/18 07/27/18 History [Duoneb 3mL neb] Doxycycline Hyclate [Doxycycline 100 mg PO BID #14 cap 07/29/18 Rx 100mg Capsule] Prescriptions/Medication Reconciliation: New Doxycycline Hyclate [Doxycycline 100mg Capsule] 100 mg PO BID #14 cap Continue sennosides 8.6 mg-docusate sodium 50 mg tablet 1 tab PO BIDP PRN PRN Reason: Constipation aluminum hydrox-magnesium carb 95 mg-358 mg/15 mL oral suspension 30 ml PO QIDP PRN ml PRN Reason: UPSET STOMACH albuterol sulfate HFA 90 mcg/actuation aerosol inhaler 2 puff INHALATION Q4H PRN PRN Reason: breathing phenol 1.4 % mucosal aerosol spray 2 spray MUCOUS MEM QIDP PRN ml PRN Reason: sore throat Pravastatin Sodium [Pravachol] 40 mg PO HS Potassium Chloride [Klor-Con 10mEq tab] 10 meq PO DAILY Fluticasone Propionate [Flonase 50mcg nasal spray 16gm] 1 spr NS DAILY Divalproex Sodium 250 mg PO BID Carvedilol [Carvedilol 25mg Tab] 25 mg PO 0800,1700 Benztropine Mesylate 0.5 mg PO DAILY Benztropine Mesylate [Cogentin 1mg tablet] 1 mg PO HS Aspirin [Aspirin 81mg chewable tab] 81 mg PO DAILY Ascorbic Acid [Vitamin C] 1,000 mg PO DAILY Polyethylene Glycol 3350 [Miralax 17gm Packet] 17 gm PO DAILY Furosemide [Furosemide 20mg Tab] 20 mg PO DAILYP PRN PRN Reason: FLUID RETENTION/SWELLING clonazePAM [Clonazepam] 0.25 mg PO TID Cholecalciferol (Vitamin D3) [Vitamin D3 1,000 Unit Tab] 2,000 unit PO DAILY Propylene Glycol [Systane Balance] 1 drop EYE-BOTH BID guaiFENesin [Robafen] 200 mg PO Q6HP PRN PRN Reason: Cough Ipratropium/Albuterol Sulfate [Duoneb 3mL neb] 3 ml IH QIDRT Hydrocod/Acet 5/325 mg [[place] 5/325mg tablet] 1 each PO TID Isosorbide Dinitrate [Isordil 20mg tablet] 20 mg PO TID Lactulose [Lactulose 10gm/15ml Oral Soln] 20 gm PO DAILY Levothyroxine Sodium [Levothyroxine 75mcg (0.075mg) Tab] 75 mcg PO DAILY Venlafaxine HCl 75 mg PO TID Calcium Carbonate [Tums 500mg chewtab] 500 mg PO DAILY Lisinopril [Zestril 5mg Tablet] 5 mg PO DAILY Rifaximin [Xifaxan] 550 mg PO BID Ondansetron HCl [Ondansetron 4mg Tablet] 4 mg PO Q4HP PRN PRN Reason: Nausea And Vomiting Docusate Sodium [Colace Clear] 50 mg PO BID PRN PRN Reason: Constipation Discontinued Sodium Chloride 3 gm PO TID Cefdinir [Omnicef 300mg Capsule] 300 mg PO BID
[2018-07-29 09:27] LABS: Anion Gap 13.7 mEq/L (5-15); Bilirubin,Total 0.4 mg/dL (0.2-1.0); Potassium 3.7 mmoL/L (3.5-5.1)
[2018-07-29 09:28] LABS: Albumin Level 1.9 gm/dL (3.4-5.0); Albumin/Globulin Ratio 0.5 (1.1-1.8); Globulin 4.1 gm/dl (1.3-3.2)
== END 2018-07-29 09:28 | disposition home or self-care (01) | DRG 189 ==
LOC: ER 01:32 → 2ND 01:32 → OBSVTOIN 04:25 → 2ND 04:27
PROVIDERS: ADMIT Internal Medicine Adolescent Medicine; ATTEND Internal Medicine Adolescent Medicine
CPT/HCPCS: 36415; 71010; 71045; 80048; 80053; 80202; 82803; 83605; 83615; 84436; 84443; 84479; 85025; 87040; 87070; 87205; 89051; 93005; 94640; 94761; 96374; 99285; J0692; J1956; J3370